=== PATIENT | male | born 1950 | race Caucasian/White ===

== ENCOUNTER → 2017-11-16 10:52 | Outpatient (CLI) | payer MEDICARE, OTHER, SELFPAY ==
[2017-11-16 10:55] LABS: Adenovirus F 40/41, stool Not Detected (NotDetected); Astrovirus Not Detected (NotDetected); Clostridium Difficile A/B, PCR Not Detected (NotDetected); Cryptosporidium Not Detected (NotDetected); Cyclospora Cayetanesis Not Detected (NotDetected); Entamoeba histolytica Not Detected (NotDetected); Enteroaggregative E coli Not Detected (NotDetected); Enteropathogenic E coli Not Detected (NotDetected); Enterotoxigenic E coli Not Detected (NotDetected); Giardia lamblia Not Detected (NotDetected); Norovirus Not Detected (NotDetected); Plesimonas Shigalloides, PCR Not Detected (NotDetected); Rotavirus A Not Detected (NotDetected); Salmonella, PCR Not Detected (NotDetected); Sapovirus Not Detected (NotDetected); Shiga-like toxin E coli Not Detected (NotDetected); Shigella Enterovasive E coli Not Detected (NotDetected); Vibrio Cholerae Not Detected (NotDetected); Vibrio, PCR Not Detected (NotDetected); Yersinia Entercolitica, PCR Not Detected (NotDetected)
[2017-11-16 17:24] LABS: Campylobacter Detected (NotDetected)
== END ==
PROVIDERS: Visit Provider Nurse Practitioner
DX: A09 Infectious gastroenteritis and colitis, unspecified (principal)
CPT/HCPCS: 87507

== ENCOUNTER → 2018-08-05 09:15 | Outpatient (CLI) | payer MEDICARE, OTHER, SELFPAY ==
--- NOTE | 2018-08-05 09:17 | FL_ITS ---
FL barium enema w air contrast CLINICAL INDICATION: ITS.REASON: history of polyps / tortuous colon ORDERING PHYSICIAN: Moise Peck MD PATIENT AGE: 68 years Comparison: None Fluoroscopy time: 3.00 minutes FINDINGS: Payroll Examiner exam shows surgical clips in the right upper quadrant. There are degenerative changes in the lumbar spine. Scattered diverticula are present within the sigmoid colon and distal descending colon. No no annular constricting lesions. There is a persistent lobular filling defect in the mid aspect of the transverse colon at 13 mm possibly due to small polyp. Adherent feces is an additional consideration. No other significant anomalies are evident. IMPRESSION: 1. Possible small polyp in the mid aspect of the transverse colon at 13 mm. 2. No annular constricting lesions. 3. Diverticulosis
== END ==
PROVIDERS: PCP Family Medicine; Visit Provider Surgery
DX: D12.6 Benign neoplasm of colon, unspecified (principal); Q43.8 Other specified congenital malformations of intestine
CPT/HCPCS: 74280

== ENCOUNTER → 2018-10-13 12:47 | Outpatient (CLI) | payer MEDICARE, OTHER, SELFPAY ==
--- NOTE | 2018-10-13 12:51 | CT_ITS ---
CT lung screening EXAM: CT LUNG LOW DOSE WO CONTRAST HISTORY: 30+ pack year smoking history, asymptomatic for lung cancer ITS.REASON: H/O NICOTINE DEPENDENCE ORDERING PHYSICIAN: Nisreen Parra APRN PATIENT AGE: 68 years COMPARISON: None TECHNIQUE: The exam was performed on a GE Light Speed [address] scanner using 2.90 mGy CTDI. A low dose helical CT CHEST was performed on a multi-detector scanner. All CT scans at the facility use one or more dose reduction, viz: automated exposure control, ma/kV adjustment per patient size (including targeted exams where dose is matched to indication, i.e. head), or iterative reconstruction technique. The LDCT was performed in a facility that meets the criteria for the screening program. Data regarding this exam was submitted to ACR which is an approved registry. The order for this exam indicates that it came as a result of a lung cancer screening counseling shard decision-making visit that included all the elements required of such a visit including smoking cessation. The radiologist interpreting this exam meets the CMS criteria for the LDCT lung cancer screening program. The exam is reported using the Lung-RADS classification scale and reported to the ACR registry. NOTE: This study was performed for the specific purposes of lung cancer screening and is not an alternative to diagnostic chest CT. RADIATION DOSE: CTDI vol(CT dose Index-volume) = 2.90mG DLP (Dose Length Product) = 99.97 mGcm FINDINGS: There are few small axillary lymph nodes. There are multiple small mediastinal lymph nodes. There is somewhat saccular aneurysmal dilatation of the aortic arch with protrusion of the left lateral wall of the aorta laterally. The overall transverse dimension of the aorta at this area is 5 cm. There are coronary artery calcifications. Normal heart size. Centrilobular emphysema with changes of COPD and scattered areas of scarring. There is a 7 x 8 mm nodule within the anterior segment of the right upper lobe axial image #37. Although the nodule somewhat dense, definite calcification is not ascertained. An additional 8 x 6 mm noncalcified nodule is present in the right upper lobe medially axial image #29 IMPRESSION: 1. Lung RADS Category: 4A, mildly suspicious 2. 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 [address] without and with contrast 2. Appropriate consult for thoracic aortic aneurysm
== END ==
PROVIDERS: PCP Family Medicine; Visit Provider Nurse Practitioner Family
DX: Z12.2 Encounter for screening for malignant neoplasm of respiratory organs (principal); Z87.891 Personal history of nicotine dependence

== ENCOUNTER → 2018-12-27 15:57 | Outpatient (CLI) | payer MEDICARE, OTHER, SELFPAY ==
--- NOTE | 2018-12-27 16:03 | XR_ITS ---
PROCEDURE: XR CHEST 2V CLINICAL HISTORY: S/P TEVAR Follow-up aortic surgery COMPARISON: CXR CHEST(2 VIEWS-NOT PORTABLE) from 08/17/2012 Chest from 10/25/2018 FINDINGS: Normal heart size. Status post thoracic endovascular aortic repair with a large aortic stent present at the aortic arch and proximal descending thoracic aorta. COPD with chronic changes. Mild atelectatic changes present in the left lung base with minimal blunting of the left CP angle. No acute bony abnormalities. IMPRESSION: Status post TEVAR with mild left basilar atelectasis, COPD, and trace left effusion Dictated by: Larry Alvarado MD 12/27/2018 16:31 Electronically signed by Larry Alvarado MD in [place] 12/27/2018 16:31
== END ==
PROVIDERS: PCP Family Medicine; Visit Provider Thoracic Surgery (Cardiothoracic Vascular Surgery)
DX: Z95.828 Presence of other vascular implants and grafts (principal)
CPT/HCPCS: 71046

== ENCOUNTER → 2019-08-11 10:01 | Outpatient (CLI) | payer MEDICARE, OTHER, SELFPAY ==
[2019-08-11 10:53] LABS: Basophils # 0.1 K/mm3 (0-0.2); Basophils % 1.2 % (0.1-2.0); Eosinophils # 0.2 K/mm3 (0.0-0.4); Eosinophils % 1.7 % (0.1-12.0); Hematocrit 46.8 % (42.0-52.0); Hemoglobin 15.1 g/dL (14.1-18.0); Lymphocytes # 1.9 K/mm3 (0.7-4.5); Lymphocytes % 17.6 % (10-50); Mean Corpuscular HGB Conc 32.3 g/dL (31.8-35.4); Mean Corpuscular Hemoglobin 29.1 pg (27.0-31.2); Mean Corpuscular Volume 90.3 fl (80-94); Mean Platelet Volume 8.8 fl (7.4-10.4); Monocytes # 0.6 K/mm3 (0.1-1.0); Monocytes % 5.6 % (1.7-9.3); Neutrophils # 7.8 K/mm3 (1.8-7.8); Neutrophils % 73.8 % (37.0-80.0); Platelet Count 204 K/mm3 (142-424); Red Blood Count 5.19 M/mm3 (4.60-6.20); Red Cell Distribution Width 14.1 % (11.5-17.5); White Blood Count 10.5 K/mm3 (4.8-10.8)
[2019-08-11 11:15] LABS: Alanine Aminotransferase 29 U/L (12-78); Albumin Level 4.5 g/dl (3.5-5.0); Albumin/Globulin Ratio 1.6 (1.1-1.8); Alkaline Phosphatase 61 U/L (38-126); Anion Gap 14.2 mEq/L (5-15); Aspartate Amino Transferase 22 U/L (17-59); Bilirubin,Total 0.3 mg/dl (0.2-1.3); Blood Urea Nitrogen 30 mg/dl (9-20); Calcium 9.4 mg/dl (8.4-10.2); Carbon Dioxide 22 mmol/L (22.0-30.0); Chloride 104 mmol/L (98-107); Estimated Glomerular Filt Rate 55 ml/min (>60); GFR (African American) 66 ML/MIN (>60); Globulin 2.8 g/dL (1.3-3.2); Glucose 186 mg/dl (74-100); Potassium 4.2 mmoL/L (3.5-5.1); Sodium 136 mmol/L (136-145); Total Protein,Serum 7.3 g/dl (6.3-8.2)
[2019-08-11 11:38] LABS: Erythrocyte Sedimentation Rate 7 mm/hr (0-20)
[2019-08-15 20:34] LABS: QuantiFERON-TB Gold Plus Negative (Negative)
== END ==
PROVIDERS: PCP Family Medicine; Visit Provider Internal Medicine Rheumatology
DX: M05.9 Rheumatoid arthritis with rheumatoid factor, unspecified (principal); I10 Essential (primary) hypertension
CPT/HCPCS: 36415; 80053; 85025; 85651; 86480

== ENCOUNTER → 2019-08-31 09:11 | Outpatient (CLI) | payer MEDICARE, OTHER, SELFPAY ==
[2019-08-31 09:41] LABS: Blood Urea Nitrogen 32 mg/dl (9-20); Estimated Glomerular Filt Rate 50 ml/min (>60); GFR (African American) 61 ML/MIN (>60)
--- NOTE | 2019-08-31 10:02 | CT_ITS ---
PROCEDURE: CT CHEST WO/W CON CLINCAL INDICATION: THORACIC ANEURYSM,LUNG NODULE Follow-up aneurysm COMPARISON: CT ANGIO CHEST from 01/30/2019 CT ABDOMEN PELVIS WO/W CON from 08/31/2019 TECHNIQUE: IV Contrast: 75ml Optiray 350 Axial images obtained with sagittal and coronal reformats. All CT scans at the facility use one or more dose reduction, viz: automated exposure control, ma/kV adjustment per patient size (including targeted exams where dose is matched to indication, i.e. head), or iterative reconstruction technique. FINDINGS: Prior aneurysm repair with aortic stent graft present within the descending thoracic aorta beginning just distal to the origin of the left subclavian artery and extending to the mid aspect of the descending thoracic aorta. There is mild dilatation of the proximal aspect of the descending thoracic aorta at 4.7 cm similar to the previous exam. The internal diameter of the stent graft is 4 cm similar to the previous exam. The ascending aorta has an unremarkable appearance. Coronary artery calcifications are present. There are mildly prominent mediastinal lymph nodes noted similar to the previous exam mostly in the precarinal and pretracheal region and subcarinal area. Changes of COPD with centrilobular emphysema. Scattered small pneumatocele is a with some pleural thickening on the right. No acute bony findings. Mildly prominent axillary lymph nodes are once again noted and not significantly changed IMPRESSION: Overall stable CT appearance of the chest. No change in the prior aneurysm repair with mild dilatation of the proximal descending thoracic aorta Mild mediastinal and axillary adenopathy not significantly changed Dictated by: Larry Alvarado MD 09/01/2019 09:52 Electronically signed by Larry Alvarado MD in [place] 09/01/2019 09:52
--- NOTE | 2019-08-31 10:02 | CT_ITS ---
PROCEDURE: CT ABDOMEN PELVIS WO/W CON CLINICAL INDICATION: THORACIC ANEURYSM,LUNG NODULE Follow-up aneurysm COMPARISON: No exams were available for comparison TECHNIQUE: IV Contrast: 75ML OPTIRAY 350 Oral Contrast 20ml Gastroview Axial images obtained with sagittal and coronal reformats. All CT scans at the facility use one or more dose reduction, viz: automated exposure control, ma/kV adjustment per patient size (including targeted exams where dose is matched to indication, i.e. head), or iterative reconstruction technique. FINDINGS: There are extensive coronary artery calcifications. The liver, gallbladder, spleen, adrenal glands, pancreas, has an unremarkable appearance. There has been a prior right nephrectomy. There are nonobstructing calculi in the lower pole of the left kidney versus vascular calcifications measuring up to 4 mm. No ureteral calculi. No hydronephrosis. There is an exophytic hypodensity to the projecting off the lower pole of the left kidney posteriorly at 1.8 cm measuring 10 Hounsfield units and may be due to small cyst with other smaller cortical cysts noted. There has been prior aortoiliac stent placement. There is mild dilatation of the lower abdominal aorta at 3 cm. The aorta tapers to 2.6 cm at the bifurcation region. There is fusiform aneurysmal dilatation of the [place] right common iliac artery measuring up to 4.4 cm transverse. Bilateral common iliac artery stents are present with minimal dilatation of the distal aspect of the right common iliac artery stent at 2.2 cm. There are no previous exams available at this institution for comparison. There is no evidence of acute retroperitoneal hemorrhage. The superior mesenteric artery and celiac artery and renal arteries have an unremarkable appearance. The aortoiliac stent begins just below the level of the left renal artery and 1.2 cm below the level of the right renal artery. Prior appendectomy. There is colonic diverticulosis but no evidence of diverticulitis. No intestinal obstruction or free air. There are degenerative changes of the lumbar spine and hips and SI joints. There is some increased soft tissue density in the right iliac region which may be due to prior hernia repair IMPRESSION: 1. Prior aortoiliac stent placement for aortic and right common iliac artery aneurysm as described above. There is 3 cm dilatation of the [place] aorta. The [place] right common iliac artery measures 4.4 cm. No evidence of stent leak. 2. Prior right nephrectomy. 3. Exophytic hypodensity projects off the posterior aspect of the left kidney and may be due to renal cyst. Ultrasound may confirm 4. Colonic diverticulosis without diverticulitis Dictated by: Larry Alvarado MD 09/01/2019 10:01 Electronically signed by Larry Alvarado MD in [place] 09/01/2019 10:01
== END ==
PROVIDERS: PCP Family Medicine; Visit Provider Thoracic Surgery (Cardiothoracic Vascular Surgery)
DX: I71.2 Thoracic aortic aneurysm, without rupture (principal); I72.3 Aneurysm of iliac artery
CPT/HCPCS: 36415; 71270; 74178; 82565; 84520; Q9967

== ENCOUNTER → 2019-09-27 15:37 | Outpatient (CLI) | payer MEDICARE, OTHER, SELFPAY ==
--- NOTE | 2019-09-27 15:43 | CA_ITS ---
APPROVED REPORT Bilateral Lower Extremity Venous Study for DVT. Interior Design Project Manager: IVET Indications Lower Extremity Pain: Vein Imaging CFV (L): compressive, spontaneous, phasic, augmentation SFJ (L): compressive, spontaneous, phasic, augmentation FEM (L): compressive, spontaneous, phasic, augmentation POP (L): compressive, spontaneous, phasic, augmentation DFV (L): compressive, spontaneous, phasic, augmentation PTV (L): Compressible GSV (L): Compressible Peroneals (L):Compressible GAS (L): Compressible Findings No evidence of DVT or superficial thrombophlebitis in the veins scanned of the left lower extremity. Incidental finding of bakers cyst reported to Dr. Rodrigues Conclusion No evidence of DVT or superficial thrombophlebitis in the veins scanned of the left lower extremity. Electronically signed by : Fausto Joyner, 09/29/2019 09:19:16
== END ==
PROVIDERS: PCP Family Medicine; Visit Provider Family Medicine
DX: M79.605 Pain in left leg (principal)
CPT/HCPCS: 93971

== ENCOUNTER → 2020-01-03 11:50 | Outpatient (CLI) | payer MEDICARE, OTHER, SELFPAY ==
--- NOTE | 2020-01-03 11:55 | XR_ITS ---
PROCEDURE: XR CHEST 2V CLINICAL HISTORY: COPD Cough and shortness of air, smoker COMPARISON: CR Chest from 10/25/2018 CR XR CHEST 2V from 12/27/2018 CR XR CHEST 2V from 01/30/[address] CHEST WO/W CON from 08/31/2019 FINDINGS: Aortic graft is present along the aortic arch and proximal descending thoracic aorta. Atelectasis or infiltrate is present in the lingula with chronic atelectatic changes in the right upper lobe. No acute bony abnormalities. IMPRESSION: New atelectasis or infiltrate within the lingula with chronic changes in the right upper lobe. Dictated by: Larry Alvarado MD 01/03/2020 12:43 Larry Alvarado MD in [place] 01/03/2020 12:43
== END ==
PROVIDERS: PCP Family Medicine; Visit Provider Family Medicine
DX: M17.12 Unilateral primary osteoarthritis, left knee (principal); J44.9 Chronic obstructive pulmonary disease, unspecified
CPT/HCPCS: 71046

== ENCOUNTER 2020-07-26 15:55 | Emergency (ER) | payer MEDICARE, OTHER, SELFPAY ==
[2020-07-26 15:57] VITALS: BP 163/96; PULSE 76; RESP 18; TEMP 36.7; O2SAT 95; BMI 27.4
--- NOTE | 2020-07-26 16:29 | CA_ITS ---
APPROVED REPORT Bilateral Lower Extremity Venous Study for DVT. Crab Picker: KEITH Indications Left pain, swelling, r/o dvt, previous DVT on bloodthinners, 4 wk post op, acute injury with fall Vein Imaging CFV (L): compressive, spontaneous, phasic, augmentation FEM (L): compressive, spontaneous, phasic, augmentation POP (L): compressive, spontaneous, phasic, augmentation DFV (L): compressive, spontaneous, phasic, augmentation PTV (L): compressive, spontaneous, phasic, augmentation GSV (L): compressive, spontaneous, phasic, augmentation SSV (L): compressive, spontaneous, phasic, augmentation Peroneals (L):compressive, spontaneous, phasic, augmentation GAS (L): compressive, spontaneous, phasic, augmentation Findings No evidence of DVT or superficial thrombophlebitis in the veins scanned of the left lower extremity. Color flow duplex demonstrates no evidence of DVT of the following left lower extremity Veins:Common Femoral Vein, Femoral Vein, Popliteal Vein, Posterior Tibial Veins, Peroneal Veins, Deep Femoral Vein. Conclusion No evidence of DVT or superficial thrombophlebitis in the veins scanned of the left lower extremity. Color flow duplex demonstrates no evidence of DVT of the following left lower extremity Veins:Common Femoral Vein, Femoral Vein, Popliteal Vein, Posterior Tibial Veins, Peroneal Veins, Deep Femoral Vein. Electronically signed by : Larry Alvarado MD 07/27/2020 17:47:57
--- NOTE | 2020-07-26 16:29 | XR_ITS ---
PROCEDURE: XR TIBIA FIBULA LT 2V CLINICAL INDICATION: injury Pain COMPARISON: No exams were available for comparison FINDINGS: No fracture or dislocation. No lytic or blastic change. There is normal mineralization. Status post total knee replacement which is in good position. Other findings:None. IMPRESSION: No acute findings. Dictated by: Larry Alvarado MD 07/26/2020 17:07 Larry Alvarado MD in [place] 07/26/2020 17:07
[2020-07-26 16:30] VITALS: BP 154/86; PULSE 68; RESP 20; O2SAT 94
--- NOTE | 2020-07-26 16:31 | HMH.EDGENADL ---
ED Disposition Clinical Impression: Hematoma of left lower leg Disposition: Home, Self-Care Condition on Discharge: Good Additional Instructions: Continue elevation, ice, compression. Tylenol for pain. Return to the emergency department if worsening pain, swelling, or fever greater than 100 degrees. Follow-up with primary care doctor if not improved by next week. Referrals: Master Hanley MD [Primary Care Provider] - - Critical Care Critical Care Time: No Attestation: On 07/26/20, the high probability of a clinically significant, sudden or life threatening deterioration of the following system(s) required my full and direct attention, intervention and personal management. The time I documented below is in addition to time spent performing reported procedures but includes the following listed in this critical care notation. Medical Decision Making - Fco Inquiry Pt receiving controlled substance: No Vital Signs: 07/26/20 15:57 07/26/20 16:30 07/26/20 17:18 Temperature 98.1 F Temperature Source Oral Pulse Rate 68 69 Pulse Rate [Left Radial] 76 Respiratory Rate 18 20 Blood Pressure 154/86 H 137/74 Blood Pressure [Right Arm] 163/96 H Blood Pressure Mean 103 Blood Pressure Mean [Right Arm] 118 Blood Pressure Source [Right Arm] Automatic Cuff Blood Pressure Position [Right Arm] Sitting 02 Sat by Pulse Oximetry 95 94 L 95 Oxygen Delivery Method Room Air 07/26/20 17:30 Temperature Temperature Source Pulse Rate 65 Pulse Rate [Left Radial] Respiratory Rate Blood Pressure 144/73 H Blood Pressure [Right Arm] Blood Pressure Mean 94 Blood Pressure Mean [Right Arm] Blood Pressure Source [Right Arm] Blood Pressure Position [Right Arm] 02 Sat by Pulse Oximetry 96 Oxygen Delivery Method - Lab Data Lab Results 07/26/20 16:40: WBC 10.6, RBC 5.36, Hgb 14.9, Hct 45.3, MCV 84.6, MCH 27.7, MCHC 32.8, RDW 15.8, Plt Count 199, MPV 8.1, Neut % (Auto) 67.7, Lymph % (Auto) 25.2, [place] % (Auto) 4.1, Eos % (Auto) 2.2, Baso % (Auto) 0.8, Neut # (Auto) 7.2, Lymph # (Auto) 2.7, [place] # (Auto) 0.4, Eos # (Auto) 0.2, Baso # (Auto) 0.1 07/26/20 16:40: Sodium 140, Potassium 3.8, Chloride 107, Carbon Dioxide 23, Anion Gap 13.8, BUN 24 H, Creatinine 1.60 H, Estimated Creat Clear 58, Estimated GFR 43 L, Est GFR ( Amer) 52 L, Glucose 173 H, Calcium 9.2 Result diagrams: 07/26/20 16:40 07/26/20 16:40 - Radiology Data #1 Image(s): Tib/Fib Image Reviewed: Yes I reviewed the patient's radiology image, Yes I have reviewed radiologist's interpretation PROCEDURE: XR TIBIA FIBULA LT 2V CLINICAL INDICATION: injury Pain COMPARISON: No exams were available for comparison FINDINGS: No fracture or dislocation. No lytic or blastic change. There is normal mineralization. Status post total knee replacement which is in good position. Other findings:None. IMPRESSION: No acute findings. Dictated by: Larry Alvarado MD 07/26/2020 17:07 Larry Alvarado MD in [place] 07/26/2020 17:07 - US Data US Images: Lower Extremity Findings Narrative: As per [facility] procedure, doppler report received from geotechnicial properties technician: Negative for DVT. Prominent inguinal lymph nodes. Medical Decision Narrative: The patient is worried about infection. At this time I do not find any evidence to support infection. He does not have fever or elevated white blood cell count. There are no open wounds. I think the soft tissues are inflamed from hematoma formation. I do not feel antibiotics are indicated and he is comfortable with this. He will observe at home, elevate ice and apply compression and return if any fever develops. General Adult HPI - General Chief complaint: Extremity Injury, Lower Stated complaint: [id number] metal stake hit, left leg swollen Time Seen by Provider: 07/26/20 16:20 Mode of Arrival: Ambulatory Limitations: No Limitations Description of Symptoms (Recalled from ER Triage Doc.
[2020-07-26 16:52] LABS: Basophils # 0.1 K/mm3 (0-0.2); Basophils % 0.8 % (0.1-2.0); Eosinophils # 0.2 K/mm3 (0.0-0.4); Eosinophils % 2.2 % (0.1-12.0); Hematocrit 45.3 % (42.0-52.0); Hemoglobin 14.9 g/dL (14.1-18.0); Lymphocytes # 2.7 K/mm3 (0.7-4.5); Lymphocytes % 25.2 % (10-50); Mean Corpuscular HGB Conc 32.8 g/dL (31.8-35.4); Mean Corpuscular Hemoglobin 27.7 pg (27.0-31.2); Mean Corpuscular Volume 84.6 fl (80-94); Mean Platelet Volume 8.1 fl (7.4-10.4); Monocytes # 0.4 K/mm3 (0.1-1.0); Monocytes % 4.1 % (1.7-9.3); Neutrophils # 7.2 K/mm3 (1.8-7.8); Neutrophils % 67.7 % (37.0-80.0); Platelet Count 199 K/mm3 (142-424); Red Blood Count 5.36 M/mm3 (4.60-6.20); Red Cell Distribution Width 15.8 % (11.5-17.5); White Blood Count 10.6 K/mm3 (4.8-10.8)
--- NOTE | 2020-07-26 17:00 | PC.NURSE ---
pt had doppler done by vascular.
[2020-07-26 17:18] VITALS: BP 137/74; PULSE 69; O2SAT 95
[2020-07-26 17:30] VITALS: BP 144/73; PULSE 65; O2SAT 96
[2020-07-26 17:32] LABS: Chloride 107 mmol/L (98-107); Potassium 3.8 mmoL/L (3.5-5.1); Sodium 140 mmol/L (136-145)
[2020-07-26 17:35] LABS: Blood Urea Nitrogen 24 mg/dl (9-20); Creatinine Clearance Estimated 58 mL/min (50-200); Estimated Glomerular Filt Rate 43 ml/min (>60); GFR (African American) 52 ML/MIN (>60)
[2020-07-26 17:36] LABS: Anion Gap 13.8 mEq/L (5-15); Calcium 9.2 mg/dl (8.4-10.2); Carbon Dioxide 23 mmol/L (22.0-30.0); Glucose 173 mg/dl (74-100)
[2020-07-26 17:54] VITALS: BP 144/73; PULSE 65; RESP 20; TEMP 36.7; O2SAT 96
== END 2020-07-26 18:00 | disposition home or self-care (01) ==
PROVIDERS: Emergency Provider Emergency Medicine; PCP Family Medicine
DX: S80.12XA Contusion of left lower leg, initial encounter (principal); W22.8XXA Striking against or struck by other objects, initial encounter; Y92.018 Other place in single-family (private) house as the place of occurrence of the external cause; Z96.652 Presence of left artificial knee joint; E11.9 Type 2 diabetes mellitus without complications; I10 Essential (primary) hypertension; F17.210 Nicotine dependence, cigarettes, uncomplicated; Z88.2 Allergy status to sulfonamides; Z79.899 Other long term (current) drug therapy
CPT/HCPCS: 73590; 80048; 85025; 93971; 99282

== ENCOUNTER → 2020-12-06 14:18 | Outpatient (CLI) | payer MEDICARE, OTHER, SELFPAY ==
--- NOTE | 2020-12-06 14:21 | US_ITS ---
PROCEDURE: US KIDNEY CLINICAL INDICATION: ANALGESIC NEPHROPATHY,SINGLE KIDNEY COMPARISON: No exams were available for comparison FINDINGS: The right kidney is surgically absent the spleen is normal in size and shows homogeneous echogenicity. There are few scattered opacities throughout the spleen suggestive of partially calcified granulomata. The left kidney measures 13.7 x 5.6 x 6.1 cm. There is a good corticomedullary junction and renal thickness measures 1.3 cm. There is no hydronephrosis. There is a small exophytic cyst lower pole measuring 1.5 by 1.9 x 1.5 cm. There is normal vascularity. IMPRESSION: Small exophytic cyst lower pole otherwise unremarkable appearing left kidney Dictated by: Dr. Osmar Jay MD 12/07/2020 13:41 Dr. Osmar Jay MD in [place] 12/07/2020 13:41
== END ==
PROVIDERS: PCP Family Medicine; Visit Provider Internal Medicine Nephrology
DX: N14.0 Analgesic nephropathy (principal); Z90.5 Acquired absence of kidney
CPT/HCPCS: 76770

== ENCOUNTER → 2021-02-01 09:24 | Outpatient (CLI) | payer MEDICARE, OTHER, SELFPAY ==
[2021-02-01 09:29] LABS: Microscopic, Urine URINE MICROSCOPIC (MICROSCOPIC)
[2021-02-01 09:53] LABS: Basophils # 0.1 K/mm3 (0-0.2); Eosinophils # 0.5 K/mm3 (0.0-0.4); Eosinophils % 4.1 % (0.1-12.0); Hematocrit 46.2 % (42.0-52.0); Hemoglobin 15.3 g/dL (14.1-18.0); Lymphocytes # 4.8 K/mm3 (0.7-4.5); Lymphocytes % 39.8 % (10-50); Mean Corpuscular Hemoglobin 29.3 pg (27.0-31.2); Mean Corpuscular Volume 88.7 fl (80-94); Mean Platelet Volume 8.6 fl (7.4-10.4); Monocytes # 0.5 K/mm3 (0.1-1.0); Monocytes % 4.4 % (1.7-9.3); Neutrophils # 6.1 K/mm3 (1.8-7.8); Neutrophils % 50.6 % (37.0-80.0); Platelet Count 199 K/mm3 (142-424); Red Blood Count 5.21 M/mm3 (4.60-6.20); Red Cell Distribution Width 14.2 % (11.5-17.5); White Blood Count 12.1 K/mm3 (4.8-10.8)
[2021-02-01 10:23] LABS: Hemoglobin A1C 6.7 % (4.0-6.0)
[2021-02-01 11:10] LABS: Albumin Level 4.1 g/dl (3.5-5.0); Blood Urea Nitrogen 18 mg/dl (9-20); Calcium 9.2 mg/dl (8.4-10.2); Carbon Dioxide 23 mmol/L (22.0-30.0); Chloride 107 mmol/L (98-107); Estimated Glomerular Filt Rate 55 ml/min (>60); GFR (African American) 66 ML/MIN (>60); Glucose 133 mg/dl (74-100); Phosphorous 3.3 mg/dl (2.5-4.5); Sodium 140 mmol/L (136-145); Uric Acid 6.7 mg/dl (3.5-8.5)
[2021-02-01 11:19] LABS: Intact Parathyroid Hormone 60.8 pg/mL (7.5-53.5)
[2021-02-01 11:30] LABS: Anion Gap 14.2 mEq/L (5-15); Potassium 4.2 mmoL/L (3.5-5.1)
[2021-02-01 14:23] LABS: Appearance,Urine CLEAR (Clear); Bilirubin,Urine Negative (Negative); Blood, Urine Negative (Negative); Color,Urine DK YELLOW (Yellow); Glucose,Urine (UA) Negative (Negative); Ketones,Urine Negative (Negative); Leukocyte Esterase,Urine Negative (Negative); Nitrate,Urine Negative (Negative); Protein,Urine 3+ (Negative); Specific Gravity, Urine >= 1.030 (1.005-1.030); Urobilinogen,Urine 0.2 EU/dl (0.2)
== END ==
PROVIDERS: Visit Provider Internal Medicine Nephrology
DX: N18.30 Chronic kidney disease, stage 3 unspecified (principal); E11.9 Type 2 diabetes mellitus without complications
CPT/HCPCS: 36415; 80069; 81001; 83036; 83970; 84550; 85025

== ENCOUNTER → 2021-04-24 11:58 | Outpatient (CLI) | payer MEDICARE, OTHER, SELFPAY ==
--- NOTE | 2021-04-24 12:13 | US_ITS ---
FINAL REPORT CLINICAL HISTORY: MASS OF LT AXILLA-- palp area FINDINGS: Sonographic images of the left axilla were obtained. Multiple soft tissue masses are seen in the left axilla, largest measures 5.5 x 1.6 cm. Some of these likely represent enlarging lymph nodes all of them may represent enlarging lymph nodes. Appearance is most worrisome for neoplastic involvement. IMPRESSION: Soft tissue masses as above most worrisome for neoplastic involvement. Reviewed, Interpreted and Dictated by Eder Hopkins III, MD Transcribed by Kelly Anderson Authenticated by Eder Hopkins III, MD on 04/24/2021 01:47:17 PM [facility]
== END ==
PROVIDERS: PCP Internal Medicine Adolescent Medicine; Visit Provider Internal Medicine Adolescent Medicine
DX: R22.32 Localized swelling, mass and lump, left upper limb (principal)
CPT/HCPCS: 76882

== ENCOUNTER → 2021-05-01 10:08 | Outpatient (CLI) | payer MEDICARE, OTHER, SELFPAY ==
[2021-05-01 12:01] LABS: Blood Urea Nitrogen 25 mg/dl (9-20); Estimated Glomerular Filt Rate 50 ml/min (>60); GFR (African American) 61 ML/MIN (>60)
== END ==
PROVIDERS: PCP Internal Medicine Adolescent Medicine; Visit Provider Internal Medicine Adolescent Medicine
DX: Z01.812 Encounter for preprocedural laboratory examination (principal)
CPT/HCPCS: 36415; 82565; 84520

== ENCOUNTER → 2021-05-03 09:29 | Outpatient (CLI) | payer MEDICARE, OTHER, SELFPAY ==
--- NOTE | 2021-05-03 09:32 | CT_ITS ---
FINAL REPORT CLINICAL HISTORY: MASS OF LEFT AXILLA COMPARISON: August 31, 2019 FINDINGS: The lung bases are clear. There is scattered calcified granulomas in the liver and spleen. The spleen is mildly enlarged. The gallbladder is present. The adrenals are normal. The pancreas is unremarkable. The right kidney is surgically absent. The left kidney enhances appropriately. An abdominal aortic endo graft is present. There is some abnormal enhancement in the excluded aneurysm lumen and this enhancement is well seen on image 62 of series 9. This is concerning for an endoleak apparently arising from the OMLAN. This finding is similar to that seen previously. The abdominal aorta measures up to 3.2 cm in diameter. There has been an increase in upper abdominal adenopathy. Portal lymph node measures 2.4 cm, increased over 1.5 cm. A periaortic lymph node measures 1.8 cm, increased over 1.3 cm. Precontrast images demonstrate no nephrolithiasis. Again noted is a significant right common iliac artery aneurysm measuring 4.3 cm in diameter and is unchanged from previous. There are surgical clips in the right lower quadrant. The appendix is not seen. There is moderate sigmoid diverticulosis without diverticulitis. IMPRESSION: Mild splenomegaly. Abdominal aortic endo graft with endoleak from the [place], no change from previous. 4.3 cm right common iliac artery aneurysm, no change from previous. Increased nonspecific abdominal adenopathy. Please see report of chest CT. PET scan would be of value. Reviewed, Interpreted and Dictated by Marcin Aguirre MD Transcribed by Miguelina Lozoya Authenticated by Marcin Aguirre MD on 05/03/2021 02:18:[address] [facility]
--- NOTE | 2021-05-03 09:32 | CT_ITS ---
FINAL REPORT TECHNIQUE: Axial images through the chest were performed by computed tomography before and after the administration of IV contrast. This study was performed with techniques to keep radiation doses as low as reasonably achievable, (ALARA). Individualized dose reduction techniques using automated exposure control or adjustment of mA and/or kV according to the patient's size were employed. CLINICAL HISTORY: MASS OF LEFT AXILLA COMPARISON: August 31, 2019 and ultrasound dated April 24, 2021 FINDINGS: The mediastinal vasculature is adequately opacified. There is a thoracic aortic endo graft in the arch. There is moderate mediastinal adenopathy and bilateral hilar adenopathy. Hilar lymph nodes measure up to 3.0 x 1.7 cm, which is similar to previous. However, there is significant enlargement of bilateral axillary lymph nodes. Individual lymph nodes now measure up to 4.0 cm in greatest dimension. Adenopathy is seen bilaterally which is new since the previous exam. The heart size is normal. There is no pericardial or pleural effusion. Limited images of the upper abdomen are unremarkable. In the lung window images there is some mild dependent edema and atelectasis at the lung bases. There is a small nodule in the periphery of the right upper lobe measuring about 4 mm which is less evident than previous. This is seen on image 36 of series 8. IMPRESSION: Interval development of extensive bilateral axillary adenopathy. Findings are concerning for underlying neoplasia, lymphoma is a consideration. A PET-CT may be of value to better assess the full extent of disease. Reviewed, Interpreted and Dictated by Marcin Aguirre MD Transcribed by Miguelina Lozoya Authenticated by Marcin Aguirre MD on 05/03/2021 02:18:56 PM [facility]
== END ==
PROVIDERS: PCP Internal Medicine Adolescent Medicine; Visit Provider Internal Medicine Adolescent Medicine
DX: R22.32 Localized swelling, mass and lump, left upper limb (principal)
CPT/HCPCS: 71270; 74178; Q9967

== ENCOUNTER → 2021-06-18 14:12 | Outpatient (CLI) | payer MEDICARE, OTHER, SELFPAY | PROVIDERS: PCP Surgery; Visit Provider Surgery | DX: Z01.812 Encounter for preprocedural laboratory examination (principal); Z11.52 Encounter for screening for COVID-19 | CPT/HCPCS: C9803; U0003; U0005 ==

== ENCOUNTER → 2021-06-19 11:21 | Outpatient (CLI) | payer MEDICARE, OTHER, SELFPAY ==
[2021-06-19 12:49] LABS: Basophils # 0.2 K/mm3 (0-0.2); Basophils % 1.2 % (0.1-2.0); Chloride 109 mmol/L (98-107); Eosinophils # 0.9 K/mm3 (0.0-0.4); Eosinophils % 6.5 % (0.1-12.0); Hematocrit 49.3 % (42.0-52.0); Hemoglobin 15.9 g/dL (14.1-18.0); Lymphocytes # 7.4 K/mm3 (0.7-4.5); Mean Corpuscular HGB Conc 32.2 g/dL (31.8-35.4); Mean Corpuscular Hemoglobin 28.8 pg (27.0-31.2); Mean Corpuscular Volume 89.5 fl (80-94); Mean Platelet Volume 9.9 fl (7.4-10.4); Monocytes # 0.6 K/mm3 (0.1-1.0); Monocytes % 3.9 % (1.7-9.3); Neutrophils # 5.2 K/mm3 (1.8-7.8); Neutrophils % 36.4 % (37.0-80.0); Platelet Count 176 K/mm3 (142-424); Potassium 4.1 mmoL/L (3.5-5.1); Red Blood Count 5.51 M/mm3 (4.60-6.20); Red Cell Distribution Width 14.8 % (11.5-17.5); Sodium 141 mmol/L (136-145); White Blood Count 14.3 K/mm3 (4.8-10.8)
[2021-06-19 12:52] LABS: Anion Gap 12.1 mEq/L (5-15); Blood Urea Nitrogen 28 mg/dl (9-20); Calcium 8.2 mg/dl (8.4-10.2); Carbon Dioxide 24 mmol/L (22.0-30.0); Estimated Glomerular Filt Rate 40 ml/min (>60); GFR (African American) 48 ML/MIN (>60); Glucose 118 mg/dl (74-100)
[2021-06-19 12:55] LABS: MANUAL DIFFERENTIAL MANUAL DIFFERENTIAL (MANUAL DIFF)
[2021-06-19 15:00] LABS: Eosinophils % 5 % (0-3); Lymphocytes % 40 % (10-50); Monocytes % 2 % (2-9); Neutrophils % 53 % (42-76); Total Cells Counted 100
[2021-06-19 15:01] LABS: Platelet Estimate Normal
== END ==
PROVIDERS: Visit Provider Surgery
DX: C91.10 Chronic lymphocytic leukemia of B-cell type not having achieved remission (principal)
CPT/HCPCS: 36415; 80048; 85007; 85025

== ENCOUNTER 2021-06-20 08:21 | Day surgery (SDC) | payer MEDICARE, OTHER, SELFPAY ==
[2021-06-18 13:41] VITALS: BMI 28.8
[2021-06-20] VITALS (10 sets, daily range): BP systolic 149–167; BP diastolic 70–98; PULSE 61–67; RESP 14–18; TEMP 36.4–36.6; O2SAT 93–98
--- NOTE | 2021-06-20 08:45 | SUR.PREOP ---
Dr. Peck made aware of WBC 14.3, no new orders.
--- NOTE | 2021-06-20 08:53 | P.PN_ITS ---
[facility] Anesthesia Checklist - Patient Identification Patient Identification: Arm Band - Structural Data Admitted From: Home Planned Operative Procedure/s: Axillary node excision Consent for Planned Operative Procedure(s) Verified: Yes - NPO Status Verified Time NPO: 00:00 - Additional verifications Anesthesia Reactions: No Hx Blood Transfusions: No Blood Transfusion Reaction: No - Airway Assessment C-Spine Mobility Assessed: Yes TMJ Mobility Assessed: Yes Dentition: Poor Dentition - Neurological Assessment Level of Consciousness: Awake Hx Seizures: No Numbness or tingling in extremities: No - Anesthesia Plan Anesthesia Risk discussed: Yes Anesthesia Plan: Verified ASA Class: III Anesthesia Type: General [facility] History I have reviewed the patient's past medical history: Yes Medical History: Reports:: Aneurysm (Aortic/ R. Iliac), Cancer, Deep Vein Thrombosis, Diabetes Mellitus Type 2, Hypertension Denies:: Diabetes Mellitus Type 1, Internal Pacemaker, Lung Disease, Seizures *Have you ever received a pneumonia vaccine?: Yes *Have you received a flu vaccine this season?: No Other Medical History: Reports: Arthritis. Denies: Blood Transfusion Reaction Anesthesia experience/problems:: None Laterality Cases: Bilateral: Other Other Surgeries: Yes: Appendectomy, Colonoscopy, Hernia Repair, Sinus Surgery, Other. No: Pacemaker Amputation: No Fractures: No - *Social History Last grade of school completed: Advanced degree Smoking Status: Current some day smoker Tobacco Type: cigarettes # Packs/Day (cigarettes): 1 Alcohol Intake: current Alcohol Intake Frequency:: holidays/special occasions only Substance Use Type: denies use *Occupational Status:: employed Housing: house *Travel in the last 8 weeks: None Family Hx:: Heart Attack
--- NOTE | 2021-06-20 10:08 | HMH.OPNOTE ---
Date of procedure: 06/20/21 Pre-op Diagnosis:: Bilateral axillary adenopathy Post-op Diagnosis:: Same Procedure performed:: Excisional biopsy of left axillary lymph nodes Surgeon:: Moise Peck MD CUSTOMER [employer] CHAIN ANALYST:: Julián Duffy Anesthesia: LMA Estimated blood loss (mL): 25 Operative findings:: Complex and large matted lymph nodes within left axilla #10 flat Jay-Duvall drain placed secondary to extent of dissection Operative note:: After informed consent was obtained the patient was taken to the operating room and placed in the supine position. General anesthesia with laryngeal mask airway was achieved. His left axilla was prepped and draped in a sterile fashion. After infiltration local anesthetic an incision was made overlying the palpable abnormality. The deep subcutaneous tissue was dissected with electrocautery. Enlarged/matted lymphatic tissue was noted throughout the left axilla. A single lymphatic mass was carefully elevated and dissected free from surrounding tissue utilizing electrocautery. The mass was divided and placed in both RPMI solution and formalin. An additional enlarged lymph node was noted to be immediately adjacent. This was carefully elevated and dissected free. It was also placed in RPMI solution after excision. A combination of electrocautery and clips were utilized to achieve hemostasis. A #10 flat Jay-Duvall drain was placed along the wound base and exited through a separate stab incision. The drain was secured with interrupted nylon suture. Skin was then closed in an interrupted mattress fashion utilizing 4-0 nylon. Dressings were applied and the patient was transferred recovery in stable condition. Condition: stable Disposition: PACU Specimens:: Left axillary lymph node (partial specimen in RPMI solution and partial specimen in formalin) Additional left axillary tissue (RPMI solution) Complications:: No immediate
--- NOTE | 2021-06-20 10:17 | HMH.ANESI ---
[facility] Anesthesia Record Part I Intake, IV Amount: 800 Estimated blood loss (mL): 10 Urine output (mL): 0 Blood Pressure: 149/91 SaO2: 94 Pulse Rate: 63 Respiratory Rate: 16 Temperature: 97.8 F Patient is:: Drowsy, Stable Stable to PACU at:: 10:15
[2021-06-20 10:24] LABS: POC Glucose,Bedside 94 (70-110)
--- NOTE | 2021-06-20 10:51 | SUR.PHASEI ---
1044- detailed repot called to jaya tracey in post op at this time. 1046- pt left in stable condition with jaya tracey in post op.
--- NOTE | 2021-06-20 13:25 | P.PN_ITS ---
[facility] Anesthesia Record Part II Discharge Time: 10:45 Destination: Surgical Day Care (OP Surgery) PACU nurse assessment reviewed?: Yes Patient Condition:: Good Anesthesia Complications:: None Swallowing reflex intact?: Yes Cyanosis?: No Blood Pressure: 150/70 Pulse Rate: 64 Temperature: 97.5 F Mental Status: Alert & Oriented Pain level:: 0 Nausea and/or vomitting:: None Intake, IV Amount: 0
[2022-01-02 10:58] LABS: POC Glucose,Bedside 87 (70-110)
== END 2021-06-20 11:45 | disposition home or self-care (01) ==
LOC: OR 08:22
PROVIDERS: PCP Internal Medicine Adolescent Medicine; Visit Provider Surgery
DX: Z85.6 Personal history of leukemia (principal); R59.0 Localized enlarged lymph nodes; E11.9 Type 2 diabetes mellitus without complications; I10 Essential (primary) hypertension; Z86.718 Personal history of other venous thrombosis and embolism; Z90.49 Acquired absence of other specified parts of digestive tract; Z72.0 Tobacco use; Z82.3 Family history of stroke; Z88.1 Allergy status to other antibiotic agents; Z88.2 Allergy status to sulfonamides; Z79.899 Other long term (current) drug therapy; Z79.82 Long term (current) use of aspirin
CPT/HCPCS: 38500; 82962; 88305; 88342; 88360; 96374; J2405

== ENCOUNTER 2021-08-08 08:18 | Outpatient (CLI) | payer MEDICARE, OTHER, SELFPAY ==
[2021-08-08] VITALS (18 sets, daily range): BP systolic 139–175; BP diastolic 74–95; PULSE 58–79; RESP 18; O2SAT 96; BMI 29.5
[2021-08-08 08:45] LABS: Basophils # 0.5 K/mm3 (0-0.2); Basophils % 2.5 % (0.1-2.0); Eosinophils # 1.5 K/mm3 (0.0-0.4); Eosinophils % 7.6 % (0.1-12.0); Hematocrit 47.9 % (42.0-52.0); Hemoglobin 16.1 g/dL (14.1-18.0); Lymphocytes # 11.3 K/mm3 (0.7-4.5); Lymphocytes % 57.6 % (10-50); Mean Corpuscular HGB Conc 33.6 g/dL (31.8-35.4); Mean Corpuscular Hemoglobin 29.9 pg (27.0-31.2); Mean Corpuscular Volume 88.9 fl (80-94); Monocytes # 0.8 K/mm3 (0.1-1.0); Neutrophils # 5.6 K/mm3 (1.8-7.8); Neutrophils % 28.3 % (37.0-80.0); Platelet Count 180 K/mm3 (142-424); Red Blood Count 5.39 M/mm3 (4.60-6.20); Red Cell Distribution Width 14.9 % (11.5-17.5); White Blood Count 19.7 K/mm3 (4.8-10.8)
[2021-08-08 08:47] LABS: Chloride 108 mmol/L (98-107); Sodium 139 mmol/L (136-145)
[2021-08-08 08:48] LABS: Potassium 4.1 mmoL/L (3.5-5.1)
[2021-08-08 08:50] LABS: Alanine Aminotransferase 26 U/L (12-78); Albumin Level 4.1 g/dl (3.5-5.0); Albumin/Globulin Ratio 1.5 (1.1-1.8); Alkaline Phosphatase 80 U/L (38-126); Aspartate Amino Transferase 25 U/L (17-59); Bilirubin,Total 0.7 mg/dl (0.2-1.3); Blood Urea Nitrogen 38 mg/dl (9-20); Calcium 9.2 mg/dl (8.4-10.2); Carbon Dioxide 23 mmol/L (22.0-30.0); Creatinine Clearance Estimated 52 mL/min (50-200); Estimated Glomerular Filt Rate 35 ml/min (>60); GFR (African American) 43 ML/MIN (>60); Globulin 2.8 g/dL (1.3-3.2); Glucose 178 mg/dl (74-100); MANUAL DIFFERENTIAL MANUAL DIFFERENTIAL (MANUAL DIFF); Total Protein,Serum 6.9 g/dl (6.3-8.2)
[2021-08-08 08:53] LABS: Anion Gap 12.1 mEq/L (5-15)
[2021-08-08 09:04] LABS: Eosinophils % 3 % (0-3); Lymphocytes % 56 % (10-50); Monocytes % 5 % (2-9); Neutrophils % 36 % (42-76); Platelet Estimate Normal; RBC Morphology Normal; Total Cells Counted 100
[2021-08-31 17:21] LABS: Hep A Ab, IgM NEGATIVE; Hepatitis B Core Antibody IgM NEGATIVE; Hepatitis B Surface Antigen NEGATIVE; Hepatitis C Antibody <0.1
== END 2021-08-08 14:25 | disposition home or self-care (01) ==
LOC: INF 08:19
PROVIDERS: PCP Internal Medicine Adolescent Medicine; Visit Provider Internal Medicine Medical Oncology
DX: Z51.11 Encounter for antineoplastic chemotherapy (principal); C91.10 Chronic lymphocytic leukemia of B-cell type not having achieved remission; R10.10 Upper abdominal pain, unspecified
CPT/HCPCS: 80053; 80074; 85007; 85025; 96413; 96415; J9312

== ENCOUNTER 2021-08-15 11:44 | Outpatient (CLI) | payer MEDICARE, OTHER, SELFPAY ==
[2021-08-15 11:44] VITALS: BMI 29.7
--- NOTE | 2021-08-15 12:00 | PC.NURSE ---
1200-collected labs via peripheral stick; pt d/c home.
[2021-08-15 12:14] LABS: Basophils % 2.9 % (0.1-2.0); Eosinophils # 0.8 K/mm3 (0.0-0.4); Eosinophils % 2.3 % (0.1-12.0); Hematocrit 46.6 % (42.0-52.0); Hemoglobin 15.5 g/dL (14.1-18.0); Lymphocytes # 22.4 K/mm3 (0.7-4.5); Mean Corpuscular HGB Conc 33.4 g/dL (31.8-35.4); Mean Corpuscular Hemoglobin 29.2 pg (27.0-31.2); Mean Corpuscular Volume 87.5 fl (80-94); Mean Platelet Volume 10.1 fl (7.4-10.4); Monocytes # 1.3 K/mm3 (0.1-1.0); Monocytes % 3.9 % (1.7-9.3); Platelet Count 176 K/mm3 (142-424); Red Blood Count 5.32 M/mm3 (4.60-6.20); Red Cell Distribution Width 14.9 % (11.5-17.5); White Blood Count 34.5 K/mm3 (4.8-10.8)
[2021-08-15 12:19] LABS: Alanine Aminotransferase 23 U/L (12-78); Albumin Level 3.8 g/dl (3.5-5.0); Albumin/Globulin Ratio 1.5 (1.1-1.8); Alkaline Phosphatase 73 U/L (38-126); Anion Gap 11.6 mEq/L (5-15); Aspartate Amino Transferase 25 U/L (17-59); Bilirubin,Total 0.7 mg/dl (0.2-1.3); Blood Urea Nitrogen 29 mg/dl (9-20); Calcium 8.6 mg/dl (8.4-10.2); Carbon Dioxide 22 mmol/L (22.0-30.0); Chloride 107 mmol/L (98-107); Creatinine Clearance Estimated 55 mL/min (50-200); Estimated Glomerular Filt Rate 37 ml/min (>60); GFR (African American) 45 ML/MIN (>60); Globulin 2.6 g/dL (1.3-3.2); Glucose 170 mg/dl (74-100); Lactate Dehydrogenase 155 U/L (313-618); Potassium 3.6 mmoL/L (3.5-5.1); Sodium 137 mmol/L (136-145); Total Protein,Serum 6.4 g/dl (6.3-8.2)
[2021-08-15 12:21] LABS: MANUAL DIFFERENTIAL MANUAL DIFFERENTIAL (MANUAL DIFF)
[2021-08-15 12:44] LABS: Lymphocytes % 70 % (10-50); Monocytes % 3 % (2-9); Neutrophils % 27 % (42-76); Platelet Estimate Normal; RBC Morphology Normal; Total Cells Counted 100
== END 2021-08-15 12:01 | disposition home or self-care (01) ==
PROVIDERS: PCP Internal Medicine Adolescent Medicine; Visit Provider Internal Medicine Medical Oncology
DX: C91.10 Chronic lymphocytic leukemia of B-cell type not having achieved remission (principal)
CPT/HCPCS: 36415; 80053; 83615; 84550; 85007; 85025

== ENCOUNTER → 2021-08-22 08:23 | Outpatient (CLI) | payer MEDICARE, OTHER, SELFPAY ==
[2021-08-22 08:27] VITALS: BMI 29.5
--- NOTE | 2021-08-22 08:30 | PC.NURSE ---
venipuncture performed per yael childs rn to obtain blood for repeat labs as ordered per md. blood obtained and specimen sent to lab for analysis, site secured with 2x2 gauze and coban. pt ambulated down to md clinic to attend md appt.
[2021-08-22 08:46] LABS: Basophils # 0.6 K/mm3 (0-0.2); Basophils % 1.5 % (0.1-2.0); Chloride 106 mmol/L (98-107); Eosinophils # 0.9 K/mm3 (0.0-0.4); Eosinophils % 2.4 % (0.1-12.0); Hematocrit 42.8 % (42.0-52.0); Hemoglobin 14.5 g/dL (14.1-18.0); Lymphocytes # 30.6 K/mm3 (0.7-4.5); Lymphocytes % 77.2 % (10-50); Mean Corpuscular HGB Conc 33.9 g/dL (31.8-35.4); Mean Corpuscular Hemoglobin 29.6 pg (27.0-31.2); Mean Corpuscular Volume 87.2 fl (80-94); Mean Platelet Volume 9.7 fl (7.4-10.4); Monocytes # 1.2 K/mm3 (0.1-1.0); Neutrophils # 6.3 K/mm3 (1.8-7.8); Platelet Count 207 K/mm3 (142-424); Red Blood Count 4.91 M/mm3 (4.60-6.20); Red Cell Distribution Width 14.5 % (11.5-17.5); Sodium 137 mmol/L (136-145); White Blood Count 39.6 K/mm3 (4.8-10.8)
[2021-08-22 08:47] LABS: MANUAL DIFFERENTIAL MANUAL DIFFERENTIAL (MANUAL DIFF); Potassium 4.3 mmoL/L (3.5-5.1)
[2021-08-22 08:49] LABS: Alanine Aminotransferase 19 U/L (12-78); Albumin Level 3.7 g/dl (3.5-5.0); Albumin/Globulin Ratio 1.3 (1.1-1.8); Alkaline Phosphatase 75 U/L (38-126); Anion Gap 13.3 mEq/L (5-15); Aspartate Amino Transferase 19 U/L (17-59); Bilirubin,Total 0.5 mg/dl (0.2-1.3); Blood Urea Nitrogen 26 mg/dl (9-20); Carbon Dioxide 22 mmol/L (22.0-30.0); Creatinine Clearance Estimated 63 mL/min (50-200); Estimated Glomerular Filt Rate 43 ml/min (>60); GFR (African American) 52 ML/MIN (>60); Globulin 2.8 g/dL (1.3-3.2); Total Protein,Serum 6.5 g/dl (6.3-8.2)
[2021-08-22 08:50] LABS: Calcium 9.2 mg/dl (8.4-10.2); Glucose 165 mg/dl (74-100)
[2021-08-22 08:58] LABS: Eosinophils % 1 % (0-3); Lymphocytes % 79 % (10-50); Monocytes % 1 % (2-9); Neutrophils % 20 % (42-76); Total Cells Counted 200
[2021-08-22 08:59] LABS: Platelet Estimate Normal; RBC Morphology Normal
== END ==
PROVIDERS: PCP Internal Medicine Adolescent Medicine; Visit Provider Internal Medicine Medical Oncology
DX: C91.10 Chronic lymphocytic leukemia of B-cell type not having achieved remission (principal)
CPT/HCPCS: 80053; 85007; 85025

== ENCOUNTER 2021-09-05 08:02 | Outpatient (CLI) | payer MEDICARE, OTHER, SELFPAY ==
[2021-09-05] VITALS (8 sets, daily range): BP systolic 141–152; BP diastolic 71–87; PULSE 54–61; RESP 18; TEMP 36.6; O2SAT 97; BMI 28.5
[2021-09-05 08:30] LABS: Basophils % 1.8 % (0.1-2.0); Eosinophils # 0.8 K/mm3 (0.0-0.4); Eosinophils % 1.5 % (0.1-12.0); Hemoglobin 14.4 g/dL (14.1-18.0); Lymphocytes # 45.3 K/mm3 (0.7-4.5); Lymphocytes % 82.3 % (10-50); Mean Corpuscular HGB Conc 32.6 g/dL (31.8-35.4); Mean Corpuscular Hemoglobin 28.5 pg (27.0-31.2); Mean Corpuscular Volume 87.3 fl (80-94); Mean Platelet Volume 10.1 fl (7.4-10.4); Monocytes # 1.4 K/mm3 (0.1-1.0); Monocytes % 2.6 % (1.7-9.3); Neutrophils # 7.5 K/mm3 (1.8-7.8); Platelet Count 189 K/mm3 (142-424); Red Blood Count 5.04 M/mm3 (4.60-6.20); Red Cell Distribution Width 14.4 % (11.5-17.5)
--- NOTE | 2021-09-05 08:30 | PC.NURSE ---
0830-Angela Hill called and spoke to Andrés Duarte RN at 0830 to report wbc 55.Rn repeated and verified pt name, , and lab value. No new orders per standing order ok to continue with treatment.
[2021-09-05 08:31] LABS: Chloride 106 mmol/L (98-107); Neutrophils % 13.6 % (37.0-80.0); Potassium 3.8 mmoL/L (3.5-5.1); Sodium 138 mmol/L (136-145)
[2021-09-05 08:32] LABS: MANUAL DIFFERENTIAL MANUAL DIFFERENTIAL (MANUAL DIFF)
[2021-09-05 08:34] LABS: Alanine Aminotransferase 16 U/L (12-78); Albumin Level 3.9 g/dl (3.5-5.0); Albumin/Globulin Ratio 1.4 (1.1-1.8); Alkaline Phosphatase 74 U/L (38-126); Anion Gap 8.8 mEq/L (5-15); Aspartate Amino Transferase 17 U/L (17-59); Bilirubin,Total 0.7 mg/dl (0.2-1.3); Blood Urea Nitrogen 19 mg/dl (9-20); Carbon Dioxide 27 mmol/L (22.0-30.0); Creatinine Clearance Estimated 58 mL/min (50-200); Estimated Glomerular Filt Rate 40 ml/min (>60); GFR (African American) 48 ML/MIN (>60); Globulin 2.8 g/dL (1.3-3.2); Total Protein,Serum 6.7 g/dl (6.3-8.2)
[2021-09-05 08:35] LABS: Calcium 8.9 mg/dl (8.4-10.2); Glucose 190 mg/dl (74-100)
[2021-09-05 08:42] LABS: Eosinophils % 1 % (0-3); Lymphocytes % 88 % (10-50); Monocytes % 2 % (2-9); Neutrophils % 9 % (42-76); Total Cells Counted 100
[2021-09-05 08:43] LABS: Ovalocytes 1+; Platelet Estimate Normal; Poikilocytosis 1+
== END 2021-09-05 12:48 | disposition home or self-care (01) ==
LOC: INF 08:03
PROVIDERS: PCP Internal Medicine Adolescent Medicine; Visit Provider Internal Medicine Medical Oncology
DX: Z51.11 Encounter for antineoplastic chemotherapy (principal); C91.10 Chronic lymphocytic leukemia of B-cell type not having achieved remission; M06.9 Rheumatoid arthritis, unspecified
CPT/HCPCS: 80053; 85007; 85025; 96413; 96415; J9312

== ENCOUNTER 2021-09-12 08:10 | Outpatient (CLI) | payer MEDICARE, OTHER, SELFPAY ==
[2021-09-12 08:15] VITALS: BMI 28.5
--- NOTE | 2021-09-12 08:28 | PC.NURSE ---
0828-collected labs via venipuncture; pt to oncology appointment.
[2021-09-12 08:40] LABS: Basophils # 2.5 K/mm3 (0-0.2); Basophils % 3.7 % (0.1-2.0); Eosinophils # 0.7 K/mm3 (0.0-0.4); Eosinophils % 1.1 % (0.1-12.0); Hematocrit 43.6 % (42.0-52.0); Hemoglobin 14.2 g/dL (14.1-18.0); Lymphocytes # 55.5 K/mm3 (0.7-4.5); Lymphocytes % 82.5 % (10-50); Mean Corpuscular HGB Conc 32.7 g/dL (31.8-35.4); Mean Corpuscular Hemoglobin 28.1 pg (27.0-31.2); Mean Corpuscular Volume 85.9 fl (80-94); Mean Platelet Volume 9.8 fl (7.4-10.4); Monocytes # 1.6 K/mm3 (0.1-1.0); Monocytes % 2.4 % (1.7-9.3); Neutrophils # 9.4 K/mm3 (1.8-7.8); Platelet Count 214 K/mm3 (142-424); Red Blood Count 5.07 M/mm3 (4.60-6.20); Red Cell Distribution Width 14.4 % (11.5-17.5)
[2021-09-12 08:46] LABS: Chloride 105 mmol/L (98-107); Potassium 3.9 mmoL/L (3.5-5.1); Sodium 135 mmol/L (136-145)
[2021-09-12 08:49] LABS: Alanine Aminotransferase 15 U/L (12-78); Albumin Level 3.9 g/dl (3.5-5.0); Albumin/Globulin Ratio 1.3 (1.1-1.8); Alkaline Phosphatase 79 U/L (38-126); Aspartate Amino Transferase 22 U/L (17-59); Bilirubin,Total 0.8 mg/dl (0.2-1.3); Blood Urea Nitrogen 16 mg/dl (9-20); Creatinine Clearance Estimated 65 mL/min (50-200); Estimated Glomerular Filt Rate 46 ml/min (>60); GFR (African American) 56 ML/MIN (>60); Globulin 3.1 g/dL (1.3-3.2)
[2021-09-12 08:50] LABS: Calcium 9.1 mg/dl (8.4-10.2); Glucose 171 mg/dl (74-100)
[2021-09-12 08:54] LABS: White Blood Count 67.3 K/mm3 (4.8-10.8)
[2021-09-12 08:55] LABS: MANUAL DIFFERENTIAL MANUAL DIFFERENTIAL (MANUAL DIFF)
--- NOTE | 2021-09-12 08:55 | PC.NURSE ---
Chapis from lab called to report critical WBC of 67.3. Name, and result were verified. notified, no new orders at this time.
[2021-09-12 09:12] LABS: Lymphocytes % 75 % (10-50); Macrocytosis 1+; Monocytes % 2 % (2-9); Neutrophils % 14 % (42-76); Platelet Estimate Normal; Total Cells Counted 100
[2021-09-12 09:21] LABS: Microscopic, Urine URINE MICROSCOPIC (MICROSCOPIC)
[2021-09-12 09:33] LABS: Appearance,Urine CLEAR (Clear); Bilirubin,Urine Negative (Negative); Blood, Urine Negative (Negative); Color,Urine YELLOW (Yellow); Glucose,Urine (UA) Negative (Negative); Ketones,Urine Negative (Negative); Leukocyte Esterase,Urine Negative (Negative); Nitrate,Urine Negative (Negative); PH,Urine 6.5 (5.0-8.5); Protein,Urine 2+ (Negative); Specific Gravity, Urine <= 1.005 (1.005-1.030); Urobilinogen,Urine 0.2 EU/dl (0.2)
[2021-09-12 09:43] LABS: Anion Gap 11.9 mEq/L (5-15); Carbon Dioxide 22 mmol/L (22.0-30.0)
[2021-09-12 09:52] LABS: Squamous Epithelial Cell,Urine Occasional #/hpf (0-5)
== END 2021-09-12 08:30 | disposition home or self-care (01) ==
LOC: INF 08:11
PROVIDERS: Internal Medicine Nephrology; PCP Internal Medicine Adolescent Medicine; Visit Provider Internal Medicine Medical Oncology
DX: C91.10 Chronic lymphocytic leukemia of B-cell type not having achieved remission (principal)
CPT/HCPCS: 36415; 80053; 81001; 85007; 85025

== ENCOUNTER 2021-10-03 08:18 | Outpatient (CLI) | payer MEDICARE, OTHER, SELFPAY ==
[2021-10-03] VITALS (8 sets, daily range): BP systolic 136–165; BP diastolic 79–88; PULSE 81–88; RESP 18; TEMP 36.6; O2SAT 96–97; BMI 28.3
[2021-10-03 08:48] LABS: Basophils # 1.2 K/mm3 (0-0.2); Basophils % 1.7 % (0.1-2.0); Eosinophils # 0.8 K/mm3 (0.0-0.4); Hematocrit 45.8 % (42.0-52.0); Hemoglobin 15.2 g/dL (14.1-18.0); Lymphocytes # 62.9 K/mm3 (0.7-4.5); Lymphocytes % 86.3 % (10-50); Mean Corpuscular HGB Conc 33.1 g/dL (31.8-35.4); Mean Corpuscular Hemoglobin 27.7 pg (27.0-31.2); Mean Corpuscular Volume 83.6 fl (80-94); Mean Platelet Volume 9.9 fl (7.4-10.4); Monocytes # 2.3 K/mm3 (0.1-1.0); Monocytes % 3.2 % (1.7-9.3); Neutrophils # 6.9 K/mm3 (1.8-7.8); Platelet Count 193 K/mm3 (142-424); Red Blood Count 5.47 M/mm3 (4.60-6.20); Red Cell Distribution Width 14.2 % (11.5-17.5)
[2021-10-03 08:49] LABS: Chloride 103 mmol/L (98-107); Potassium 4.3 mmoL/L (3.5-5.1); Sodium 137 mmol/L (136-145)
[2021-10-03 08:51] LABS: Alanine Aminotransferase 20 U/L (12-78); Aspartate Amino Transferase 29 U/L (17-59); Blood Urea Nitrogen 23 mg/dl (9-20); Creatinine Clearance Estimated 54 mL/min (50-200); Estimated Glomerular Filt Rate 37 ml/min (>60); GFR (African American) 45 ML/MIN (>60)
[2021-10-03 08:52] LABS: Albumin Level 4.3 g/dl (3.5-5.0); Albumin/Globulin Ratio 1.4 (1.1-1.8); Alkaline Phosphatase 77 U/L (38-126); Anion Gap 12.3 mEq/L (5-15); Bilirubin,Total 0.8 mg/dl (0.2-1.3); Carbon Dioxide 26 mmol/L (22.0-30.0); Globulin 3.1 g/dL (1.3-3.2); Glucose 197 mg/dl (74-100); Total Protein,Serum 7.4 g/dl (6.3-8.2)
[2021-10-03 08:57] LABS: Neutrophils % 9.4 % (37.0-80.0); White Blood Count 72.9 K/mm3 (4.8-10.8)
[2021-10-03 08:58] LABS: MANUAL DIFFERENTIAL MANUAL DIFFERENTIAL (MANUAL DIFF)
--- NOTE | 2021-10-03 09:00 | PC.NURSE ---
Carolina from lab called a critical WBC result of 72.9. the lab value, and name were verified and repeated. aware, no new orders at this time.
--- NOTE | 2021-10-03 09:14 | PC.NURSE ---
Trinh Valencia called RN at 0856 to report wbc-72.9. RN repeated and verified pt name, , and lab value. Result called to Dr. Howell in specialty clinic, no new orders noted. pt ok to proceed with scheduled tx for rituxin.
[2021-10-03 09:20] LABS: Lymphocytes % 85 % (10-50); Neutrophils % 15 % (42-76); Total Cells Counted 100
[2021-10-03 09:23] LABS: Hypochromasia 1+; Tear Drop Cells 1+
[2021-10-03 09:24] LABS: Ovalocytes 2+; Platelet Estimate Normal
== END 2021-10-03 13:10 | disposition home or self-care (01) ==
LOC: INF 08:18
PROVIDERS: PCP Internal Medicine Adolescent Medicine; Visit Provider Internal Medicine Medical Oncology
DX: Z51.11 Encounter for antineoplastic chemotherapy (principal); C91.10 Chronic lymphocytic leukemia of B-cell type not having achieved remission
CPT/HCPCS: 80053; 85007; 85025; 96413; 96415; J9312

== ENCOUNTER → 2021-10-20 07:32 | Outpatient (CLI) | payer MEDICARE, OTHER, SELFPAY | PROVIDERS: PCP Internal Medicine Adolescent Medicine; Visit Provider Internal Medicine Adolescent Medicine | DX: J44.1 Chronic obstructive pulmonary disease with (acute) exacerbation (principal); B96.89 Other specified bacterial agents as the cause of diseases classified elsewhere; B96.4 Proteus (mirabilis) (morganii) as the cause of diseases classified elsewhere | CPT/HCPCS: 87070; 87077; 87186; 87205 ==

== ENCOUNTER 2021-10-28 11:32 | Emergency (ER) | payer MEDICARE, OTHER, SELFPAY ==
[2021-10-28] VITALS (9 sets, daily range): BP systolic 155–168; BP diastolic 73–93; PULSE 61–66; RESP 18–20; TEMP 36.9; O2SAT 93; BMI 28.0
--- NOTE | 2021-10-28 12:04 | XR_ITS ---
FINAL REPORT CLINICAL HISTORY: soa COMPARISON: January 03, 2020 FINDINGS: PA and lateral views of the chest were obtained. The heart size is normal. The aortic graft is seen within the arch. There is fullness of the right hilum which is more prominent. Right hilar lymphadenopathy cannot be excluded. There are new, right greater than left, lower lobe opacities concerning for pneumonia. There is no pleural effusion or pneumothorax. No acute osseous abnormality is identified. IMPRESSION: Bilateral lower lobe opacities concerning for pneumonia. Right hilar fullness. Right hilar lymphadenopathy not excluded. Reviewed, Interpreted and Dictated by Britt Dixon MD Transcribed by Delfino Orozco Authenticated and [facility]
--- NOTE | 2021-10-28 12:22 | PC.NURSE ---
notified RT of VBG order
[2021-10-28 12:27] LABS: Basophils # 0.1 K/mm3 (0-0.2); Basophils % 0.4 % (0.1-2.0); Eosinophils # 0.3 K/mm3 (0.0-0.4); Eosinophils % 0.9 % (0.1-12.0); Hematocrit 43.2 % (42.0-52.0); Hemoglobin 14.4 g/dL (14.1-18.0); Lymphocytes # 27.4 K/mm3 (0.7-4.5); Lymphocytes % 78.5 % (10-50); Mean Corpuscular HGB Conc 33.4 g/dL (31.8-35.4); Mean Corpuscular Hemoglobin 27.3 pg (27.0-31.2); Mean Corpuscular Volume 81.7 fl (80-94); Mean Platelet Volume 9.8 fl (7.4-10.4); Monocytes # 1.7 K/mm3 (0.1-1.0); Neutrophils # 5.3 K/mm3 (1.8-7.8); Neutrophils % 15.2 % (37.0-80.0); Platelet Count 154 K/mm3 (142-424); Red Blood Count 5.28 M/mm3 (4.60-6.20); Red Cell Distribution Width 14.7 % (11.5-17.5); White Blood Count 34.9 K/mm3 (4.8-10.8)
[2021-10-28 12:30] LABS: Chloride 107 mmol/L (98-107); Potassium 3.6 mmoL/L (3.5-5.1); Sodium 137 mmol/L (136-145)
[2021-10-28 12:32] LABS: Blood Urea Nitrogen 25 mg/dl (9-20); Creatinine Clearance Estimated 64 mL/min (50-200); Estimated Glomerular Filt Rate 46 ml/min (>60); GFR (African American) 56 ML/MIN (>60); MANUAL DIFFERENTIAL MANUAL DIFFERENTIAL (MANUAL DIFF)
[2021-10-28 12:33] LABS: Alanine Aminotransferase 19 U/L (12-78); Albumin Level 3.5 g/dl (3.5-5.0); Albumin/Globulin Ratio 1.2 (1.1-1.8); Alkaline Phosphatase 85 U/L (38-126); Anion Gap 9.6 mEq/L (5-15); Aspartate Amino Transferase 22 U/L (17-59); Bilirubin,Total 0.5 mg/dl (0.2-1.3); Calcium 8.5 mg/dl (8.4-10.2); Carbon Dioxide 24 mmol/L (22.0-30.0); Globulin 2.9 g/dL (1.3-3.2); Glucose 169 mg/dl (74-100); Magnesium 1.6 mg/dl (1.6-2.3); Total Protein,Serum 6.4 g/dl (6.3-8.2)
[2021-10-28 12:37] LABS: VBG Base Excess -2.4 mmol/L (-2.4-2.3); VBG HCO3 22.9 mmol/L (23-30); VBG Oxygen Saturation 85.1 % (50-70); VBG PCO2 40.6 mmol/L (35-51); VBG PH 7.37 mmol/L (7.31-7.41); VBG PO2 46.8 mmol/L (28-40); VBG Total CO2 24.1 mmol/L (23-27)
[2021-10-28 12:39] LABS: C-Reactive Protein 52.3 mg/L (0-4)
[2021-10-28 12:41] LABS: Eosinophils % 1 % (0-3); Lymphocytes % 88 % (10-50); Monocytes % 1 % (2-9); Neutrophils % 10 % (42-76); Total Cells Counted 100
[2021-10-28 12:44] LABS: Ovalocytes 1+; Platelet Estimate Normal; Tear Drop Cells 1+
--- NOTE | 2021-10-28 12:44 | PC.NURSE ---
pt in radiology
--- NOTE | 2021-10-28 12:51 | ECG_ITS ---
APPROVED REPORT Exam: Resting ECG HR:60 bpm ECG Measurements Heart Rate 60 AXES NV 161 P 28 QRSd 110 QRS 20 QT 413 T 29 QTc 413 Conclusion SINUS RHYTHM MINIMAL VOLTAGE CRITERIA FOR LVH, CONSIDER NORMAL VARIANT [MEETS CRITERIA IN ONE OF: R(aVL), S(V1), R(V5), R(V5/V6)+S(V1)] MODERATE ST DEPRESSION [0.05+ mV ST DEPRESSION] ABNORMAL ECG UNCONFIRMED REPORT Electronically signed by : Master Ocasio MD 10/29/2021 14:15:57
[2021-10-28 13:36] LABS: Influenza A, PCR Not Detected (NotDetected); Influenza B, PCR Not Detected (NotDetected)
--- NOTE | 2021-10-28 13:37 | PC.NURSE ---
rounded on pt at this time, pt sitting up in bed, at BS, states no needs at this. was asking about IVF for pt, stated to her I will asked ER
--- NOTE | 2021-10-28 13:38 | PC.NURSE ---
ER gave verbal order for IVF LR 1 L bolus
--- NOTE | 2021-10-28 13:43 | PC.NURSE ---
IVF bolus started at this time, pt has call light within reach, at BS. Will continue to monitor
--- NOTE | 2021-10-28 13:53 | HMH.EDGENADL ---
ED Disposition Clinical Impression: Pneumonia Qualifiers: Pneumonia type: due to unspecified organism Laterality: bilateral Lung location: unspecified part of lung Qualified Code(s): J18.9 - Pneumonia, unspecified organism Disposition: Home, Self-Care Condition on Discharge: Good Instructions: Pneumonia-Adult Prescriptions: Azithromycin [Azithromycin 500mg Tab] 500 mg PO DAILY #5 tab Transmission Status: Received by [facility] #[id number] Cefdinir [Omnicef 300mg Capsule] 300 mg PO BID 7 Days #14 cap Transmission Status: Received by [facility] #[id number] Referrals: Master Ocasio MD [Primary Care Provider] - - Critical Care Critical Care Time: No Attestation: On 10/28/21, the high probability of a clinically significant, sudden or life threatening deterioration of the following system(s) required my full and direct attention, intervention and personal management. The time I documented below is in addition to time spent performing reported procedures but includes the following listed in this critical care notation. Medical Decision Making - Fco Inquiry Pt receiving controlled substance: No Vital Signs: 10/28/21 11:33 10/28/21 13:01 10/28/21 13:30 Temperature 98.4 F Temperature Source Oral Pulse Rate 65 Pulse Rate [Right Radial] 61 Respiratory Rate 20 18 Blood Pressure 164/83 H 163/80 H Blood Pressure [Right Arm] 157/93 H Blood Pressure Mean 94 107 Blood Pressure Mean [Right Arm] 114 Blood Pressure Source [Right Arm] Automatic Cuff Blood Pressure Position [Right Arm] Sitting 02 Sat by Pulse Oximetry 93 L 93 L Oxygen Delivery Method Room Air Room Air 10/28/21 14:00 10/28/21 14:30 10/28/21 15:00 Temperature Temperature Source Pulse Rate 64 65 66 Pulse Rate [Right Radial] Respiratory Rate Blood Pressure 168/85 H 168/92 H 159/90 H Blood Pressure [Right Arm] Blood Pressure Mean 112 Blood Pressure Mean [Right Arm] Blood Pressure Source [Right Arm] Blood Pressure Position [Right Arm] 02 Sat by Pulse Oximetry 93 L 93 L 93 L Oxygen Delivery Method 10/28/21 15:30 10/28/21 16:00 10/28/21 16:27 Temperature 98.4 F Temperature Source Pulse Rate 61 61 61 Pulse Rate [Right Radial] Respiratory Rate 18 Blood Pressure 155/73 H 157/76 H 157/76 H Blood Pressure [Right Arm] Blood Pressure Mean Blood Pressure Mean [Right Arm] Blood Pressure Source [Right Arm] Blood Pressure Position [Right Arm] 02 Sat by Pulse Oximetry 93 L 93 L Oxygen Delivery Method Room Air - Lab Data Lab Results 10/28/21 12:04: VBG pH 7.37, VBG pCO2 40.6, VBG pO2 46.8 H, VBG HCO3 22.9 L, VBG Total CO2 24.1, VBG O2 Saturation 85.1 H, VBG Base Excess -2.4 10/28/21 12:05: WBC 34.9 H*, RBC 5.28, Hgb 14.4, Hct 43.2, MCV 81.7, MCH 27.3, MCHC 33.4, RDW 14.7, Plt Count 154, MPV 9.8, Neut % (Auto) 15.2 L, Lymph % (Auto) 78.5 H, [place] % (Auto) 5.0, Eos % (Auto) 0.9, Baso % (Auto) 0.4, Neut # (Auto) 5.3, Lymph # (Auto) 27.4 H, [place] # (Auto) 1.7 H, Eos # (Auto) 0.3, Baso # (Auto) 0.1, Total Counted 100, Neutrophils % (Manual) 10 L, Lymphocytes % (Manual) 88 H, Monocytes % (Manual) 1 L, Eosinophils % (Manual) 1, Platelet Estimate Normal, Tear Drop Cells 1+, Ovalocytes 1+ 10/28/21 12:05: Sodium 137, Potassium 3.6, Chloride 107, Carbon Dioxide 24, Anion Gap 9.6, BUN 25 H, Creatinine 1.50 H, Estimated Creat Clear 64, Estimated GFR 46 L, Est GFR ( Amer) 56 L, Glucose 169 H, Calcium 8.5, Magnesium 1.6, Total Bilirubin 0.5, AST 22, ALT 19, Alkaline Phosphatase 85, C-Reactive Protein 52.3 H, Total Protein 6.4, Albumin 3.5, Globulin 2.9, Albumin/Globulin Ratio 1.2 10/28/21 12:05: SARS-CoV-2 (PCR) Detected A, Influenza A Untype (PCR) Not detected, Influenza Type B (PCR) Not detected Result diagrams: 10/28/21 12:05 10/28/21 12:05 Orders (Tests/Meds): ED MEDICATIONS Discontinued Medications Generic Name Dose Route Start Last Admin Trade Name Freq
[2021-10-28 14:14] LABS: Coronavirus 19, PCR Detected (NotDetected)
--- NOTE | 2021-10-28 14:48 | PC.NURSE ---
2307 MESSAGE LEFT WITH SANGITA AT DR. PACHECO'S OFFICE AT THIS TIME
--- NOTE | 2021-10-28 14:51 | PC.NURSE ---
CYNTHIA TROTTER SPEAKING WITH DR. PACHECO
--- NOTE | 2021-10-28 16:18 | PC.NURSE ---
rounded on patient, advised patient that the ER Doc was waiting on his antibiotics to finish. at this time there were no other needs.
== END 2021-10-28 16:29 | disposition home or self-care (01) ==
PROVIDERS: Emergency Provider Student in an Organized Health Care Education/Training Program; PCP Internal Medicine Adolescent Medicine
DX: J18.9 Pneumonia, unspecified organism; Z85.820 Personal history of malignant melanoma of skin; Z86.718 Personal history of other venous thrombosis and embolism; E11.9 Type 2 diabetes mellitus without complications; I10 Essential (primary) hypertension; Z79.4 Long term (current) use of insulin; M19.90 Unspecified osteoarthritis, unspecified site; F17.210 Nicotine dependence, cigarettes, uncomplicated
CPT/HCPCS: 71046; 80053; 82803; 83735; 85007; 85025; 86140; 93005; 94640; 96365; 96367; 96375; 99284; C9803; J0696; U0003; U0005

== ENCOUNTER 2021-11-01 11:38 | Observation (INO) | payer MEDICARE, OTHER, SELFPAY ==
[2021-11-01 11:56] VITALS: BMI 26.6
[2021-11-01 12:05] VITALS: BP 155/78; RESP 18; TEMP 37; O2SAT 93
--- NOTE | 2021-11-01 12:10 | XR_ITS ---
PROCEDURE INFORMATION: Exam: XR Chest Exam date and time: 11/01/2021 1:04 PM Age: 71 years old Clinical indication: Cough and fever; Patient HX: Cough, covid + TECHNIQUE: Imaging protocol: Radiologic exam of the chest. Views: 2 views. COMPARISON: CR XR CHEST 2V 10/28/2021 12:35 PM FINDINGS: Lungs: Hyperinflation of the lungs and flattening of the hemidiaphragms are compatible with COPD. There are streaky airspace opacities predominating within the right mid and left lower lung zones, likely scarring, stable. As compared to preceding examination, there is improved aeration of the left lower lobe. Pleural spaces: Unremarkable. No pleural effusion. No pneumothorax. Heart/Mediastinum: Unremarkable. No cardiomegaly. Vasculature: There is an aortic stent graft. Bones/joints: Unremarkable. IMPRESSION: Improved aeration of the left lower lobe.
--- NOTE | 2021-11-01 12:15 | CT_ITS ---
PROCEDURE INFORMATION: Exam: CT Head Without Contrast Exam date and time: 11/01/2021 12:56 PM Age: 71 years old Clinical indication: Injury or trauma; Concussion/head injury; Consciousness not specified; Patient HX: Fall at home hit top of head TECHNIQUE: Imaging protocol: Computed tomography of the head without contrast. Radiation optimization: All CT scans at this facility use at least one of these dose optimization techniques: automated exposure control; mA and/or kV adjustment per patient size (includes targeted exams where dose is matched to clinical indication); or iterative reconstruction. COMPARISON: No relevant prior studies available. FINDINGS: Brain: There is no acute intracranial hemorrhage or mass effect. Mild diffuse volume loss is within the range of normal for patient age. There are small vessel ischemic changes within the periventricular and subcortical white matter, but the normal ramirez/white matter delineation is maintained. Cerebral ventricles: No ventriculomegaly. Paranasal sinuses: There is fluid opacification of the frontal and sphenoid sinuses and ethmoid air cells. There are air-fluid levels within maxillary sinuses as well Mastoid air cells: Visualized mastoid air cells are well aerated. Bones/joints: Unremarkable. No acute fracture. Soft tissues: Unremarkable. IMPRESSION: 1. No acute hemorrhage or calvarial fracture. 2. Severe sinonasal mucosal disease.
[2021-11-01 12:40] LABS: Influenza A, PCR Not Detected (NotDetected); Influenza B, PCR Not Detected (NotDetected)
[2021-11-01 13:03] LABS: Alanine Aminotransferase 15 U/L (12-78); Albumin Level 3.2 g/dl (3.5-5.0); Albumin/Globulin Ratio 1.1 (1.1-1.8); Alkaline Phosphatase 96 U/L (38-126); Anion Gap 9.3 mEq/L (5-15); Aspartate Amino Transferase 17 U/L (17-59); Bilirubin,Total 0.5 mg/dl (0.2-1.3); Blood Urea Nitrogen 16 mg/dl (9-20); Calcium 8.4 mg/dl (8.4-10.2); Carbon Dioxide 22 mmol/L (22.0-30.0); Chloride 106 mmol/L (98-107); Creatinine Clearance Estimated 56 mL/min (50-200); Estimated Glomerular Filt Rate 43 ml/min (>60); GFR (African American) 52 ML/MIN (>60); Globulin 2.9 g/dL (1.3-3.2); Glucose 147 mg/dl (74-100); Lactic Acid 0.6 mmol/L (0.7-2.1); Magnesium 1.6 mg/dl (1.6-2.3); Potassium 3.3 mmoL/L (3.5-5.1); Sodium 134 mmol/L (136-145); Total Protein,Serum 6.1 g/dl (6.3-8.2)
[2021-11-01 13:04] LABS: Basophils # 0.1 K/mm3 (0-0.2); Basophils % 0.3 % (0.1-2.0); Eosinophils # 0.1 K/mm3 (0.0-0.4); Eosinophils % 0.2 % (0.1-12.0); Hematocrit 39.1 % (42.0-52.0); Hemoglobin 13.6 g/dL (14.1-18.0); Lymphocytes # 16.8 K/mm3 (0.7-4.5); Lymphocytes % 73.4 % (10-50); Mean Corpuscular HGB Conc 34.7 g/dL (31.8-35.4); Mean Corpuscular Hemoglobin 27.5 pg (27.0-31.2); Mean Corpuscular Volume 79.1 fl (80-94); Mean Platelet Volume 8.9 fl (7.4-10.4); Monocytes # 1.2 K/mm3 (0.1-1.0); Monocytes % 5.1 % (1.7-9.3); Neutrophils # 4.8 K/mm3 (1.8-7.8); Neutrophils % 20.9 % (37.0-80.0); Platelet Count 149 K/mm3 (142-424); Red Blood Count 4.94 M/mm3 (4.60-6.20); Red Cell Distribution Width 14.6 % (11.5-17.5); White Blood Count 22.9 K/mm3 (4.8-10.8)
[2021-11-01 13:08] LABS: MANUAL DIFFERENTIAL MANUAL DIFFERENTIAL (MANUAL DIFF)
[2021-11-01 13:30] LABS: Coronavirus 19, PCR Detected (NotDetected)
--- NOTE | 2021-11-01 13:31 | HMH.PTEV ---
Physical Therapy Evaluation Rehab PT IP Evaluation Start: 11/01/21 12:15 Freq: ONCE Status: Active Protocol: Document 11/01/21 13:27 [facility] (Rec: 11/01/21 13:31 PHORZORAIDA [id number]) Subjective/History History History 71 yowm adm to [facility] with general weakness, prior COVID+ , COPD, and leukemia. He reports he feels fine now, but he did fall at home after losing his balance on his steps into his kitchen (3) prior to adm. He reports normally he is independent with all mobility without AD, lives with spouse, 1 step to enter the home. Subjective Subjective Currently he reports no c/o. Rehab PT IP Eval Objective Appearance Patient Behavior Appropriate Patient Orientation Person,Place,Time Difficulty following instructions none Speech Pattern Clear Ambulation Patient Able to Ambulate Yes Ambulation Observation IP General Gait Pattern Observation No Deviations/Normal Ambulation Distance (feet) 50 Ambulation Assistive Device None Ambulation Ability Independent Balance Ability to Arise Able, uses arms to help Sitting Balance Steady, safe Standing Balance Steady, wide stance Dynamic Sitting Balance Ability Good Dynamic Standing Balance Ability Good Transfers Bed Transfer Ability Independent Chair Transfer Ability Independent Sit to Stand Bed Transfer Ability Independent Sit to Stand Chair Transfer Ability Independent ROM All Extremities PT ROM Status WFL MMT All Extremities PT MMT WFL Rehab PT IP prob,goals,plan Problems Date of Evaluation: 11/01/21 Discharge Plan PT Discharge Plan Pt appears to be at baseline for all mobility at this time and is appropriate to return home once medically stable. G -code Required No Eval Complexity Eval Charge Codes 43729 - Moderate Complexity PHYSICIAN CERTIFICATION: I certify the specified therapy services for Eder Castillo are required, authorized, and reviewed every 30 days.
[2021-11-01 13:40] LABS: Anisocytosis 1+; Eosinophils % 2 % (0-3); Lymphocytes % 83 % (10-50); Monocytes % 1 % (2-9); Neutrophils % 14 % (42-76); Ovalocytes 1+; Platelet Estimate Slight Decrease; Total Cells Counted 100
[2021-11-01 13:41] LABS: Burr Cells 1+; Hypochromasia 1+
--- NOTE | 2021-11-01 13:49 | HMH.OTEV ---
OT Inpatient Evaluation Rehab OT IP Evaluation Start: 11/01/21 12:15 Freq: ONCE Status: Complete Protocol: Document 11/01/21 13:40 [facility] (Rec: 11/01/21 13:49 [facility] [id number]) Rehab OT IP Assessment Subjective History Pt oriented x 3 on arrival. Pt agreeable to engage in therapy session. Pt admitted to [facility] on 11/01/21 due to COVID +, weakness, prior COPD, and CLL. Pt explains he fell this morning in his home because he lost his balance while going up steps (3 stairs) into the kitchen. Normally when patient is not ill, he lives at home with his . 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 Subjective Pt resting in bed on arrival. Pt completed bed mobility and went from supine to sitting at eob with sba. Pt engaged in lower body dressing by donning matrix inspector socks with sba. Pt demonstrated good dynamic sitting balance. Pt stood from eob with sba. Pt engaged in funtional transfer to bathroom with sba. Pt sat down and stood from toilet with sba. Pt returned to sitting at eob with sba. Pt completed bed mobility with sba to go from sitting to supine. Objective Patient Orientation Person,Place,Birthday Upper Extremity Gross ROM WNL Bed Mobility bed mobility-scooting,bed mobility - supine/sit,bed mobility - rolling Assist Level Supervision/Stand by Transfer Training Sit/Stand Transfer Assist Level Supervision/Stand by Chair Transfer Ability Supervision/Stand by Chair Transfer Technique Sit to/from Ambulatory Chair Transfer Assistive Devices None Lower Body Dressing Ability Standby Assistance Overall Commode/Toilet Transfer Ability Standby Assistance Commode/Toilet Transfer Technique Sit to/from Ambulatory Rehab OT IP prob,goals,plan Problems Date of
--- NOTE | 2021-11-01 13:56 | ECG_ITS ---
APPROVED REPORT Exam: Resting ECG HR:70 bpm ECG Measurements Heart Rate 70 AXES TX 162 P 21 QRSd 109 QRS 6 QT 378 T 38 QTc 399 Conclusion SINUS RHYTHM MODERATE VOLTAGE CRITERIA FOR LVH, CONSIDER NORMAL VARIANT [MEETS CRITERIA IN ONE OF: R(aVL), S(V1), R(V5), R(V5/V6)+S(V1)] NONSPECIFIC T-WAVE ABNORMALITY BORDERLINE ECG UNCONFIRMED REPORT Electronically signed by : Master Ocasio MD 11/03/2021 08:05:54
--- NOTE | 2021-11-01 14:45 | HMH.HP ---
*Admission Date: 11/01/21 *Chief complaint: Cough/congestion/fall at home *History of present illness: 71-year-old white male with underlying CLL who has been under treatment for the past couple of years and is now following with [facility] oncology. He has had fairly stable disease and has been very functional up until the past couple of weeks when he had a respiratory illness that was initially treated by me as a COPD exacerbation but 3 to 4 days later had a positive COVID test. He was treated with molnupiravir and initially felt better but became very fatigued and dyspneic 3 to 4 days later. Visited the emergency department where he was diagnosed with post viral pneumonia, treated with ceftriaxone and IV fluids, discharged with cefdinir and azithromycin and is felt fairly good until yesterday when he began to have worsening shortness of air with dyspnea with any type of exertions. Room air O2 saturations at home were 93%. He is also become very weak and has been unable to keep fluids down. He came to the office today and was dyspneic, wheezing, rhonchorous and also had fallen at home striking his head and opening a small laceration on the anterior scalp. He had no loss of consciousness. Given his worsening fatigue symptoms, fall and need for further observation I admitted him for fluids, respiratory treatment and pulmonary toilet as well as PT evaluation for his fall and a CT scan of his head. [facility] History I have reviewed the patient's past medical history: Yes Medical History: Reports:: Aneurysm, Arrhythmia, Cancer (CLL,), Deep Vein Thrombosis, Diabetes Mellitus Type 2, Hyperlipidemia, Hypertension, MRSA Denies:: Diabetes Mellitus Type 1, Internal Pacemaker, Lung Disease, Seizures *Have you ever received a pneumonia vaccine?: Yes *Have you received a flu vaccine this season?: Yes Other Medical History: Reports: Arthritis, Chemotherapy. Denies: Blood Transfusion Reaction Laterality Cases: Bilateral: Other Other Surgeries: Yes: Appendectomy, Colonoscopy, Hernia Repair, Sinus Surgery, Skin Cancer Excision, Other. No: Pacemaker Amputation: No Fractures: No - *Social History Last grade of school completed: Some college Smoking Status: Current every day smoker Tobacco Type: cigarettes # Packs/Day (cigarettes): 1 Alcohol Intake: never Alcohol Intake Frequency:: holidays/special occasions only Substance Use Type: denies use *Occupational Status:: employed Housing: house Household Members: spouse *Travel in the last 8 weeks: None Family Hx:: Cancer, Hypertension Review of Systems - Review of Systems Review of systems:: pertinent systems reviewed and negative unless documented below Meds Home Medications Medication Instructions Recorded Confirmed Type tamsulosin 0.4 mg capsule 0.8 mg PO DAILY 05/12/18 11/01/21 History Aspirin [Aspirin 81mg chewable 81 mg PO DAILY 06/09/18 11/01/21 History tab] Albuterol Sulfate [Ventolin HFA 1 puff IH Q4HP PRN 10/25/18 11/01/21 History Inhaler] Hydralazine HCl 50 mg PO TID 10/25/18 11/01/21 History nebivolol 20 mg tablet 40 mg PO DAILY tab 06/06/21 11/01/21 History sitagliptin 50 mg tablet 50 mg PO DAILY 06/06/21 11/01/21 History Insulin NPH Hum/Reg Insulin Hm 25 unit SQ BID 06/18/21 11/01/21 History [Humulin 70/30 Kwikpen] amlodipine 10 mg tablet 10 mg PO DAILY tab 08/16/21 11/01/21 History fluticasone propionate 50 1 spray NS DAILY 08/16/21 11/01/21 History mcg/actuation nasal spray,suspension ibrutinib 420 mg tablet 420 mg PO DAILY tab 09/12/21 11/01/21 History Umeclidinium [place]gett [Incruse 1 puff IH DAILY 11/01/21 11/01/21 History Ellipta] Allergies Allergy/AdvReac Type Severity Reaction Status Date / Time moxifloxacin [From Avelox] Allergy Intermediate I-RASH Verified 10/03/21 08:52 sulfamethoxazole Allergy Unknown UNKNOWN Verified 10/03/21 08:52 [From Bactrim] trimethoprim [From Bactrim] Allergy Unknown Verified 10/03/21 08:52
[2021-11-01 16:00] VITALS: BP 174/94; PULSE 70; RESP 18; TEMP 37; O2SAT 95
--- NOTE | 2021-11-01 16:20 | PC.WOUNDNOTE ---
2 SMALL LACERATIONS NOTED TO THE HEAD
--- NOTE | 2021-11-01 17:26 | PC.NURSE ---
PT IS RESTING IN BED WITH FAMILY AT BEDSIDE. ALERT AND ORIENTED X4. PT WAS ABLE TO TOLERATE AMBULATING WITH OT/PT THIS SHIFT. PT HAS BEEN AMBULATING TO THE BATHROOM. PT HAS 2 LACERATIONS NOTED TO HEAD. IV ACCESS NOTED TO THE RFA. LUNG SOUNDS DIMINISHED WITH CRACKLES (BILATERAL BASES). ABDOMEN SOFT/NON TENDER WITH ACTIVE BOWEL SOUNDS. NO SWELLING NOTED TO BLE. SCATTERED BRUISING NOTED TO BUE/BLE. HOME MEDICATION WRITTEN AND FAXED TO PHARMACY. WILL CONTINUE TO MONITOR.
[2021-11-01 19:00] VITALS: PULSE 69; PULSE 76
[2021-11-01 20:00] VITALS: BP 200/105; PULSE 79; RESP 18; TEMP 37.2; O2SAT 93
[2021-11-01 23:34] VITALS: PULSE 66; PULSE 68
[2021-11-01 23:47] VITALS: BP 158/72; PULSE 70; RESP 18; TEMP 37.4; O2SAT 92
[2021-11-02 04:00] VITALS: BP 145/105; PULSE 72; RESP 18; TEMP 37.3; O2SAT 95
--- NOTE | 2021-11-02 04:19 | PC.NURSE ---
Addendum entered by Jenniffer Malin, RNA 11/02/21 05:27: BP 188/105, paged stone unloader milady, new orders received to administer norvasc 10mg early Original Note: Pt is alert and oriented x4, pt has ambulated to the restroom with x1 assistance, tolerated good. Pt has been sleeping throughout the shift. Lung sounds bilateral crackles throughout. O2 sat >90% on room air. Pt BP elevated at the beginning of shift, notified stone unloader MD, received orders, carried out, BP decreased. Pt has had no complaints this shift.
[2021-11-02 06:45] VITALS: PULSE 72; PULSE 76; O2SAT 91
[2021-11-02 07:41] VITALS: BP 172/77; PULSE 80; RESP 16; TEMP 36.9; O2SAT 94
[2021-11-02 08:00] VITALS: O2SAT 92
[2021-11-02 09:02] LABS: Basophils # 0.1 K/mm3 (0-0.2); Basophils % 0.5 % (0.1-2.0); Eosinophils # 0.1 K/mm3 (0.0-0.4); Eosinophils % 0.4 % (0.1-12.0); Hemoglobin 12.5 g/dL (14.1-18.0); Lymphocytes # 14.5 K/mm3 (0.7-4.5); Lymphocytes % 73.5 % (10-50); Mean Corpuscular HGB Conc 33.7 g/dL (31.8-35.4); Mean Corpuscular Hemoglobin 26.9 pg (27.0-31.2); Mean Corpuscular Volume 79.6 fl (80-94); Mean Platelet Volume 9.5 fl (7.4-10.4); Monocytes # 1.1 K/mm3 (0.1-1.0); Monocytes % 5.3 % (1.7-9.3); Neutrophils % 20.3 % (37.0-80.0); Platelet Count 145 K/mm3 (142-424); Red Blood Count 4.65 M/mm3 (4.60-6.20); Red Cell Distribution Width 14.7 % (11.5-17.5); White Blood Count 19.8 K/mm3 (4.8-10.8)
[2021-11-02 09:05] LABS: MANUAL DIFFERENTIAL MANUAL DIFFERENTIAL (MANUAL DIFF)
[2021-11-02 09:22] VITALS: BMI 27.4
[2021-11-02 09:58] LABS: Alanine Aminotransferase 14 U/L (12-78); Albumin Level 2.7 g/dl (3.5-5.0); Albumin/Globulin Ratio 1.1 (1.1-1.8); Alkaline Phosphatase 77 U/L (38-126); Anion Gap 9.7 mEq/L (5-15); Aspartate Amino Transferase 21 U/L (17-59); Bilirubin,Total 0.2 mg/dl (0.2-1.3); Blood Urea Nitrogen 15 mg/dl (9-20); Calcium 7.8 mg/dl (8.4-10.2); Carbon Dioxide 20 mmol/L (22.0-30.0); Chloride 108 mmol/L (98-107); Creatinine Clearance Estimated 71 mL/min (50-200); Estimated Glomerular Filt Rate 55 ml/min (>60); GFR (African American) 66 ML/MIN (>60); Globulin 2.4 g/dL (1.3-3.2); Glucose 134 mg/dl (74-100); Potassium 3.7 mmoL/L (3.5-5.1); Sodium 134 mmol/L (136-145); Total Protein,Serum 5.1 g/dl (6.3-8.2)
[2021-11-02 10:03] LABS: Lymphocytes % 76 % (10-50); Monocytes % 2 % (2-9); Neutrophils % 21 % (42-76); Total Cells Counted 100
[2021-11-02 10:04] LABS: Microcytosis 1+; Platelet Estimate Slight Decrease
[2021-11-02 10:05] LABS: Hypochromasia 1+
--- NOTE | 2021-11-02 11:27 | P.CONPHA_ITS ---
[facility] Pharmacy VTE Monitoring - Patient Demographics Admission date: 11/02/21 Report Date: 11/02/21 Time: 11:27 Allergies/Adverse Reactions: Patient Allergies moxifloxacin [From Avelox] Allergy (Intermediate, Verified 10/03/21 08:52) I-RASH sulfamethoxazole [From Bactrim] Allergy (Unknown, Verified 10/03/21 08:52) UNKNOWN trimethoprim [From Bactrim] Allergy (Unknown, Verified 10/03/21 08:52) Height: 1.85 m Weight: 94.376 kg Patient Problems: Current Active Problems Acute exacerbation of chronic obstructive airways disease (Acute) COPD (chronic obstructive pulmonary disease) (Acute) Shortness of breath (Acute) Pneumonia (Acute) Fall at home (Acute) - VTE Risk Labs: VTE Related Lab Results Hgb 12.5 g/dL (14.1-18.0) L 11/02/21 06:39 Hct 37.0 % (42.0-52.0) L 11/02/21 06:39 Plt Count 145 K/mm3 (142-424) 11/02/21 06:39 BUN 15 mg/dl (9-20) 11/02/21 06:39 Creatinine 1.30 mg/dl (0.66-1.25) H 11/02/21 06:39 Estimated Creat Clear 71 mL/min (50-200) 11/02/21 06:39 VTE Score: 2 - Prophylaxis Types of VTE Prophylaxis: TEDS Knee High Location of Applied Device: Bilateral Lower Extremeties (ALISIA HOSE ORDERED)
[2021-11-02 12:00] VITALS: BP 142/68; PULSE 87; RESP 17; TEMP 36.4; O2SAT 92
[2021-11-02 12:46] VITALS: PULSE 78; PULSE 81; O2SAT 91
--- NOTE | 2021-11-02 13:45 | HMH.DCSUM ---
General - General Admission date:: 11/01/21 Discharge date: 11/02/21 HPI HPI: 71-year-old white male with underlying CLL who has been under treatment for the past couple of years and is now following with [facility] oncology. He has had fairly stable disease and has been very functional up until the past couple of weeks when he had a respiratory illness that was initially treated by me as a COPD exacerbation but 3 to 4 days later had a positive COVID test. He was treated with molnupiravir and initially felt better but became very fatigued and dyspneic 3 to 4 days later. Visited the emergency department where he was diagnosed with post viral pneumonia, treated with ceftriaxone and IV fluids, discharged with cefdinir and azithromycin and is felt fairly good until yesterday when he began to have worsening shortness of air with dyspnea with any type of exertions. Room air O2 saturations at home were 93%. He is also become very weak and has been unable to keep fluids down. He came to the office today and was dyspneic, wheezing, rhonchorous and also had fallen at home striking his head and opening a small laceration on the anterior scalp. He had no loss of consciousness. Given his worsening fatigue symptoms, fall and need for further observation I admitted him for fluids, respiratory treatment and pulmonary toilet as well as PT evaluation for his fall and a CT scan of his head. Hospital Course Hospital Course: 71-year-old male with multiple comorbidities admitted for complications of COVID pneumonia including weakness, dehydration, and fatigue. During hospitalization, has developed some anxiety. Feels better after IV fluids. Continues to have stable oxygen saturation with no oxygen requirement. Remains afebrile. Baseline cough. Minimally productive. No side effects from antibiotics. Problems addressed as follows Covid pneumonia COPD exacerbation Sinusitis - Admitted for initiation of nebulizer treatments. Started on levaquin. Will complete empiric course. transitioned to Oral for DC home. - no O2 requirement during admission, the weight in the coming days to week -Close follow-up in the outpatient setting to monitor improvement and response to antibiotics Fall with head laceration - CT scan of head showed no intracranial pathology. Did show significant sinusitis as above. Being treated with Levaquin. Weakness Anxiety about health -Secondary to illness and dehydration. Improved with fluid resuscitation. Encourage ambulation at home as tolerated. We will look to set up with home health as he would benefit from PT -Initiate on low-dose Xanax to help with acute anxiety attacks. Has tried SSRIs in the past with mixed benefit. We will discuss further at outpatient visit as he may benefit from daily antidepressant/antipsychotic. Continue to encourage p.o. intake, meal replacements, protein shakes. Patient medically stable for discharge home. Close follow-up this week. Objective Vital signs: Temp Pulse Resp BP Pulse Ox 97.5 F L 81 17 142/68 H 91 L 11/02/21 12:00 11/02/21 12:46 11/02/21 12:00 11/02/21 12:00 11/02/21 12:46 Narrative: - Constitutional chronically ill appearing, disheveled, NAD on RA - *Routine HEENT Exam Head: Present: laceration (On the anterior scalp, well apposition with Band-Aid and not bleeding) Eye: Present: EOMI, PERRL ENT: Present: mucous membranes dry - *Routine Neck Exam Present: supple. Absent: lymphadenopathy - *Routine Respiratory Exam Present: rales, rhonchi, wheezes - *Routine Cardiovascular Exam Present: RRR - *Routine Abdominal Exam Present: soft, normoactive bowel sounds. Absent: tenderness - *Routine Extremities Exam Absent: cyanosis, clubbing, edema - *Routine Skin Exam Present: petechiae, scars, ecchymosis. Absent: rash - *Routine Neurological Exam Present: alert, oriented X3 Results Labs on day of discharge: Labs fr
[2021-11-02 20:30] LABS: POC Glucose,Bedside 137 (70-110)
--- NOTE | 2021-11-04 13:26 | CARE MANAGER ---
Contacted patient's related to hospital discharge. She states patient fell again, but is ok. He has walked twice today, but is still feeling poorly. He is drinking, but has decreased appetite. Denies other questions or concerns. SHEY Moyer
== END 2021-11-02 14:40 | disposition home or self-care (01) ==
PROVIDERS: Internal Medicine Adolescent Medicine; Admitting Provider Internal Medicine Adolescent Medicine; PCP Internal Medicine Adolescent Medicine; Visit Provider Internal Medicine Adolescent Medicine
DX: E86.0 Dehydration (principal); C91.10 Chronic lymphocytic leukemia of B-cell type not having achieved remission; U09.9 Post COVID-19 condition, unspecified; E11.9 Type 2 diabetes mellitus without complications; Z79.4 Long term (current) use of insulin; F17.210 Nicotine dependence, cigarettes, uncomplicated; J44.1 Chronic obstructive pulmonary disease with (acute) exacerbation; J18.9 Pneumonia, unspecified organism; Z79.899 Other long term (current) drug therapy; R29.6 Repeated falls; E78.5 Hyperlipidemia, unspecified
CPT/HCPCS: G0378; G0379; 36415; 70450; 71046; 80053; 82962; 83605; 83735; 85007; 85025; 93005; 94640; 97162; 97166; C9803; J1956; U0003; U0005

== ENCOUNTER 2021-11-25 07:59 | Outpatient (CLI) | payer MEDICARE, OTHER, SELFPAY ==
[2021-11-25] VITALS (11 sets, daily range): BP systolic 149–163; BP diastolic 81–92; PULSE 61–68; RESP 18; TEMP 36.7; O2SAT 97–98; BMI 26.9
[2021-11-25 08:37] LABS: Alanine Aminotransferase 17 U/L (12-78); Albumin Level 3.5 g/dl (3.5-5.0); Albumin/Globulin Ratio 1.3 (1.1-1.8); Alkaline Phosphatase 93 U/L (38-126); Anion Gap 9.4 mEq/L (5-15); Aspartate Amino Transferase 22 U/L (17-59); Bilirubin,Total 0.3 mg/dl (0.2-1.3); Blood Urea Nitrogen 16 mg/dl (9-20); Calcium 8.6 mg/dl (8.4-10.2); Carbon Dioxide 27 mmol/L (22.0-30.0); Chloride 103 mmol/L (98-107); Creatinine Clearance Estimated 66 mL/min (50-200); Estimated Glomerular Filt Rate 50 ml/min (>60); GFR (African American) 61 ML/MIN (>60); Globulin 2.7 g/dL (1.3-3.2); Glucose 222 mg/dl (74-100); Potassium 3.4 mmoL/L (3.5-5.1); Sodium 136 mmol/L (136-145); Total Protein,Serum 6.2 g/dl (6.3-8.2)
[2021-11-25 08:38] LABS: Basophils # 0.2 K/mm3 (0-0.2); Basophils % 2.1 % (0.1-2.0); Eosinophils # 0.3 K/mm3 (0.0-0.4); Eosinophils % 3.3 % (0.1-12.0); Hematocrit 42.9 % (42.0-52.0); Hemoglobin 13.2 g/dL (14.1-18.0); Lymphocytes # 1.5 K/mm3 (0.7-4.5); Lymphocytes % 16.2 % (10-50); Mean Corpuscular HGB Conc 30.8 g/dL (31.8-35.4); Mean Corpuscular Hemoglobin 26.7 pg (27.0-31.2); Mean Corpuscular Volume 86.7 fl (80-94); Mean Platelet Volume 10.2 fl (7.4-10.4); Monocytes # 1.1 K/mm3 (0.1-1.0); Monocytes % 11.9 % (1.7-9.3); Neutrophils # 6.2 K/mm3 (1.8-7.8); Neutrophils % 68.5 % (37.0-80.0); Platelet Count 216 K/mm3 (142-424); Red Blood Count 4.95 M/mm3 (4.60-6.20); Red Cell Distribution Width 17.1 % (11.5-17.5)
== END 2021-11-25 12:50 | disposition home or self-care (01) ==
LOC: INF 07:59
PROVIDERS: PCP Internal Medicine Adolescent Medicine; Visit Provider Internal Medicine Medical Oncology
DX: C91.10 Chronic lymphocytic leukemia of B-cell type not having achieved remission; M06.80 Other specified rheumatoid arthritis, unspecified site
CPT/HCPCS: 80053; 85025; 96413; 96415; J9312

== ENCOUNTER 2021-12-26 07:58 | Outpatient (CLI) | payer MEDICARE, OTHER, SELFPAY ==
[2021-12-26] VITALS (12 sets, daily range): BP systolic 147–164; BP diastolic 74–88; PULSE 60–66; RESP 18–19; TEMP 36.3–36.4; O2SAT 97–99; BMI 26.2
[2021-12-26 08:30] LABS: Basophils # 0.3 K/mm3 (0-0.2); Basophils % 1.3 % (0.1-2.0); Eosinophils # 0.8 K/mm3 (0.0-0.4); Eosinophils % 4.1 % (0.1-12.0); Hematocrit 44.9 % (42.0-52.0); Hemoglobin 13.9 g/dL (14.1-18.0); Lymphocytes # 4.6 K/mm3 (0.7-4.5); Lymphocytes % 23.9 % (10-50); Mean Corpuscular HGB Conc 31.1 g/dL (31.8-35.4); Mean Corpuscular Hemoglobin 27.3 pg (27.0-31.2); Mean Corpuscular Volume 87.7 fl (80-94); Mean Platelet Volume 10.5 fl (7.4-10.4); Monocytes # 1.6 K/mm3 (0.1-1.0); Monocytes % 8.3 % (1.7-9.3); Neutrophils % 62.4 % (37.0-80.0); Platelet Count 158 K/mm3 (142-424); Red Blood Count 5.11 M/mm3 (4.60-6.20); Red Cell Distribution Width 17.9 % (11.5-17.5); White Blood Count 19.3 K/mm3 (4.8-10.8)
[2021-12-26 08:36] LABS: Alanine Aminotransferase 18 U/L (12-78); Albumin Level 3.7 g/dl (3.5-5.0); Albumin/Globulin Ratio 1.3 (1.1-1.8); Alkaline Phosphatase 79 U/L (38-126); Anion Gap 17.1 mEq/L (5-15); Aspartate Amino Transferase 22 U/L (17-59); Bilirubin,Total 0.6 mg/dl (0.2-1.3); Blood Urea Nitrogen 24 mg/dl (9-20); Calcium 8.5 mg/dl (8.4-10.2); Carbon Dioxide 22 mmol/L (22.0-30.0); Chloride 103 mmol/L (98-107); Creatinine Clearance Estimated 60 mL/min (50-200); Estimated Glomerular Filt Rate 46 ml/min (>60); GFR (African American) 56 ML/MIN (>60); Globulin 2.8 g/dL (1.3-3.2); Glucose 146 mg/dl (74-100); Potassium 4.1 mmoL/L (3.5-5.1); Sodium 138 mmol/L (136-145); Total Protein,Serum 6.5 g/dl (6.3-8.2)
[2021-12-26 08:42] LABS: MANUAL DIFFERENTIAL MANUAL DIFFERENTIAL (MANUAL DIFF)
--- NOTE | 2021-12-26 09:40 | PC.NURSE ---
0819- IV started. CBC, CMP drawn and pt to oncology appt.
[2021-12-26 10:11] LABS: Lymphocytes % 20 % (10-50); Monocytes % 9 % (2-9); Neutrophils % 40 % (42-76); Total Cells Counted 100
[2021-12-26 10:12] LABS: Platelet Estimate Normal
[2021-12-26 10:13] LABS: RBC Morphology Normal
== END 2021-12-26 13:30 | disposition home or self-care (01) ==
LOC: INF 07:59
PROVIDERS: PCP Internal Medicine Adolescent Medicine; Visit Provider Internal Medicine Medical Oncology
DX: C91.10 Chronic lymphocytic leukemia of B-cell type not having achieved remission; Z51.12 Encounter for antineoplastic immunotherapy; M06.80 Other specified rheumatoid arthritis, unspecified site
CPT/HCPCS: 80053; 85007; 85025; 96413; 96415; J9312

== ENCOUNTER → 2022-01-20 10:42 | Outpatient (CLI) | payer MEDICARE, OTHER, SELFPAY ==
--- NOTE | 2022-01-20 10:46 | CT_ITS ---
FINAL REPORT TECHNIQUE: Axial imaging of the chest was obtained without contrast. Reformatted images were also obtained and reviewed.This study was performed with techniques to keep radiation doses as low as reasonably achievable, (ALARA). Individualized dose reduction technique using automated exposure control or adjustment of mA and/or kV according to the patient's size were employed. CLINICAL HISTORY: Chronic lymphocytic leukemia, yearly followup COMPARISON: 05/03/2021 FINDINGS: Again seen is a thoracic aortic stent. There has been marked improvement in bilateral axillary and mediastinal adenopathy. Small lymph nodes persist. There is mild bibasilar atelectasis. A small left pleural effusion is seen. There is no pericardial effusion. New, alveolar opacities are present in the left upper lobe consistent with pneumonia. IMPRESSION: Marked improvement of bilateral axillary and mediastinal adenopathy. New alveolar opacities in the left upper lobe consistent with pneumonia. Reviewed, Interpreted and Dictated by Eder Hopkins III, MD Transcribed by Mandy Barreto Authenticated and . [facility]
--- NOTE | 2022-01-20 10:47 | CT_ITS ---
FINAL REPORT TECHNIQUE: Axial images through the abdomen and pelvis were performed without contrast.This study was performed with techniques to keep radiation doses as low as reasonably achievable, (ALARA). Individualized dose reduction techniques using automated exposure control or adjustment of mA and/or kV according to the patient's size were employed. CLINICAL HISTORY: Chronic lymphocytic leukemia COMPARISON: 05/03/2021 FINDINGS: ABDOMEN: The heart size is normal. Limited images of the liver are unremarkable. There has been interval improvement in splenomegaly. No adrenal mass is identified. Patient is status post right nephrectomy. There is no hydronephrosis. Several left renal masses are again seen which are likely cysts. There is a less than 3 mm, nonobstructing left renal stone. There is an aortic stent graft in place. There has been interval improvement in portacaval adenopathy. PELVIS: There is descending and sigmoid diverticulosis. 41 mm right common iliac artery aneurysm is stable. There has been significantly improvement in bilateral external iliac and inguinal adenopathy . There are several persistent enlarged inguinal lymph nodes measuring up to 24 mm, previously measured 29 mm. The urinary bladder is unremarkable. IMPRESSION: Interval improvement in portacaval, external iliac and inguinal adenopathy. Stable right common iliac artery aneurysm. Improving splenomegaly. Reviewed, Interpreted and Dictated by Eder Hopkins III, MD Transcribed by Mandy Barreto Authenticated and [facility]
== END ==
PROVIDERS: PCP Internal Medicine Adolescent Medicine; Visit Provider Internal Medicine Medical Oncology
DX: C91.10 Chronic lymphocytic leukemia of B-cell type not having achieved remission (principal)
CPT/HCPCS: 71250; 74176

== ENCOUNTER 2022-01-23 08:01 | Outpatient (CLI) | payer MEDICARE, OTHER, SELFPAY ==
[2022-01-23] VITALS (7 sets, daily range): BP systolic 151–162; BP diastolic 74–92; PULSE 57–65; RESP 18; TEMP 36.6; O2SAT 95; BMI 26.6
[2022-01-23 08:29] LABS: Basophils # 0.2 K/mm3 (0-0.2); Basophils % 0.8 % (0.1-2.0); Eosinophils # 0.5 K/mm3 (0.0-0.4); Eosinophils % 2.5 % (0.1-12.0); Hematocrit 41.7 % (42.0-52.0); Hemoglobin 13.2 g/dL (14.1-18.0); Lymphocytes % 41.4 % (10-50); Mean Corpuscular HGB Conc 31.6 g/dL (31.8-35.4); Mean Corpuscular Hemoglobin 27.2 pg (27.0-31.2); Mean Platelet Volume 10.8 fl (7.4-10.4); Monocytes % 5.1 % (1.7-9.3); Neutrophils # 9.7 K/mm3 (1.8-7.8); Neutrophils % 50.2 % (37.0-80.0); Platelet Count 213 K/mm3 (142-424); Red Blood Count 4.85 M/mm3 (4.60-6.20); Red Cell Distribution Width 16.2 % (11.5-17.5); White Blood Count 19.4 K/mm3 (4.8-10.8)
[2022-01-23 08:38] LABS: Chloride 104 mmol/L (98-107); Potassium 4.3 mmoL/L (3.5-5.1); Sodium 140 mmol/L (136-145)
[2022-01-23 08:41] LABS: Alanine Aminotransferase 19 U/L (12-78); Albumin Level 3.8 g/dl (3.5-5.0); Albumin/Globulin Ratio 1.2 (1.1-1.8); Alkaline Phosphatase 93 U/L (38-126); Anion Gap 16.3 mEq/L (5-15); Aspartate Amino Transferase 33 U/L (17-59); Bilirubin,Total 0.7 mg/dl (0.2-1.3); Blood Urea Nitrogen 19 mg/dl (9-20); Calcium 8.3 mg/dl (8.4-10.2); Carbon Dioxide 24 mmol/L (22.0-30.0); Creatinine Clearance Estimated 64 mL/min (50-200); Estimated Glomerular Filt Rate 50 ml/min (>60); GFR (African American) 60 ML/MIN (>60); Globulin 3.2 g/dL (1.3-3.2); Glucose 157 mg/dl (74-100)
[2022-01-23 08:55] LABS: MANUAL DIFFERENTIAL MANUAL DIFFERENTIAL (MANUAL DIFF)
[2022-01-23 09:21] LABS: Eosinophils % 4 % (0-3); Hypochromasia 1+; Lymphocytes % 35 % (10-50); Monocytes % 5 % (2-9); Neutrophils % 52 % (42-76); Total Cells Counted 100
[2022-01-23 09:23] LABS: Platelet Estimate Normal
== END 2022-01-23 13:20 | disposition home or self-care (01) ==
LOC: INF 08:02
PROVIDERS: PCP Internal Medicine Adolescent Medicine; Visit Provider Internal Medicine Medical Oncology
DX: Z51.12 Encounter for antineoplastic immunotherapy (principal); C91.10 Chronic lymphocytic leukemia of B-cell type not having achieved remission; M06.80 Other specified rheumatoid arthritis, unspecified site
CPT/HCPCS: 80053; 85007; 85025; 96413; 96415; J9312

== ENCOUNTER 2022-02-20 07:58 | Outpatient (CLI) | payer MEDICARE, OTHER, SELFPAY ==
[2022-02-20] VITALS (8 sets, daily range): BP systolic 127–150; BP diastolic 61–78; PULSE 55–66; RESP 18; O2SAT 97; BMI 27.2
[2022-02-20 08:38] LABS: Basophils # 0.1 K/mm3 (0-0.2); Basophils % 1.1 % (0.1-2.0); Eosinophils # 0.1 K/mm3 (0.0-0.4); Eosinophils % 1.5 % (0.1-12.0); Hematocrit 38.3 % (42.0-52.0); Hemoglobin 12.3 g/dL (14.1-18.0); Lymphocytes # 1.2 K/mm3 (0.7-4.5); Lymphocytes % 14.4 % (10-50); Mean Corpuscular HGB Conc 32.2 g/dL (31.8-35.4); Mean Corpuscular Hemoglobin 26.6 pg (27.0-31.2); Mean Corpuscular Volume 82.6 fl (80-94); Mean Platelet Volume 10.4 fl (7.4-10.4); Monocytes # 0.7 K/mm3 (0.1-1.0); Monocytes % 8.6 % (1.7-9.3); Neutrophils # 6.4 K/mm3 (1.8-7.8); Neutrophils % 74.5 % (37.0-80.0); Platelet Count 220 K/mm3 (142-424); Red Blood Count 4.64 M/mm3 (4.60-6.20); Red Cell Distribution Width 17.2 % (11.5-17.5); White Blood Count 8.6 K/mm3 (4.8-10.8)
[2022-02-20 08:46] LABS: Alanine Aminotransferase 20 U/L (12-78); Albumin Level 3.6 g/dl (3.5-5.0); Albumin/Globulin Ratio 1.2 (1.1-1.8); Alkaline Phosphatase 97 U/L (38-126); Anion Gap 15.9 mEq/L (5-15); Aspartate Amino Transferase 17 U/L (17-59); Bilirubin,Total 0.4 mg/dl (0.2-1.3); Blood Urea Nitrogen 24 mg/dl (9-20); Calcium 9.1 mg/dl (8.4-10.2); Carbon Dioxide 28 mmol/L (22.0-30.0); Chloride 99 mmol/L (98-107); Creatinine Clearance Estimated 51 mL/min (50-200); Estimated Glomerular Filt Rate 35 ml/min (>60); GFR (African American) 42 ML/MIN (>60); Globulin 3.1 g/dL (1.3-3.2); Glucose 181 mg/dl (74-100); Potassium 3.9 mmoL/L (3.5-5.1); Sodium 139 mmol/L (136-145); Total Protein,Serum 6.7 g/dl (6.3-8.2)
--- NOTE | 2022-02-20 09:13 | PC.NURSE ---
0913-notified md with pt's creatinine 1.9;ok to proceed with treatment
== END 2022-02-20 13:05 | disposition home or self-care (01) ==
PROVIDERS: PCP Internal Medicine Adolescent Medicine; Visit Provider Internal Medicine Medical Oncology
DX: Z51.12 Encounter for antineoplastic immunotherapy (principal); C91.10 Chronic lymphocytic leukemia of B-cell type not having achieved remission; M06.80 Other specified rheumatoid arthritis, unspecified site
CPT/HCPCS: 80053; 85025; 96413; 96415; J9312

== ENCOUNTER 2022-03-07 13:39 | Inpatient (IN) | payer MEDICARE, OTHER, SELFPAY ==
[2022-03-07] VITALS (14 sets, daily range): BP systolic 149–189; BP diastolic 74–106; PULSE 61–73; RESP 16–21; TEMP 36.7–37.3; O2SAT 92–98; BMI 26.6; BMI 26.0
--- NOTE | 2022-03-07 13:49 | ECG_ITS ---
APPROVED REPORT Exam: Resting ECG HR:70 bpm ECG Measurements Heart Rate 70 AXES GA 172 P 20 QRSd 104 QRS 33 QT 378 T 35 QTc 399 Conclusion SINUS RHYTHM NORMAL ECG UNCONFIRMED REPORT Electronically signed by : Master Ocasio MD 03/08/2022 12:12:48
--- NOTE | 2022-03-07 14:05 | XR_ITS ---
FINAL REPORT CLINICAL HISTORY: Pt has been going through chemo therapy for lymphoma x wks, declined state since. Weakness, fatigue. COMPARISON: 10/12/2021 FINDINGS: TWO-VIEW CHEST The heart size is normal. The mediastinum is normal. There is dense airspace opacity in the right base which is increased since prior, probably due to acute pneumonia. There is associated atelectasis. An aortic endograft is seen in the aortic arch. There is no pneumothorax. IMPRESSION: Airspace infiltrate at the right base, probably due to acute pneumonia. Reviewed, Interpreted and Dictated by Marcin Aguirre MD Transcribed by Kelly Anderson Authenticated and [facility]
--- NOTE | 2022-03-07 14:07 | PC.NURSE ---
fsbs on arrival is 232
--- NOTE | 2022-03-07 14:14 | PC.NURSE ---
pt to rad
[2022-03-07 14:19] LABS: Coronavirus 19, PCR Not Detected (NotDetected); Influenza A, PCR Not Detected (NotDetected); Influenza B, PCR Not Detected (NotDetected)
[2022-03-07 14:26] LABS: Basophils # 0.1 K/mm3 (0-0.2); Basophils % 1.2 % (0.1-2.0); Eosinophils # 0.2 K/mm3 (0.0-0.4); Eosinophils % 1.6 % (0.1-12.0); Hematocrit 35.8 % (42.0-52.0); Hemoglobin 11.2 g/dL (14.1-18.0); Lymphocytes # 0.9 K/mm3 (0.7-4.5); Lymphocytes % 8.8 % (10-50); Mean Corpuscular HGB Conc 31.2 g/dL (31.8-35.4); Mean Corpuscular Hemoglobin 24.8 pg (27.0-31.2); Mean Corpuscular Volume 79.3 fl (80-94); Monocytes # 0.8 K/mm3 (0.1-1.0); Monocytes % 7.5 % (1.7-9.3); Neutrophils # 8.2 K/mm3 (1.8-7.8); Neutrophils % 80.9 % (37.0-80.0); Platelet Count 277 K/mm3 (142-424); Red Blood Count 4.52 M/mm3 (4.60-6.20); Red Cell Distribution Width 16.5 % (11.5-17.5); White Blood Count 10.2 K/mm3 (4.8-10.8)
[2022-03-07 14:34] LABS: Chloride 101 mmol/L (98-107); Potassium 3.7 mmoL/L (3.5-5.1); Sodium 133 mmol/L (136-145)
[2022-03-07 14:37] LABS: Alanine Aminotransferase 17 U/L (12-78); Albumin Level 3.2 g/dl (3.5-5.0); Albumin/Globulin Ratio 1.1 (1.1-1.8); Alkaline Phosphatase 78 U/L (38-126); Anion Gap 11.7 mEq/L (5-15); Aspartate Amino Transferase 17 U/L (17-59); Bilirubin,Total 0.3 mg/dl (0.2-1.3); Blood Urea Nitrogen 28 mg/dl (9-20); Carbon Dioxide 24 mmol/L (22.0-30.0); Creatinine Clearance Estimated 43 mL/min (50-200); Estimated Glomerular Filt Rate 31 ml/min (>60); GFR (African American) 38 ML/MIN (>60); Globulin 2.8 g/dL (1.3-3.2)
[2022-03-07 14:38] LABS: Calcium 8.5 mg/dl (8.4-10.2); Glucose 218 mg/dl (74-100)
--- NOTE | 2022-03-07 15:35 | CT_ITS ---
FINAL REPORT TECHNIQUE: Axial CT images were performed through the head. Coronal reformatted images were submitted. This study was performed with techniques to keep radiation doses as low as reasonably achievable (ALARA). Individualized dose reduction techniques using automated exposure control or adjustment of mA and/or kV according to the patient's size were employed. CLINICAL HISTORY: gait difficulty, rapid declining state. Pt on chemo for wks. COMPARISON: October 2021 FINDINGS: There is moderate atrophy with proportionate ventriculomegaly. There is abnormal decreased attenuation in the deep white matter particularly in the posterior parietal lobes. There is no evidence of hemorrhage. There is no mass or edema identified. There is no abnormal extra-axial fluid seen. There is extensive mucoperiosteal thickening in the maxillary sinuses, left greater than right, and throughout the ethmoid air cells. There appears to have been October 2021 resection of the medial merlos of the maxillary sinuses. IMPRESSION: No acute intracranial process. Extensive changes of chronic bilateral sinusitis. Reviewed, Interpreted and Dictated by Marcin Aguirre MD Transcribed by Delfino Orozco Authenticated and . [facility]
--- NOTE | 2022-03-07 15:47 | HMH.EDGENADL ---
Discharge Plan Disposition Patient Disposition: Admitted as Observation Condition: Fair Clinical Impressions Clinical Impression: Pneumonia Discharge ED Provider: Cipriano Hernandez General Adult HPI General Chief complaint: Weakness Stated complaint: stumbling , no appetite chemo pil side affects po Time Seen by Provider: 03/07/22 15:24 Mode of Arrival: Ambulatory Source of Information: Patient Limitations: No Limitations Description of Symptoms (Recalled from ER Triage Doc. by RN): pt to ed c/o weakness, decrease in appetite, and weight loss. pt states he just isnt feeling well. pt denies pain anywhere. History of Present Illness HPI narrative: History obtained primarily from patient's . She states that he was brought in today because of weakness and gait instability. Was not able to walk while at work today. Patient's son called his and told her that he was not well and needed to be brought to the hospital. Patient is denying any complaints in any pain. He told the nursing staff he was not feeling well. His reports that he has prior history of CLL for years. He has been on intravenous chemotherapy. She says when he got vaccinated and boosted everything began to decline. She says that he developed a lymphoma. He has been started on oral chemotherapy since then and his intravenous chemotherapy frequency has been increased. Despite that he has continued to decline. Over the past month and a half he has had difficulty walking. He is losing a lot of weight. He is not eating well. states that she called the ibrutinib pharmacist who advised her that he should not be having a decline in his condition from that oral chemotherapy agent and that they were concerned that he might of had a stroke and to call 911 to have him brought to the emergency department. He sees Dr. Damico for a hematology/oncology. His primary care provider is Dr. Ocasio, he saw him about 2 weeks ago for upper respiratory. states he also has COPD. He has diabetes. He has renal insufficiency. She states he only has 1 kidney. Related Data Home Medications Medication Instructions Recorded Confirmed tamsulosin 0.4 mg capsule 0.8 mg PO DAILY prostate 05/12/18 01/23/22 aspirin 81 mg chewable tablet 81 mg PO DAILY blood clot 06/09/18 01/23/22 albuterol sulfate 90 mcg/actuation 1 puff inhalation Q4HP PRN copd 10/25/18 01/23/22 aerosol inhaler hydralazine 50 mg tablet 50 mg PO TID High blood pressure 10/25/18 01/23/22 nebivolol 20 mg tablet 40 mg PO DAILY High blood pressure 06/06/21 01/23/22 sitagliptin phosphate 50 mg tablet 50 mg PO DAILY Diabetes 06/06/21 01/23/22 (Januvia) insulin NPH-regular 70-30 U-100 25 unit SQ BID Diabetes 06/18/21 01/23/22 insulin 100 unit/mL subcutaneous pen amlodipine 10 mg tablet 10 mg PO DAILY blood pressure 08/16/21 01/23/22 fluticasone propionate 50 1 spray intranasal DAILY allergies 08/16/21 01/23/22 mcg/actuation nasal spray,suspension ibrutinib 420 mg tablet (Imbruvica) 420 mg PO DAILY cancer 09/12/21 01/23/22 umeclidinium 62.5 mcg/actuation 1 puff inhalation DAILY COPD 11/01/21 01/23/22 blister powder for inhalation levofloxacin 750 mg tablet 750 mg PO DAILY Infection 11/25/21 01/23/22 Previous Rx's Medication Instructions Recorded alprazolam 0.5 mg tablet 0.5 mg PO BIDP PRN Anxiety 5 days 11/02/21 #10 tabs Allergies Allergy/AdvReac Type Severity Reaction Status Date / Time moxifloxacin [From Avelox] Allergy Intermediate I-RASH Verified 01/23/22 08:27 sulfamethoxazole Allergy Unknown UNKNOWN Verified 01/23/22 08:27 [From Bactrim] trimethoprim [From Bactrim] Allergy Unknown Verified 01/23/22 08:27 [facility] Disclaimer: The information contained in this section may have been updated after the patient was seen, as this information can be updated by other users. Medical History Aneurysm Cancer Deep vei
--- NOTE | 2022-03-07 15:55 | PC.NURSE ---
RT at the bedside for ABG
[2022-03-07 16:07] LABS: ABG Base Excess -0.4 mmol/L (-2.4-2.3); ABG HCO3 23.6 mmhg (22.0-26.0); ABG Oxygen Saturation 94 % (90-100); ABG PCO2 35.1 mmhg (35.0-45.0); ABG PH 7.45 mmol/L (7.35-7.45); ABG PO2 64.9 mmhg (80-100); ABG TCO2 24.7 mmhg (23-27)
[2022-03-07 16:09] LABS: Allen's Test Acceptable; Oxygen RA %
[2022-03-07 16:10] LABS: Source Right Radial
[2022-03-07 16:33] LABS: Ammonia 13 umol/L (9-30)
[2022-03-07 16:34] LABS: Lactic Acid 0.7 mmol/L (0.7-2.1)
--- NOTE | 2022-03-07 16:44 | PC.NURSE ---
paged dr traore
--- NOTE | 2022-03-07 16:46 | PC.NURSE ---
speaking with Dr. Ocasio
--- NOTE | 2022-03-07 16:50 | PC.NURSE ---
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
--- NOTE | 2022-03-07 18:36 | PC.NURSE ---
Confirmed patient home meds with . advised that pt is suppose to take insulin as directed on med rec but she is unsure of the last time he actually took his insulin. All other meds are current and he takes those regularly
--- NOTE | 2022-03-07 19:02 | PC.NURSE ---
report called to SHEY Nation
--- NOTE | 2022-03-07 19:46 | EXP.HP ---
History of Present Illness *Admission Date: 03/07/22 *Reason for visit:: Weakness, fatigue and cough *History of present illness: 72-year-old white male with history of CLL with ongoing treatment, also has COPD, diabetes and single functioning kidney, who I saw about 3 weeks ago in my office and diagnosed with acute bronchopneumonia and placed him on doxycycline. Also change his inhaler to Trelegy and this seemed to make a big difference in his breathing for a while. 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 ER work-up revealed slight acute kidney injury based on changes from his baseline, unchanged CT of head, normal CBC compared to baseline but significant right lower lobe pneumonia with large infiltrate. Given his weakness, nonambulatory status and immunosuppressed status as well as failure of outpatient therapy from his previous antibiotics he was admitted to hospital for further evaluation, diagnostic testing and IV antibiotics. [facility] Disclaimer: The information contained in this section may have been updated after the patient was seen, as this information can be updated by other users. Medical History Aneurysm Cancer Deep vein thrombosis (DVT) History of hypertension Hyperlipidemia Family History Other Cancer Hypertension Social History Smoking Status: Current every day smoker tobacco type: cigarettes packs per day: 1 alcohol intake: current substance use type: denies use current occupational status: employed Travel in the last 8 weeks: Inside the [place] household members: spouse housing: house caffeine: Yes Review of Systems Review of Systems Review of systems:: pertinent systems reviewed and negative unless documented below Review of systems (narrative): Patient complains of cough, ongoing/chronic nasal congestion and global weakness. He states he feels a little bit better than he did when he arrived at the ER. Constitutional Constitutional: Denies headache(s) and Reports weakness ENT Ears, Nose, Mouth, and Throat: Reports disequilibrium and Denies headache(s) *Musculoskeletal Musculoskeletal: Reports abnormal gait and Denies numbness *Neurologic Neurologic: Reports abnormal gait, Reports disequilibrium, Denies headache(s), Denies numbness and Reports weakness Meds Home Medications and Allergies Home Medications Medication Instructions Recorded Confirmed Type tamsulosin 0.4 mg capsule 0.8 mg PO DAILY prostate 05/12/18 03/07/22 History aspirin 81 mg chewable tablet 81 mg PO DAILY blood clot 06/09/18 03/07/22 History albuterol sulfate 90 mcg/actuation 1 puff inhalation Q4HP PRN copd 10/25/18 03/07/22 History aerosol inhaler hydralazine 50 mg tablet 50 mg PO TID High blood pressure 10/25/18 03/07/22 History nebivolol 20 mg tablet 40 mg PO DAILY High blood pressure 06/06/21 03/07/22 History sitagliptin phosphate 50 mg tablet 50 mg PO DAILY Diabetes 06/06/21 03/07/22 History (Amandaia) insulin NPH-regular 70-30 U-100 25 unit SQ BID Diabetes 06/18/21 03/07/22 History insulin 100 unit/mL subcutaneous pen amlodipine 10 mg tablet 10 mg PO DAILY blood pressure 08/16/21 03/07/22 History fluticasone propionate 50 1 spray intranasal DAILY allergies 08/16/21 03/07/22 History mcg/actuation nasal spray,suspension ibrutinib 420 mg tablet (Imbruvica) 420 mg PO DAILY cancer 09/12/21 03/07/22 History umeclidinium 62.5 mcg/actuation 1 puff inhalation DAILY COPD 11/01/21 03/07/22 History blister powder for inhalation New Prescriptions to Start Prescriptions: Allergies Allergy/AdvReac Type Severity Reaction Status Date / Time moxiwyo
[2022-03-07 20:49] LABS: POC Glucose,Bedside 152 (70-110)
[2022-03-08 04:00] VITALS: BP 139/79; PULSE 63; RESP 18; TEMP 36.6; O2SAT 95
[2022-03-08 08:00] VITALS: BP 153/75; PULSE 60; RESP 20; TEMP 36.9; O2SAT 94
[2022-03-08 08:13] LABS: POC Glucose,Bedside 136 (70-110)
[2022-03-08 08:40] LABS: Basophils # 0.1 K/mm3 (0-0.2); Basophils % 1.2 % (0.1-2.0); Eosinophils # 0.2 K/mm3 (0.0-0.4); Eosinophils % 2.5 % (0.1-12.0); Hematocrit 34.7 % (42.0-52.0); Lymphocytes % 13.2 % (10-50); Mean Corpuscular HGB Conc 31.8 g/dL (31.8-35.4); Mean Corpuscular Hemoglobin 24.9 pg (27.0-31.2); Mean Corpuscular Volume 78.3 fl (80-94); Mean Platelet Volume 9.9 fl (7.4-10.4); Monocytes # 0.7 K/mm3 (0.1-1.0); Monocytes % 9.2 % (1.7-9.3); Neutrophils # 5.7 K/mm3 (1.8-7.8); Neutrophils % 73.9 % (37.0-80.0); Platelet Count 262 K/mm3 (142-424); Red Blood Count 4.44 M/mm3 (4.60-6.20); Red Cell Distribution Width 16.4 % (11.5-17.5); White Blood Count 7.7 K/mm3 (4.8-10.8)
[2022-03-08 08:48] LABS: Chloride 105 mmol/L (98-107); Sodium 135 mmol/L (136-145)
[2022-03-08 08:51] LABS: Blood Urea Nitrogen 23 mg/dl (9-20); Calcium 8.3 mg/dl (8.4-10.2); Carbon Dioxide 24 mmol/L (22.0-30.0); Creatinine Clearance Estimated 46 mL/min (50-200); Estimated Glomerular Filt Rate 35 ml/min (>60); GFR (African American) 42 ML/MIN (>60); Glucose 147 mg/dl (74-100)
--- NOTE | 2022-03-08 09:05 | EXP.ACUTE.PN ---
Subjective *Date: 03/08/22 *Time: 09:05 Interval history: Patient had a good night sleep and feels much better this morning. Has eaten breakfast and feels like he could eat some more breakfast. Notes that is not been able to cough up any sputum. His is very happy with his improved mental status and strength. Medical Exam Vital signs and Labs for Last 24 Hours: Vital Signs Temp Pulse Pulse Resp BP BP Pulse Ox 03/08/22 04:00 97.9 F 63 18 139/79 95 03/07/22 23:37 99.2 F 70 21 183/82 H 92 L 03/07/22 20:00 98.1 F 70 16 165/82 H 93 L 03/07/22 19:09 99.2 F 73 20 187/98 H 95 03/07/22 19:07 98.3 F 62 20 151/78 H 03/07/22 18:30 65 18 158/81 H 92 L 03/07/22 18:00 67 162/91 H 94 L 03/07/22 17:30 65 162/92 H 94 L 03/07/22 17:00 62 162/80 H 94 L 03/07/22 16:30 62 167/89 H 95 03/07/22 16:01 66 20 189/106 H 95 03/07/22 15:30 63 20 155/75 H 95 03/07/22 15:00 61 20 149/74 H 95 03/07/22 14:30 66 152/80 H 94 L 03/07/22 14:00 68 20 173/83 H 95 03/07/22 14:00 98.0 F 70 20 175/92 H 96 Intake and Output 03/07/22 03/08/22 03/08/22 19:59 03:59 11:59 Other: Weight 203 lb 1 oz Patient Weight 03/08/22 11:59 Weight 203 lb 1 oz Laboratory Results - last 24 hr 03/07/22 13:58: WBC 10.2, RBC 4.52 L, Hgb 11.2 L, Hct 35.8 L, MCV 79.3 L, MCH 24.8 L, MCHC 31.2 L, RDW 16.5, Plt Count 277, MPV 10.0, Neut % (Auto) 80.9 H, Lymph % (Auto) 8.8 L, [place] % (Auto) 7.5, Eos % (Auto) 1.6, Baso % (Auto) 1.2, Neut # (Auto) 8.2 H, Lymph # (Auto) 0.9, [place] # (Auto) 0.8, Eos # (Auto) 0.2, Baso # (Auto) 0.1 03/07/22 13:58: Sodium 133 L, Potassium 3.7, Chloride 101, Carbon Dioxide 24, Anion Gap 11.7, BUN 28 H, Creatinine 2.10 H, Estimated Creat Clear 43, Estimated GFR 31 L, Est GFR ( Amer) 38 L, Glucose 218 H, Calcium 8.5, Total Bilirubin 0.3, AST 17, ALT 17, Alkaline Phosphatase 78, Total Protein 6.0 L, Albumin 3.2 L, Globulin 2.8, Albumin/Globulin Ratio 1.1 03/07/22 13:58: SARS-CoV-2 (PCR) Not detected, Influenza A Untype (PCR) Not detected, Influenza Type B (PCR) Not detected 03/07/22 16:00: Ammonia 13 03/07/22 16:00: Lactate 0.7 03/07/22 16:05: Specimen Source Right radial, O2 % Ra, ABG pH 7.45, ABG pCO2 35.1, ABG pO2 64.9 L, ABG HCO3 23.6, ABG Total CO2 24.7, ABG O2 Saturation 94, ABG Base Excess -0.4, Larry Test Acceptable 03/07/22 20:31: POC Glucose 152 H 03/08/22 06:15: POC Glucose 136 H 03/08/22 07:36: WBC 7.7, RBC 4.44 L, Hgb 11.0 L, Hct 34.7 L, MCV 78.3 L, MCH 24.9 L, MCHC 31.8, RDW 16.4, Plt Count 262, MPV 9.9, Neut % (Auto) 73.9, Lymph % (Auto) 13.2, [place] % (Auto) 9.2, Eos % (Auto) 2.5, Baso % (Auto) 1.2, Neut # (Auto) 5.7, Lymph # (Auto) 1.0, [place] # (Auto) 0.7, Eos # (Auto) 0.2, Baso # (Auto) 0.1 03/08/22 07:36: Sodium 135 L, Potassium 4.0, Chloride 105, Carbon Dioxide 24, Anion Gap 10.0, BUN 23 H, Creatinine 1.90 H, Estimated Creat Clear 46, Estimated GFR 35 L, Est GFR ( Amer) 42 L, Glucose 147 H D, Calcium 8.3 L I & O for Labs for Last 24 Hours: Intake & Output 03/05/22 03/06/22 03/07/22 03/08/22 11:59 11:59 11:59 11:59 Weight 203 lb 1 oz Comment:: Alert, talkative, appears much better in regards to hydration status and communication status. Lungs have rhonchi but better air movement. Heart rate regular. Abdomen soft, no edema noted. No change in baseline neuro exam. Assessment and Plan *Assessment and plan (1) Pneumonia: Status: Acute Category: Medical Code(s): J18.9 - Pneumonia, unspecified organism (2) CLL (chronic lymphocytic leukemia): Status: Acute Category: Medical Code(s): C91.10 - Chronic lymphocytic leukemia of B-cell type not having achieved remission (3) Sinusitis: Status: Acute Qualifiers: Chronicity: acute Recurrence: non-recurrent Sinusitis location: unspecified location Qualified Code(s): J01.90 - Acute sinusitis,
[2022-03-08 09:23] VITALS: PULSE 77; RESP 20
--- NOTE | 2022-03-08 09:28 | DIET.NUTRFU ---
RD consulted for diet instruction, he is currently ordered diabetic diet and chart reports insulin usage at home. Lives with . Will include diabetic handouts with discharge paperwork. Will monitor po intake and BS during stay. No recent A1c on file to determine if DM is controlled at home.
[2022-03-08 12:00] VITALS: BP 159/78; PULSE 66; RESP 20; TEMP 36.8; O2SAT 94
[2022-03-08 13:09] LABS: POC Glucose,Bedside 180 (70-110)
--- NOTE | 2022-03-08 14:47 | HMH.PHAINT1 ---
Pharmacy Intervention Comments: MEDICATION RECONCILIATION COMPLETED ON PATIENT USDING EXTERNAL FILL HISTORY FROM PHARMACY AND DISCHARGE SUMMARY FROM PREVIOUS ADMISSION. -MUKUND VALENTED
[2022-03-08 16:00] VITALS: BP 139/74; PULSE 60; RESP 22; TEMP 36.9; O2SAT 92
[2022-03-08 17:26] LABS: POC Glucose,Bedside 103 (70-110)
--- NOTE | 2022-03-08 17:47 | HMH.PTEV ---
Physical Therapy Evaluation Rehab PT IP Evaluation Start: 03/07/22 19:43 Freq: ONCE Status: Active Protocol: Document 03/08/22 17:44 KECIA (Rec: 03/08/22 17:47 PHOVIRY [id number]) Subjective/History History History 72 yowm adm to [facility] with PNA, has hx of CLL, COPD, and only one kidney. He reports he lives with family 3 steps to enter the home and he is generally independent with all mobility. Subjective Subjective No c/o this pm. Rehab PT IP Eval Objective Appearance Patient Behavior Appropriate Patient Orientation Person,Place,Time Difficulty following instructions none Speech Pattern Clear Ambulation Patient Able to Ambulate Yes Ambulation Observation IP General Gait Pattern Observation No Deviations/Normal Ambulation Distance (feet) 100 Ambulation Assistive Device None Ambulation Ability Supervision/Stand by Balance Ability to Arise Able, uses arms to help Sitting Balance Steady, safe Standing Balance Narrow stance w/o support Dynamic Sitting Balance Ability Normal Dynamic Standing Balance Ability Good Transfers Bed Transfer Ability Independent Chair Transfer Ability Supervision/Stand by Sit to Stand Bed Transfer Ability Supervision/Stand by Sit to Stand Chair Transfer Ability Supervision/Stand by ROM All Extremities PT ROM Status WFL MMT All Extremities PT MMT WFL Rehab PT IP prob,goals,plan Problems Date of Evaluation: 03/08/22 Discharge Plan PT Discharge Plan Pt presents at baseline for all mobility at this time, no current inpatient therapy needs. G -code Required No Eval Complexity Eval Charge Codes 94454 - Moderate Complexity PHYSICIAN CERTIFICATION: I certify the specified therapy services for Eder Castillo are required, authorized, and reviewed every 30 days.
[2022-03-08 20:00] VITALS: BP 155/81; PULSE 66; RESP 18; TEMP 36.7; O2SAT 93
[2022-03-08 22:34] LABS: POC Glucose,Bedside 187 (70-110)
[2022-03-09] VITALS (8 sets, daily range): BP systolic 136–164; BP diastolic 72–80; PULSE 56–65; RESP 16–20; TEMP 36.6–37; O2SAT 91–94; BMI 25.9
--- NOTE | 2022-03-09 00:35 | PC.NURSE ---
Addendum entered by Yoanna Younger RN 03/09/22 00:45: Report given to SHEY Sandhu at this time Original Note: Pt has done fine this shift. Pt given IV zofran to help w/ mild nausea before pt attempted to eat chicken noodle soup. Satisfactory results noted. Pt has requested PRN ativan to help with anxiousness and difficulty sleeping this shift. Pt currently resting w/ eyes closed at this time. No other acute changes or complaints.
--- NOTE | 2022-03-09 04:02 | PC.NURSE ---
No acute changes. Pt has slept at intervals this shift. Requested ativan x2. Pt is continent and uses urinal. Educated on VTE SCDS. Pt declined to use them. Has been bradycardic at times this shift. Other VSS. Call light within reach.
[2022-03-09 06:15] LABS: POC Glucose,Bedside 133 (70-110)
--- NOTE | 2022-03-09 08:55 | EXP.ACUTE.PN ---
Subjective *Date: 03/09/22 *Time: 08:55 Interval history: Overall patient feels better this morning. Wishes to go home but still continues to be a bit weak and has a lot of coughing. Was able to produce a sputum culture yesterday. Tolerated Celexa well yesterday and did have a dose of Ativan last night because of jitters and this helped him sleep well. Medical Exam Vital signs and Labs for Last 24 Hours: Vital Signs Temp Pulse Pulse Resp BP Pulse Ox 03/09/22 08:03 97.9 F 65 20 160/80 H 92 L 03/09/22 04:00 98.6 F 61 18 138/77 93 L 03/09/22 00:00 98.4 F 58 L 18 136/74 94 L 03/08/22 20:00 93 L 03/08/22 20:00 98.1 F 66 18 155/81 H 93 L 03/08/22 16:00 98.5 F 60 22 139/74 92 L 03/08/22 12:00 98.3 F 66 20 159/78 H 94 L 03/08/22 09:23 77 20 Intake and Output 03/08/22 03/09/22 03/09/22 19:59 03:59 11:59 Intake Total 600 / 960 360 / 960 Output Total 0 / 1200 800 / 1200 400 / 1200 Balance 600 / -240 -800 / -240 -40 / -240 Intake: Intake, Oral Amount 600 / 960 360 / 960 Output: Output, Urine Amount 0 / 1200 800 / 1200 400 / 1200 Other: Number of Unmeasured Voids 1 0 1 Weight 202 lb 3 oz Patient Weight 03/09/22 11:59 Weight 202 lb 3 oz Laboratory Results - last 24 hr 03/08/22 07:36: Sodium 135 L, Potassium 4.0, Chloride 105, Carbon Dioxide 24, Anion Gap 10.0, BUN 23 H, Creatinine 1.90 H, Estimated Creat Clear 46, Estimated GFR 35 L, Est GFR ( Amer) 42 L, Glucose 147 H D, Calcium 8.3 L 03/08/22 12:09: POC Glucose 180 H 03/08/22 17:19: POC Glucose 103 03/08/22 22:00: POC Glucose 187 H 03/09/22 05:32: POC Glucose 133 H I & O for Labs for Last 24 Hours: Intake & Output 03/06/22 03/07/22 03/08/22 03/09/22 11:59 11:59 11:59 11:59 Intake Total 240 / 240 960 / 960 Output Total 200 / 200 1200 / 1200 Balance 40 / 40 -240 / -240 Weight 203 lb 1 oz 202 lb 3 oz Microbiology Reports for the Last 24 Hours: Microbiology 03/07/22 09:00 Sputum - Expectorated Sputum Gram Stain - Final 03/07/22 09:00 Sputum - Expectorated Sputum Sputum Culture - Preliminary Comment:: Alert and pleasant. Better hydrated. Lungs have rhonchi but better air movement. Heart rate regular. No edema noted. Abdomen soft and nontender. Assessment and Plan *Assessment and plan (1) Pneumonia: Status: Acute Category: Medical Code(s): J18.9 - Pneumonia, unspecified organism (2) CLL (chronic lymphocytic leukemia): Status: Acute Category: Medical Code(s): C91.10 - Chronic lymphocytic leukemia of B-cell type not having achieved remission (3) Sinusitis: Status: Acute Qualifiers: Chronicity: acute Recurrence: non-recurrent Sinusitis location: unspecified location Qualified Code(s): J01.90 - Acute sinusitis, unspecified Category: Medical Code(s): J32.9 - Chronic sinusitis, unspecified (4) Acute exacerbation of chronic obstructive airways disease: Status: Acute Category: Medical Code(s): J44.1 - Chronic obstructive pulmonary disease with (acute) exacerbation (5) Chronic kidney disease, stage 3b: Status: Acute Category: Medical Code(s): N18.32 - Chronic kidney disease, stage 3b (6) Diabetes mellitus: Status: Acute Qualifiers: Diabetes mellitus complication status: with other specified complication Diabetes mellitus snf insulin use: with snf use Diabetes mellitus type: type 2 Qualified Code(s): E11.69 - Type 2 diabetes mellitus with other specified complication; Z79.4 - terminal gauger (current) use of insulin Category: Medical Code(s): E11.9 - Type 2 diabetes mellitus without complications (7) Fall at home: Status: Acute Category: Medical Code(s): W19.XXXA - Unspecified fall, initial encounter; Y92.009 - Unspecified place in unspecified non-institutional (private) residence as
[2022-03-09 09:19] LABS: Basophils # 0.1 K/mm3 (0-0.2); Basophils % 0.7 % (0.1-2.0); Eosinophils # 0.2 K/mm3 (0.0-0.4); Eosinophils % 1.6 % (0.1-12.0); Hematocrit 33.7 % (42.0-52.0); Hemoglobin 10.7 g/dL (14.1-18.0); Lymphocytes # 5.5 K/mm3 (0.7-4.5); Lymphocytes % 43.8 % (10-50); Mean Corpuscular HGB Conc 31.9 g/dL (31.8-35.4); Mean Corpuscular Volume 78.3 fl (80-94); Mean Platelet Volume 9.9 fl (7.4-10.4); Monocytes # 0.6 K/mm3 (0.1-1.0); Monocytes % 4.4 % (1.7-9.3); Neutrophils # 6.2 K/mm3 (1.8-7.8); Neutrophils % 49.5 % (37.0-80.0); Platelet Count 260 K/mm3 (142-424); Red Cell Distribution Width 16.3 % (11.5-17.5); White Blood Count 12.5 K/mm3 (4.8-10.8)
[2022-03-09 09:22] LABS: Chloride 107 mmol/L (98-107); Potassium 3.9 mmoL/L (3.5-5.1); Sodium 130 mmol/L (136-145)
[2022-03-09 09:25] LABS: Anion Gap 5.9 mEq/L (5-15); Blood Urea Nitrogen 20 mg/dl (9-20); Calcium 8.1 mg/dl (8.4-10.2); Carbon Dioxide 21 mmol/L (22.0-30.0); Creatinine Clearance Estimated 49 mL/min (50-200); Estimated Glomerular Filt Rate 37 ml/min (>60); GFR (African American) 45 ML/MIN (>60); Glucose 205 mg/dl (74-100)
[2022-03-09 11:40] LABS: POC Glucose,Bedside 194 (70-110)
[2022-03-09 17:48] LABS: POC Glucose,Bedside 206 (70-110)
--- NOTE | 2022-03-09 18:12 | PC.NURSE ---
pt is aox4, did ambulate in hallway this shift. ativan admin once this shift for anxiety. shower this shift.
[2022-03-09 22:22] LABS: POC Glucose,Bedside 105 (70-110)
[2022-03-10] VITALS: BP 153/78; PULSE 65; RESP 18; TEMP 36.7; O2SAT 93
[2022-03-10 04:00] VITALS: BP 163/83; PULSE 65; RESP 18; TEMP 36.9; O2SAT 93
[2022-03-10 04:58] VITALS: BMI 25.9
[2022-03-10 06:44] LABS: Basophils # 0.1 K/mm3 (0-0.2); Eosinophils # 0.2 K/mm3 (0.0-0.4); Eosinophils % 1.8 % (0.1-12.0); Hematocrit 33.3 % (42.0-52.0); Hemoglobin 10.7 g/dL (14.1-18.0); Lymphocytes # 0.6 K/mm3 (0.7-4.5); Lymphocytes % 7.7 % (10-50); Mean Corpuscular HGB Conc 32.3 g/dL (31.8-35.4); Mean Corpuscular Hemoglobin 25.4 pg (27.0-31.2); Mean Corpuscular Volume 78.7 fl (80-94); Mean Platelet Volume 9.8 fl (7.4-10.4); Monocytes # 0.6 K/mm3 (0.1-1.0); Monocytes % 7.3 % (1.7-9.3); Neutrophils # 6.6 K/mm3 (1.8-7.8); Neutrophils % 82.1 % (37.0-80.0); Platelet Count 233 K/mm3 (142-424); Red Blood Count 4.24 M/mm3 (4.60-6.20); Red Cell Distribution Width 16.5 % (11.5-17.5); White Blood Count 8.1 K/mm3 (4.8-10.8)
[2022-03-10 06:49] LABS: Chloride 107 mmol/L (98-107); Potassium 3.6 mmoL/L (3.5-5.1); Sodium 131 mmol/L (136-145)
[2022-03-10 06:52] LABS: Blood Urea Nitrogen 18 mg/dl (9-20); Creatinine Clearance Estimated 52 mL/min (50-200); Estimated Glomerular Filt Rate 40 ml/min (>60); GFR (African American) 48 ML/MIN (>60)
[2022-03-10 06:53] LABS: Anion Gap 7.6 mEq/L (5-15); Calcium 8.1 mg/dl (8.4-10.2); Carbon Dioxide 20 mmol/L (22.0-30.0); Glucose 175 mg/dl (74-100)
--- NOTE | 2022-03-10 07:11 | PC.NURSE ---
pt has rested well this shift. A&OX4. ambulates in room independently. c/o nausea this morning, medicate prn per mar. no other complaints. call zaman in reach.
[2022-03-10 07:38] LABS: POC Glucose,Bedside 146 (70-110)
[2022-03-10 08:00] VITALS: BP 142/76; PULSE 62; RESP 20; TEMP 36.3; O2SAT 91
--- NOTE | 2022-03-10 08:38 | EXP.DC.SUM ---
General Admission date:: 03/07/22 Discharge date: 03/10/22 HPI HPI HPI: 72-year-old white male with history of CLL with ongoing treatment, also has COPD, diabetes and single functioning kidney, who I saw about 3 weeks ago in my office and diagnosed with acute bronchopneumonia and placed him on doxycycline. Also change his inhaler to Trelegy and this seemed to make a big difference in his breathing for a while. 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 ER work-up revealed slight acute kidney injury based on changes from his baseline, unchanged CT of head, normal CBC compared to baseline but significant right lower lobe pneumonia with large infiltrate. Given his weakness, nonambulatory status and immunosuppressed status as well as failure of outpatient therapy from his previous antibiotics he was admitted to hospital for further evaluation, diagnostic testing and IV antibiotics. Hospital Course Hospital Course Hospital Course: Patient was admitted, placed on cefepime and azithromycin for broad-spectrum antibiotic coverage given his failure of outpatient therapy and a Pseudomonas risk. Sputum culture was obtained but is not available the time of discharge. Patient did well over the next 24 hours and was able to be continued on his current medications. PT evaluated him because of his weakness but with his improvement in his physical therapy needs were felt to be minimal. Acute kidney injury superimposed on his stage IIIb kidney disease improved and his creatinine went back to its baseline. He was given Celexa and a lot of Ativan for chronic anxiety issues related to his health care. He did well with this. This morning he was doing well. Be discharged home. I had a long discussion with he and his about follow-up. We will change his Lantus dose to a slightly lower dose of 12 units daily and they will monitor glucose levels at home and follow a diabetic diet. I do think he would benefit from getting an outpatient PT appointment for gait/core strengthening. We will discharge him on cefdinir for antibiotics. I will follow him up in the office. Exam Data for Last 24 hours Vital signs and Labs for Last 24 Hours: Temp Pulse Resp BP Pulse Ox 98.5 F 65 18 163/83 H 93 L 03/10/22 04:00 03/10/22 04:00 03/10/22 04:00 03/10/22 04:00 03/10/22 04:00 Laboratory Results - last 24 hr 03/09/22 08:22: WBC 12.5 H D, RBC 4.30 L, Hgb 10.7 L, Hct 33.7 L, MCV 78.3 L, MCH 25.0 L, MCHC 31.9, RDW 16.3, Plt Count 260, MPV 9.9, Neut % (Auto) 49.5, Lymph % (Auto) 43.8, [place] % (Auto) 4.4, Eos % (Auto) 1.6, Baso % (Auto) 0.7, Neut # (Auto) 6.2, Lymph # (Auto) 5.5 H, [place] # (Auto) 0.6, Eos # (Auto) 0.2, Baso # (Auto) 0.1 03/09/22 08:22: Sodium 130 L, Potassium 3.9, Chloride 107, Carbon Dioxide 21 L, Anion Gap 5.9, BUN 20, Creatinine 1.80 H, Estimated Creat Clear 49, Estimated GFR 37 L, Est GFR ( Amer) 45 L, Glucose 205 H, Calcium 8.1 L 03/09/22 11:30: POC Glucose 194 H 03/09/22 17:37: POC Glucose 206 H 03/09/22 20:59: POC Glucose 105 03/10/22 05:27: POC Glucose 146 H 03/10/22 06:21: WBC 8.1 D, RBC 4.24 L, Hgb 10.7 L, Hct 33.3 L, MCV 78.7 L, MCH 25.4 L, MCHC 32.3, RDW 16.5, Plt Count 233, MPV 9.8, Neut % (Auto) 82.1 H, Lymph % (Auto) 7.7 L, [place] % (Auto) 7.3, Eos % (Auto) 1.8, Baso % (Auto) 1.0, Neut # (Auto) 6.6, Lymph # (Auto) 0.6 L, [place] # (Auto) 0.6, Eos # (Auto) 0.2, Baso # (Auto) 0.1 03/10/22 06:21: Sodium 131 L, Potassium 3.6, Chloride 107, Carbon Dioxide 20 L, Anion Gap 7.6, BUN 18, Creatinine 1.70 H, Estimated Creat Clear 52, Estimated GFR 40 L, Est GFR ( Amer) 48 L, Glucose 175 H, Calcium 8.1 L I & O for Last 24 hours: Intake & Output 03/07/22 03/08/22 03/09/22 03/10/22 11:59 11:59 11:59 11:59 Intake Total 240 / 240 960 / 960 5105 / 5101 Output
--- NOTE | 2022-03-10 10:09 | HMH.OTEV ---
OT Inpatient Evaluation Rehab OT IP Evaluation Start: 03/07/22 19:43 Freq: ONCE Status: Complete Protocol: Document 03/10/22 10:06 [facility] (Rec: 03/10/22 10:09 [facility] [id number]) Rehab OT IP Assessment Subjective History Pt oriented x 4 on arrival. Pt agreeable to engage in therapy evaluation. Pt was admitted via ED on 03/07/22 due to Weakness, fatigue and cough. Prior to being in the hospital, pt lived at home with his . Pt was independent with all ADLs and IADLs. 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 Pt did not use any type of AE during ambulation. Pt has a past medical history of: Aneurysm Cancer Deep vein thrombosis (DVT) History of hypertension Hyperlipidemia CLL Subjective I am supposed to go home today. Objective Patient Orientation Person,Place,Birthday,Month Upper Extremity Gross ROM WFL Bed Mobility bed mobility-scooting,bed mobility - supine/sit,bed mobility - rolling Assist Level Independent Transfer Training Sit/Stand Transfer Assist Level Supervision/Stand by Chair Transfer Ability Supervision/Stand by Chair Transfer Technique Sit to/from Ambulatory Chair Transfer Assistive Devices None Lower Body Dressing Ability Standby Assistance Performing Toilet Hygiene Ability Standby Assistance Overall Commode/Toilet Transfer Ability Standby Assistance Commode/Toilet Transfer Technique Sit to/from Ambulatory Rehab OT IP prob,goals,plan Problems Date of Evaluation: 03/10/22 Rehab Potential Rehab Potential Innapropriate for Skilled Therapy Discharge Plan OT Discharge Plan At this time, pt appears to be at his baseline with ADL independence and functional transfers. Pt can return home with his once medially stable per physician. Eval Complexity Eval Charge Codes 43174 - Low Complexity G Codes G -code Required
--- NOTE | 2022-03-10 10:30 | HMH.PHAINT1 ---
Pharmacy Intervention Comments: DISCHARGE MEDICATION COUNSELING PROVIDED, DISCUSSED CHANGE ON THE LANTUS FROM 25 UNITS AT BEDTIME TO 12 UNITS, ADDITION OF CEFDINIR FOR SHORT-COURSE (ANTIBIOTIC, MAY CAUSE UPSET STOMACH, N/V/D, TAKE WITH FOOD, FOR 7 DAYS), LORAZEPAM (FOR ANXIETY, THREE TIMES DAILY NEEDED, IF NOT ANXIOUS DONT TAKE, MAY CAUSE SEDATION, DECREASED RESPIRATION, DIZZINESS, DON'T DRIVE UNTIL YOU KNOW HOW THIS AFFECTS YOU, MAY WANT TO START AT NIGHT), AND CITALOPRAM (FOR MOOD, TAKE DAILY, NAUSEA POSSIBLE). PATIENT VERBALIZED NO QUESTIONS AT THIS TIME.
--- NOTE | 2022-03-10 10:32 | DIET.NUTRFU ---
Patient plans to discharge today, is unable to come in for diet instruction. Reviewed handouts with patient and provided contact information. Also available for outpatient consult if needed. explained over speaker phone today that she had him on a strict diabetic diet previous but then he got ill and was on steroid tx and BS become unstable. Dr Ocasio's plan is to decrease lanus to 12 units at night, BS log and A1c post discharge. No longer on steroid tx. He also started on celexa for depression, was complaining of poor appetite. Consumed 75% breakfast today and 50% dinner last night. Seems to be improving.
--- NOTE | 2022-03-11 13:31 | CARE MANAGER ---
Spoke with Elsi, patient's spouse to discuss post discharge status. Patient has picked up new medications prescribed at discharge. She is aware of scheduled appts. Patient is nauseated today, and Elsi is thinking about calling Dr. Ocasio's office to request Zofran.
== END 2022-03-10 11:15 | disposition home or self-care (01) | DRG 178 ==
LOC: ER 13:52 → 2ND 17:51
PROVIDERS: Admitting Provider Internal Medicine Adolescent Medicine; Emergency Provider Emergency Medicine; PCP Internal Medicine Adolescent Medicine; Visit Provider Internal Medicine Adolescent Medicine
DX: J15.6 Pneumonia due to other Gram-negative bacteria (principal); C91.10 Chronic lymphocytic leukemia of B-cell type not having achieved remission; J44.1 Chronic obstructive pulmonary disease with (acute) exacerbation; N17.9 Acute kidney failure, unspecified; J44.0 Chronic obstructive pulmonary disease with (acute) lower respiratory infection; F32.A Depression, unspecified; E11.9 Type 2 diabetes mellitus without complications; Z79.4 Long term (current) use of insulin; F17.210 Nicotine dependence, cigarettes, uncomplicated; Z86.718 Personal history of other venous thrombosis and embolism; J01.90 Acute sinusitis, unspecified; E11.22 Type 2 diabetes mellitus with diabetic chronic kidney disease; N18.32 Chronic kidney disease, stage 3b; W19.XXXA Unspecified fall, initial encounter; F41.9 Anxiety disorder, unspecified
CPT/HCPCS: 36415; 70450; 71046; 80048; 80053; 82140; 82803; 82962; 83605; 85025; 87040; 87070; 87077; 87186; 87205; 93005; 94640; 97162; 97165; 99285; C9803; J0456; J0696; J2405; U0003; U0005

== ENCOUNTER → 2022-03-19 10:43 | Outpatient (CLI) | payer MEDICARE, OTHER, SELFPAY ==
[2022-03-19 11:31] LABS: Basophils # 0.2 K/mm3 (0-0.2); Basophils % 1.3 % (0.1-2.0); Eosinophils # 0.2 K/mm3 (0.0-0.4); Eosinophils % 1.3 % (0.1-12.0); Lymphocytes # 7.5 K/mm3 (0.7-4.5); Lymphocytes % 54.8 % (10-50); Mean Corpuscular HGB Conc 31.5 g/dL (31.8-35.4); Mean Corpuscular Hemoglobin 24.4 pg (27.0-31.2); Mean Corpuscular Volume 77.4 fl (80-94); Mean Platelet Volume 9.8 fl (7.4-10.4); Monocytes # 0.6 K/mm3 (0.1-1.0); Monocytes % 4.4 % (1.7-9.3); Neutrophils # 5.2 K/mm3 (1.8-7.8); Neutrophils % 38.1 % (37.0-80.0); Platelet Count 345 K/mm3 (142-424); Red Blood Count 4.91 M/mm3 (4.60-6.20); Red Cell Distribution Width 16.7 % (11.5-17.5); White Blood Count 13.7 K/mm3 (4.8-10.8)
[2022-03-19 11:42] LABS: MANUAL DIFFERENTIAL MANUAL DIFFERENTIAL (MANUAL DIFF)
[2022-03-19 11:49] LABS: Alanine Aminotransferase 19 U/L (12-78); Albumin Level 3.3 g/dl (3.5-5.0); Albumin/Globulin Ratio 1.2 (1.1-1.8); Alkaline Phosphatase 106 U/L (38-126); Anion Gap 12.7 mEq/L (5-15); Aspartate Amino Transferase 18 U/L (17-59); Bilirubin,Total 0.2 mg/dl (0.2-1.3); Blood Urea Nitrogen 28 mg/dl (9-20); Calcium 9.1 mg/dl (8.4-10.2); Carbon Dioxide 27 mmol/L (22.0-30.0); Chloride 102 mmol/L (98-107); Estimated Glomerular Filt Rate 35 ml/min (>60); GFR (African American) 42 ML/MIN (>60); Globulin 2.7 g/dL (1.3-3.2); Glucose 118 mg/dl (74-100); Potassium 4.7 mmoL/L (3.5-5.1); Sodium 137 mmol/L (136-145)
[2022-03-19 11:57] LABS: Hemoglobin A1C 7.7 % (4.0-6.0)
[2022-03-19 13:01] LABS: Hypochromasia 2+; Lymphocytes % 57 % (10-50); Microcytosis 1+; Monocytes % 5 % (2-9); Neutrophils % 37 % (42-76); Platelet Estimate Normal; Total Cells Counted 100
== END ==
PROVIDERS: PCP Internal Medicine Adolescent Medicine; Visit Provider Internal Medicine Adolescent Medicine
DX: E11.9 Type 2 diabetes mellitus without complications (principal); Z79.4 Long term (current) use of insulin
CPT/HCPCS: 36415; 80053; 83036; 85007; 85025

== ENCOUNTER 2022-03-20 08:16 | Outpatient (CLI) | payer MEDICARE, OTHER, SELFPAY ==
[2022-03-20 08:18] VITALS: BMI 26.9
[2022-03-20 08:35] LABS: Basophils # 0.1 K/mm3 (0-0.2); Basophils % 1.6 % (0.1-2.0); Eosinophils # 0.3 K/mm3 (0.0-0.4); Eosinophils % 3.7 % (0.1-12.0); Hematocrit 37.1 % (42.0-52.0); Hemoglobin 11.6 g/dL (14.1-18.0); Lymphocytes # 1.5 K/mm3 (0.7-4.5); Lymphocytes % 17.4 % (10-50); Mean Corpuscular HGB Conc 31.2 g/dL (31.8-35.4); Mean Corpuscular Hemoglobin 23.9 pg (27.0-31.2); Mean Corpuscular Volume 76.7 fl (80-94); Mean Platelet Volume 9.5 fl (7.4-10.4); Monocytes # 0.7 K/mm3 (0.1-1.0); Monocytes % 8.1 % (1.7-9.3); Neutrophils # 5.9 K/mm3 (1.8-7.8); Neutrophils % 69.2 % (37.0-80.0); Platelet Count 364 K/mm3 (142-424); Red Blood Count 4.84 M/mm3 (4.60-6.20); Red Cell Distribution Width 16.8 % (11.5-17.5); White Blood Count 8.5 K/mm3 (4.8-10.8)
[2022-03-20 08:36] LABS: Chloride 103 mmol/L (98-107); Sodium 138 mmol/L (136-145)
[2022-03-20 08:37] LABS: Potassium 4.3 mmoL/L (3.5-5.1)
[2022-03-20 08:39] LABS: Alanine Aminotransferase 19 U/L (12-78); Alkaline Phosphatase 94 U/L (38-126); Aspartate Amino Transferase 18 U/L (17-59); Bilirubin,Total 0.3 mg/dl (0.2-1.3); Blood Urea Nitrogen 24 mg/dl (9-20); Creatinine Clearance Estimated 48 mL/min (50-200); Estimated Glomerular Filt Rate 35 ml/min (>60); GFR (African American) 42 ML/MIN (>60)
[2022-03-20 08:40] LABS: Albumin Level 3.3 g/dl (3.5-5.0); Albumin/Globulin Ratio 1.1 (1.1-1.8); Anion Gap 13.3 mEq/L (5-15); Carbon Dioxide 26 mmol/L (22.0-30.0); Globulin 2.9 g/dL (1.3-3.2); Glucose 111 mg/dl (74-100); Total Protein,Serum 6.2 g/dl (6.3-8.2)
== END 2022-03-20 09:30 | disposition home or self-care (01) ==
PROVIDERS: PCP Internal Medicine Adolescent Medicine; Visit Provider Internal Medicine Medical Oncology
DX: C91.10 Chronic lymphocytic leukemia of B-cell type not having achieved remission (principal)
CPT/HCPCS: 36415; 80053; 85025

== ENCOUNTER 2022-04-10 08:00 | Outpatient (RCR) | payer MEDICARE, OTHER, SELFPAY ==
--- NOTE | 2022-03-12 13:37 | HMH.PTOPEV ---
PT Outpatient Evaluation Rehab PT Outpatient Evaluation Start: 03/12/22 13:14 Freq: Status: Active Protocol: Document 03/12/22 13:14 [facility] (Rec: 03/12/22 13:37 [facility] [id number]) E-signed By Levi Florez, PT Outpatient Therapy Subjective History Subjective History Patient is a 72 year old male presenting to outpatient PT with reports of generalized BLE/BUE weakness. Patient reports that he started a new chemo medication approximately 5 months ago and symptoms have progressively gotten worse over the past week. Patient was diagnosed with a form of Lymphoma approx 3 years ago. Most recently he was admitted to [facility] for the similar symptoms. Comorbidities include hx of OA , HTN, diabetes, melanoma, COVID, appendectomy, multiple anyeurysms, nephrectomy and L TKA. Chief Complaint Weakness Symptoms Relieved By Rest/Positioning Symptoms Aggravated By Standing,Physical Activity, Walking Prior Functional Limitations None Current Functional Limitations Housework,Standing,Walking Shoulder/Elbow Eval Shoulder Objective Measurements Shoulder ROM Bilateral full ROM shoulder exam standard bilateral Shoulder MMT Shoulder Abduction Strength Grade 4- Good- Shoulder Extension Strength Grade 4- Good- Shoulder Flexion Strength Grade 4- Good- Shoulder External Rotation Strength 4- Good- Grade Shoulder Internal Rotation Strength 4- Good- Grade Elbow Objective Measurements Hip/Knee Eval Gait Observation General Gait Pattern Observation Wide Based Gait MMT bilateral Hip Flexion Strength Grade 4- Good- Hip Abduction Strength Grade 4- Good- Hip Adduction Strength Grade 4 Good Hip Extension Strength Grade 3+ Fair+ Hip External Rotation Strength Grade 3+ Fair+ Hip Internal Rotation Strength Grade 3+ Fair+ Knee Extension Strength Grade 3+ Fair+ Knee Flexion Strength Grade 4- Good- ROM Hip ROM Reason Not Measured Within Functional Limits Knee ROM Reason Not Measured Within Functional Limits Special Tests Hip Michael Test Positive Left,Positive Right Hip Piriformis Test Positive Left,Positive Right Outpatient Therapy Assessment Impairments Problems/Impairmments Palpation Tenderness,Impai
== END 2022-04-10 08:05 | disposition home or self-care (01) ==
LOC: PT 08:00
PROVIDERS: PCP Internal Medicine Adolescent Medicine; Visit Provider Internal Medicine Adolescent Medicine
DX: R26.89 Other abnormalities of gait and mobility (principal); R53.1 Weakness
CPT/HCPCS: 97110; 97112; 97140; 97163

== ENCOUNTER 2022-05-01 07:58 | Outpatient (CLI) | payer MEDICARE, OTHER, SELFPAY ==
[2022-05-01] VITALS (12 sets, daily range): BP systolic 141–176; BP diastolic 82–91; PULSE 61–72; RESP 18; TEMP 36.1; O2SAT 95–98; BMI 25.2
[2022-05-01 08:28] LABS: Basophils # 0.1 K/mm3 (0-0.2); Basophils % 1.1 % (0.1-2.0); Eosinophils # 0.2 K/mm3 (0.0-0.4); Eosinophils % 1.6 % (0.1-12.0); Hematocrit 37.9 % (42.0-52.0); Hemoglobin 11.8 g/dL (14.1-18.0); Lymphocytes # 4.4 K/mm3 (0.7-4.5); Lymphocytes % 32.9 % (10-50); Mean Corpuscular HGB Conc 31.2 g/dL (31.8-35.4); Mean Corpuscular Hemoglobin 23.8 pg (27.0-31.2); Mean Corpuscular Volume 76.3 fl (80-94); Mean Platelet Volume 9.2 fl (7.4-10.4); Monocytes # 0.8 K/mm3 (0.1-1.0); Monocytes % 5.8 % (1.7-9.3); Neutrophils # 7.8 K/mm3 (1.8-7.8); Neutrophils % 58.7 % (37.0-80.0); Platelet Count 326 K/mm3 (142-424); Red Blood Count 4.96 M/mm3 (4.60-6.20); Red Cell Distribution Width 19.7 % (11.5-17.5); White Blood Count 13.3 K/mm3 (4.8-10.8)
[2022-05-01 08:38] LABS: Chloride 107 mmol/L (98-107); Potassium 4.3 mmoL/L (3.5-5.1); Sodium 140 mmol/L (136-145)
[2022-05-01 08:41] LABS: Alanine Aminotransferase 14 U/L (12-78); Albumin Level 3.6 g/dl (3.5-5.0); Albumin/Globulin Ratio 1.1 (1.1-1.8); Alkaline Phosphatase 74 U/L (38-126); Anion Gap 11.3 mEq/L (5-15); Aspartate Amino Transferase 15 U/L (17-59); Bilirubin,Total 0.5 mg/dl (0.2-1.3); Blood Urea Nitrogen 24 mg/dl (9-20); Calcium 8.7 mg/dl (8.4-10.2); Carbon Dioxide 26 mmol/L (22.0-30.0); Creatinine Clearance Estimated 50 mL/min (50-200); Estimated Glomerular Filt Rate 40 ml/min (>60); GFR (African American) 48 ML/MIN (>60); Globulin 3.2 g/dL (1.3-3.2); Glucose 164 mg/dl (74-100); Total Protein,Serum 6.8 g/dl (6.3-8.2)
== END 2022-05-01 13:20 | disposition home or self-care (01) ==
LOC: INF 07:59
PROVIDERS: PCP Internal Medicine Adolescent Medicine; Visit Provider Internal Medicine Medical Oncology
DX: Z51.11 Encounter for antineoplastic chemotherapy (principal); C91.10 Chronic lymphocytic leukemia of B-cell type not having achieved remission
CPT/HCPCS: 80053; 85025; 96413; 96415; J9312

== ENCOUNTER → 2022-05-06 14:15 | Outpatient (CLI) | payer MEDICARE, OTHER, SELFPAY ==
--- NOTE | 2022-05-06 14:31 | XR_ITS ---
FINAL REPORT CLINICAL HISTORY: RECENT FALL FINDINGS: LUMBAR SPINE 5 views of the lumbar spine were obtained. There is no evidence of fracture or dislocation. There is mild rightward curvature. The vertebral alignment is normal. There are moderate to severe degenerative changes with multilevel osteophytes. An aortic stent graft is present. IMPRESSION: Moderate to severe degenerative changes without acute bony abnormality. Reviewed, Interpreted and Dictated by Eder Hopkins III, MD Transcribed by Miguelina Lozoya Authenticated and [facility]
--- NOTE | 2022-05-06 14:31 | XR_ITS ---
FINAL REPORT CLINICAL HISTORY: RECENT FALL FINDINGS: RIGHT FEMUR 2 views were obtained. There is no acute fracture or dislocation. There are mild degenerative changes of the hip and knee. There are vascular calcifications. IMPRESSION: No without acute bony abnormality. Reviewed, Interpreted and Dictated by Eder Hopkins III, MD Transcribed by Miguelina Lozoya Authenticated and [facility]
--- NOTE | 2022-05-06 14:31 | XR_ITS ---
FINAL REPORT CLINICAL HISTORY: RECENT FALL FINDINGS: RIGHT HIP Two views of the right hip including an AP pelvis demonstrate no acute fracture or dislocation. There are mild degenerative changes of both hips. The visualized bony structures are well aligned. No soft tissue abnormality is seen. IMPRESSION: No acute bony abnormality. Reviewed, Interpreted and Dictated by Eder Hopkins III, MD Transcribed by Miguelina Lozoya Authenticated and [facility]
--- NOTE | 2022-05-06 14:31 | XR_ITS ---
FINAL REPORT CLINICAL HISTORY: COPD COMPARISON: 03/07/2022 FINDINGS: Two views of the chest were obtained. The heart size and pulmonary vascularity are within normal limits. An aortic stent graft is present. The mediastinum is normal. The lungs are hyperinflated consistent with COPD. There has been significant improvement right lung opacities consistent with improving pneumonia. There is persistent right perihilar opacity which may represent residual pneumonia or scarring. There is no pneumothorax. The bony thorax is intact. IMPRESSION: Significant improvement right lung opacities consistent with improving pneumonia with persistent right perihilar opacities. Reviewed, Interpreted and Dictated by Eder Hopkins III, MD Transcribed by Miguelina Lozoya Authenticated and [facility]
[2022-05-06 15:18] LABS: Basophils # 0.1 K/mm3 (0-0.2); Basophils % 0.6 % (0.1-2.0); Eosinophils # 0.1 K/mm3 (0.0-0.4); Hematocrit 37.9 % (42.0-52.0); Hemoglobin 11.9 g/dL (14.1-18.0); Lymphocytes # 3.6 K/mm3 (0.7-4.5); Lymphocytes % 27.9 % (10-50); Mean Corpuscular HGB Conc 31.5 g/dL (31.8-35.4); Mean Corpuscular Hemoglobin 24.1 pg (27.0-31.2); Mean Corpuscular Volume 76.6 fl (80-94); Monocytes # 0.8 K/mm3 (0.1-1.0); Monocytes % 6.1 % (1.7-9.3); Neutrophils # 8.2 K/mm3 (1.8-7.8); Neutrophils % 64.3 % (37.0-80.0); Platelet Count 283 K/mm3 (142-424); Red Blood Count 4.94 M/mm3 (4.60-6.20); Red Cell Distribution Width 19.4 % (11.5-17.5); White Blood Count 12.8 K/mm3 (4.8-10.8)
[2022-05-06 16:13] LABS: Hemoglobin A1C 6.6 % (4.0-6.0)
[2022-05-06 16:20] LABS: Alanine Aminotransferase 15 U/L (12-78); Albumin Level 3.3 g/dl (3.5-5.0); Albumin/Globulin Ratio 1.2 (1.1-1.8); Alkaline Phosphatase 75 U/L (38-126); Anion Gap 9.1 mEq/L (5-15); Aspartate Amino Transferase 16 U/L (17-59); Bilirubin,Total 0.4 mg/dl (0.2-1.3); Blood Urea Nitrogen 23 mg/dl (9-20); Calcium 8.3 mg/dl (8.4-10.2); Carbon Dioxide 26 mmol/L (22.0-30.0); Chloride 105 mmol/L (98-107); Estimated Glomerular Filt Rate 37 ml/min (>60); GFR (African American) 45 ML/MIN (>60); Globulin 2.7 g/dL (1.3-3.2); Glucose 240 mg/dl (74-100); Potassium 4.1 mmoL/L (3.5-5.1); Sodium 136 mmol/L (136-145)
== END ==
PROVIDERS: PCP Internal Medicine Adolescent Medicine; Visit Provider Internal Medicine Adolescent Medicine
DX: M54.50 Low back pain, unspecified (principal); M25.551 Pain in right hip; M05.79 Rheumatoid arthritis with rheumatoid factor of multiple sites without organ or systems involvement; J44.9 Chronic obstructive pulmonary disease, unspecified; E11.9 Type 2 diabetes mellitus without complications; Z79.4 Long term (current) use of insulin; Z91.81 History of falling
CPT/HCPCS: 36415; 71046; 72110; 73502; 73552; 80053; 83036; 83735; 85025

== ENCOUNTER → 2022-05-19 13:12 | Outpatient (CLI) | payer MEDICARE, OTHER, SELFPAY ==
[2022-05-19 14:08] LABS: Basophils # 0.1 K/mm3 (0-0.2); Basophils % 0.5 % (0.1-2.0); Eosinophils % 0.3 % (0.1-12.0); Hematocrit 35.6 % (42.0-52.0); Hemoglobin 11.3 g/dL (14.1-18.0); Lymphocytes # 4.5 K/mm3 (0.7-4.5); Lymphocytes % 27.6 % (10-50); Mean Corpuscular HGB Conc 31.7 g/dL (31.8-35.4); Mean Corpuscular Hemoglobin 23.7 pg (27.0-31.2); Mean Corpuscular Volume 74.5 fl (80-94); Mean Platelet Volume 8.9 fl (7.4-10.4); Monocytes # 0.5 K/mm3 (0.1-1.0); Monocytes % 3.1 % (1.7-9.3); Neutrophils # 11.2 K/mm3 (1.8-7.8); Neutrophils % 68.6 % (37.0-80.0); Platelet Count 385 K/mm3 (142-424); Red Blood Count 4.77 M/mm3 (4.60-6.20); Red Cell Distribution Width 19.5 % (11.5-17.5); White Blood Count 16.4 K/mm3 (4.8-10.8)
[2022-05-19 14:13] LABS: MANUAL DIFFERENTIAL MANUAL DIFFERENTIAL (MANUAL DIFF)
[2022-05-19 14:30] LABS: Alanine Aminotransferase 14 U/L (12-78); Albumin Level 3.3 g/dl (3.5-5.0); Albumin/Globulin Ratio 1.2 (1.1-1.8); Alkaline Phosphatase 74 U/L (38-126); Anion Gap 11.8 mEq/L (5-15); Aspartate Amino Transferase 14 U/L (17-59); Bilirubin,Total 0.4 mg/dl (0.2-1.3); Blood Urea Nitrogen 31 mg/dl (9-20); Calcium 8.6 mg/dl (8.4-10.2); Carbon Dioxide 22 mmol/L (22.0-30.0); Chloride 105 mmol/L (98-107); Estimated Glomerular Filt Rate 37 ml/min (>60); GFR (African American) 45 ML/MIN (>60); Globulin 2.7 g/dL (1.3-3.2); Glucose 129 mg/dl (74-100); Potassium 4.8 mmoL/L (3.5-5.1); Sodium 134 mmol/L (136-145)
[2022-05-19 14:44] LABS: 25-OH Vitamin D, Total 34.4 ng/mL (30-100)
[2022-05-19 14:58] LABS: Thyroid Stimulating Hormone 2.22 uIU/mL (0.465-4.68)
[2022-05-19 15:17] LABS: Vitamin B12 793 pg/mL (239-931)
[2022-05-19 17:06] LABS: Lymphocytes % 33 % (10-50); Monocytes % 3 % (2-9); Neutrophils % 63 % (42-76); Total Cells Counted 100
[2022-05-19 17:07] LABS: Acanthocytes 1+; Hypochromasia 1+; Microcytosis 1+; Platelet Estimate Normal
[2022-05-22 00:08] LABS: Zinc 59 ug/dL (44-115)
== END ==
PROVIDERS: PCP Internal Medicine Adolescent Medicine; Visit Provider Internal Medicine Adolescent Medicine
DX: G60.9 Hereditary and idiopathic neuropathy, unspecified (principal); R63.4 Abnormal weight loss; Z68.25 Body mass index [BMI] 25.0-25.9, adult; C91.10 Chronic lymphocytic leukemia of B-cell type not having achieved remission
CPT/HCPCS: 36415; 80053; 82306; 82607; 84443; 84630; 85007; 85025

== ENCOUNTER 2022-06-27 07:49 | Outpatient (CLI) | payer MEDICARE, OTHER, SELFPAY ==
[2022-06-27 08:10] VITALS: BMI 25.2
[2022-06-27 08:30] LABS: Basophils # 0.1 K/mm3 (0-0.2); Basophils % 0.8 % (0.1-2.0); Eosinophils # 0.1 K/mm3 (0.0-0.4); Hemoglobin 12.6 g/dL (14.1-18.0); Lymphocytes # 0.7 K/mm3 (0.7-4.5); Lymphocytes % 7.6 % (10-50); Mean Corpuscular HGB Conc 31.5 g/dL (31.8-35.4); Mean Corpuscular Hemoglobin 24.4 pg (27.0-31.2); Mean Corpuscular Volume 77.5 fl (80-94); Mean Platelet Volume 9.6 fl (7.4-10.4); Monocytes # 0.7 K/mm3 (0.1-1.0); Monocytes % 6.6 % (1.7-9.3); Neutrophils # 8.2 K/mm3 (1.8-7.8); Neutrophils % 83.9 % (37.0-80.0); Platelet Count 241 K/mm3 (142-424); Red Blood Count 5.16 M/mm3 (4.60-6.20); White Blood Count 9.8 K/mm3 (4.8-10.8)
[2022-06-27 08:36] LABS: Alanine Aminotransferase 17 U/L (12-78); Albumin Level 3.5 g/dl (3.5-5.0); Albumin/Globulin Ratio 1.3 (1.1-1.8); Alkaline Phosphatase 61 U/L (38-126); Aspartate Amino Transferase 24 U/L (17-59); Bilirubin,Total 0.4 mg/dl (0.2-1.3); Blood Urea Nitrogen 38 mg/dl (9-20); Calcium 8.6 mg/dl (8.4-10.2); Carbon Dioxide 24 mmol/L (22.0-30.0); Chloride 105 mmol/L (98-107); Creatinine Clearance Estimated 54 mL/min (50-200); Estimated Glomerular Filt Rate 43 ml/min (>60); GFR (African American) 52 ML/MIN (>60); Globulin 2.8 g/dL (1.3-3.2); Glucose 128 mg/dl (74-100); Sodium 135 mmol/L (136-145); Total Protein,Serum 6.3 g/dl (6.3-8.2)
[2022-06-27 10:25] VITALS: BP 141/78; PULSE 62; RESP 19; TEMP 36.9; O2SAT 95
[2022-06-27 10:55] VITALS: BP 157/83; PULSE 60; RESP 18
[2022-06-27 11:25] VITALS: BP 164/83; PULSE 57; RESP 18
[2022-06-27 11:55] VITALS: BP 162/93; PULSE 58; RESP 18
[2022-06-27 12:55] VITALS: BP 167/88; PULSE 60; RESP 18
[2022-06-27 13:35] VITALS: BP 183/95; PULSE 62; RESP 18; O2SAT 96
== END 2022-06-27 13:35 | disposition home or self-care (01) ==
LOC: INF 07:50
PROVIDERS: PCP Internal Medicine Adolescent Medicine; Visit Provider Internal Medicine Medical Oncology
DX: C91.10 Chronic lymphocytic leukemia of B-cell type not having achieved remission (principal)
CPT/HCPCS: 80053; 85025; 96413; 96415; J9312

== ENCOUNTER → 2022-07-04 11:23 | Outpatient (CLI) | payer MEDICARE, OTHER, SELFPAY ==
--- NOTE | 2022-07-04 11:28 | XR_ITS ---
FINAL REPORT CLINICAL HISTORY: FEVER COMPARISON: 05/06/2022 FINDINGS: PA and lateral views of the chest were obtained. The cardiac and mediastinal silhouettes are within normal limits. There is an endoluminal graft in the thoracic aorta. There is slight improvement in the right perihilar opacity with residual atelectasis/scar. There is a lingular opacity which has increased slightly, likely atelectasis. No new infiltrate is identified. There is no pleural effusion or pneumothorax. No acute osseous abnormality is identified. IMPRESSION: Slight improvement in the right perihilar opacity with slight increased opacity in the lingula. Reviewed, Interpreted and Dictated by Britt Dixon MD Transcribed by Kelly Anderson Authenticated and [facility]
== END ==
PROVIDERS: PCP Internal Medicine Adolescent Medicine; Visit Provider Nurse Practitioner Family
DX: R50.9 Fever, unspecified (principal); D84.821 Immunodeficiency due to drugs
CPT/HCPCS: 71046

== ENCOUNTER 2022-07-25 11:18 | Observation (INO) | payer MEDICARE, OTHER, SELFPAY ==
[2022-07-25] VITALS (15 sets, daily range): BP systolic 130–177; BP diastolic 60–82; PULSE 60–91; RESP 16–20; TEMP 36.7–38.7; O2SAT 93–96; BMI 25.2; BMI 24.0
[2022-07-25 11:31] LABS: POC Glucose,Bedside 305 (70-110)
--- NOTE | 2022-07-25 11:39 | HMH.EDGENADL ---
Discharge Plan Disposition Patient Disposition: Admitted as Observation Prescriptions Prescriptions: New azithromycin [Zithromax] 250 mg tablet 250 mg PO DAILY 4 Days Qty: 4 0RF Rx Instructions: start on day 2 of therapy amoxicillin-pot clavulanate 875-125 mg tablet 1 tab PO BID Qty: 14 0RF No Action Imbruvica 420 mg tablet 420 mg PO DAILY trazodone 150 mg tablet 150 mg PO HS tamsulosin 0.4 mg capsule 0.8 mg PO DAILY nebivolol 20 mg tablet 20 mg PO BID Januvia 50 mg tablet 50 mg PO DAILY amlodipine 10 mg tablet 10 mg PO DAILY fluticasone propionate 50 mcg/actuation spray,suspension 1 spray NS DAILY Label Comments: SHAKE LIQUID AND USE 1 SPRAY IN EACH NOSTRIL EVERY DAY Incruse Ellipta 62.5 mcg/actuation blister with device 1 inh inhalation DAILY Label Comments: INHALE ONE PUFF BY MOUTH AND INTO THE LUNGS ONCE DAILY aspirin 81 MG tablet,chewable 81 mg PO DAILY Trelegy Ellipta 100-62.5-25 mcg Blister With Device 1 inh INHALATION DAILY lorazepam 0.5 mg tablet 0.5 mg PO TID PRN (Reason: anxiety) Qty: 30 0RF insulin glargine 100 unit/mL (3 mL) Insulin Pen 12 unit SQ HS Qty: 15 0RF Rx Instructions: Decrease dose to 12 units at bedtime hydralazine 50 MG tablet 50 mg PO TID albuterol sulfate 108 HFA aerosol inhaler 1 puff IH Q4HP PRN (Reason: Shortness Of Breath) citalopram [Celexa] 20 mg tablet 20 mg PO DAILY Referrals Follow up/Referrals: Master Ocasio MD [Primary Care Provider] - See instructions Clinical Impressions Clinical Impression: Pneumonia Discharge ED Provider: Callie Ling Adult HPI General Chief complaint: Weakness Stated complaint: Fever, high BP, trouble walking, confusion Time Seen by Provider: 07/25/22 11:39 Mode of Arrival: Wheelchair Source of Information: Patient and Spouse Limitations: No Limitations Description of Symptoms (Recalled from ER Triage Doc. by RN): Presents via POV d/t multiple complaints. Per , pt has had intermittent general malaise, weakness x 1 yr. Pt worked yesterday, and awoke with weakness, chills, fever (M.temp 100.4) this morning. Tylenol 500mg given at 08:45. Denies difficulty breathing or urinary sx. FS 301, baseline 180's. Currently on oral chemotherapy. History of Present Illness HPI narrative: The patient presents to the emergency department accompanied by his complaining of productive cough and fever since yesterday. He has had similar symptoms in the past few months several times. He is on chemotherapy for lymphoma and CLL. He is a smoker with COPD. Related Data Home Medications Medication Instructions Recorded Confirmed tamsulosin 0.4 mg capsule 0.8 mg PO DAILY prostate 05/12/18 06/27/22 aspirin 81 mg chewable tablet 81 mg PO DAILY HEART HEALTH 06/09/18 06/27/22 albuterol sulfate 90 mcg/actuation 1 puff inhalation Q4HP PRN 10/25/18 06/27/22 aerosol inhaler Shortness Of Breath hydralazine 50 mg tablet 50 mg PO TID High blood pressure 10/25/18 06/27/22 nebivolol 20 mg tablet 20 mg PO BID Hypertension 06/06/21 06/27/22 sitagliptin phosphate 50 mg tablet 50 mg PO DAILY Diabetes 06/06/21 06/27/22 (Januvia) amlodipine 10 mg tablet 10 mg PO DAILY Hypertension 08/16/21 06/27/22 fluticasone propionate 50 1 spray intranasal DAILY allergies 08/16/21 06/27/22 mcg/actuation nasal spray,suspension ibrutinib 420 mg tablet (Imbruvica) 420 mg PO DAILY cancer 09/12/21 06/27/22 fluticasone fur. 100 mcg-umeclid 1 inh inhalation DAILY COPD 03/08/22 06/27/22 62.5 mcg-vilant 25 mcg inhalat.powder (Trelegy Ellipta) umeclidinium 62.5 mcg/actuation 1 inh inhalation DAILY Asthma 03/20/22 06/27/22 blister powder for inhalation (Incruse Ellipta) citalopram 20 mg tablet (Celexa) 20 mg PO DAILY Anxiety 05/01/22 06/27/22 trazodone 150 mg tablet 150 mg PO HS 06/27/22 06/27/22 Previous Rx's Medication Instruc
--- NOTE | 2022-07-25 11:42 | XR_ITS ---
FINAL REPORT CLINICAL HISTORY: Cough and fever. COMPARISON: 07/04/2022 FINDINGS: Two views of the chest were obtained. The heart size and pulmonary vascularity are within normal limits. Aortic stent graft is present The mediastinum is normal. There are worsening bibasilar pulmonary opacities consistent with pneumonia. There is no pneumothorax. The bony thorax is intact. IMPRESSION: Worsening pneumonia. Reviewed, Interpreted and Dictated by Eder Hopkins III, MD Transcribed by Princess [place] Authenticated and [facility]
--- NOTE | 2022-07-25 11:49 | PC.NURSE ---
Oral fluids provided; dharmesh tovar MD.
[2022-07-25 11:54] LABS: Coronavirus 19, PCR Not Detected (NotDetected); Influenza A, PCR Not Detected (NotDetected); Influenza B, PCR Not Detected (NotDetected)
--- NOTE | 2022-07-25 11:57 | PC.NURSE ---
pt to radiology
[2022-07-25 11:59] LABS: Basophils % 0.6 % (0.1-2.0); Eosinophils % 0.3 % (0.1-12.0); Hematocrit 39.1 % (42.0-52.0); Hemoglobin 12.4 g/dL (14.1-18.0); Lymphocytes # 0.4 K/mm3 (0.7-4.5); Lymphocytes % 12.2 % (10-50); Mean Corpuscular HGB Conc 31.6 g/dL (31.8-35.4); Mean Corpuscular Hemoglobin 24.1 pg (27.0-31.2); Mean Corpuscular Volume 76.4 fl (80-94); Mean Platelet Volume 9.6 fl (7.4-10.4); Monocytes # 0.3 K/mm3 (0.1-1.0); Monocytes % 11.2 % (1.7-9.3); Neutrophils # 2.3 K/mm3 (1.8-7.8); Neutrophils % 75.7 % (37.0-80.0); Platelet Count 192 K/mm3 (142-424); Red Blood Count 5.12 M/mm3 (4.60-6.20)
[2022-07-25 12:04] LABS: Chloride 101 mmol/L (98-107); Potassium 3.9 mmoL/L (3.5-5.1); Sodium 130 mmol/L (136-145)
[2022-07-25 12:07] LABS: Anion Gap 10.9 mEq/L (5-15); Blood Urea Nitrogen 35 mg/dl (9-20); Carbon Dioxide 22 mmol/L (22.0-30.0); Creatinine Clearance Estimated 57 mL/min (50-200); Estimated Glomerular Filt Rate 46 ml/min (>60); GFR (African American) 56 ML/MIN (>60); Lactic Acid 1.9 mmol/L (0.7-2.1)
[2022-07-25 12:08] LABS: Calcium 8.3 mg/dl (8.4-10.2); Glucose 299 mg/dl (74-100)
--- NOTE | 2022-07-25 13:08 | PC.NURSE ---
rounded on pt he was resting in bed , and call light @ bs
--- NOTE | 2022-07-25 13:14 | PC.NURSE ---
101.6 T. notified. VO Tylenol 1gm oral.
--- NOTE | 2022-07-25 13:27 | PC.NURSE ---
er speaking with dr lee for admission possible on pt
--- NOTE | 2022-07-25 13:30 | PC.NURSE ---
Pt updated on plan of care.
--- NOTE | 2022-07-25 13:35 | PC.NURSE ---
Dr. Ling speaking with Dr. Ocasio for admission
--- NOTE | 2022-07-25 13:51 | PC.NURSE ---
rounded on pt he is sleeping in bed, and call light @ bs
--- NOTE | 2022-07-25 13:53 | PC.NURSE ---
pt is sleeping in bed, call light @ bs
--- NOTE | 2022-07-25 14:10 | PC.NURSE ---
report called to [facility]
--- NOTE | 2022-07-25 15:10 | PC.NURSE ---
PATIENT ARRIVED TO FLOOR BY STRETCHER AT 1506.
--- NOTE | 2022-07-25 15:18 | HMH.PHAINT1 ---
Pharmacy Intervention Comments: Reconciled patient's home medications using pharmacy fill history and medication list from primary care provider.
[2022-07-25 16:39] LABS: POC Glucose,Bedside 267 (70-110)
[2022-07-25 19:01] LABS: Microscopic, Urine URINE MICROSCOPIC (MICROSCOPIC)
[2022-07-25 19:07] LABS: Appearance,Urine CLEAR (Clear); Bilirubin,Urine Negative (Negative); Blood, Urine Negative (Negative); Color,Urine YELLOW (Yellow); Glucose,Urine (UA) TRACE (Negative); Ketones,Urine Negative (Negative); Leukocyte Esterase,Urine Negative (Negative); Nitrate,Urine Negative (Negative); Protein,Urine 2+ (Negative); Urobilinogen,Urine 0.2 EU/dl (0.2)
[2022-07-25 19:53] LABS: POC Glucose,Bedside 157 (70-110)
[2022-07-26] VITALS (7 sets, daily range): BP systolic 130–176; BP diastolic 63–102; PULSE 57–68; RESP 17–20; TEMP 36.3–37.1; O2SAT 93–96; BMI 25.0
[2022-07-26 06:45] LABS: POC Glucose,Bedside 97 (70-110)
[2022-07-26 07:25] LABS: Eosinophils # 0.1 K/mm3 (0.0-0.4); Lymphocytes # 1.5 K/mm3 (0.7-4.5); Monocytes # 0.6 K/mm3 (0.1-1.0)
[2022-07-26 07:26] LABS: Chloride 107 mmol/L (98-107)
[2022-07-26 07:27] LABS: Potassium 3.9 mmoL/L (3.5-5.1); Sodium 135 mmol/L (136-145)
[2022-07-26 07:30] LABS: Anion Gap 8.9 mEq/L (5-15); Basophils % 0.8 % (0.1-2.0); Blood Urea Nitrogen 32 mg/dl (9-20); Calcium 7.7 mg/dl (8.4-10.2); Carbon Dioxide 23 mmol/L (22.0-30.0); Creatinine Clearance Estimated 55 mL/min (50-200); Eosinophils % 1.4 % (0.1-12.0); Estimated Glomerular Filt Rate 46 ml/min (>60); GFR (African American) 56 ML/MIN (>60); Glucose 99 mg/dl (74-100); Hematocrit 34.9 % (42.0-52.0); Mean Corpuscular HGB Conc 32.1 g/dL (31.8-35.4); Mean Corpuscular Hemoglobin 24.2 pg (27.0-31.2); Mean Corpuscular Volume 75.3 fl (80-94); Mean Platelet Volume 9.7 fl (7.4-10.4); Monocytes % 10.9 % (1.7-9.3); Neutrophils # 3.5 K/mm3 (1.8-7.8); Platelet Count 169 K/mm3 (142-424); Red Blood Count 4.64 M/mm3 (4.60-6.20); Red Cell Distribution Width 18.9 % (11.5-17.5); White Blood Count 5.7 K/mm3 (4.8-10.8)
[2022-07-26 07:31] LABS: Hemoglobin 11.2 g/dL (14.1-18.0)
[2022-07-26 08:58] LABS: POC Glucose,Bedside 136 (70-110)
--- NOTE | 2022-07-26 09:47 | PC.NURSE ---
pt walked to and from bathroom. pt had no c/o sob.
[2022-07-26 11:23] LABS: POC Glucose,Bedside 182 (70-110)
--- NOTE | 2022-07-26 12:21 | EXP.HP ---
History of Present Illness *Admission Date: 07/25/22 *Reason for visit:: Cough/congestion/fever *History of present illness: 72-year-old white male with history of chronic kidney disease, CLL, COPD and diabetes who had had a fairly good for 5 months after aggressively pursuing physical therapy and had been doing a little better but 2 weeks ago had a COPD exacerbation which was treated in the office with doxycycline and steroids. He got a little bit better but over the past week is try to be able bit more active and been outside in the heat and became worse with some coughing, congestion and became very weak and came to the emergency department on the day of admission. He was found of worsening pneumonia on chest x-ray, given failed outpatient therapy of COPD exacerbation was admitted to hospital for IV antibiotics and further diagnostic testing. [facility] Disclaimer: The information contained in this section may have been updated after the patient was seen, as this information can be updated by other users. Medical History Aneurysm Cancer Chronic sinusitis Deep vein thrombosis (DVT) History of hypertension Hyperlipidemia Surgical History Status post functional endoscopic sinus surgery Family History Other Cancer Hypertension Social History Smoking Status: Former smoker alcohol intake: current substance use type: denies use current occupational status: employed Travel in the last 8 weeks: Inside the [place] household members: spouse housing: house caffeine: Yes Review of Systems Review of Systems Review of systems:: pertinent systems reviewed and negative unless documented below Meds Home Medications and Allergies Home Medications Medication Instructions Recorded Confirmed Type tamsulosin 0.4 mg capsule 0.8 mg PO DAILY prostate 05/12/18 07/25/22 History hydralazine 50 mg tablet 50 mg PO TID High blood pressure 10/25/18 07/25/22 History nebivolol 20 mg tablet 10 mg PO DAILY High blood pressure 06/06/21 07/25/22 History amlodipine 10 mg tablet 10 mg PO DAILY High blood pressure 08/16/21 07/25/22 History ibrutinib 420 mg tablet (Imbruvica) 420 mg PO DAILY cancer 09/12/21 07/25/22 History fluticasone fur. 100 mcg-umeclid 1 inh inhalation DAILY COPD 03/08/22 07/25/22 History 62.5 mcg-vilant 25 mcg inhalat.powder (Trelegy Ellipta) insulin glargine 100 unit/mL (3 12 unit (0.12 mL) SQ HS Diabetes 03/10/22 07/25/22 Rx mL) subcutaneous pen #15 mL citalopram 20 mg tablet (Celexa) 20 mg PO DAILY Anxiety 05/01/22 07/25/22 History trazodone 150 mg tablet 150 mg PO HS Sleep 06/27/22 07/25/22 History albuterol sulfate 90 mcg/actuation 2 puff inhalation Q6HP PRN 07/25/22 07/25/22 History aerosol inhaler Shortness of air lorazepam 0.5 mg tablet 0.5 mg PO QIDP PRN Anxiety 07/25/22 07/25/22 History prednisone 5 mg tablet 5 mg PO BID . 07/25/22 07/25/22 History New Prescriptions to Start Prescriptions: Allergies Allergy/AdvReac Type Severity Reaction Status Date / Time moxifloxacin [From Avelox] Allergy Intermediate I-RASH Verified 07/25/22 16:07 sulfamethoxazole Allergy Unknown UNKNOWN Verified 07/25/22 16:07 [From Bactrim] trimethoprim [From Bactrim] Allergy Unknown Verified 07/25/22 16:07 Exam Data for Last 24 hours Vital signs and Labs for Last 24 Hours: Temp Pulse Resp BP Pulse Ox 98.2 F 57 L 18 152/85 H 94 L 07/26/22 11:39 07/26/22 11:39 07/26/22 11:39 07/26/22 11:39 07/26/22 11:39 Laboratory Results - last 24 hr 07/25/22 11:26: SARS-CoV-2 (PCR) Not detected, Influenza A Untype (PCR) Not detected, Influenza Type B (PCR) Not detected 07/25/22 15:46: POC Glucose 267 H 07/25/22 18:59: Urine Color Yellow, Urine Appearance Clear, Urine pH 6.0, Ur Specific
--- NOTE | 2022-07-26 13:04 | HMH.PTEV ---
Physical Therapy Evaluation Rehab PT IP Evaluation Start: 07/26/22 12:00 Freq: ONCE Status: Active Protocol: Document 07/26/22 12:51 HWMATTHEW (Rec: 07/26/22 13:04 HWADE [id number]) Subjective/History History History Pt is a 72 year old male that presented to [facility] ED on 2022 with reports of fever, cough and increasing weakness. While in the ED, pt was found to have worsening pneumonia on chest x-ray, given failed outpatient therapy of COPD exacerbation was admitted to hospital for IV antibiotics and further diagnostic testing . PMH: chronic kidney disease, CLL, COPD Subjective Subjective Pt presents seated upright in bed, eating lunch with at bedside. Pt pleasant and agreeable to PT initial evaluation. Pt denies reports of pain at rest. At baseline, pt reports that he lives at home with his . 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 Pt reports he does not use an assistive device for ambulation at baseline. Pt performed supine to sit on EOB with supervision assistance. Pt performed sit to stand transfer from surface of bed with WEB CONTENT MANAGER. Pt performed ambulation x100' with WEB CONTENT MANAGER, pt experienced 2 minor LOB when turning during gait but was able to self correct without PT assistance. Following PT evaluation, pt left seated in bedside chair with call light and all needs within reach. Rehab PT IP Eval Objective Appearance Patient Behavior Appropriate Patient Orientation Person,Place,Birthday,Day of Week Difficulty following instructions none Speech Pattern Clear Ambulation Patient Able to Ambulate Yes Ambulation Observation IP General Ga
[2022-07-26 16:27] LABS: POC Glucose,Bedside 105 (70-110)
--- NOTE | 2022-07-26 17:40 | PC.NURSE ---
Patient remained on room air, incentive spirometer given and patient demonstrated proper use of instrument. Lung sounds diminished on auscultation. Patient able to sit up in chair for most of shift. VS stable.
[2022-07-26 21:19] LABS: POC Glucose,Bedside 151 (70-110)
--- NOTE | 2022-07-26 21:29 | PC.NURSE ---
patients bp at 1999 wqs 172/102. rechecked after patient back in bed and rested at 2100 and bp was 178/104. dr lee notified. no new orders at this time. patient medicated with coreg 12.5 mg as scheduled. will cont to monitor.
[2022-07-27] VITALS (9 sets, daily range): BP systolic 120–177; BP diastolic 74–95; PULSE 55–70; RESP 16–18; TEMP 36.8–36.9; O2SAT 92–95; BMI 24.5
--- NOTE | 2022-07-27 04:30 | PC.NURSE ---
HAS RESTED WELL. NO C/O PAIN. HAS EXPIRATORY WHEEZES BILAT LUNG SUTTON WITH FINE CRACKLES AT BILAT BASES. PRODUCTIVE COUGH, SMALL AMTS THICK YELLOW. HR REGULAR BUT BRADYCARDIC. HAS INCENTIVE SPIROMETER AT BED SIDE AND USES INDEPENDENTLY. (PATIENT SAYS HE HAS ONLY ONE KIDNEY THE RIGHT ONE WAS REMOVED). BPs HAVE BEEN ELEVATED. LAST ONE AT 0400 WAS 162/74.
[2022-07-27 05:54] LABS: POC Glucose,Bedside 81 (70-110)
--- NOTE | 2022-07-27 09:17 | EXP.ACUTE.PN ---
Subjective *Date: 07/27/22 *Time: 09:17 Interval history: Patient had a smooth the night. He did accidentally pull his IV out, this has been reinserted. He has been up walking around the beach, continues to get short of air, had a lot of sputum production. His continues to be very negative about his overall situation. She wonders about her ability to care for him at home even though he is doing all of his own self-care activities here at the hospital. He does request a nicotine patch. Medical Exam Vital signs and Labs for Last 24 Hours: Vital Signs Temp Pulse Resp BP Pulse Ox 07/27/22 08:29 92 L 07/27/22 07:25 98.3 F 62 16 171/89 H 95 07/27/22 02:05 98.5 F 07/27/22 03:59 98.3 F 58 L 16 162/74 H 95 07/27/22 00:00 98.4 F 59 L 18 177/89 H 94 L 07/26/22 22:55 98.4 F 07/26/22 20:00 94 L 07/26/22 19:41 98.8 F 68 18 176/102 H 94 L 07/26/22 15:47 98.0 F 61 20 144/83 H 95 07/26/22 11:39 98.2 F 57 L 18 152/85 H 94 L Intake and Output 07/26/22 07/27/22 07/27/22 19:59 03:59 11:59 Intake Total 1524 / 3265 665 / 3265 1076 / 3265 Output Total 400 / 2750 1550 / 2750 800 / 2750 Balance 1124 / 515 -885 / 515 276 / 515 Intake: Intake, Oral Amount 480 / 900 420 / 900 Intake, Total IV Amount 1044 / 2365 665 / 2365 656 / 2365 0.9 % Sodium Chloride 1000ML 1, 644 / 1965 665 / 1965 656 / 1965 000 ml @ 125 mls/hr IV .Q8H [facility] Rx#:[id number] Azithromycin 500 mg In 0.9 % 250 / 250 Sodium Chloride 250 ml @ 250 mls/hr IV Q24H [facility] Rx#:[id number] Calcium Gluconate 2,000 mg In 0 100 / 100 .9 % Sodium Chloride 100 ml @ 60 mls/hr IV ONCE ONE Rx#: [id number] Ceftriaxone Sodium 1 gm In 0.9 50 / 50 % Sodium Chloride 50 ml @ 100 mls/hr IV Q24H [facility] Rx#:[id number] Output: Output, Urine Amount 400 / 2750 1550 / 2750 800 / 2750 Other: Number of Unmeasured Voids 0 0 1 Weight 185 lb 5 oz Patient Weight 07/27/22 11:59 Weight 185 lb 5 oz Laboratory Results - last 24 hr 07/26/22 11:10: POC Glucose 182 H 07/26/22 16:14: POC Glucose 105 07/26/22 21:11: POC Glucose 151 H 07/27/22 05:47: POC Glucose 81 I & O for Labs for Last 24 Hours: Intake & Output 07/24/22 07/25/22 07/26/22 07/27/22 11:59 11:59 11:59 11:59 Intake Total 3012 / 3012 3265 / 3265 Output Total 600 / 600 2750 / 2750 Balance 2412 / 2412 515 / 515 Weight 197 lb 188 lb 11.2 oz 185 lb 5 oz Microbiology Reports for the Last 24 Hours: Microbiology 07/26/22 17:41 Sputum - Expectorated Sputum Gram Stain - Final Comment:: Alert and pleasant. Better hydrated. Lungs have rhonchi but better air movement. Heart rate regular. No edema noted. Abdomen soft and nontender. Assessment and Plan *Assessment and plan (1) Pneumonia: Status: Acute Qualifiers: Laterality: bilateral Pneumonia type: due to unspecified organism Category: Medical Code(s): J18.9 - Pneumonia, unspecified organism (2) CLL (chronic lymphocytic leukemia): Status: Acute Category: Medical Code(s): C91.10 - Chronic lymphocytic leukemia of B-cell type not having achieved remission (3) Sinusitis: Status: Acute Qualifiers: Chronicity: acute Recurrence: non-recurrent Sinusitis location: unspecified location Qualified Code(s): J01.90 - Acute sinusitis, unspecified Category: Medical Code(s): J32.9 - Chronic sinusitis, unspecified (4) Acute exacerbation of chronic obstructive airways disease: Status: Acute Category: Medical Code(s): J44.1 - Chronic obstructive pulmonary disease with (acute) exacerbation (5) Chronic kidney disease, stage 3b: Status: Acute Category: Medical Code(s): N18.32 - Chronic kidney disease, stage 3b (6) Diabetes mellitus: Status: Acute Qualifiers: Diabetes mellitus complicat
[2022-07-27 11:34] LABS: POC Glucose,Bedside 122 (70-110)
[2022-07-27 16:47] LABS: POC Glucose,Bedside 230 (70-110)
[2022-07-27 20:38] LABS: POC Glucose,Bedside 148 (70-110)
[2022-07-28] VITALS: BP 160/82; PULSE 60; RESP 17; TEMP 36.7; O2SAT 95
[2022-07-28 04:00] VITALS: BP 172/93; PULSE 58; RESP 18; TEMP 36.8; O2SAT 97; BMI 25.0
[2022-07-28 06:12] LABS: POC Glucose,Bedside 104 (70-110)
[2022-07-28 06:35] LABS: Basophils % 0.7 % (0.1-2.0); Eosinophils # 0.1 K/mm3 (0.0-0.4); Eosinophils % 1.7 % (0.1-12.0); Hematocrit 37.7 % (42.0-52.0); Hemoglobin 12.1 g/dL (14.1-18.0); Lymphocytes # 1.7 K/mm3 (0.7-4.5); Lymphocytes % 39.7 % (10-50); Mean Corpuscular HGB Conc 32.1 g/dL (31.8-35.4); Mean Corpuscular Hemoglobin 24.4 pg (27.0-31.2); Mean Corpuscular Volume 75.8 fl (80-94); Mean Platelet Volume 9.9 fl (7.4-10.4); Monocytes # 0.5 K/mm3 (0.1-1.0); Monocytes % 12.3 % (1.7-9.3); Neutrophils % 45.6 % (37.0-80.0); Platelet Count 176 K/mm3 (142-424); Red Blood Count 4.97 M/mm3 (4.60-6.20); Red Cell Distribution Width 18.9 % (11.5-17.5); White Blood Count 4.4 K/mm3 (4.8-10.8)
[2022-07-28 06:37] LABS: Chloride 107 mmol/L (98-107); Sodium 135 mmol/L (136-145)
[2022-07-28 06:38] LABS: Potassium 3.7 mmoL/L (3.5-5.1)
[2022-07-28 06:40] LABS: Anion Gap 7.7 mEq/L (5-15); Blood Urea Nitrogen 23 mg/dl (9-20); Carbon Dioxide 24 mmol/L (22.0-30.0); Creatinine Clearance Estimated 59 mL/min (50-200); Estimated Glomerular Filt Rate 50 ml/min (>60); GFR (African American) 60 ML/MIN (>60)
[2022-07-28 06:41] LABS: Calcium 8.1 mg/dl (8.4-10.2); Glucose 102 mg/dl (74-100)
[2022-07-28 07:53] VITALS: BP 167/86; PULSE 58; RESP 18; TEMP 36.3; O2SAT 96
--- NOTE | 2022-07-28 08:08 | SW/DCPLANNER ---
Addendum entered by Yeni Miller 07/28/22 13:11: Carolina craig/ [facility] stated that services will begin tomorrow. Original Note: Patient information/order will be faxed to [facility] per patient/family request. The plan for this patient is to discharge home later today pending no setbacks.
--- NOTE | 2022-07-28 09:30 | EXP.PULM.CON ---
History of Present Illness History of present illness: Mr. Sanchez is a 72-year-old male history of diabetes, CKD, CLL recent COPD exacerbation status post doxycycline and steroids as an outpatient basis presented to hospital worsening respiratory distress, increasing ox requirements and pulmonary was consulted for further evaluation. [facility] Disclaimer: The information contained in this section may have been updated after the patient was seen, as this information can be updated by other users. Medical History (Updated 07/28/22 @ 10:36 by Svitlana Garnica MD) Aneurysm Cancer Chronic sinusitis COPD mixed type Deep vein thrombosis (DVT) History of hypertension Hyperlipidemia Pneumonia Unresolved pneumonia Surgical History Status post functional endoscopic sinus surgery Family History Other Cancer Hypertension Social History Smoking Status: Former smoker alcohol intake: current substance use type: denies use current occupational status: employed Travel in the last 8 weeks: [place] the [place] household members: spouse housing: house caffeine: Yes Review of Systems Constitutional Constitutional: Reports anorexia, Reports body ache(s) and Reports fatigue Eyes Eyes: Denies eye discharge, Denies dry eyes, Denies irritation and Denies itchy eyes ENT Ears, Nose, Mouth, and Throat: Denies epistaxis, Denies facial pain, Denies lip swelling and Denies throat swelling *Cardiovascular Cardiovascular: Reports dyspnea and Reports dyspnea on exertion *Respiratory Respiratory: Reports chest congestion, Reports cough, Reports dyspnea, Reports dyspnea on exertion, Reports excessive phlegm production and Reports wheezing *Gastrointestinal Gastrointestinal: Denies abdominal pain, Denies belching and Denies cramping *Musculoskeletal Musculoskeletal: Reports back pain, Reports myalgias and Reports other (No small joint swelling or Pain) Psychiatric Psychiatric: Denies homicidal ideation and Denies suicidal ideation Endocrine Endocrine: Reports fatigue and Denies heat intolerance Hematologic/Lymphatic Hematologic/Lymphatic: Denies easy bleeding and Denies lymphadenopathy Allergic/Immunologic Allergic/Immunologic: Denies itchy eyes, Denies lip swelling, Denies throat swelling and Reports wheezing Pulmonology Exam Inpatient Vital signs and Labs for Last 24 Hours: Temp Pulse Resp BP Pulse Ox 97.4 F L 58 L 18 167/86 H 96 07/28/22 07:53 04/24/23 07:53 07/28/22 07:53 07/28/22 07:53 07/28/22 07:53 Laboratory Results - last 24 hr 07/27/22 11:27: POC Glucose 122 H 07/27/22 16:35: POC Glucose 230 H 07/27/22 20:27: POC Glucose 148 H 07/28/22 06:05: POC Glucose 104 07/28/22 06:25: WBC 4.4 L, RBC 4.97, Hgb 12.1 L, Hct 37.7 L, MCV 75.8 L, MCH 24.4 L, MCHC 32.1, RDW 18.9 H, Plt Count 176, MPV 9.9, Neut % (Auto) 45.6, Lymph % (Auto) 39.7, [place] % (Auto) 12.3 H, Eos % (Auto) 1.7, Baso % (Auto) 0.7, Neut # (Auto) 2.0, Lymph # (Auto) 1.7, [place] # (Auto) 0.5, Eos # (Auto) 0.1, Baso # (Auto) 0.0 07/28/22 06:25: Sodium 135 L, Potassium 3.7, Chloride 107, Carbon Dioxide 24, Anion Gap 7.7, BUN 23 H D, Creatinine 1.40 H, Estimated Creat Clear 59, Estimated GFR 50 L, Est GFR ( Amer) 60, Glucose 102 H, Calcium 8.1 L I & O for Labs for Last 24 Hours: Intake & Output 07/25/22 07/26/22 07/27/22 07/28/22 23:59 23:59 23:59 23:59 Intake Total 360 / 360 4176 / 4841 2281 / 2521 480 / 480 Output Total 400 / 400 1450 / 1750 3800 / 4150 600 / 600 Balance -40 / -40 2726 / 3091 -1519 / -1629 -120 / -120 Weight 182 lb 8 oz 188 lb 7.924 oz 185 lb 5 oz 188 lb 9.758 oz Microbiology Reports for the Last 24 Hours: Microbiology 07/26/22 17:41 Sputum - Expectorated Sputum Gram Stain - Final 07/26/22 17:41 Sputum - Expectorated Sputum Sputum Culture - Preliminary 0
--- NOTE | 2022-07-28 10:28 | CT_ITS ---
FINAL REPORT TECHNIQUE: Axial imaging of the chest was obtained without contrast. Reformatted images were also obtained and reviewed.This study was performed with techniques to keep radiation doses as low as reasonably achievable, (ALARA). Individualized dose reduction technique using automated exposure control or adjustment of mA and/or kV according to the patient's size were employed. CLINICAL HISTORY: PNM COMPARISON: 07/25/2022 FINDINGS: An aortic stent graft is in place. There is no axillary adenopathy. There are multiple, mildly enlarged mediastinal lymph nodes. Postoperative changes are noted to the left axilla. Heart size is normal. There is no pericardial effusion. Limited images of the upper abdomen are unremarkable. Small bilateral pleural effusions are seen. There are mild emphysematous changes. Bilateral pulmonary opacities are seen consistent with bilateral pneumonia. IMPRESSION: Bilateral pulmonary opacities consistent with bilateral pneumonia. Reviewed, Interpreted and Dictated by Eder Hopkins III, MD Transcribed by Mandy Barreto Authenticated and [facility]
[2022-07-28 11:47] VITALS: BP 169/92; PULSE 53; RESP 16; TEMP 36.7; O2SAT 97
[2022-07-28 11:49] LABS: POC Glucose,Bedside 145 (70-110)
[2022-07-28 12:09] LABS: Lactate Dehydrogenase 163 U/L (313-618)
[2022-07-28 12:37] VITALS: PULSE 77; RESP 18
--- NOTE | 2022-07-28 13:51 | EXP.DC.SUM ---
General Admission date:: 07/25/22 Discharge date: 07/28/22 HPI HPI HPI: 72-year-old white male with history of chronic kidney disease, CLL, COPD and diabetes who had had a fairly good for 5 months after aggressively pursuing physical therapy and had been doing a little better but 2 weeks ago had a COPD exacerbation which was treated in the office with doxycycline and steroids. He got a little bit better but over the past week is try to be able bit more active and been outside in the heat and became worse with some coughing, congestion and became very weak and came to the emergency department on the day of admission. He was found of worsening pneumonia on chest x-ray, given failed outpatient therapy of COPD exacerbation was admitted to hospital for IV antibiotics and further diagnostic testing. Hospital Course Hospital Course Hospital Course: Patient was admitted. Placed on ceftriaxone and azithromycin for community-acquired pneumonia with failed outpatient therapy. Did very nicely. PT and OT evaluated him. [place] that he would benefit from home health services which he has had before. His blood pressure was slightly elevated over his home baseline but no medications were changed given his in-hospital status. Glucose levels were elevated consistent with his diagnosis of diabetes but were treated with sliding scale insulin. Of note his A1c most recently at home has been in the 7% range. Pulmonary was consulted because of his COPD and recurrent pneumonia, recommended CT scan of chest which did not show any suspicious lesions and they recommended switching therapy to levofloxacin and were okay with discharge today with outpatient follow-up. This will be done. I will see him on Thursday morning in my office for follow-up and he will see pulmonary next week. Exam Data for Last 24 hours Vital signs and Labs for Last 24 Hours: Temp Pulse Resp BP Pulse Ox 98.1 F 77 18 169/92 H 97 07/28/22 11:47 07/28/22 12:37 07/28/22 12:37 07/28/22 11:47 07/28/22 11:47 Laboratory Results - last 24 hr 07/27/22 16:35: POC Glucose 230 H 07/27/22 20:27: POC Glucose 148 H 07/28/22 06:05: POC Glucose 104 07/28/22 06:25: WBC 4.4 L, RBC 4.97, Hgb 12.1 L, Hct 37.7 L, MCV 75.8 L, MCH 24.4 L, MCHC 32.1, RDW 18.9 H, Plt Count 176, MPV 9.9, Neut % (Auto) 45.6, Lymph % (Auto) 39.7, Park % (Auto) 12.3 H, Eos % (Auto) 1.7, Baso % (Auto) 0.7, Neut # (Auto) 2.0, Lymph # (Auto) 1.7, Park # (Auto) 0.5, Eos # (Auto) 0.1, Baso # (Auto) 0.0 07/28/22 06:25: Sodium 135 L, Potassium 3.7, Chloride 107, Carbon Dioxide 24, Anion Gap 7.7, BUN 23 H D, Creatinine 1.40 H, Estimated Creat Clear 59, Estimated GFR 50 L, Est GFR ( Amer) 60, Glucose 102 H, Calcium 8.1 L 07/28/22 10:49: Lactate Dehydrogenase 163 L 07/28/22 11:32: POC Glucose 145 H I & O for Last 24 hours: Intake & Output 07/26/22 07/27/22 07/28/22 07/29/22 11:59 11:59 11:59 11:59 Intake Total 3012 / 3012 3265 / 3265 1020 / 1020 Output Total 600 / 600 3600 / 3600 2049 / 2049 Balance 2412 / 2412 -335 / -335 -1030 / -1030 Weight 188 lb 11.2 oz 185 lb 5 oz 188 lb 9.758 oz Microbiology Reports for the Last 24 Hours: Microbiology 07/28/22 12:30 Sputum - Expectorated Sputum SHAILESH Preparation - Final 07/26/22 17:41 Sputum - Expectorated Sputum Gram Stain - Final 07/26/22 17:41 Sputum - Expectorated Sputum Sputum Culture - Preliminary 07/25/22 11:55 Blood Blood Culture - Preliminary NO GROWTH AFTER 48 HOURS 07/25/22 11:39 Blood Blood Culture - Preliminary NO GROWTH AFTER 48 HOURS Constitutional Constitutional: no acute distress *Routine HEENT Exam Head: Present normocephalic Eye: Present EOMI and PERRL ENT: Present mucous membranes moist *Routine Neck Exam Neck: Present supple; Absent lymphadenopathy *Routine Respiratory Exam Respiratory: Present rhonchi and able to speak in complete sentences Comments: Much less rho
--- NOTE | 2022-07-28 14:06 | HMH.PHAINT1 ---
Pharmacy Intervention Comments: Counseled patient and family on new medication to START at discharge (levofloxacin). Patient and family expressed understanding of medication indication, dose, route, frequency, and potential side effects.
--- NOTE | 2022-07-29 13:24 | CARE MANAGER ---
Contacted patient's . She states patient is doing fine. They picked up medication and are aware of follow up appointments. Denies any questions or concerns. SHEY Moyer
[2022-07-30 15:10] LABS: Fungitell(Beta D-Glucan) Serum <31 pg/mL (<80)
== END 2022-07-28 15:55 | disposition home health service (06) ==
LOC: ER 13:37 → 2ND 13:52
PROVIDERS: Internal Medicine Pulmonary Disease; Admitting Provider Internal Medicine Adolescent Medicine; Emergency Provider Emergency Medicine; PCP Internal Medicine Adolescent Medicine; Visit Provider Internal Medicine Adolescent Medicine
DX: J18.9 Pneumonia, unspecified organism (principal); C91.10 Chronic lymphocytic leukemia of B-cell type not having achieved remission; N18.32 Chronic kidney disease, stage 3b; J44.1 Chronic obstructive pulmonary disease with (acute) exacerbation; Z79.4 Long term (current) use of insulin; Z79.622 Long term (current) use of Janus kinase inhibitor; E11.22 Type 2 diabetes mellitus with diabetic chronic kidney disease; Z87.891 Personal history of nicotine dependence; I12.9 Hypertensive chronic kidney disease with stage 1 through stage 4 chronic kidney disease, or unspecified chronic kidney disease; R29.6 Repeated falls; Z79.899 Other long term (current) drug therapy; Z20.822 Contact with and (suspected) exposure to COVID-19
CPT/HCPCS: G0378; 36415; 71046; 71250; 80048; 81001; 82962; 83605; 83615; 85025; 87040; 87070; 87081; 87116; 87186; 87205; 87206; 87220; 87449; 94640; 97116; 97162; 97530; 99285; C9803; J0456; J0696; J1956; U0003; U0005

== ENCOUNTER → 2022-08-04 11:19 | Outpatient (CLI) | payer MEDICARE, OTHER, SELFPAY | PROVIDERS: PCP Internal Medicine Adolescent Medicine; Visit Provider Specialist | DX: J44.9 Chronic obstructive pulmonary disease, unspecified (principal); C91.10 Chronic lymphocytic leukemia of B-cell type not having achieved remission; E11.69 Type 2 diabetes mellitus with other specified complication; Z79.4 Long term (current) use of insulin | CPT/HCPCS: 94762 ==

== ENCOUNTER → 2022-08-06 12:04 | Outpatient (CLI) | payer MEDICARE, OTHER, SELFPAY ==
--- NOTE | 2022-08-06 12:08 | XR_ITS ---
FINAL REPORT TECHNIQUE: Chest PA & Lateral CLINICAL HISTORY: Pneumonia COMPARISON: 07/25/2022 FINDINGS: 2 views of the chest were performed. Thoracic endo graft is present, unchanged in position. The heart size is normal. The mediastinum is within normal limits. Previously noted dense bibasilar airspace infiltrates have significantly improved consistent with resolving pneumonia. There may be some mild residual opacity at the right base. There are no pleural effusions. There is no pneumothorax. The bony thorax appears intact. IMPRESSION: Findings consistent with resolving pneumonia. Reviewed, Interpreted and Dictated by Marcin Aguirre MD Transcribed by Princess [place] Authenticated and . [facility]
== END ==
PROVIDERS: PCP Internal Medicine Adolescent Medicine; Visit Provider Internal Medicine Adolescent Medicine
DX: J18.9 Pneumonia, unspecified organism (principal)
CPT/HCPCS: 71046

== ENCOUNTER → 2022-08-12 10:12 | Outpatient (CLI) | payer MEDICARE, OTHER, SELFPAY ==
--- NOTE | 2022-08-12 10:12 | MR_ITS ---
FINAL REPORT TECHNIQUE: Multiplanar MR without contrast CLINICAL HISTORY: Encephalopathy follow- up short term memory loss trouble with words FINDINGS: Diffusion sequences show no signal abnormality to indicate acute infarct. Scattered periventricular white matter signal changes are seen compatible with moderate chronic ischemic gliotic disease. Moderate generalized atrophy is present. There is a cystic mass in the retro cerebellar region measuring 44 mm compatible with an arachnoid cyst. No hemorrhage or edema is seen. Ventricles are normal. Major vascular flow voids are intact. IMPRESSION: 1. No mass, acute infarct or hydrocephalus 2. Atrophy and chronic ischemic white matter changes Reviewed, Interpreted and Dictated by Cehng Ramos MD Transcribed by Anali Davis Authenticated and [facility]
== END ==
PROVIDERS: PCP Internal Medicine Adolescent Medicine; Visit Provider Specialist
DX: G93.49 Other encephalopathy (principal)
CPT/HCPCS: 70551

== ENCOUNTER 2022-08-14 09:00 | Outpatient (RCR) | payer MEDICARE, OTHER, SELFPAY ==
--- NOTE | 2022-07-09 14:57 | HMH.PTOPEV ---
PT Outpatient Evaluation Rehab PT Outpatient Evaluation Start: 07/09/22 09:08 Freq: Status: Active Protocol: Document 07/09/22 09:08 [facility] (Rec: 07/09/22 14:56 [facility] [id number]) E-signed By Julia Corado, PT Outpatient Therapy Subjective History Subjective History Pt is a 38 y/o male who reports generalized weakness, decreased endurance and difficulties with gait/balance since being diagnosed with Covid-19 in November of 2021. Pt reports he was hospitalized for 2-3 days requiring supplemental oxygen. Pt reports he was sick and sedentary for about 5 weeks. Pt reports since he feels like he is in a bubble or a fog . Pt reports this fog feeling is intermittent. Pt reports he feels that when he walks he leans forward and shuffles his feet some causing him to stumble at times. Pt reports he fell for the first time yesterday due to tripping over major, pt denies injuries from the fall. Pt reports he has 1 step to get inside his home and 3 steps into the living room area with handrails that he is navigating well now but when he was sick he did fall backwards on the stairs and hit his head. Pt denies serious injuries from this fall as well. Pt reports he does not use an AD for gait but does have a cane and a walker. Pt reports for exercise he walks 700 [address] on his gravel driveway 7 times without sitting and resting without issues. Pt denies pain /paresthesia or history of stroke. Medical History: hx of covid- 19, hx kidney cancer, high blood pressure, diabetes, COPD Vitals: sp02 96% at
--- NOTE | 2022-08-12 09:49 | HMH.RHREAS ---
Rehab Reassessment Rehab OP Re-assessment Start: 08/12/22 09:01 Freq: Status: Active Protocol: Document 08/12/22 09:01 JULIETHChristel (Rec: 08/12/22 09:49 ANNALISE [id number]) E-signed By Julia Corado PT Rehab Re-assessment Subjective Subjective Pt reports he felt that his strength and balance were improving with PT/OT treatment until he was hospitalized with pneumonia at the end of July which set him back. Pt reports he still feels uncoordinated and shaky on his feet at times, denies recent falls. Objective Objective Notes LE MMT: 4/5 grossly Balance: EO on foam 30 without LOB Endurance: 10' on Nustep with RPE 0/10 Pt requires rest breaks throughout treatment session with oxygen dropping to 90% at time although improves quickly to baseline at 94-96% with PLB Assessment Progress Assessment Progressing as Expected Assessment Notes Pt has attended 7 PT sessions consisting of aerobic exercise , LE strengthening, and balance/proprioception training. Pt was hospitalized with pneumonia in July posing as a barrier to progress. Despite set back, pt demonstrated improved balance and endurance compared to initial evaluation. Overall pt would continue to benefit from skilled PT to further improve functional strength/ endurance and balance/ proprioception to decrease fall risk and improve overall QOL. Patient goals met ST/5 Goals Not Met strength, LTG Revised Goals n/a Plan Plan Continue initial POC Frequency of Therapy 2x/week Duration of therapy 4 more weeks Time and Billing Re-Eval Time 9 Re-Eval Billing Units 1
== END 2022-08-14 09:05 | disposition home or self-care (01) ==
LOC: PT 09:00
PROVIDERS: Visit Provider Internal Medicine Adolescent Medicine
DX: R27.0 Ataxia, unspecified (principal); Z91.81 History of falling; J44.9 Chronic obstructive pulmonary disease, unspecified
CPT/HCPCS: 97110; 97112; 97163; 97164; 97530; 97535

== ENCOUNTER 2022-08-14 10:00 | Outpatient (RCR) | payer MEDICARE, OTHER, SELFPAY ==
--- NOTE | 2022-07-09 09:46 | HMH.OTOPEV ---
OT Inpatient Evaluation Rehab OT Outpatient Eval Start: 07/09/22 08:25 Freq: Status: Active Protocol: Document 07/09/22 08:49 [facility] (Rec: 07/09/22 09:19 [facility] [id number]) E-signed By Yoanna Cota, OT Outpatient Therapy Subjective History Subjective History 72 year old male referred to skilled OP OT services for ataxia and hx of falling. present during OT evaluation and stated that patient had a recent fall and does shuffle his feet. 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 Patient B UE AROM is WFL. PMH: Aneurysm Cancer Chronic sinusitis Deep vein thrombosis (DVT) History of hypertension Hyperlipidemia Chief Complaint Weakness Symptoms Relieved By Nothing Symptoms Aggravated By Physical Activity Prior Functional Limitations None Current Functional Limitations Recreation Activity Level of pain today (0-10) 0 Pain scale - at its best (0-10) 0 Pain scale - at its worst (0-10) 0 Shoulder/Elbow Eval Shoulder Objective Measurements Shoulder MMT Bilateral Shoulder Abduction Strength Grade 3+ Fair+ Shoulder Extension Strength Grade 3+ Fair+ Shoulder Flexion Strength Grade 3+ Fair+ Shoulder Horizontal Abduction Strength 3+ Fair+ Grade Shoulder Horizontal Adduction Strength 3+ Fair+ Grade Infraspinatus/Teres Minor Strength Grade 3+ Fair+ Shoulder External Rotation Strength 3+ Fair+ Grade Elbow Objective Measurements Wrist/Hand Eval Police Judge/Pinch Strength Right Police Judge Strength Measurement (lbs) 75 Left Police Judge Strength Measurement (lbs) 75 OT Outpatient Assessment Impairments Problems/Impairments Impaired Strength,Impaired Endurance,Impaired Work Activities Prognosis Rehab Potential Good Clinical Impression Consistent with Diagnosis Yes Short Term Goals Number of Weeks 2 Increase Strength Yes: B UE strength to 4- to 4/ 5 throughout. B color maker formulator: 80# Increase Endurance Yes: Participate in task up to 10 mins without RB Patient to be Ind w/ Advanced HEP Yes: Strengthening Branding Specialist Goals N
== END 2022-08-14 10:05 | disposition home or self-care (01) ==
LOC: OT 10:00
PROVIDERS: PCP Internal Medicine Adolescent Medicine; Visit Provider Internal Medicine Adolescent Medicine
DX: R27.0 Ataxia, unspecified (principal); Z91.81 History of falling
CPT/HCPCS: 97010; 97014; 97110; 97164; 97165; G0283

== ENCOUNTER 2022-08-21 10:51 | Outpatient (CLI) | payer MEDICARE, OTHER, SELFPAY ==
[2022-08-21 10:55] VITALS: BMI 26.0
[2022-08-21 11:11] LABS: Basophils # 0.1 K/mm3 (0-0.2); Basophils % 1.2 % (0.1-2.0); Eosinophils % 0.6 % (0.1-12.0); Hematocrit 38.2 % (42.0-52.0); Hemoglobin 12.4 g/dL (14.1-18.0); Lymphocytes # 1.4 K/mm3 (0.7-4.5); Lymphocytes % 35.3 % (10-50); Mean Corpuscular HGB Conc 32.4 g/dL (31.8-35.4); Mean Corpuscular Volume 77.2 fl (80-94); Mean Platelet Volume 9.7 fl (7.4-10.4); Monocytes # 0.5 K/mm3 (0.1-1.0); Monocytes % 12.9 % (1.7-9.3); Neutrophils # 1.9 K/mm3 (1.8-7.8); Platelet Count 177 K/mm3 (142-424); Red Blood Count 4.94 M/mm3 (4.60-6.20); Red Cell Distribution Width 19.5 % (11.5-17.5); White Blood Count 3.9 K/mm3 (4.8-10.8)
[2022-08-21 11:20] LABS: Alanine Aminotransferase 22 U/L (12-78); Albumin Level 3.1 g/dl (3.5-5.0); Albumin/Globulin Ratio 1.1 (1.1-1.8); Alkaline Phosphatase 71 U/L (38-126); Anion Gap 15.4 mEq/L (5-15); Aspartate Amino Transferase 20 U/L (17-59); Bilirubin,Total 0.3 mg/dl (0.2-1.3); Blood Urea Nitrogen 31 mg/dl (9-20); Calcium 8.4 mg/dl (8.4-10.2); Carbon Dioxide 25 mmol/L (22.0-30.0); Chloride 99 mmol/L (98-107); Creatinine Clearance Estimated 56 mL/min (50-200); Estimated Glomerular Filt Rate 46 ml/min (>60); GFR (African American) 56 ML/MIN (>60); Globulin 2.7 g/dL (1.3-3.2); Glucose 255 mg/dl (74-100); Potassium 4.4 mmoL/L (3.5-5.1); Sodium 135 mmol/L (136-145); Total Protein,Serum 5.8 g/dl (6.3-8.2)
--- NOTE | 2022-08-21 12:05 | PC.NURSE ---
1205-pt d/c home; pt completed rituxin infusion per md;will return in 2 months for lab work.
== END 2022-08-21 12:05 | disposition home or self-care (01) ==
LOC: INF 10:51
PROVIDERS: PCP Internal Medicine Adolescent Medicine; Visit Provider Internal Medicine Medical Oncology
DX: C91.10 Chronic lymphocytic leukemia of B-cell type not having achieved remission (principal)
CPT/HCPCS: 36415; 80053; 85025

== ENCOUNTER 2022-08-22 10:20 | Outpatient (CLI) | payer MEDICARE, OTHER, SELFPAY ==
[2022-08-22 10:40] VITALS: BP 148/74; PULSE 58; RESP 16; O2SAT 95
[2022-08-22 11:40] VITALS: BP 137/73; PULSE 55; RESP 16
== END 2022-08-22 11:50 | disposition home or self-care (01) ==
LOC: INF 10:21
PROVIDERS: PCP Internal Medicine Adolescent Medicine; Visit Provider Internal Medicine Medical Oncology
DX: C91.10 Chronic lymphocytic leukemia of B-cell type not having achieved remission (principal); E86.0 Dehydration
CPT/HCPCS: 96360

== ENCOUNTER 2022-09-02 18:37 | Observation (INO) | payer MEDICARE, OTHER, SELFPAY ==
[2022-09-02 18:39] VITALS: BP 168/93; PULSE 69; RESP 18; TEMP 37.4; O2SAT 96; BMI 23.1
--- NOTE | 2022-09-02 18:51 | XR_ITS ---
PROCEDURE INFORMATION: Exam: XR Chest Exam date and time: 09/02/2022 6:56 PM Age: 72 years old Clinical indication: Cough; Additional info: Cough weakness TECHNIQUE: Imaging protocol: Radiologic exam of the chest. Views: 1 view. COMPARISON: CR XR CHEST 2V 08/06/2022 12:10 PM FINDINGS: Tubes, catheters and devices: Stable thoracic endograft. Lungs: Worsening patchy airspace opacity in the right lower lobe. Pleural spaces: Unremarkable. No pleural effusion. No pneumothorax. Heart/Mediastinum: Unremarkable. No cardiomegaly. Bones/joints: Unremarkable. IMPRESSION: Worsening patchy airspace opacity in the right lower lobe.
--- NOTE | 2022-09-02 18:58 | ECG_ITS ---
APPROVED REPORT Exam: Resting ECG HR:64 bpm ECG Measurements Heart Rate 64 AXES IN 155 P 43 QRSd 109 QRS 51 QT 389 T 23 QTc 399 Conclusion SINUS RHYTHM NORMAL ECG UNCONFIRMED REPORT Electronically signed by : Master Ocasio MD 09/03/2022 17:34:35
[2022-09-02 19:00] VITALS: BP 154/94; PULSE 62; O2SAT 94
[2022-09-02 19:06] LABS: POC Glucose,Bedside 245 (70-110)
[2022-09-02 19:12] LABS: Hematocrit 36.8 % (42.0-52.0); Hemoglobin 11.8 g/dL (14.1-18.0); Lymphocytes # 1.2 K/mm3 (0.7-4.5); Lymphocytes % 33.2 % (10-50); Mean Corpuscular Hemoglobin 24.3 pg (27.0-31.2); Mean Corpuscular Volume 75.8 fl (80-94); Mean Platelet Volume 9.3 fl (7.4-10.4); Monocytes # 0.5 K/mm3 (0.1-1.0); Monocytes % 12.2 % (1.7-9.3); Neutrophils # 1.9 K/mm3 (1.8-7.8); Neutrophils % 52.6 % (37.0-80.0); Platelet Count 145 K/mm3 (142-424); Red Blood Count 4.86 M/mm3 (4.60-6.20); Red Cell Distribution Width 18.8 % (11.5-17.5); White Blood Count 3.7 K/mm3 (4.8-10.8)
[2022-09-02 19:17] LABS: Alanine Aminotransferase 20 U/L (12-78); Albumin Level 2.9 g/dl (3.5-5.0); Alkaline Phosphatase 56 U/L (38-126); Anion Gap 12.2 mEq/L (5-15); Aspartate Amino Transferase 21 U/L (17-59); Bilirubin,Total 0.4 mg/dl (0.2-1.3); Blood Urea Nitrogen 36 mg/dl (9-20); Calcium 7.9 mg/dl (8.4-10.2); Carbon Dioxide 22 mmol/L (22.0-30.0); Chloride 103 mmol/L (98-107); Creatinine Clearance Estimated 52 mL/min (50-200); Estimated Glomerular Filt Rate 46 ml/min (>60); GFR (African American) 56 ML/MIN (>60); Globulin 2.9 g/dL (1.3-3.2); Glucose 226 mg/dl (74-100); Potassium 4.2 mmoL/L (3.5-5.1); Sodium 133 mmol/L (136-145); Total Protein,Serum 5.8 g/dl (6.3-8.2)
[2022-09-02 19:22] LABS: C-Reactive Protein 42.8 mg/L (0-4)
[2022-09-02 19:29] LABS: Troponin I 0.02 ng/ml (0.00-0.034)
[2022-09-02 19:30] VITALS: BP 163/88; PULSE 62; O2SAT 92
[2022-09-02 19:33] LABS: Procalcitonin 0.062 ng/mL (0.0-2.0)
[2022-09-02 19:37] LABS: Erythrocyte Sedimentation Rate 50 mm/hr (0-20)
[2022-09-02 19:44] LABS: Coronavirus 19, PCR Not Detected (NotDetected); Influenza A, PCR Not Detected (NotDetected); Influenza B, PCR Not Detected (NotDetected)
[2022-09-02 20:00] VITALS: BP 161/94; PULSE 62; O2SAT 93
[2022-09-02 20:09] LABS: Lactic Acid 0.7 mmol/L (0.7-2.1)
[2022-09-02 20:30] VITALS: BP 163/93; PULSE 61; O2SAT 93
--- NOTE | 2022-09-02 22:10 | HMH.EDWEAK ---
Discharge Plan Disposition Patient Disposition: Admitted Chief Complaint: Weakness Clinical Impressions Clinical Impression: Acute exacerbation of chronic obstructive airways disease, CLL (chronic lymphocytic leukemia), Immunosuppressed status, Chronic renal insufficiency, Diabetes mellitus, CAP (community acquired pneumonia) Discharge ED Provider: January (ED),Dayne Luong HPI General Chief complaint: Weakness Stated complaint: AO 09/02 Fell Weakness Time Seen by Provider: 09/02/22 22:10 Mode of Arrival: Wheelchair Source of Information: Patient, Spouse and Medical Record Limitations: No Limitations Description of Symptoms (Recalled from ER Triage Doc. by RN): pt c/o increasing weakness, several falls, cough, fever since thursday History of Present Illness HPI Narrative: pt with weakness and fever with cough over the last few days - worse today -pt with hx of cll and autoimmune dis - does smoke MD Complaint: generalized weakness Onset (ago): day(s) Duration: constant Location: generalized Migration: none Severity: moderate Associated symptoms: denies other symptoms Related Data Home Medications Medication Instructions Recorded Confirmed tamsulosin 0.4 mg capsule 0.8 mg PO DAILY prostate 05/12/18 09/02/22 hydralazine 50 mg tablet 50 mg PO BID High blood pressure 10/25/18 09/02/22 nebivolol 20 mg tablet 10 mg PO DAILY High blood pressure 06/06/21 09/02/22 amlodipine 10 mg tablet 10 mg PO DAILY High blood pressure 08/16/21 09/02/22 ibrutinib 420 mg tablet (Imbruvica) 420 mg PO DAILY cancer 09/12/21 09/02/22 citalopram 20 mg tablet (Celexa) 20 mg PO DAILY Anxiety 05/01/22 09/02/22 trazodone 150 mg tablet 150 mg PO HS Sleep 06/27/22 09/02/22 albuterol sulfate 90 mcg/actuation 2 puff inhalation Q6HP PRN 07/25/22 09/02/22 aerosol inhaler Shortness of air lorazepam 0.5 mg tablet 0.5 mg PO QIDP PRN Anxiety 07/25/22 09/02/22 prednisone 5 mg tablet 5 mg PO BID Inflammation 07/25/22 09/02/22 fluticasone fur. 100 mcg-umeclid 1 inh inhalation DAILY Breathing 08/04/22 09/02/22 62.5 mcg-vilant 25 mcg problems inhalat.powder (Trelegy Ellipta) rituximab 10 mg/mL 200 mg IV .COMPLEX cancer 08/04/22 09/02/22 concentrate,intravenous (Rituxan) Previous Rx's Medication Instructions Recorded insulin glargine 100 unit/mL (3 12 unit (0.12 mL) SQ HS Diabetes 03/10/22 mL) subcutaneous pen #15 mL Allergies Allergy/AdvReac Type Severity Reaction Status Date / Time moxifloxacin [From Avelox] Allergy Intermediate I-RASH Verified 08/21/22 11:21 sulfamethoxazole Allergy Unknown UNKNOWN Verified 08/21/22 11:21 [From Bactrim] trimethoprim [From Bactrim] Allergy Unknown Verified 08/21/22 11:21 PFS PFS Disclaimer: The information contained in this section may have been updated after the patient was seen, as this information can be updated by other users. Medical History Aneurysm Cancer Chronic sinusitis COPD mixed type COPD mixed type Deep vein thrombosis (DVT) History of hypertension Hyperlipidemia Immunosuppressed status Pneumonia Unresolved pneumonia Surgical History Status post functional endoscopic sinus surgery Family History Other Cancer Hypertension Social History Smoking Status: Current every day smoker tobacco type: cigarettes packs per day: 1 alcohol intake: former substance use type: denies use current occupational status: employed Travel in the last 8 weeks: None household members: spouse housing: house marital status: education level: high school caffeine: Yes special pilo needs: No do you feel safe at home: Yes victim of physical abuse: No victim of emotional abuse: No victim of sexual abuse: No would you like helpful sources: No
[2022-09-02 22:33] LABS: Microscopic, Urine URINE MICROSCOPIC (MICROSCOPIC)
[2022-09-02 22:34] LABS: Appearance,Urine CLEAR (Clear); Bilirubin,Urine Negative (Negative); Blood, Urine Negative (Negative); Color,Urine YELLOW (Yellow); Glucose,Urine (UA) Negative (Negative); Ketones,Urine Negative (Negative); Leukocyte Esterase,Urine Negative (Negative); Nitrate,Urine Negative (Negative); Protein,Urine 3+ (Negative); Urobilinogen,Urine 0.2 EU/dl (0.2)
[2022-09-02 22:40] LABS: Troponin I 0.03 ng/ml (0.00-0.034)
[2022-09-02 23:16] LABS: Squamous Epithelial Cell,Urine Occasional #/hpf (0-5)
[2022-09-02 23:58] VITALS: BP 159/86; PULSE 65; RESP 19; TEMP 36.8; O2SAT 96
[2022-09-03] VITALS (8 sets, daily range): BP systolic 133–169; BP diastolic 61–95; PULSE 59–72; RESP 18–20; TEMP 36.4–36.8; O2SAT 94–97; BMI 24.6
[2022-09-03 01:20] LABS: POC Glucose,Bedside 267 (70-110)
--- NOTE | 2022-09-03 01:24 | PC.NURSE ---
PT. to the floor and bed alarm on.
[2022-09-03 01:25] LABS: Troponin I 0.03 ng/ml (0.00-0.034)
--- NOTE | 2022-09-03 03:28 | PC.NURSE ---
Pt. is aox 4, 97 % ON RA, LS exp wheezing, up with assist times one, 18g L fa with NS @ 75, VSS.
[2022-09-03 06:23] LABS: POC Glucose,Bedside 275 (70-110)
[2022-09-03 06:47] LABS: Basophils % 0.6 % (0.1-2.0); Eosinophils % 0.2 % (0.1-12.0); Hemoglobin 12.3 g/dL (14.1-18.0); Lymphocytes # 0.2 K/mm3 (0.7-4.5); Lymphocytes % 10.2 % (10-50); Mean Corpuscular HGB Conc 31.4 g/dL (31.8-35.4); Mean Corpuscular Hemoglobin 24.3 pg (27.0-31.2); Mean Corpuscular Volume 77.3 fl (80-94); Mean Platelet Volume 9.6 fl (7.4-10.4); Monocytes # 0.1 K/mm3 (0.1-1.0); Monocytes % 5.6 % (1.7-9.3); Neutrophils # 1.5 K/mm3 (1.8-7.8); Neutrophils % 83.4 % (37.0-80.0); Platelet Count 143 K/mm3 (142-424); Red Blood Count 5.04 M/mm3 (4.60-6.20); Red Cell Distribution Width 18.9 % (11.5-17.5); White Blood Count 1.8 K/mm3 (4.8-10.8)
[2022-09-03 06:56] LABS: Anion Gap 13.2 mEq/L (5-15); Blood Urea Nitrogen 35 mg/dl (9-20); Calcium 7.7 mg/dl (8.4-10.2); Carbon Dioxide 22 mmol/L (22.0-30.0); Chloride 104 mmol/L (98-107); Creatinine Clearance Estimated 60 mL/min (50-200); Estimated Glomerular Filt Rate 50 ml/min (>60); GFR (African American) 60 ML/MIN (>60); Glucose 273 mg/dl (74-100); Potassium 4.2 mmoL/L (3.5-5.1); Sodium 135 mmol/L (136-145)
--- NOTE | 2022-09-03 07:31 | HMH.PHAINT1 ---
Pharmacy Intervention Comments: Home medication list verified by list from outside pharmacy.
--- NOTE | 2022-09-03 08:25 | EXP.HP ---
History of Present Illness *Admission Date: 09/03/22 *Reason for visit:: Weakness, frequent falls *History of present illness: 72-year-old with multiple medical problems including CLL, chronic weakness, COPD, chronic falls and ataxia, who had been doing fairly well at home with home health which is now resolved, and ongoing pulmonary therapy. Over the past couple of days had increasing problems with falling both during the day and when he gets up at night. Had a fall last night was brought to the emergency department. Found to have a worsening infiltrate on chest x-ray and was admitted to hospital for community-acquired pneumonia in the context of COPD. [facility] Disclaimer: The information contained in this section may have been updated after the patient was seen, as this information can be updated by other users. Medical History Aneurysm Cancer Chronic sinusitis COPD mixed type COPD mixed type Deep vein thrombosis (DVT) History of hypertension Hyperlipidemia Immunosuppressed status Pneumonia Unresolved pneumonia Surgical History Status post functional endoscopic sinus surgery Family History Other Cancer Hypertension Social History (Updated 09/03/22 @ 00:34 by Trinh Bustillos RN) Smoking Status: Current every day smoker tobacco type: cigarettes packs per day: 1 alcohol intake: former substance use type: denies use current occupational status: employed Travel in the last 8 weeks: None household members: spouse housing: house marital status: education level: high school caffeine: Yes special pilo needs: No do you feel safe at home: Yes victim of physical abuse: No victim of emotional abuse: No victim of sexual abuse: No would you like helpful sources: No Review of Systems Review of Systems Review of systems:: pertinent systems reviewed and negative unless documented below Meds Home Medications and Allergies Home Medications Medication Instructions Recorded Confirmed Type tamsulosin 0.4 mg capsule 0.8 mg PO DAILY Prostate 05/12/18 09/02/22 History hydralazine 50 mg tablet 50 mg PO TID High blood pressure 10/25/18 09/03/22 History nebivolol 20 mg tablet 10 mg PO BID High blood pressure 06/06/21 09/03/22 History amlodipine 10 mg tablet 10 mg PO DAILY High blood pressure 08/16/21 09/02/22 History ibrutinib 420 mg tablet (Imbruvica) 420 mg PO DAILY Cancer 09/12/21 09/02/22 History insulin glargine 100 unit/mL (3 12 unit (0.12 mL) SQ HS Diabetes 03/10/22 09/02/22 Rx mL) subcutaneous pen #15 mL citalopram 20 mg tablet (Celexa) 20 mg PO DAILY Mood 05/01/22 09/02/22 History trazodone 150 mg tablet 150 mg PO HS Sleep 06/27/22 09/02/22 History albuterol sulfate 90 mcg/actuation 2 puff inhalation Q6HP PRN 07/25/22 09/02/22 History aerosol inhaler Shortness of air lorazepam 0.5 mg tablet 0.5 mg PO QIDP PRN Anxiety 07/25/22 09/02/22 History prednisone 5 mg tablet 5 mg PO BID Inflammation 07/25/22 09/02/22 History fluticasone fur. 100 mcg-umeclid 1 inh inhalation DAILY Breathing 08/04/22 09/02/22 History 62.5 mcg-vilant 25 mcg problems inhalat.powder (Trelegy Ellipta) New Prescriptions to Start Prescriptions: Allergies Allergy/AdvReac Type Severity Reaction Status Date / Time moxifloxacin [From Avelox] Allergy Intermediate I-RASH Verified 08/21/22 11:21 sulfamethoxazole Allergy Unknown UNKNOWN Verified 08/21/22 11:21 [From Bactrim] trimethoprim [From Bactrim] Allergy Unknown Verified 08/21/22 11:21 Exam Data for Last 24 hours Vital signs and Labs for Last 24 Hours: Temp Pulse Resp BP Pulse Ox 97.5 F L 59 L 18 137/61 94 L 09/03/22 07:19 09/03/22 07:19 09/03/22 07:19 09/03/22 07:19 09/03/22 07:19 Laboratory Results - last 24 hr 09/02/22 18:55: WBC 3.7 L, RBC 4.86, Hg
--- NOTE | 2022-09-03 09:56 | HMH.OTEV ---
OT Inpatient Evaluation Rehab OT IP Evaluation Start: 09/03/22 08:24 Freq: ONCE Status: Active Protocol: Document 09/03/22 09:49 [facility] (Rec: 09/03/22 09:56 [facility] [id number]) Rehab OT IP Assessment Subjective History Pt oriented x 4 and agreeable to therapy evaluation. present and supportive. Pt admitted on 09/03/22 due to Weakness and frequent falls. Prior to being in the hosptial pt lived at home with his . Both report he has his good and bad days with functional transfers and ADL independence. Normally, he is able to complete all ADLs independently and has even been working. He does have a cane and a walker at home, but normally does not use them. reports she has observed him shuffling his feet at times and he recently had an MRI of the brain. They have a follow up with Neurology on September 08 for results from study. Pt has a past medical history of: Aneurysm Cancer Chronic sinusitis COPD mixed type COPD mixed type Deep vein thrombosis (DVT) History of hypertension Hyperlipidemia Immunosuppressed status Pneumonia Unresolved pneumonia Subjective Well lets do this. Pt completed bed mobility and went from supine to sitting at eob independently. Pt was independent with donning gown and shoes. Pt stood from eob with sba. Pt engaged in functional mobility task of 200 feet with sba. Pt returned to eob and completed bed mobility to lay supine independently. Pt left with
--- NOTE | 2022-09-03 10:27 | EXP.PULM.CON ---
History of Present Illness History of present illness: Mr. Castillo is a 72-year-old male history of diabetes, CKD, CLL recent COPD exacerbation status post doxycycline and steroids as an outpatient basis presented to hospital worsening health still complaining of generalized fatigue and weakness. Patient denies any worsening respiratory distress. Chest x-ray on admission showed worsening right lower lobe pulmonary infiltrates and pulmonary was called for further evaluation [facility] Disclaimer: The information contained in this section may have been updated after the patient was seen, as this information can be updated by other users. Medical History (Updated 09/03/22 @ 11:01 by Svitlana Garnica MD) Aneurysm Cancer Chronic sinusitis COPD mixed type COPD mixed type COPD mixed type Deep vein thrombosis (DVT) History of hypertension Hyperlipidemia Immunocompromised state Immunosuppressed status Pneumonia Recurrent pneumonia Unresolved pneumonia Surgical History Status post functional endoscopic sinus surgery Family History Other Cancer Hypertension Social History (Updated 09/03/22 @ 00:34 by Trinh Bustillos RN) Smoking Status: Current every day smoker tobacco type: cigarettes packs per day: 1 alcohol intake: former substance use type: denies use current occupational status: employed Travel in the last 8 weeks: None household members: spouse housing: house marital status: education level: high school caffeine: Yes special pilo needs: No do you feel safe at home: Yes victim of physical abuse: No victim of emotional abuse: No victim of sexual abuse: No would you like helpful sources: No Review of Systems Constitutional Constitutional: Reports anorexia, Reports body ache(s), Reports fatigue, Reports lethargy and Denies night sweats Eyes Eyes: Denies eye discharge, Denies dry eyes, Denies irritation and Denies itchy eyes ENT Ears, Nose, Mouth, and Throat: Denies epistaxis, Denies facial pain, Denies lip swelling and Denies throat swelling *Cardiovascular Cardiovascular: Reports dyspnea and Reports dyspnea on exertion *Respiratory Respiratory: Reports chest congestion, Reports cough, Reports dyspnea, Reports dyspnea on exertion, Denies excessive phlegm production and Denies wheezing *Gastrointestinal Gastrointestinal: Denies abdominal pain, Denies belching and Denies cramping *Musculoskeletal Musculoskeletal: Reports back pain, Reports myalgias and Reports other (No small joint swelling or Pain) Psychiatric Psychiatric: Denies homicidal ideation and Denies suicidal ideation Endocrine Endocrine: Reports fatigue and Denies heat intolerance Hematologic/Lymphatic Hematologic/Lymphatic: Denies easy bleeding and Denies lymphadenopathy Allergic/Immunologic Allergic/Immunologic: Denies itchy eyes, Denies lip swelling, Denies throat swelling and Denies wheezing Pulmonology Exam Inpatient Vital signs and Labs for Last 24 Hours: Temp Pulse Resp BP Pulse Ox 97.5 F L 59 L 18 137/61 94 L 09/03/22 07:19 09/03/22 07:19 09/03/22 07:19 09/03/22 07:19 09/03/22 07:19 Laboratory Results - last 24 hr 09/02/22 18:55: WBC 3.7 L, RBC 4.86, Hgb 11.8 L, Hct 36.8 L, MCV 75.8 L, MCH 24.3 L, MCHC 32.0, RDW 18.8 H, Plt Count 145, MPV 9.3, Neut % (Auto) 52.6, Lymph % (Auto) 33.2, [place] % (Auto) 12.2 H, Eos % (Auto) 1.0, Baso % (Auto) 1.0, Neut # (Auto) 1.9, Lymph # (Auto) 1.2, [place] # (Auto) 0.5, Eos # (Auto) 0.0, Baso # (Auto) 0.0, ESR 50 H 09/02/22 18:55: Sodium 133 L, Potassium 4.2, Chloride 103, Carbon Dioxide 22, Anion Gap 12.2, BUN 36 H, Creatinine 1.50 H, Estimated Creat Clear 52, Estimated GFR 46 L, Est GFR ( Amer) 56 L, Glucose 226 H, Calcium 7.9 L, Total Bilirubin 0.4, AST 21, ALT 20, Alkaline Phosphatase 56, Troponin I 0.02, C-Reactive Protein 42.8 H, Total Protein
--- NOTE | 2022-09-03 10:35 | HMH.PTEV ---
Physical Therapy Evaluation Rehab PT IP Evaluation Start: 09/03/22 08:24 Freq: ONCE Status: Active Protocol: Document 09/03/22 09:00 KECIA (Rec: 09/03/22 10:35 PHOVIRY [id number]) Subjective/History History History 72 yowm adm to [facility] with PNA, hx of CLL, COPD. He reports he lives with SO, 1 step to enter the home, and he is generally independent with all mobility without AD. He reports, I feel really weak some days and I fall down, but most of the time I'm fine. Subjective Subjective Pt with no c/o this am, agrees to mobility assessment. Rehab PT IP Eval Objective Appearance Patient Behavior Appropriate Patient Orientation Person,Place,Time Difficulty following instructions none Speech Pattern Clear Ambulation Patient Able to Ambulate Yes Ambulation Observation IP General Gait Pattern Observation Shuffling Step Ambulation Distance (feet) 250 Ambulation Assistive Device None Ambulation Ability Supervision/Stand by Balance Ability to Arise Able, uses arms to help Sitting Balance Steady, safe Standing Balance Steady, wide stance Dynamic Sitting Balance Ability Good Dynamic Standing Balance Ability Fair Transfers Bed Transfer Ability Supervision/Stand by Chair Transfer Ability Supervision/Stand by Sit to Stand Bed Transfer Ability Supervision/Stand by Sit to Stand Chair Transfer Ability Supervision/Stand by ROM All Extremities PT ROM Status WFL MMT All Extremities PT MMT WFL Rehab PT IP prob,goals,plan Problems Date of Evaluation: 09/03/22 Discharge Plan PT Discharge Plan Pt is currently independent with all transfers and ambulation and appropriate to return home once medically stable for d/c. Recommend Outpatient therapy services as appropriate. G -code Required No Eval Complexity Eval Charge Codes 63358 - High Complexity PHYSICIAN CERTIFICATION: I certify the specified therapy services for Eder Castillo are required, authorized, and reviewed every 30 days.
--- NOTE | 2022-09-03 11:42 | EXP.CARD.CON ---
History of Present Illness History of Present Illness Consult date: 09/03/22 Requesting physician: Svitlana Garnica Chief complaint: pre-op clearance History of present illness: 72 year old white male with past medical hx of CLL, chronic weakness, COPD, chronic falls and ataxia, surgically absent right kidney, presented to ER on 09/02 with complaints of worsening weakness and falls. Patient recently was treated for COPD exacrbation outpatient with doxy and steroids but has continued to feel bad prompting him to come to ER. Chest xray on admission showed worsening right lower lobe pulmonary infiltrates. Patient was admitted for pulmonary consultation. Cardiology was asked to consult for clearance for bronchoscopy-transbronchial biopsy. Patient denies any hx of chest pain or syncope. Reports baseline soa with exertion which he states is his copd. EKG shows NSR rate of 64 with no ischemic changes noted. Serial troponins this admission are negative. Echo pending. [facility] Disclaimer: The information contained in this section may have been updated after the patient was seen, as this information can be updated by other users. 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 Deep vein thrombosis (DVT) History of hypertension Hyperlipidemia Immunocompromised state Immunosuppressed status Pneumonia Recurrent pneumonia Unresolved pneumonia Surgical History Status post functional endoscopic sinus surgery Family History Other Cancer Hypertension Social History (Updated 09/03/22 @ 00:34 by Trinh Bustillos RN) Smoking Status: Current every day smoker tobacco type: cigarettes packs per day: 1 alcohol intake: former substance use type: denies use current occupational status: employed Travel in the last 8 weeks: None household members: spouse housing: house marital status: education level: high school caffeine: Yes special pilo needs: No do you feel safe at home: Yes victim of physical abuse: No victim of emotional abuse: No victim of sexual abuse: No would you like helpful sources: No Review of Systems Review of Systems Review of systems:: pertinent systems reviewed and negative unless documented below Constitutional Constitutional: Reports weakness Comments: falls *Cardiovascular Cardiovascular: Denies chest pain and Reports dyspnea *Respiratory Respiratory: Reports dyspnea *Neurologic Neurologic: Reports weakness Exam Data for Last 24 hours Vital signs and Labs for Last 24 Hours: Temp Pulse Resp BP Pulse Ox 97.6 F 66 18 169/95 H 96 09/03/22 11:08 09/03/22 11:27 09/03/22 11:08 09/03/22 11:08 09/03/22 11:08 Laboratory Results - last 24 hr 09/02/22 18:55: WBC 3.7 L, RBC 4.86, Hgb 11.8 L, Hct 36.8 L, MCV 75.8 L, MCH 24.3 L, MCHC 32.0, RDW 18.8 H, Plt Count 145, MPV 9.3, Neut % (Auto) 52.6, Lymph % (Auto) 33.2, [place] % (Auto) 12.2 H, Eos % (Auto) 1.0, Baso % (Auto) 1.0, Neut # (Auto) 1.9, Lymph # (Auto) 1.2, [place] # (Auto) 0.5, Eos # (Auto) 0.0, Baso # (Auto) 0.0, ESR 50 H 09/02/22 18:55: Sodium 133 L, Potassium 4.2, Chloride 103, Carbon Dioxide 22, Anion Gap 12.2, BUN 36 H, Creatinine 1.50 H, Estimated Creat Clear 52, Estimated GFR 46 L, Est GFR ( Amer) 56 L, Glucose 226 H, Calcium 7.9 L, Total Bilirubin 0.4, AST 21, ALT 20, Alkaline Phosphatase 56, Troponin I 0.02, C-Reactive Protein 42.8 H, Total Protein 5.8 L, Albumin 2.9 L, Globulin 2.9, Albumin/Globulin Ratio 1.0 L, Procalcitonin 0.062 09/02/22 18:55: POC Glucose 245 H 09/02/22 19:35: SARS-CoV-2 (PCR) Not detected, Influenza A Untype (PCR) Not detected, Influenza Type B (PCR) Not detected 09/02/22 19:53: Lactate 0.7 09/02/22 22:05: Troponin I 0.03 09/02/22 22:27: Urine Color Yellow, Uri
[2022-09-03 11:52] LABS: POC Glucose,Bedside 300 (70-110)
--- NOTE | 2022-09-03 15:44 | EXP.DC.SUM ---
General Admission date:: 09/03/22 Discharge date: 09/03/22 HPI HPI HPI: 72-year-old with multiple medical problems including CLL, chronic weakness, COPD, chronic falls and ataxia, who had been doing fairly well at home with home health which is now resolved, and ongoing pulmonary therapy. Over the past couple of days had increasing problems with falling both during the day and when he gets up at night. Had a fall last night was brought to the emergency department. Found to have a worsening infiltrate on chest x-ray and was admitted to hospital for community-acquired pneumonia in the context of COPD. Hospital Course Hospital Course Hospital Course: Patient was admitted. Given antibiotics by the ER. Fluids were given, patient felt much better. X-ray showed slightly worsening infiltrate. I had Dr. Vernon in pulmonary clinic see patient as he follows him, and he has plans to do bronchoscopy but would like to do this as an outpatient. He recommended that patient could be discharged home with Augmentin. Patient is agreeable. Feels much better after IV fluids and has no concerns. We will discharge him with Augmentin therapy, continued medicines at home, follow-up as outpatient with pulmonary. Exam Data for Last 24 hours Vital signs and Labs for Last 24 Hours: Temp Pulse Resp BP Pulse Ox 98.0 F 66 18 156/82 H 95 09/03/22 15:13 09/03/22 15:13 09/03/22 15:13 09/03/22 15:13 09/03/22 15:13 Laboratory Results - last 24 hr 09/02/22 18:55: WBC 3.7 L, RBC 4.86, Hgb 11.8 L, Hct 36.8 L, MCV 75.8 L, MCH 24.3 L, MCHC 32.0, RDW 18.8 H, Plt Count 145, MPV 9.3, Neut % (Auto) 52.6, Lymph % (Auto) 33.2, [place] % (Auto) 12.2 H, Eos % (Auto) 1.0, Baso % (Auto) 1.0, Neut # (Auto) 1.9, Lymph # (Auto) 1.2, [place] # (Auto) 0.5, Eos # (Auto) 0.0, Baso # (Auto) 0.0, ESR 50 H 09/02/22 18:55: Sodium 133 L, Potassium 4.2, Chloride 103, Carbon Dioxide 22, Anion Gap 12.2, BUN 36 H, Creatinine 1.50 H, Estimated Creat Clear 52, Estimated GFR 46 L, Est GFR ( Amer) 56 L, Glucose 226 H, Calcium 7.9 L, Total Bilirubin 0.4, AST 21, ALT 20, Alkaline Phosphatase 56, Troponin I 0.02, C-Reactive Protein 42.8 H, Total Protein 5.8 L, Albumin 2.9 L, Globulin 2.9, Albumin/Globulin Ratio 1.0 L, Procalcitonin 0.062 09/02/22 18:55: POC Glucose 245 H 09/02/22 19:35: SARS-CoV-2 (PCR) Not detected, Influenza A Untype (PCR) Not detected, Influenza Type B (PCR) Not detected 09/02/22 19:53: Lactate 0.7 09/02/22 22:05: Troponin I 0.03 09/02/22 22:27: Urine Color Yellow, Urine Appearance Clear, Urine pH 6.0, Ur Specific [place] 1.020, Urine Protein 3+, Urine Glucose (UA) Negative, Urine Ketones Negative, Urine Blood Negative, Urine Nitrate Negative, Urine Bilirubin Negative, Urine Urobilinogen 0.2, Ur Leukocyte Esterase Negative, Urine RBC None, Urine WBC None, Ur Squamous Epith Cells Occasional, Urine Bacteria None 09/03/22 00:55: Troponin I 0.03 09/03/22 01:05: POC Glucose 267 H 09/03/22 06:05: POC Glucose 275 H 09/03/22 06:28: WBC 1.8 L* D, RBC 5.04, Hgb 12.3 L, Hct 39.0 L, MCV 77.3 L, MCH 24.3 L, MCHC 31.4 L, RDW 18.9 H, Plt Count 143, MPV 9.6, Neut % (Auto) 83.4 H, Lymph % (Auto) 10.2, [place] % (Auto) 5.6, Eos % (Auto) 0.2, Baso % (Auto) 0.6, Neut # (Auto) 1.5 L, Lymph # (Auto) 0.2 L, [place] # (Auto) 0.1, Eos # (Auto) 0.0, Baso # (Auto) 0.0 09/03/22 06:28: Sodium 135 L, Potassium 4.2, Chloride 104, Carbon Dioxide 22, Anion Gap 13.2, BUN 35 H, Creatinine 1.40 H, Estimated Creat Clear 60, Estimated GFR 50 L, Est GFR ( Amer) 60, Glucose 273 H D, Calcium 7.7 L 09/03/22 11:15: POC Glucose 300 H I & O for Last 24 hours: Intake & Output 09/01/22 09/02/22 09/03/22 09/04/22 11:59 11:59 11:59 11:59 Intake Total 1810 / 1810 240 / 240 Output Total 0 / 0 Balance 1810 / 1810 240 / 240 Weight 192 lb 3.2 oz Constitutional Constitutional: no acute distress *Routine Respiratory Exam Respiratory: Present CTA bilaterally and symmetric chest movement *Routine Cardiovascula
--- NOTE | 2022-09-03 16:04 | HMH.PHAINT1 ---
Pharmacy Intervention Comments: Discharge medication counseling completed. Patient was starting Augmentin twice daily. Told him possible side effects could include stomach upset and/or diarrhea and to take it with food to prevent this. Patient asked where to get the medicine and I said they were getting [facility] read [facility]. Patient verbalized understanding and had no further questions.
--- NOTE | 2022-09-04 14:10 | CARE MANAGER ---
Spoke with for post-discharge phone interview, she states that is doing well with no issues..
== END 2022-09-03 17:10 | disposition home or self-care (01) ==
LOC: ER 20:25 → 2ND 23:44
PROVIDERS: Emergency Medicine; Admitting Provider Family Medicine; Emergency Provider Emergency Medicine; PCP Internal Medicine Adolescent Medicine; Visit Provider Internal Medicine Adolescent Medicine
DX: J18.9 Pneumonia, unspecified organism (principal); R29.6 Repeated falls; D84.9 Immunodeficiency, unspecified; J44.9 Chronic obstructive pulmonary disease, unspecified; C91.10 Chronic lymphocytic leukemia of B-cell type not having achieved remission; F17.210 Nicotine dependence, cigarettes, uncomplicated; D50.9 Iron deficiency anemia, unspecified; G93.49 Other encephalopathy; Z79.818 Long term (current) use of other agents affecting estrogen receptors and estrogen levels; Z79.899 Other long term (current) drug therapy
CPT/HCPCS: G0378; G0379; 36415; 71045; 80048; 80053; 81001; 82962; 83605; 84145; 84484; 85025; 85651; 86140; 87040; 87070; 87077; 87186; 87205; 87635; 87636; 93005; 93306; 94640; 97163; 97165; C9803; J0456; J0696; U0003; U0005

== ENCOUNTER 2022-09-08 09:23 | Day surgery (SDC) | payer MEDICARE, OTHER, SELFPAY ==
[2022-09-05 14:36] VITALS: BMI 22.4
[2022-09-08] VITALS (11 sets, daily range): BP systolic 104–140; BP diastolic 62–79; PULSE 57–68; RESP 14–20; TEMP 36.6–43; O2SAT 9–95
[2022-09-08 10:04] LABS: POC Glucose,Bedside 220 (70-110)
--- NOTE | 2022-09-08 11:26 | EXP.ANES.CKL ---
[facility] Disclaimer: The information contained in this section may have been updated after the patient was seen, as this information can be updated by other users. 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 type Deep vein thrombosis (DVT) Diabetes mellitus, type 2 History of hypertension Hyperlipidemia Immunocompromised state Immunosuppressed status Pneumonia Recurrent pneumonia Unresolved pneumonia Surgical History History of appendectomy History of hernia repair History of knee replacement History of nephrectomy Status post functional endoscopic sinus surgery Family History Other Cancer Hypertension Social History Smoking Status: Current every day smoker tobacco type: cigarettes packs per day: 1 alcohol intake: never substance use type: denies use current occupational status: employed Travel in the last 8 weeks: None household members: spouse housing: house marital status: education level: high school caffeine: Yes special pilo needs: No do you feel safe at home: Yes victim of physical abuse: No victim of emotional abuse: No victim of sexual abuse: No would you like helpful sources: No [facility] Anesthesia Checklist Patient Identification Patient Identification: Arm Band and Verbal (Name & ) Structural Data Admitted From: Home Planned Operative Procedure/s: bronchoscopy Consent for Planned Operative Procedure(s) Verified: Yes Verified Documents: Surgical Consent and History and Physical NPO Status Verified Time NPO: 00:00 Additional verifications Anesthesia Reactions: No Hx Blood Transfusions: No Blood Transfusion Reaction: No Airway Assessment C-Spine Mobility Assessed: Yes TMJ Mobility Assessed: Yes Dentition: Poor Dentition Neurological Assessment Level of Consciousness: Awake and Alert Anesthesia Plan Anesthesia Risk discussed: Yes Anesthesia Plan: Verified ASA Class: III Anesthesia Type: General
--- NOTE | 2022-09-08 12:11 | XR_ITS ---
FINAL REPORT CLINICAL HISTORY: OR CASE [id number]:[id number] FINDINGS: FLUORO TIME PROCEDURE: Fluoroscopy in the operating room. FINDINGS: Fluoroscopy time was provided by the radiology department for the clinical service. One film was obtained. Fluoroscopy exposure time: 1 minute 37 seconds IMPRESSION: See above Reviewed, Interpreted and Dictated by Britt Dixon MD Transcribed by Antoinette Graham Authenticated and [facility]
--- NOTE | 2022-09-08 12:21 | EXP.ANES.I ---
[facility] Anesthesia Record Part I Anesthesia Record I Intake, IV Amount: 600 Estimated blood loss (mL): 0 Urine output (mL): 0 Blood Products used (#): none Blood Pressure: 140/79 SaO2: 9 Pulse Rate: 68 Respiratory Rate: 16 Temperature: 98.2 F Patient is:: Awake and Stable Stable to PACU at:: 12:18 Comments:: glucose 204 in pacu
[2022-09-08 12:29] LABS: POC Glucose,Bedside 204 (70-110)
--- NOTE | 2022-09-08 12:52 | XR_ITS ---
FINAL REPORT TECHNIQUE: Single view chest CLINICAL HISTORY: postop COMPARISON: 09/02/2022 FINDINGS: A single view of the chest was obtained. The heart and mediastinum are within normal limits. There is an aortic stent graft in place. There are worsening, right greater than left bilateral opacities, favor pneumonia or less likely, edema. There is no pleural effusion. There is no pneumothorax. Osseous structures are unremarkable. IMPRESSION: Worsening bilateral opacities favor pneumonia or less likely, edema. Reviewed, Interpreted and Dictated by Britt Dixon MD Transcribed by Mandy Barreto Authenticated and . [facility]
--- NOTE | 2022-09-09 09:35 | EXP.BRONCH.N ---
Procedure: Date: 09/08/22 Patient Date of :: 1950 Procedure Performed:: Bronchoscopy, airway examination, bronchoalveolar lavage and transbronchial lung biopsy Indications:: Record pneumonia Performing Provider:: Svitlana Garnica MD Referring Provider:: Dr. Ocasio Sedation:: General anesthesia Procedure:: Bronchoscopy airway examination, bronchoalveolar lavage and transbronchial lung biopsy: A clean DIAGNOSTIC bronchoscopy was advanced through the ET tube and airways were examined up to subsegmental bronchi. Airways appeared grossly normal, no evidence mucous plugging active bleeding/old blood clots noted. Minimal amount of thn mucoid secretions were noted in bilateral airways suctioned. Bronchoalveolar lavage was performed in the RIGHT LOWER LOBE with instillation of 60 cc normal saline with return of 15 cc back. BAL fluid was sent for bacterial and AFB stain and cultures. Transbronchial biopsy was performed in the RIGHT LOWER LOBE with a total of 7 biopsies performed, 5 biopsy specimens were sent in formalin for cytopathologic examination. The other 2 biopsy samples, were sent one each in two separate normal saline specimen cups for bacterial fungal and AFB stain cultures. Special request was also made for the pathologist to evaluate for AFB and fungal organisms on the cytopathologic examination. Patient tolerated the procedure with no immediate acute complications. We will follow the patient in pulmonary clinic in 7 to 10 days. Findings:: Please see the procedure note Recommendations:: Postoperative bronchoscopy instructions. Patient upon discharge also prescribed Cefdinir 300mg twice daily for complete total of 7-day course. Augmentin was discontinued Complications:: No acute immediate complication Estimated blood obtained (mL): 5
--- NOTE | 2022-09-09 10:04 | EXP.ANES.II ---
[facility] Anesthesia Record Part II Anesthesia Record Part II Discharge Time: 12:48 Destination: Surgical Day Care (OP Surgery) PACU nurse assessment reviewed?: Yes Patient Condition:: Good Anesthesia Complications:: None Swallowing reflex intact?: Yes Cyanosis?: No Blood Pressure: 132/69 Pulse Rate: 59 Temperature: 97.8 F Mental Status: Alert & Oriented Pain level:: 0 Nausea and/or vomitting:: None Intake, IV Amount: 0
[2022-09-09 10:05] VITALS: BP 132/69; PULSE 59; TEMP 36.6
== END 2022-09-08 13:40 | disposition home or self-care (01) ==
PROVIDERS: PCP Internal Medicine Adolescent Medicine; Visit Provider Internal Medicine Pulmonary Disease
DX: J18.9 Pneumonia, unspecified organism (principal); J44.9 Chronic obstructive pulmonary disease, unspecified; F17.210 Nicotine dependence, cigarettes, uncomplicated; E11.9 Type 2 diabetes mellitus without complications; Z79.4 Long term (current) use of insulin; Z79.899 Other long term (current) drug therapy; Z79.818 Long term (current) use of other agents affecting estrogen receptors and estrogen levels; N18.9 Chronic kidney disease, unspecified; C91.10 Chronic lymphocytic leukemia of B-cell type not having achieved remission; D84.9 Immunodeficiency, unspecified
CPT/HCPCS: 31624; 31628; 71045; 76000; 82962; 87070; 87077; 87102; 87116; 87186; 87205; 87206; 88305; 88312

== ENCOUNTER → 2022-09-16 09:42 | Outpatient (CLI) | payer MEDICARE, OTHER, SELFPAY | PROVIDERS: PCP Internal Medicine Adolescent Medicine; Visit Provider Internal Medicine Pulmonary Disease | DX: R06.02 Shortness of breath (principal) | CPT/HCPCS: 94060; 94618 ==

== ENCOUNTER 2022-09-17 20:32 | Observation (INO) | payer MEDICARE, OTHER, SELFPAY ==
[2022-09-17 20:33] VITALS: BP 155/79; PULSE 75; RESP 18; TEMP 37.3; O2SAT 95; BMI 24.0
[2022-09-17 20:55] VITALS: BMI 24.0
--- NOTE | 2022-09-17 20:56 | XR_ITS ---
PROCEDURE INFORMATION: Exam: XR Chest Exam date and time: 09/17/2022 9:27 PM Age: 72 years old Clinical indication: Other: AMS TECHNIQUE: Imaging protocol: Radiologic exam of the chest. Views: 1 view. COMPARISON: CR XR CHEST PORTABLE 09/08/2022 1:09 PM FINDINGS: Lungs: Pleuroparenchymal scarring of the lung bases with subsegmental atelectasis is present without large consolidations or pleural effusions. Pleural spaces: See Lungs finding. Heart/Mediastinum: Cardiomegaly unchanged from prior exam. Vasculature: Endovascular stenting of the aortic arch unchanged from prior exam. Bones/joints: Unremarkable. IMPRESSION: Pleuroparenchymal scarring of the lung bases with subsegmental atelectasis is present without large consolidations or pleural effusions.
[2022-09-17 20:57] LABS: POC Glucose,Bedside 257 (70-110)
--- NOTE | 2022-09-17 21:02 | ECG_ITS ---
APPROVED REPORT Exam: Resting ECG HR:77 bpm ECG Measurements Heart Rate 77 AXES MO 155 P 33 QRSd 116 QRS 39 QT 354 T 25 QTc 386 Conclusion SINUS RHYTHM MODERATE INTRAVENTRICULAR CONDUCTION DELAY [110+ ms QRS DURATION] BORDERLINE ECG UNCONFIRMED REPORT Electronically signed by : Master Ocasio MD 09/19/2022 16:22:00
[2022-09-17 21:06] LABS: Basophils % 1.4 % (0.1-2.0); Eosinophils % 0.5 % (0.1-12.0); Hematocrit 38.4 % (42.0-52.0); Lymphocytes # 1.9 K/mm3 (0.7-4.5); Lymphocytes % 66.7 % (10-50); Mean Corpuscular HGB Conc 31.2 g/dL (31.8-35.4); Mean Corpuscular Hemoglobin 23.4 pg (27.0-31.2); Mean Corpuscular Volume 75.1 fl (80-94); Monocytes # 0.8 K/mm3 (0.1-1.0); Monocytes % 28.2 % (1.7-9.3); Neutrophils # 0.1 K/mm3 (1.8-7.8); Platelet Count 323 K/mm3 (142-424); Red Blood Count 5.11 M/mm3 (4.60-6.20); Red Cell Distribution Width 17.6 % (11.5-17.5); White Blood Count 2.9 K/mm3 (4.8-10.8)
[2022-09-17 21:09] LABS: Alanine Aminotransferase 20 U/L (12-78); Albumin Level 3.3 g/dl (3.5-5.0); Albumin/Globulin Ratio 1.1 (1.1-1.8); Alkaline Phosphatase 74 U/L (38-126); Anion Gap 15.3 mEq/L (5-15); Aspartate Amino Transferase 18 U/L (17-59); Bilirubin,Total 0.5 mg/dl (0.2-1.3); Blood Urea Nitrogen 36 mg/dl (9-20); Calcium 9.4 mg/dl (8.4-10.2); Carbon Dioxide 24 mmol/L (22.0-30.0); Chloride 98 mmol/L (98-107); Creatinine Clearance Estimated 48 mL/min (50-200); Estimated Glomerular Filt Rate 40 ml/min (>60); GFR (African American) 48 ML/MIN (>60); Glucose 255 mg/dl (74-100); Potassium 4.3 mmoL/L (3.5-5.1); Sodium 133 mmol/L (136-145); Total Protein,Serum 6.3 g/dl (6.3-8.2)
[2022-09-17 21:10] LABS: Lactic Acid 1.1 mmol/L (0.7-2.1)
[2022-09-17 21:15] LABS: C-Reactive Protein 60.6 mg/L (0-4)
--- NOTE | 2022-09-17 21:16 | HMH.EDAMS ---
Discharge Plan Disposition Patient Disposition: Admitted Chief Complaint: Altered Mental Status Clinical Impressions Clinical Impression: BRE (acute kidney injury), CLL (chronic lymphocytic leukemia), Diabetes mellitus, COPD (chronic obstructive pulmonary disease) Discharge ED Provider: January (ED)Dayne Altered Mental Status HPI General Chief Complaint: Altered Mental Status Stated Complaint: AMS,falling, high sugar Time Seen by Provider: 09/17/22 21:00 Mode of Arrival: Ambulatory Source of Information: Patient, Spouse and Medical Record Limitations: No Limitations Description of Symptoms (Recalled from ER Triage Doc. by RN): PT reports that the pt started getting confused last night about 630 and that his sugarhas been out of control. pt is alert to self and place History of Present Illness HPI narrative: pt with nausea and dec po intake with family reporting confusion , fever and elevated glu with possible dysphagia -pt has had recent bronchoscopy MD complaint: altered mental status Onset (ago): day(s) Timing confirmed by: spouse Severity: moderate Consistency of symptoms: waxing and waning Context: recent fever and diabetes Associated symptoms: fever and nausea/vomiting Related Data Home Medications Medication Instructions Recorded Confirmed tamsulosin 0.4 mg capsule 0.8 mg PO DAILY Prostate 05/12/18 09/17/22 hydralazine 50 mg tablet 50 mg PO BID High blood pressure 10/25/18 09/17/22 nebivolol 20 mg tablet 10 mg PO BID High blood pressure 06/06/21 09/17/22 amlodipine 10 mg tablet 10 mg PO DAILY High blood pressure 08/16/21 09/17/22 ibrutinib 420 mg tablet (Imbruvica) 420 mg PO DAILY Cancer 09/12/21 09/17/22 citalopram 20 mg tablet (Celexa) 20 mg PO DAILY Mood 05/01/22 09/17/22 trazodone 150 mg tablet 150 mg PO HS Sleep 06/27/22 09/17/22 albuterol sulfate 90 mcg/actuation 2 puff inhalation Q6HP PRN 07/25/22 09/17/22 aerosol inhaler Shortness of air lorazepam 0.5 mg tablet 0.5 mg PO QIDP PRN Anxiety 07/25/22 09/17/22 prednisone 5 mg tablet 5 mg PO BID Inflammation 07/25/22 09/17/22 fluticasone fur. 100 mcg-umeclid 1 inh inhalation DAILY Breathing 08/04/22 09/17/22 62.5 mcg-vilant 25 mcg problems inhalat.powder (Trelegy Ellipta) rituximab 10 mg/mL 800 mg IV MONTHLY PRN RA and ca 09/08/22 09/17/22 concentrate,intravenous (Rituxan) Previous Rx's Medication Instructions Recorded insulin glargine 100 unit/mL (3 12 unit (0.12 mL) SQ HS Diabetes 03/10/22 mL) subcutaneous pen #15 mL Allergies Allergy/AdvReac Type Severity Reaction Status Date / Time moxifloxacin [From Avelox] Allergy Intermediate I-RASH Verified 09/16/22 11:22 sulfamethoxazole Allergy Unknown UNKNOWN Verified 09/16/22 11:22 [From Bactrim] trimethoprim [From Bactrim] Allergy Unknown Verified 09/16/22 11:22 [facility] Disclaimer: The information contained in this section may have been updated after the patient was seen, as this information can be updated by other users. 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 Deep vein thrombosis (DVT) Diabetes mellitus, type 2 History of hypertension Hyperlipidemia Immunocompromised state Immunosuppressed status Pneumonia Pneumonia Recurrent pneumonia Unresolved pneumonia Surgical History History of appendectomy History of hernia repair History of knee replacement History of nephrectomy Status post functional endoscopic sinus surgery Family History Other Cancer Hypertension Social History Smoking Status: Current every day smoker tobacco type: cigarettes packs per day: 1 alcohol intake: never substance use type: denies use current occupational status: employed Travel in
[2022-09-17 21:19] LABS: Neutrophils % 3.2 % (37.0-80.0)
[2022-09-17 21:21] LABS: MANUAL DIFFERENTIAL MANUAL DIFFERENTIAL (MANUAL DIFF)
[2022-09-17 21:24] LABS: Troponin I 0.02 ng/ml (0.00-0.034)
[2022-09-17 21:28] LABS: Procalcitonin 0.088 ng/mL (0.0-2.0)
--- NOTE | 2022-09-17 21:29 | CT_ITS ---
PROCEDURE INFORMATION: Exam: CT Abdomen And Pelvis With Contrast Exam date and time: 09/17/2022 9:58 PM Age: 72 years old Clinical indication: Abdominal pain; Additional info: Abd pain TECHNIQUE: Imaging protocol: Computed tomography of the abdomen and pelvis with contrast. Radiation optimization: All CT scans at this facility use at least one of these dose optimization techniques: automated exposure control; mA and/or kV adjustment per patient size (includes targeted exams where dose is matched to clinical indication); or iterative reconstruction. Contrast material: ISOVUE; Contrast volume: 75 ml; Contrast route: IV; REPORTING DATA: Count of CT and Cardiac NM exams in prior 12 months: This patient has received 5 known CTs and 0 known cardiac nuclear medicine studies in the 12 months prior to the current study. COMPARISON: CT ABDOMEN PELVIS WO CON 01/20/2022 10:49 AM FINDINGS: Lungs: Dependent bilateral lung base opacities favor atelectasis. Heart: Cardiomegaly unchanged. Liver: Normal. No mass. Gallbladder and bile ducts: Normal. No calcified stones. No ductal dilation. Pancreas: Normal. No ductal dilation. Spleen: Multiple benign-appearing calcific densities of the spleen. Adrenal glands: Normal. No mass. Kidneys and ureters: Right kidney is surgically absent. Left subcentimeter renal cysts too small to characterize, likely benign. No follow-up recommended. Nonobstructive left sided kidney stone measures 2 mm. Stomach and bowel: Unremarkable. No obstruction. No mucosal thickening. Appendix: The appendix is not definitely identified, but there are no primary or secondary CT findings to suggest a diagnosis of acute appendicitis. Intraperitoneal space: Unremarkable. No free air. No significant fluid collection. Vasculature: Postsurgical changes compatible with endovascular infrarenal abdominal aneurysmal /right iliac artery repair unchanged from prior exam. Lymph nodes: Unremarkable. No enlarged lymph nodes. Urinary bladder: Unremarkable as visualized. Reproductive: Unremarkable as visualized. Bones/joints: Unremarkable. No acute fracture. Soft tissues: Normal. IMPRESSION: No acute findings. COMMENTS: Consistent with the [employer]'s Incidental Findings Committee white paper (J Am Osvaldo Radiol 2018): Any incidental renal lesion less than 1 cm or classified as too small to characterize, or any incidental cystic renal lesion characterized as simple-appearing, is likely benign. No follow-up imaging is recommended for these lesions per consensus recommendations based on imaging criteria.
[2022-09-17 21:30] VITALS: BP 150/74; PULSE 72; RESP 20; O2SAT 94
[2022-09-17 21:43] LABS: Erythrocyte Sedimentation Rate 50 mm/hr (0-20)
[2022-09-17 21:44] LABS: Acetone, Serum (Rapid) None Detected (None Detect)
[2022-09-17 21:47] LABS: Coronavirus 19, PCR Not Detected (NotDetected); Influenza A, PCR Not Detected (NotDetected); Influenza B, PCR Not Detected (NotDetected)
[2022-09-17 21:49] LABS: Eosinophils % 1 % (0-3); Hypochromasia 2+; Lymphocytes % 74 % (10-50); Microcytosis 1+; Monocytes % 16 % (2-9); Neutrophils % 8 % (42-76); Platelet Estimate Normal; Promyelocytes % 1 %; Total Cells Counted 100
--- NOTE | 2022-09-17 22:43 | PC.NURSE ---
paged dr traore @ this time
--- NOTE | 2022-09-17 22:47 | PC.NURSE ---
micah on phone with dr traore
--- NOTE | 2022-09-17 22:51 | PC.NURSE ---
Registration notified of admission. Pt assigned to room 214 for BRE. Ninfa Ocasio
[2022-09-17 23:15] VITALS: BP 134/64; PULSE 66; RESP 17; TEMP 36.7; O2SAT 93
[2022-09-17 23:15] LABS: Microscopic, Urine URINE MICROSCOPIC (MICROSCOPIC)
[2022-09-17 23:20] VITALS: BP 140/79; PULSE 63; RESP 18; TEMP 36.9; O2SAT 95; BMI 23.2
--- NOTE | 2022-09-17 23:28 | PC.NURSE ---
Pt arrived to floor via stretcher @ 0502
[2022-09-17 23:32] LABS: Appearance,Urine CLEAR (Clear); Bilirubin,Urine Negative (Negative); Blood, Urine Negative (Negative); Color,Urine YELLOW (Yellow); Glucose,Urine (UA) Negative (Negative); Ketones,Urine Negative (Negative); Leukocyte Esterase,Urine Negative (Negative); Nitrate,Urine Negative (Negative); Protein,Urine 3+ (Negative); Urobilinogen,Urine 0.2 EU/dl (0.2)
[2022-09-17 23:42] LABS: Squamous Epithelial Cell,Urine Occasional #/hpf (0-5); WBC,Urine Occasional #/hpf (0-3)
[2022-09-18] VITALS: BP 133/75; PULSE 69; PULSE 70; RESP 18; TEMP 36.9; O2SAT 94
[2022-09-18 00:26] LABS: Troponin I 0.02 ng/ml (0.00-0.034)
[2022-09-18 03:12] LABS: Troponin I 0.02 ng/ml (0.00-0.034)
[2022-09-18 04:00] VITALS: BP 146/60; PULSE 60; PULSE 64; RESP 18; TEMP 36.9; O2SAT 94; BMI 23.2
[2022-09-18 05:27] LABS: POC Glucose,Bedside 251 (70-110)
[2022-09-18 06:14] LABS: Chloride 103 mmol/L (98-107)
[2022-09-18 06:15] LABS: Potassium 4.1 mmoL/L (3.5-5.1); Sodium 133 mmol/L (136-145)
[2022-09-18 06:17] LABS: Blood Urea Nitrogen 31 mg/dl (9-20); Creatinine Clearance Estimated 49 mL/min (50-200); Estimated Glomerular Filt Rate 43 ml/min (>60); GFR (African American) 52 ML/MIN (>60)
[2022-09-18 06:18] LABS: Anion Gap 12.1 mEq/L (5-15); Calcium 8.5 mg/dl (8.4-10.2); Carbon Dioxide 22 mmol/L (22.0-30.0); Glucose 225 mg/dl (74-100); Magnesium 1.8 mg/dl (1.6-2.3)
[2022-09-18 06:41] LABS: Basophils % 1.1 % (0.1-2.0); Eosinophils % 0.7 % (0.1-12.0); Hematocrit 37.4 % (42.0-52.0); Hemoglobin 11.3 g/dL (14.1-18.0); Lymphocytes # 1.8 K/mm3 (0.7-4.5); Lymphocytes % 68.2 % (10-50); Mean Corpuscular HGB Conc 30.1 g/dL (31.8-35.4); Mean Corpuscular Hemoglobin 22.8 pg (27.0-31.2); Mean Corpuscular Volume 75.6 fl (80-94); Mean Platelet Volume 8.9 fl (7.4-10.4); Monocytes # 0.7 K/mm3 (0.1-1.0); Monocytes % 26.9 % (1.7-9.3); Neutrophils # 0.1 K/mm3 (1.8-7.8); Platelet Count 269 K/mm3 (142-424); Red Blood Count 4.95 M/mm3 (4.60-6.20); Red Cell Distribution Width 17.6 % (11.5-17.5); White Blood Count 2.7 K/mm3 (4.8-10.8)
[2022-09-18 06:53] LABS: Neutrophils % 3.2 % (37.0-80.0)
[2022-09-18 06:54] LABS: MANUAL DIFFERENTIAL MANUAL DIFFERENTIAL (MANUAL DIFF)
[2022-09-18 07:48] VITALS: BP 129/78; PULSE 60; RESP 18; TEMP 36.9; O2SAT 96
--- NOTE | 2022-09-18 07:57 | SW/DCPLANNER ---
Addendum entered by Yeni Miller 09/18/22 09:39: Carolina craig/ [facility] stated that services will start tomorrow for this patient. Original Note: The plan for this patient is to return home today. MD has suggested that patient discharge home with home health services. Patient/ are agreeable to home health and prefer to use [facility]. Patient information/order will be faxed to [facility] today. I will also contact Julissa Pierce regarding [facility] at home per family request.
[2022-09-18 08:00] VITALS: PULSE 60
--- NOTE | 2022-09-18 08:05 | HMH.PHAINT1 ---
Pharmacy Intervention Comments: MEDICATION RECONCILIATION COMPLETED USING EXTERNAL FILL HISTORY FROM OUTSIDE PHARMACY.
[2022-09-18 08:11] LABS: Eosinophils % 1 % (0-3); Lymphocytes % 68 % (10-50); Microcytosis 1+; Monocytes % 21 % (2-9); Neutrophils % 10 % (42-76); Platelet Estimate Normal; Total Cells Counted 100
--- NOTE | 2022-09-18 08:23 | EXP.HPDC ---
General Admission date:: 09/17/22 Discharge date: 09/18/22 *Admission Date: 09/17/22 *Chief complaint: Weakness, confusion *History of present illness: 72-year-old male with multiple medical problems including bronchiectasis, late stage COPD, diabetes, type II, neuropathy, CLL and multiple falls. His brought him to the hospital because has been very confused over the past couple of days, this will happen frequently on discussion, but he will have aberrant behaviors such as turn a light a cigarette does not actually in his hands, etc. In the ER extensive work-up revealed improving chest x-ray, essentially normal labs for him, but global weakness. He was admitted for hydration and further testing/assessment. [facility] Disclaimer: The information contained in this section may have been updated after the patient was seen, as this information can be updated by other users. Medical History Aneurysm Bronchiectasis Cancer Chronic kidney disease Chronic sinusitis COPD mixed type COPD mixed type COPD mixed type Deep vein thrombosis (DVT) Diabetes mellitus, type 2 History of hypertension Hyperlipidemia Immunocompromised state Immunosuppressed status Pneumonia Pneumonia Recurrent pneumonia Unresolved pneumonia Surgical History History of appendectomy History of hernia repair History of knee replacement History of nephrectomy Status post functional endoscopic sinus surgery Family History Other Cancer Hypertension Social History (Updated 09/17/22 @ 23:57 by Janay Redmond, RN) Smoking Status: Current every day smoker tobacco type: cigarettes packs per day: 1 alcohol intake: never substance use type: denies use current occupational status: employed Travel in the last 8 weeks: None household members: spouse housing: house marital status: education level: high school caffeine: Yes special pilo needs: No do you feel safe at home: Yes victim of physical abuse: No victim of emotional abuse: No victim of sexual abuse: No would you like helpful sources: No Exam Data for Last 24 hours Vital signs and Labs for Last 24 Hours: Temp Pulse Resp BP Pulse Ox 98.4 F 60 18 129/78 96 09/18/22 07:48 09/18/22 07:48 09/18/22 07:48 09/18/22 07:48 09/18/22 07:48 Laboratory Results - last 24 hr 09/17/22 20:45: POC Glucose 257 H 09/17/22 20:47: WBC 2.9 L, RBC 5.11, Hgb 12.0 L, Hct 38.4 L, MCV 75.1 L, MCH 23.4 L, MCHC 31.2 L, RDW 17.6 H, Plt Count 323, MPV 9.0, Neut % (Auto) 3.2 L, Lymph % (Auto) 66.7 H, Ste[place] % (Auto) 28.2 H, Eos % (Auto) 0.5, Baso % (Auto) 1.4, Neut # (Auto) 0.1 L*, Lymph # (Auto) 1.9, Stearns # (Auto) 0.8, Eos # (Auto) 0.0, Baso # (Auto) 0.0, Total Counted 100, Neutrophils % (Manual) 8 L, Lymphocytes % (Manual) 74 H, Monocytes % (Manual) 16 H, Eosinophils % (Manual) 1, Promyelocytes % 1, Platelet Estimate Normal, RBC Morphology Not Reportable, Hypochromasia 2+, Microcytosis 1+, ESR 50 H 09/17/22 20:47: Sodium 133 L, Potassium 4.3, Chloride 98, Carbon Dioxide 24, Anion Gap 15.3 H, BUN 36 H, Creatinine 1.70 H, Estimated Creat Clear 48, Estimated GFR 40 L, Est GFR ( Amer) 48 L, Glucose 255 H, Calcium 9.4, Total Bilirubin 0.5, AST 18, ALT 20, Alkaline Phosphatase 74, Troponin I 0.02, C-Reactive Protein 60.6 H, Total Protein 6.3, Albumin 3.3 L, Globulin 3.0, Albumin/Globulin Ratio 1.1, Procalcitonin 0.088 09/17/22 20:47: Lactate 1.1 09/17/22 20:47: Acetone Level None detected 09/17/22 21:38: SARS-CoV-2 (PCR) Not detected, Influenza A Untype (PCR) Not detected, Influenza Type B (PCR) Not detected 09/17/22 23:12: Urine Color Yellow, Urine Appearance Clear, Urine pH 6.0, Ur Specific [place] 1.020, Urine Protein 3+, Urine Glucose (UA) Negative, Urine Ketones Negative, Urine Blood Negative, Urine Nitrate Negative, Urine Bili
--- NOTE | 2022-09-18 08:45 | HMH.PHAINT1 ---
Pharmacy Intervention Comments: Discharge medication counseling completed. No changes were being made to the patients home med list and he had no questions about his current medications.
--- NOTE | 2022-09-19 13:34 | CARE MANAGER ---
Spoke with patient for post-discharge phone interview, no issues noted.
== END 2022-09-18 09:36 | disposition home health service (06) ==
LOC: ER 20:41 → 2ND 23:12
PROVIDERS: Admitting Provider Internal Medicine Adolescent Medicine; Emergency Provider Emergency Medicine; PCP Internal Medicine Adolescent Medicine; Visit Provider Internal Medicine Adolescent Medicine
DX: N17.9 Acute kidney failure, unspecified (principal); E11.9 Type 2 diabetes mellitus without complications; Z79.4 Long term (current) use of insulin; Z79.899 Other long term (current) drug therapy; J44.9 Chronic obstructive pulmonary disease, unspecified; C91.10 Chronic lymphocytic leukemia of B-cell type not having achieved remission; Z79.818 Long term (current) use of other agents affecting estrogen receptors and estrogen levels; R29.6 Repeated falls; D84.89 Other immunodeficiencies; F17.210 Nicotine dependence, cigarettes, uncomplicated; F03.90 Unspecified dementia, unspecified severity, without behavioral disturbance, psychotic disturbance, mood disturbance, and anxiety
CPT/HCPCS: G0378; 36415; 71045; 74177; 80048; 80053; 81001; 82009; 82962; 83605; 83735; 84145; 84484; 85007; 85025; 85651; 86140; 87040; 87081; 87635; 87636; 93005; 99285; C9803; J0131; Q9967; U0003; U0005

== ENCOUNTER → 2022-09-24 10:40 | Outpatient (CLI) | payer MEDICARE, OTHER, SELFPAY ==
--- NOTE | 2022-09-24 10:40 | FL_ITS ---
FINAL REPORT CLINICAL HISTORY: .1:50 fluoro time FINDINGS: MODIFIED BARIUM SWALLOW History: Dysphagia FINDINGS: Fluoroscopy was provided for the speech pathologist to evaluate the swallowing mechanism. The patient was given several different consistencies of barium while the swallow was visualized fluoroscopically. The report of the speech pathologist should be consulted prior to making dietary decisions. FLUOROSCOPY TIME: 1.5 minutes IMPRESSION: Modified barium swallow under fluoroscopic guidance. Please see the report of the speech pathologist for Dietary recommendations. Films reviewed , interpreted and dictated by Dr. Hopkins Transcribed by Forrest Davila PA-C. Reviewed, Interpreted and Dictated by Eder Hopkins III, MD Transcribed by ROZ Peters Authenticated and . [facility]
--- NOTE | 2022-09-24 15:17 | HMH.SLMBS2 ---
Speech & Language Evaluation Speech/Language Mod Barium Swallow Start: 09/24/22 14:44 Freq: once Status: Complete Protocol: Document 09/24/22 14:44 HORACIOSONIDODEVONTELINDA (Rec: 09/24/22 15:17 [id number]) General Information General Current Food Consistency Regular,Thin Liquids Dentition Poor Dentition Oxygen Status Room Air Facial Symmetry Symmetrical Patient Orientation Person,Place Ability to Follow Directions Good Communication Ability No Impairment MBS Recommendations Diet Dietary Recommendations Regular,Thin Liquids Treatment/Strategies Strategy/Precaution Recommend Sitting Upright (90 deg),Small Bites and Sips,Alternate Liquids/Solids Mod Barium Swallow Impressions Summary and Impressions Oral Phase Impression Minimal Impairment Oral Phase Summary Minimal oral dysfunction. Pt demonstrated adequate mastication with mechanical soft and regular solids. Pt was able to adequately form bolus. AP transit was observed to be adequate. Pt displayed mild oral residue, which spills to the base of tongue. Pt displayed prespillage to the pyriform sinuses with thins and to the valleculae with solid consistencies 2' decreased back of tongue control. Pharyngeal Phase Impression No Impairment (WFL) Pharyngeal Phase Summary Minimal pharyngeal dysfunction . No aspiration/penetration is noted on the study, even when pushed with large consecutive drinks. Mildly decreased hyolaryngeal excursion resulting in vallecular residue, which the pt was able to clear with subsequent swallows. Hyolarngeal elevation, base of tongue retraction, epiglottic inversion, pharyngeal squeeze, and UES opening were all observed to be adequate during with all trials. Pt was able to clear barium tablet. Speech/Language MBS Assessment/Goals/Plan Assessment Date of Evaluation: 09/24/22 Evaluation Type
== END ==
PROVIDERS: PCP Internal Medicine Adolescent Medicine; Visit Provider Internal Medicine Pulmonary Disease
DX: J47.9 Bronchiectasis, uncomplicated (principal)
CPT/HCPCS: 70371; 92611

== ENCOUNTER 2022-10-01 02:02 | Inpatient (IN) | payer MEDICARE, OTHER, SELFPAY ==
[2022-10-01] VITALS (27 sets, daily range): BP systolic 101–139; BP diastolic 42–96; PULSE 76–148; RESP 18–27; TEMP 36.4–37.2; O2SAT 91–97; BMI 22.4; BMI 24.3
--- NOTE | 2022-10-01 02:12 | ECG_ITS ---
APPROVED REPORT Exam: Resting ECG HR:146 bpm ECG Measurements Heart Rate 146 AXES QRSd 105 QRS 55 QT 326 T 27 QTc 410 Conclusion ATRIAL FLUTTER/TACHYCARDIA WITH RAPID VENTRICULAR RESPONSE LEFT VENTRICULAR HYPERTROPHY AND ST-T CHANGE [VOLTAGE CRITERIA PLUS ST/T ABNORMALITY] ABNORMAL ECG UNCONFIRMED REPORT Electronically signed by : Master Ocasio MD 10/01/2022 08:34:03
--- NOTE | 2022-10-01 02:15 | XR_ITS ---
PROCEDURE INFORMATION: Exam: XR Chest Exam date and time: 10/01/2022 2:25 AM Age: 72 years old Clinical indication: Dyspnea and shortness of breath; Additional info: SOA, dyspnea TECHNIQUE: Imaging protocol: Radiologic exam of the chest. Views: 1 view. COMPARISON: CR XR CHEST PORTABLE 09/17/2022 9:27 PM FINDINGS: Lungs: Some patchy airspace disease is present bilaterally most prominently in the right lower lobe. Pleural spaces: Unremarkable. No pleural effusion. No pneumothorax. Heart/Mediastinum: Unremarkable. No cardiomegaly. Vasculature: Stent is again present in the thoracic aorta. Bones/joints: Unremarkable. IMPRESSION: New patchy right greater than left airspace disease worrisome for early infiltrate or edema.
--- NOTE | 2022-10-01 02:20 | PC.NURSE ---
at bedside s/w pt & his
--- NOTE | 2022-10-01 02:29 | PC.NURSE ---
MD states to give Cardizem 10mg bolus for loading dose and begin Cardizem gtt per protocol @ 10ml
[2022-10-01 02:38] LABS: Basophils # 0.1 K/mm3 (0-0.2); Basophils % 1.3 % (0.1-2.0); Eosinophils # 0.1 K/mm3 (0.0-0.4); Eosinophils % 0.8 % (0.1-12.0); Hematocrit 38.3 % (42.0-52.0); Hemoglobin 11.7 g/dL (14.1-18.0); Lymphocytes # 1.7 K/mm3 (0.7-4.5); Lymphocytes % 25.4 % (10-50); Mean Corpuscular HGB Conc 30.6 g/dL (31.8-35.4); Mean Corpuscular Hemoglobin 23.7 pg (27.0-31.2); Mean Corpuscular Volume 77.3 fl (80-94); Mean Platelet Volume 9.5 fl (7.4-10.4); Monocytes # 0.8 K/mm3 (0.1-1.0); Neutrophils % 60.5 % (37.0-80.0); Platelet Count 238 K/mm3 (142-424); Red Blood Count 4.95 M/mm3 (4.60-6.20); Red Cell Distribution Width 19.1 % (11.5-17.5); White Blood Count 6.7 K/mm3 (4.8-10.8)
[2022-10-01 02:40] LABS: Lactic Acid 1.7 mmol/L (0.7-2.1)
[2022-10-01 02:41] LABS: Alanine Aminotransferase 23 U/L (12-78); Alkaline Phosphatase 79 U/L (38-126); Anion Gap 12.9 mEq/L (5-15); Aspartate Amino Transferase 21 U/L (17-59); Bilirubin,Indirect 0.4 mg/dL (0.0-0.9); Bilirubin,Total 0.4 mg/dl (0.2-1.3); Bilirubin,Unconjugated 0.4 mg/dL (0.0-1.1); Blood Urea Nitrogen 31 mg/dl (9-20); Calcium 8.4 mg/dl (8.4-10.2); Carbon Dioxide 24 mmol/L (22.0-30.0); Chloride 100 mmol/L (98-107); Creatinine Clearance Estimated 43 mL/min (50-200); Estimated Glomerular Filt Rate 40 ml/min (>60); GFR (African American) 48 ML/MIN (>60); Glucose 274 mg/dl (74-100); Magnesium 1.7 mg/dl (1.6-2.3); Potassium 3.9 mmoL/L (3.5-5.1); Sodium 133 mmol/L (136-145); Total Protein,Serum 5.9 g/dl (6.3-8.2)
[2022-10-01 02:53] LABS: NT Pro Brain Natriuretic Pep. 5240 pg/mL (0-125); Troponin I 0.03 ng/ml (0.00-0.034)
--- NOTE | 2022-10-01 03:02 | PC.NURSE ---
pt cardizem increased to 10ml/hr
--- NOTE | 2022-10-01 03:31 | HMH.EDSOB ---
Discharge Plan Disposition Patient Disposition: Admitted Chief Complaint: Shortness of Breath/Dyspnea Prescriptions Prescriptions: No Action trazodone 150 mg tablet 150 mg PO HS Trelegy Ellipta 100-62.5-25 mcg blister with device 1 inh inhalation DAILY tamsulosin 0.4 mg capsule 0.8 mg PO DAILY nebivolol 20 mg tablet 10 mg PO BID amlodipine 10 mg tablet 10 mg PO DAILY albuterol sulfate 90 mcg/actuation HFA aerosol inhaler 2 puff INHALATION Q6H PRN (Reason: Shortness of air) Label Comments: INHALE 2 PUFFS BY MOUTH EVERY 6 HOURS lorazepam 0.5 mg tablet 0.5 mg PO QID PRN (Reason: Anxiety) prednisone 5 mg tablet 5 mg PO BID Humulin 70/30 U-100 KwikPen 100 unit/mL (70-30) insulin pen 15 unit SQ AM Label Comments: INJECT 15 UNITS SUBCUTANEOUSLY EVERY DAY IN THE MORNING (DISCARD EACH PEN 10 DAYS AFTER FIRST USE) insulin glargine 100 unit/mL (3 mL) insulin pen 20 unit SQ HS Rx Instructions: Decrease dose to 12 units at bedtime citalopram [Celexa] 20 mg tablet 20 mg PO DAILY Referrals Follow up/Referrals: Master Ocasio MD [Primary Care Provider] - See instructions Clinical Impressions Clinical Impression: Cardiac arrhythmia, COPD (chronic obstructive pulmonary disease), Congestive heart failure Discharge ED Provider: January (ED)Dayne Resp/SOB HPI General Chief Complaint: Shortness of Breath/Dyspnea Stated Complaint: Difficulty breathing Time Seen by Provider: 10/01/22 02:10 Mode of Arrival: Family Vehicle Source of Information: Patient, Spouse and Medical Record Limitations: Physical Limitations Description of Symptoms (Recalled from ER Triage Doc. by RN): Pt c/o SOA and dsypnea that worsened. Pt reports his breathing hasn't been right for 2 months . He has a hx of CLL and end stage COPD. states pt's HR at home was, In the 50s . He was recently admitted here for BRE, 09/17-09/[address] Ocasio. Denies any chest pain. Denies any fever or chills. Pt has a chronic cough, non-productive. History of Present Illness pt with sob this am with hx of copd - no syncope reported - reports inc sob this am - pt is diabetic - MD Complaint: shortness of breath Onset (ago): hour(s) Severity: moderate Known history of: COPD, congestive heart failure and diabetes Associated symptoms: denies other symptoms Related Data Home oxygen amount: none Home Medications Medication Instructions Recorded Confirmed tamsulosin 0.4 mg capsule 0.8 mg PO DAILY Prostate 05/12/18 10/01/22 nebivolol 20 mg tablet 10 mg PO BID High blood pressure 06/06/21 10/01/22 amlodipine 10 mg tablet 10 mg PO DAILY High blood pressure 08/16/21 10/01/22 citalopram 20 mg tablet (Celexa) 20 mg PO DAILY Mood 05/01/22 10/01/22 trazodone 150 mg tablet 150 mg PO HS Sleep 06/27/22 10/01/22 albuterol sulfate 90 mcg/actuation 2 puff inhalation Q6H PRN 07/25/22 10/01/22 aerosol inhaler Shortness of air lorazepam 0.5 mg tablet 0.5 mg PO QID PRN Anxiety 07/25/22 10/01/22 prednisone 5 mg tablet 5 mg PO BID Inflammation 07/25/22 10/01/22 fluticasone fur. 100 mcg-umeclid 1 inh inhalation DAILY Breathing 08/04/22 10/01/22 62.5 mcg-vilant 25 mcg problems inhalat.powder (Trelegy Ellipta) insulin NPH-regular 70-30 U-100 15 unit SQ AM Diabetes 10/01/22 10/01/22 insulin 100 unit/mL subcutaneous pen (Humulin 70/30 U-100 KwikPen) insulin glargine 100 unit/mL (3 20 unit SQ HS Diabetes 10/01/22 10/01/22 mL) subcutaneous pen Allergies Allergy/AdvReac Type Severity Reaction Status Date / Time moxifloxacin [From Avelox] Allergy Intermediate I-RASH Verified 09/16/22 11:22 sulfamethoxazole Allergy Unknown UNKNOWN Verified 09/16/22 11:22 [From Bactrim] trimethoprim [From Bactrim] Allergy Unknown Verified 09/16/22 11:22 [facility] Disclaimer: The information contained in this section may have been updated after the patient was seen, as this information can be updated by
[2022-10-01 03:40] LABS: Magnesium 1.8 mg/dl (1.6-2.3)
--- NOTE | 2022-10-01 03:55 | ECG_ITS ---
APPROVED REPORT Exam: Resting ECG HR:143 bpm ECG Measurements Heart Rate 143 AXES QRSd 107 QRS 55 QT 165 T 120 QTc 248 Conclusion ATRIAL FLUTTER/TACHYCARDIA WITH RAPID VENTRICULAR RESPONSE NONSPECIFIC ST & T-WAVE ABNORMALITY ABNORMAL ECG UNCONFIRMED REPORT Electronically signed by : Master Ocasio MD 10/01/2022 08:33:31
--- NOTE | 2022-10-01 04:15 | PC.NURSE ---
Dr. Sin s/w Dr Dominguez for consult, EKGs shared to Dr. Dominguez for review.
--- NOTE | 2022-10-01 04:24 | PC.NURSE ---
Registration notified of admission. Pt assigned to room 218 to the Hospitalist. Stepdown/acute for Afib w/ RVR.
--- NOTE | 2022-10-01 04:31 | PC.NURSE ---
increased cardizem to 15mg/hr per hospitalist Leo
[2022-10-01 04:36] LABS: Influenza A, PCR Not Detected (NotDetected); Influenza B, PCR Not Detected (NotDetected)
--- NOTE | 2022-10-01 04:36 | EXP.HP ---
History of Present Illness *Admission Date: 10/01/22 *Reason for visit:: atrial flutter w/ rapid ventricular response *History of present illness: 72 year old male presented to ED w/ for c/o soa and rapid heart beat. PMHX of CLL, COPD, DM, HTN, and CKD. The patient was recently admitted to the hospital on 09/17 for weakness, confusion, and soa. Early this morning brought pt to ED for c/o SOA. is at bedside and is main historian. The patient received a dx of dementia on Thursday per . states SOA has been present for 2 months. Denies cardiac history or recent infectious illness. states for the past week the pt's heart rate has been abnormal. ranging from low to high. Initial ekg in the ED showed atrial flutter w/ rapid ventricular response. The patient was started on Cardizem. The ED physician spoke with the hospitalist team for admission. Dr. Sin spoke with Dr. Dominguez who confirmed the EKG and instructed to continue the Cardizem. The patient's first troponin was negative. BNP of 5240 and elevated creatinine. The patient will be admitted to the medical floor for further medical management and for cardiology consult. [facility] Disclaimer: The information contained in this section may have been updated after the patient was seen, as this information can be updated by other users. 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 Deep vein thrombosis (DVT) Diabetes mellitus, type 2 History of hypertension Hyperlipidemia Immunocompromised state Immunosuppressed status Pneumonia Pneumonia Pneumonia Pneumonia due to COVID-19 virus Recurrent pneumonia Unresolved pneumonia Surgical History History of appendectomy History of hernia repair History of knee replacement History of nephrectomy Status post functional endoscopic sinus surgery Family History Other Cancer Hypertension Social History (Updated 10/01/22 @ 05:50 by Trinh Bustillos RN) Smoking Status: Current every day smoker tobacco type: cigarettes packs per day: 1 alcohol intake: never substance use type: denies use current occupational status: unemployed Travel in the last 8 weeks: None household members: spouse housing: house marital status: education level: high school caffeine: Yes special pilo needs: No do you feel safe at home: Yes victim of physical abuse: No victim of emotional abuse: No victim of sexual abuse: No would you like helpful sources: No Review of Systems Review of Systems Review of systems:: pertinent systems reviewed and negative unless documented below Constitutional Constitutional: Reports frequent falls, Reports lethargy, Reports malaise and Reports weakness Eyes Eyes: Reports system reviewed and no additional complaints, except as documented ENT Ears, Nose, Mouth, and Throat: Reports system reviewed and no additional complaints, except as documented *Cardiovascular Cardiovascular: Denies chest pain, Reports dyspnea and Reports irregular heart rhythm *Respiratory Respiratory: Reports dyspnea *Gastrointestinal Gastrointestinal: Reports system reviewed and no additional complaints, except as documented *Genitourinary Genitourinary: Reports system reviewed and no additional complaints, except as documented *Musculoskeletal Musculoskeletal: Reports system reviewed and no additional complaints, except as documented Integumentary/Breasts Skin/Breast: Reports system reviewed and no additional complaints, except as documented *Neurologic Neurologic: Reports frequent falls and Reports weakness Meds Home Medications and Allergies Home Medications Medication Instructions Recorded Confirmed
--- NOTE | 2022-10-01 04:49 | PC.NURSE ---
gave report to Trinh Acevedo RN on med-surg
[2022-10-01 04:56] LABS: Coronavirus 19, PCR Detected (NotDetected)
--- NOTE | 2022-10-01 05:19 | PC.NURSE ---
pt arrived to the floor via stretcher at this time
[2022-10-01 05:20] LABS: Basophils # 0.1 K/mm3 (0-0.2); Basophils % 1.2 % (0.1-2.0); Eosinophils # 0.1 K/mm3 (0.0-0.4); Eosinophils % 0.9 % (0.1-12.0); Hematocrit 36.6 % (42.0-52.0); Hemoglobin 11.4 g/dL (14.1-18.0); Lymphocytes # 1.8 K/mm3 (0.7-4.5); Lymphocytes % 28.5 % (10-50); Mean Corpuscular HGB Conc 31.1 g/dL (31.8-35.4); Mean Corpuscular Hemoglobin 23.9 pg (27.0-31.2); Mean Corpuscular Volume 76.8 fl (80-94); Mean Platelet Volume 9.8 fl (7.4-10.4); Monocytes # 0.6 K/mm3 (0.1-1.0); Monocytes % 8.8 % (1.7-9.3); Neutrophils # 3.9 K/mm3 (1.8-7.8); Neutrophils % 60.8 % (37.0-80.0); Platelet Count 241 K/mm3 (142-424); Red Blood Count 4.77 M/mm3 (4.60-6.20); Red Cell Distribution Width 19.1 % (11.5-17.5); White Blood Count 6.3 K/mm3 (4.8-10.8)
[2022-10-01 05:30] LABS: Chloride 103 mmol/L (98-107)
[2022-10-01 05:31] LABS: Potassium 4.1 mmoL/L (3.5-5.1); Sodium 134 mmol/L (136-145)
[2022-10-01 05:33] LABS: Alanine Aminotransferase 20 U/L (12-78); Alkaline Phosphatase 72 U/L (38-126); Anion Gap 11.1 mEq/L (5-15); Aspartate Amino Transferase 16 U/L (17-59); Bilirubin,Total 0.2 mg/dl (0.2-1.3); Blood Urea Nitrogen 31 mg/dl (9-20); Carbon Dioxide 24 mmol/L (22.0-30.0); Creatinine Clearance Estimated 49 mL/min (50-200); Estimated Glomerular Filt Rate 46 ml/min (>60); GFR (African American) 56 ML/MIN (>60)
[2022-10-01 05:34] LABS: Albumin Level 2.8 g/dl (3.5-5.0); Calcium 8.1 mg/dl (8.4-10.2); Globulin 2.7 g/dL (1.3-3.2); Glucose 266 mg/dl (74-100); Magnesium 1.7 mg/dl (1.6-2.3); Total Protein,Serum 5.5 g/dl (6.3-8.2)
[2022-10-01 05:49] LABS: Troponin I 0.03 ng/ml (0.00-0.034)
[2022-10-01 06:20] LABS: POC Glucose,Bedside 301 (70-110)
--- NOTE | 2022-10-01 06:57 | PC.NURSE ---
Dilt gtt titrated down to 10mg/hr at this time.
--- NOTE | 2022-10-01 08:14 | PC.NURSE ---
Addendum entered by Cristal Laureano RN 10/01/22 12:34: 1228 pt up to bedside using urinal, heart rate increased to 120-130's. diltiazem drip increased to 10ml/hr Addendum entered by Cristal Laureano RN 10/01/22 11:22: 1121 drip decreased to 5ml/hr r/t hr noted to be 70's Addendum entered by Cristal Laureano RN 10/01/22 10:32: 1025 drip decreased to 10ml/hr. hr noted to be in the 70-80 range Original Note: 0710 Diltiazem drip infusing at 10ml/hr at start of shift. 0754 pt heart rate noted to have increased to the 140's. diltiazem drip increased to 15ml/hr at this time.
[2022-10-01 09:19] LABS: Troponin I 0.03 ng/ml (0.00-0.034)
--- NOTE | 2022-10-01 09:19 | HMH.PHAINT1 ---
Pharmacy Intervention Comments: Patient's home medications reviewed with patient's and external pharmacy. -Boom Buitrago, Pharm Student
--- NOTE | 2022-10-01 11:26 | EXP.CARD.CON ---
History of Present Illness History of Present Illness Consult date: 10/01/22 Requesting physician: Leonides James Consult reason: shortness of breath Chief complaint: Shortness of breath and a flutter History of present illness: is historian: 72-year-old white male with past medical history of diabetes mellitus, COPD, current tobacco use, rheumatoid arthritis, chronic lymphocytic leukemia, chronic kidney disease and a new diagnosis of dementia presented to emergency department last night with complaints of worsening shortness of air since last night. reports patient has had increased shortness of air for the past 2 months but it became significantly worse last night. also endorses that patient's heart rate has been fluctuating from low to high per home health nurse. Upon presentation to emergency department patient was noted to be in atrial flutter with a rapid ventricular response at a rate of 143. denies hx of afib/flutter. Labs as follow: WBC 6.7, hemoglobin 11.7, hematocrit 38.3, platelet count 238, sodium 133, potassium 3.9, anion gap 12.9, creatinine 1.7 on admission trending down to 1.5 (close to patient's baseline), glucose 266, hemoglobin A1c 9.0. Serial troponins are negative. Patient did test positive for COVID. Chest x-ray showed new patchy right greater than left airspace disease worrisome for early infiltrate or edema. Patient was started on Cardizem drip and currently remains a flutter with a rate in the 70s. Of note patient has had multiple recent hospital admissions for generalized weakness and falls. Patient also had ongoing right lower lobe pneumonia during July and August 2022. Patient was evaluated by pulmonology and underwent broncoscopy with cultures growing citrobacter and strep pneumonia. Patient completed 7 days of cefdinir twice daily. reports patient has continued to decline requiring home health. reports patient recently stopped hydralazine and treatment for CLL. [facility] Disclaimer: The information contained in this section may have been updated after the patient was seen, as this information can be updated by other users. Medical History Aneurysm Bronchiectasis Cancer Chronic kidney disease Chronic sinusitis COPD mixed type COPD mixed type COPD mixed type Deep vein thrombosis (DVT) Diabetes mellitus, type 2 History of hypertension Hyperlipidemia Immunocompromised state Immunosuppressed status Pneumonia Pneumonia Recurrent pneumonia Unresolved pneumonia Surgical History History of appendectomy History of hernia repair History of knee replacement History of nephrectomy Status post functional endoscopic sinus surgery Family History Other Cancer Hypertension Social History (Updated 10/01/22 @ 05:50 by Trinh Bustillos RN) Smoking Status: Current every day smoker tobacco type: cigarettes packs per day: 1 alcohol intake: never substance use type: denies use current occupational status: unemployed Travel in the last 8 weeks: None household members: spouse housing: house marital status: education level: high school caffeine: Yes special pilo needs: No do you feel safe at home: Yes victim of physical abuse: No victim of emotional abuse: No victim of sexual abuse: No would you like helpful sources: No Review of Systems Constitutional Constitutional: Reports frequent falls and Reports weakness *Cardiovascular Cardiovascular: Reports palpitations *Neurologic Neurologic: Reports frequent falls and Reports weakness Endocrine Endocrine: Reports palpitations Exam Data for Last 24 hours Vital signs and Labs for Last 24 Hours: Temp Pulse Resp BP Pulse Ox 98.4 F 100 H 20 113/87 93 L 10/01/22 07:49 10/01/22 08:00 10/01/22 08:00 10/01/22 08:00 10/01/22 08:00
[2022-10-01 12:20] LABS: POC Glucose,Bedside 185 (70-110)
--- NOTE | 2022-10-01 12:28 | SW/DCPLANNER ---
Addendum entered by Yeni Miller 10/02/22 13:43: Patient/family are wanting to return home w/ home health services from [facility]. Addendum entered by Yeni Miller 10/01/22 15:21: Per Stella w/ Hospice patient's stated that at this time she prefer patient to return home w/ home health services. I will follow up with patient/family and MD in the AM. Discharge date is unknown at this time. Original Note: Per family request patient information has been faxed to [facility]. I have followed up w/ Stella and a Hospice nurse will be to speak with this afternoon in room.
--- NOTE | 2022-10-01 12:35 | PC.NURSE ---
1145 pt o2 weaned to 1 lpm r/t sats 97% on 2 lpm
--- NOTE | 2022-10-01 13:52 | HMH.PTEV ---
Physical Therapy Evaluation Rehab PT IP Evaluation Start: 10/01/22 12:47 Freq: ONCE Status: Active Protocol: Document 10/01/22 13:49 PHORNE (Rec: 10/01/22 13:52 PHORNE [id number]) Subjective/History History History 72 yowm adm to [facility] with icreased SOA, a-fib, RVR. Hx of CLL, COPD, DM, HTN, CKD. He reports eh lives with his spouse, 2-3 steps to enter the home, and he is generally independent with all mobility without AD. He does reports having a cane and a walker at home if needed. Subjective Subjective He reports feling tired and cold this pm, c/o pain in his throat with swallowing. Rehab PT IP Eval Objective Appearance Patient Behavior Appropriate Patient Orientation Person,Place,Time Difficulty following instructions none Speech Pattern Clear Ambulation Patient Able to Ambulate Yes Ambulation Observation IP General Gait Pattern Observation Wide Based Gait Ambulation Distance (feet) 8 Ambulation Assistive Device None Ambulation Ability Contact Guard/Hand Hold Balance Ability to Arise Able, uses arms to help Sitting Balance Steady, safe Standing Balance Steady, wide stance Dynamic Sitting Balance Ability Good Dynamic Standing Balance Ability Fair Transfers Bed Transfer Ability Contact Guard/Hand Hold Chair Transfer Ability Contact Guard/Hand Hold Sit to Stand Bed Transfer Ability Contact Guard/Hand Hold Sit to Stand Chair Transfer Ability Contact Guard/Hand Hold ROM All Extremities PT ROM Status WFL MMT All Extremities PT MMT WFL Rehab PT IP prob,goals,plan Problems Date of Evaluation: 10/01/22 PT IP Problems Bed Mobility,Transfers,Gait Rehab Potential Rehab Potential Good Plan PT Intervention Plan Bed Mobility,Transfers,Gait, Therapeutic Exercise PT Plan Frequency Daily Duration LOS Discharge Goals Bed Transfer Ability Supervision/Stand by Sit to Stand Chair Transfer Ability Supervision/Stand by Ambulation Assistive Device None Ambulation Distance (feet) 30 Discharge Plan PT Discharge Plan Pt is currently appropriate to return home once medically stable for d/c, as long as his can provided th
--- NOTE | 2022-10-01 14:00 | HMH.OTEV ---
OT Inpatient Evaluation Rehab OT IP Evaluation Start: 10/01/22 12:47 Freq: ONCE Status: Active Protocol: Document 10/01/22 13:47 [facility] (Rec: 10/01/22 13:59 [facility] [id number]) Rehab OT IP Assessment Subjective History Pt oriented x 4 on arrival. Pt agreeable to engage in therapy evaluation. Pt's present during evaluation. Pt admitted on 10/01/22 due to atrial flutter w/ rapid ventricular response and was found to be COVID positive. Prior to being in the hosptal pt lived at home with his . Pt claims usually he is independent with ADLs such as dressing, bathing and feeding. However reports the past couple days she has had to assist with bathing and dressing. He is dependent upon for completion of IADLs. Pt does not use a walker or cane during functional transfers, but does keep them at home in case he needs in them. Pt has a past medical history of: CLL, COPD, DM, HTN, and CKD Subjective I am just cold. Objective Patient Orientation Person,Place,Birthday,Month Upper Extremity Gross ROM WFL Bed Mobility bed mobility-scooting,bed mobility - supine/sit,bed mobility - rolling Assist Level Supervision/Stand by Transfer Training Sit/Stand Transfer Assist Level Contact Guard/Hand Hold Lower Body Dressing Ability Assistance X1 Rehab OT IP prob,goals,plan Problems Date of Evaluation: 10/01/22 OT IP Problems Bed Mobility,Transfers,Balance ,Self care,Safety Rehab Potential Rehab Potential Good Equipment Needs Assistive Devices Rolling / Wheeled Walker Plan OT intervention Plan Bed Mobility,Transfers,Balance ,Self care,Safety,Therapeutic Exercise OT Plan Frequency BID Duration LOS Discharge Goals Bed Mobility Ability Standby Assistance Sit to Stand Chair Tr
--- NOTE | 2022-10-01 15:11 | EXP.EVENT.NO ---
Advance care planning note: Active diagnosis: CLL, heart failure, COPD, dementia, recurrent pneumonia, COVID The patient's active diagnoses are of sufficient risk that focused discussion on advanced care planning is indicated in order to allow the patient to thoughtfully consider personal goals of care; and, if situations arise that prevent the ability to personally give input, to ensure appropriate representation of their personal desires through documentation or informed surrogate decision makers. Discussion: Persons present and participating in discussion: Patient's spouse and Patient Discussion: Extensive discussion about patient's current condition, worsening chronic conditions, progressive decline, and recurrent admissions. Discussed goals of care and explored patient and 's goals for treatment moving forward. was concerned about patient's continued decline and prognosis including timeline of anticipated continued decline. Explained that this is very difficult to estimate. Have strong concern given his numerous comorbidities and worsening heart failure however. appeared emotionally fatigued during discussion today. Discussed options of home health, rehab placement, and hospice. She would like to explore all options but is leaning toward home health at this time. Would like to treat his pneumonia at this time but would like to hold on significant interventions for heart failure. Time spent: Total time spent [id number] in education and discussion directly related to advance care planninmin Leonides James 10/01/22 12:30-13:10
--- NOTE | 2022-10-01 16:45 | EXP.PULM.CON ---
History of Present Illness History of present illness: Mr. Castillo is a 72-year-old male with significant comorbidities including diabetes, CKD, CLL, severe COPD recent multiple hospitalization for pneumonia presented to the ER from and presented to the hospital for multiple complaints including worsening shortness of breath, altered mentation and irregular heart rate. Patient was also found to be positive for COVID-19 pneumonia along with chest x-ray showing worsening right lower lobe pulmonary infiltrate and was called for further evaluation. [facility] Disclaimer: The information contained in this section may have been updated after the patient was seen, as this information can be updated by other users. 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 Deep vein thrombosis (DVT) Diabetes mellitus, type 2 History of hypertension Hyperlipidemia Immunocompromised state Immunosuppressed status Pneumonia Pneumonia Pneumonia Pneumonia due to COVID-19 virus Recurrent pneumonia Unresolved pneumonia Surgical History History of appendectomy History of hernia repair History of knee replacement History of nephrectomy Status post functional endoscopic sinus surgery Family History Other Cancer Hypertension Social History (Updated 10/01/22 @ 05:50 by Trinh Bustillos RN) Smoking Status: Current every day smoker tobacco type: cigarettes packs per day: 1 alcohol intake: never substance use type: denies use current occupational status: unemployed Travel in the last 8 weeks: None household members: spouse housing: house marital status: education level: high school caffeine: Yes special pilo needs: No do you feel safe at home: Yes victim of physical abuse: No victim of emotional abuse: No victim of sexual abuse: No would you like helpful sources: No Review of Systems Constitutional Constitutional: Reports fatigue, Reports frequent falls and Reports weakness Eyes Eyes: Denies eye discharge, Denies dry eyes, Denies irritation and Denies itchy eyes ENT Ears, Nose, Mouth, and Throat: Denies epistaxis, Denies facial pain, Denies lip swelling and Denies throat swelling *Cardiovascular Cardiovascular: Reports dyspnea and Reports dyspnea on exertion *Respiratory Respiratory: Reports chest congestion, Reports cough, Reports dyspnea, Reports dyspnea on exertion, Denies excessive phlegm production, Denies hemoptysis, Denies pain on inspiration, Denies pain with cough and Denies wheezing *Gastrointestinal Gastrointestinal: Denies abdominal pain, Denies belching and Denies cramping *Musculoskeletal Musculoskeletal: Reports back pain, Reports myalgias and Reports other (No small joint swelling or Pain) *Neurologic Neurologic: Reports frequent falls and Reports weakness Psychiatric Psychiatric: Denies homicidal ideation and Denies suicidal ideation Endocrine Endocrine: Reports fatigue and Denies heat intolerance Hematologic/Lymphatic Hematologic/Lymphatic: Denies easy bleeding and Denies lymphadenopathy Allergic/Immunologic Allergic/Immunologic: Denies itchy eyes, Denies lip swelling, Denies throat swelling and Denies wheezing Pulmonology Exam Inpatient Vital signs and Labs for Last 24 Hours: Temp Pulse Resp BP Pulse Ox 99.0 F 97 H 18 123/88 97 10/01/22 16:00 10/01/22 16:00 10/01/22 16:00 10/01/22 16:00 10/01/22 16:00 Laboratory Results - last 24 hr 10/01/22 02:10: WBC 6.7, RBC 4.95, Hgb 11.7 L, Hct 38.3 L, MCV 77.3 L, MCH 23.7 L, MCHC 30.6 L, RDW 19.1 H, Plt Count 238, MPV 9.5, Neut % (Auto) 60.5, Lymph % (Auto) 25.4, [place] % (Auto) 12.0 H, Eos % (Auto) 0.8, Baso % (Auto) 1.3, Neut # (Auto) 4.0, L
[2022-10-01 17:34] LABS: POC Glucose,Bedside 129 (70-110)
[2022-10-01 20:20] LABS: POC Glucose,Bedside 193 (70-110)
[2022-10-02] VITALS (22 sets, daily range): BP systolic 105–135; BP diastolic 57–98; PULSE 71–146; RESP 16–20; TEMP 36.6–37.1; O2SAT 60–95; BMI 24.6
[2022-10-02 06:51] LABS: POC Glucose,Bedside 87 (70-110)
[2022-10-02 07:04] LABS: Basophils # 0.1 K/mm3 (0-0.2); Basophils % 0.9 % (0.1-2.0); Eosinophils # 0.1 K/mm3 (0.0-0.4); Eosinophils % 1.1 % (0.1-12.0); Hematocrit 39.5 % (42.0-52.0); Hemoglobin 12.1 g/dL (14.1-18.0); Lymphocytes # 1.7 K/mm3 (0.7-4.5); Lymphocytes % 23.4 % (10-50); Mean Corpuscular HGB Conc 30.7 g/dL (31.8-35.4); Mean Corpuscular Hemoglobin 23.6 pg (27.0-31.2); Mean Corpuscular Volume 76.9 fl (80-94); Monocytes # 0.9 K/mm3 (0.1-1.0); Monocytes % 12.5 % (1.7-9.3); Neutrophils # 4.5 K/mm3 (1.8-7.8); Neutrophils % 62.1 % (37.0-80.0); Platelet Count 236 K/mm3 (142-424); Red Blood Count 5.13 M/mm3 (4.60-6.20); Red Cell Distribution Width 19.1 % (11.5-17.5); White Blood Count 7.2 K/mm3 (4.8-10.8)
[2022-10-02 07:17] LABS: Chloride 104 mmol/L (98-107); Potassium 3.3 mmoL/L (3.5-5.1); Sodium 136 mmol/L (136-145)
[2022-10-02 07:19] LABS: Alanine Aminotransferase 15 U/L (12-78); Alkaline Phosphatase 69 U/L (38-126); Anion Gap 11.3 mEq/L (5-15); Aspartate Amino Transferase 19 U/L (17-59); Bilirubin,Total 0.3 mg/dl (0.2-1.3); Blood Urea Nitrogen 25 mg/dl (9-20); Carbon Dioxide 24 mmol/L (22.0-30.0); Creatinine Clearance Estimated 54 mL/min (50-200); Estimated Glomerular Filt Rate 46 ml/min (>60); GFR (African American) 56 ML/MIN (>60)
[2022-10-02 07:20] LABS: Albumin Level 2.9 g/dl (3.5-5.0); Calcium 8.2 mg/dl (8.4-10.2); Globulin 2.9 g/dL (1.3-3.2); Glucose 70 mg/dl (74-100); Magnesium 1.6 mg/dl (1.6-2.3); Total Protein,Serum 5.8 g/dl (6.3-8.2)
--- NOTE | 2022-10-02 09:54 | EXP.PULM.PN ---
Subjective *Date: 10/02/22 *Time: 13:05 Interval history: No acute respiratory events overnight. Stable oxygen requirements. Pulmonology Exam Inpatient Vital signs and Labs for Last 24 Hours: Temp Pulse Resp BP Pulse Ox 98.7 F 145 H 16 132/92 H 91 L 10/02/22 08:00 10/02/22 06:00 10/02/22 06:00 10/02/22 06:00 10/02/22 06:00 Laboratory Results - last 24 hr 10/01/22 12:11: POC Glucose 185 H 10/01/22 17:20: POC Glucose 129 H 10/01/22 20:11: POC Glucose 193 H 10/02/22 06:24: WBC 7.2, RBC 5.13, Hgb 12.1 L, Hct 39.5 L, MCV 76.9 L, MCH 23.6 L, MCHC 30.7 L, RDW 19.1 H, Plt Count 236, MPV 10.0, Neut % (Auto) 62.1, Lymph % (Auto) 23.4, [place] % (Auto) 12.5 H, Eos % (Auto) 1.1, Baso % (Auto) 0.9, Neut # (Auto) 4.5, Lymph # (Auto) 1.7, [place] # (Auto) 0.9, Eos # (Auto) 0.1, Baso # (Auto) 0.1, Sodium 136, Potassium 3.3 L, Chloride 104, Carbon Dioxide 24, Anion Gap 11.3, BUN 25 H, Creatinine 1.50 H, Estimated Creat Clear 54, Estimated GFR 46 L, Est GFR ( Amer) 56 L, Glucose 70 L, Calcium 8.2 L, Magnesium 1.6, Total Bilirubin 0.3, AST 19, ALT 15, Alkaline Phosphatase 69, Total Protein 5.8 L, Albumin 2.9 L, Globulin 2.9, Albumin/Globulin Ratio 1.0 L 10/02/22 06:43: POC Glucose 87 I & O for Labs for Last 24 Hours: Intake & Output 09/29/22 09/30/22 10/01/22 10/02/22 23:59 23:59 23:59 23:59 Intake Total 1960 / 2608 648 / 648 Output Total 2525 / 2525 1100 / 1100 Balance -565 / 83 -452 / -452 Weight 183 lb 8 oz 185 lb 11.2 oz Constitutional: Present moderate distress Head: Present normocephalic and atraumatic ENT: Present normal exam, normal oropharynx and mucous membranes moist Neck: Present normal inspection and full ROM Respiratory: Present respiratory distress and able to speak in complete sentences; Absent wheezes or crackles Cardiac: Present Irregularly Regular, S1/S2, Tachycardia and radial pulses present GI: Present soft and distention; Absent tenderness or guarding Skin: Present intact; Absent cyanosis or jaundice Neuro: Present alert, awake and oriented x 3 Extremities: Present normal inspection; Absent clubbing or cyanosis Psychiatric: Present normal affect and cooperative Assessment and Plan *Assessment and plan (1) Pneumonia: Status: Acute Qualifiers: Pneumonia type: due to COVID-19 virus Qualified Code(s): U07.1 - COVID-19; J12.82 - Pneumonia due to coronavirus disease 2019 Category: Medical Code(s): J18.9 - Pneumonia, unspecified organism (2) Pneumonia due to COVID-19 virus: Status: Acute Category: Medical Code(s): U07.1 - COVID-19; J12.82 - Pneumonia due to coronavirus disease 2019 (3) Acute respiratory failure with hypoxia: Status: Acute Category: Medical Code(s): J96.01 - Acute respiratory failure with hypoxia Plan #COVID-19 pneumonia: #Right lower lobe pulmonary infiltrate: #Acute hypoxic respiratory failure: Mr. Castillo is a 72-year-old male with significant comorbidities including diabetes, CKD, CLL, severe COPD recent multiple hospitalization for pneumonia presented to the ER from and presented to the hospital for multiple complaints including worsening shortness of breath, altered mentation and irregular heart rate. Patient was also found to be positive for COVID-19 pneumonia along with chest x-ray showing worsening right lower lobe pulmonary infiltrate and was called for further evaluation. Patient does not complain of any worsening respiratory distress. He denies any worsening cough or any productive phlegm. Afebrile. No evidence of leukocytosis upon admission. Chest x-ray admission worsening right lower lobe pulmonary. Along with increasing vascular congestion. BNP elevated on upon admission. Patient also having new oxygen requirements, needing 1 L nasal cannula to maintain O2 saturation of 90% above. Patient recently seen in pulmonary clinic on room air saturating 93% Given patient's worsening infiltrates on chest x-ray a
--- NOTE | 2022-10-02 10:54 | PC.NURSE ---
COURTESY TECH NOTE; ROUNDED ON PT 0855, PT DENIED NEED FOR DRINK, ASSISTED PRIMARY TECH WITH LINEN CHANGE, REPOSITIONING PT IN BED, AND ADJUSTING MALE P[place]. CALL LIGHT WITHIN REACH, NO FURTHER REQUESTS AT THIS TIME [place], SRNA
[2022-10-02 12:52] LABS: POC Glucose,Bedside 200 (70-110)
--- NOTE | 2022-10-02 13:50 | EXP.ACUTE.PN ---
Subjective *Date: 10/02/22 *Time: 13:50 Interval history: No acute events reported overnight. Patient states he did not sleep well however no concerns from nursing about insomnia or restlessness at night. Patient is afebrile. Able to wean to room air. Still having intermittent cough. No nausea or vomiting. Tolerating good p.o. intake. Seems frustrated with his increased urine output with diuresis. at bedside, updated of plan Medical Exam Vital signs and Labs for Last 24 Hours: Vital Signs Temp Pulse Pulse Resp BP Pulse Ox 10/02/22 11:49 98.4 F 10/02/22 08:00 114 H 10/02/22 11:00 96 H 18 113/57 L 92 L 10/02/22 10:00 105 H 18 120/86 92 L 10/02/22 09:00 99 H 18 111/66 92 L 10/02/22 08:00 104 H 18 105/76 L 92 L 10/02/22 08:00 98.7 F 10/02/22 06:00 145 H 16 132/92 H 91 L 10/02/22 04:00 98.8 F 127 H 16 107/66 L 92 L 10/02/22 03:47 111 H 10/02/22 02:00 146 H 18 115/78 92 L 10/02/22 02:00 92 L 10/02/22 00:00 140 H 10/02/22 00:00 98.2 F 146 H 18 111/78 60 L 10/01/22 20:00 111 H 93 L 10/01/22 20:00 98.8 F 107 H 18 115/81 96 10/01/22 22:00 112 H 18 112/60 92 L 10/01/22 23:00 95 10/01/22 20:00 120 H 10/01/22 18:00 116 H 20 139/91 H 92 L 10/01/22 17:33 112 H 18 123/77 92 L 10/01/22 18:00 98.4 F 10/01/22 16:00 100 H 10/01/22 16:00 99.0 F 10/01/22 15:00 87 20 126/91 H 91 L 10/01/22 16:00 97 H 18 123/88 97 10/01/22 15:57 95 H 97 10/01/22 14:00 99.0 F 10/01/22 14:00 85 18 127/87 93 L Intake and Output 10/01/22 10/02/22 10/02/22 23:59 07:59 15:59 Intake Total 240 / 2608 648 / 1128 480 / 1128 Output Total 1900 / 2525 1100 / 1100 Balance -1660 / 83 -45 28 Intake: Intake, Oral Amount 240 / 960 480 / 480 Intake, Total IV Amount 648 / 648 Levofloxacin/D5w 750 mg/150 ml 150 / 150 750 mg In 150 ml @ 100 mls/hr IV Q48H JOSE RAUL Rx#:[id number] Remdesivir 100 mg In 0.9 % 250 / 250 Sodium Chloride 100 ml @ 100 mls/hr IV Q24H JOSE RAUL Rx#:[id number] dilTIAZem HCL 100 mg In 0.9 % 248 / 248 Sodium Chloride 100 ml @ 5 mls/ hr IV .Q20H JOSE RAUL Rx#:[id number] Output: Output, Urine Amount 1900 / 2525 1100 / 1100 Other: Number of Unmeasured Voids 0 0 Weight 84.232 kg 84.23 kg Patient Weight 10/02/22 23:59 Weight 84.23 kg Laboratory Results - last 24 hr 10/01/22 17:20: POC Glucose 129 H 10/01/22 20:11: POC Glucose 193 H 10/02/22 06:24: WBC 7.2, RBC 5.13, Hgb 12.1 L, Hct 39.5 L, MCV 76.9 L, MCH 23.6 L, MCHC 30.7 L, RDW 19.1 H, Plt Count 236, MPV 10.0, Neut % (Auto) 62.1, Lymph % (Auto) 23.4, [place] % (Auto) 12.5 H, Eos % (Auto) 1.1, Baso % (Auto) 0.9, Neut # (Auto) 4.5, Lymph # (Auto) 1.7, [place] # (Auto) 0.9, Eos # (Auto) 0.1, Baso # (Auto) 0.1, Sodium 136, Potassium 3.3 L, Chloride 104, Carbon Dioxide 24, Anion Gap 11.3, BUN 25 H, Creatinine 1.50 H, Estimated Creat Clear 54, Estimated GFR 46 L, Est GFR ( Amer) 56 L, Glucose 70 L, Calcium 8.2 L, Magnesium 1.6, Total Bilirubin 0.3, AST 19, ALT 15, Alkaline Phosphatase 69, Total Protein 5.8 L, Albumin 2.9 L, Globulin 2.9, Albumin/Globulin Ratio 1.0 L 10/02/22 06:43: POC Glucose 87 10/02/22 12:02: POC Glucose 200 H I & O for Labs for Last 24 Hours: Intake & Output 09/29/22 09/30/22 10/01/22 10/02/22 23:59 23:59 23:59 23:59 Intake Total 1960 / 2608 1128 / 1128 Output Total 2525 / 2525 1100 / 1100 Balance -565 / 83 Weight 83.234 kg 84.23 kg Constitutional: Present no acute distress, average body habitus and chronically ill appearing Head: Present atraumatic and normocephalic ENT: Present normal exam Neck: Present normal inspection Respiratory: Present rhonchi, distant breath sounds, diminished air movement and normal respiratory effort; Absent wheezes or crackles Cardiac: Present Reg R
[2022-10-02 17:14] LABS: POC Glucose,Bedside 158 (70-110)
--- NOTE | 2022-10-02 17:16 | PC.NURSE ---
start of shift pt diltiazem infusing at 15ml/hr. pt hr remained in 100's until approx 1300 1344 diltiazem drip decreased to 10ml/hr hr 70's (controlled afib) 1530 diltiazem drip decreased to 5ml/hr hr 75 (afib) 1650 diltiazem drip stopped hr 70-80's (afib)
[2022-10-02 20:24] LABS: POC Glucose,Bedside 348 (70-110)
[2022-10-03] VITALS (14 sets, daily range): BP systolic 103–139; BP diastolic 50–88; PULSE 42–150; RESP 16–24; TEMP 36.8–37.4; O2SAT 92–95; BMI 24.5
[2022-10-03 05:31] LABS: POC Glucose,Bedside 101 (70-110)
[2022-10-03 06:18] LABS: Basophils % 0.4 % (0.1-2.0); Eosinophils # 0.1 K/mm3 (0.0-0.4); Eosinophils % 1.9 % (0.1-12.0); Hematocrit 37.1 % (42.0-52.0); Hemoglobin 11.6 g/dL (14.1-18.0); Lymphocytes # 1.7 K/mm3 (0.7-4.5); Lymphocytes % 23.5 % (10-50); Mean Corpuscular HGB Conc 31.3 g/dL (31.8-35.4); Mean Corpuscular Hemoglobin 23.5 pg (27.0-31.2); Mean Corpuscular Volume 75.2 fl (80-94); Mean Platelet Volume 9.7 fl (7.4-10.4); Monocytes # 0.7 K/mm3 (0.1-1.0); Monocytes % 9.7 % (1.7-9.3); Neutrophils # 4.7 K/mm3 (1.8-7.8); Neutrophils % 64.4 % (37.0-80.0); Platelet Count 234 K/mm3 (142-424); Red Blood Count 4.93 M/mm3 (4.60-6.20); Red Cell Distribution Width 19.1 % (11.5-17.5); White Blood Count 7.3 K/mm3 (4.8-10.8)
[2022-10-03 06:21] LABS: Chloride 106 mmol/L (98-107); Sodium 136 mmol/L (136-145)
[2022-10-03 06:24] LABS: Alanine Aminotransferase 15 U/L (12-78); Alkaline Phosphatase 65 U/L (38-126); Aspartate Amino Transferase 17 U/L (17-59); Bilirubin,Total 0.3 mg/dl (0.2-1.3); Blood Urea Nitrogen 29 mg/dl (9-20); Creatinine Clearance Estimated 54 mL/min (50-200); Estimated Glomerular Filt Rate 46 ml/min (>60); GFR (African American) 56 ML/MIN (>60)
[2022-10-03 06:25] LABS: Albumin Level 2.7 g/dl (3.5-5.0); Albumin/Globulin Ratio 0.9 (1.1-1.8); Calcium 7.8 mg/dl (8.4-10.2); Carbon Dioxide 24 mmol/L (22.0-30.0); Globulin 2.9 g/dL (1.3-3.2); Glucose 90 mg/dl (74-100); Total Protein,Serum 5.6 g/dl (6.3-8.2)
[2022-10-03 07:13] LABS: Magnesium 1.9 mg/dl (1.6-2.3)
--- NOTE | 2022-10-03 09:37 | PC.NURSE ---
COURTESY TECH NOTE; ROUNDED ON PT 0820, PT DENIED NEED FOR DRINK, ASSISTANCE WITH RESTROOM, AND NEED TO REPOSITION IN BED. CALL LIGHT WITHIN REACH, NO FURTHER REQUESTS AT THIS TIME ANNI VITAL
--- NOTE | 2022-10-03 11:05 | EXP.PULM.PN ---
Subjective *Date: 10/03/22 *Time: 11:05 Interval history: No acute respiratory vents overnight. Patient admits continued improvement in his respiratory symptoms. Pulmonology Exam Inpatient Vital signs and Labs for Last 24 Hours: Temp Pulse Resp BP Pulse Ox 98.6 F 148 H 18 103/77 L 95 10/03/22 08:00 10/03/22 08:00 10/03/22 08:00 10/03/22 08:00 10/03/22 08:00 Laboratory Results - last 24 hr 10/02/22 12:02: POC Glucose 200 H 10/02/22 16:51: POC Glucose 158 H 10/02/22 20:05: POC Glucose 348 H* 10/03/22 05:24: POC Glucose 101 10/03/22 05:50: WBC 7.3, RBC 4.93, Hgb 11.6 L, Hct 37.1 L, MCV 75.2 L, MCH 23.5 L, MCHC 31.3 L, RDW 19.1 H, Plt Count 234, MPV 9.7, Neut % (Auto) 64.4, Lymph % (Auto) 23.5, [place] % (Auto) 9.7 H, Eos % (Auto) 1.9, Baso % (Auto) 0.4, Neut # (Auto) 4.7, Lymph # (Auto) 1.7, [place] # (Auto) 0.7, Eos # (Auto) 0.1, Baso # (Auto) 0.0, Sodium 136, Potassium 4.0 D, Chloride 106, Carbon Dioxide 24, Anion Gap 10.0, BUN 29 H, Creatinine 1.50 H, Estimated Creat Clear 54, Estimated GFR 46 L, Est GFR ( Amer) 56 L, Glucose 90 D, Calcium 7.8 L, Magnesium 1.9 D, Total Bilirubin 0.3, AST 17, ALT 15, Alkaline Phosphatase 65, Total Protein 5.6 L, Albumin 2.7 L, Globulin 2.9, Albumin/Globulin Ratio 0.9 L I & O for Labs for Last 24 Hours: Intake & Output 09/30/22 10/01/22 10/02/22 10/03/22 23:59 23:59 23:59 23:59 Intake Total 1960 / 2608 1568 / 1568 1110 / 1110 Output Total 2525 / 2525 1900 / 1900 450 / 450 Balance -565 / 83 -332 / -332 660 / 660 Weight 183 lb 8 oz 185 lb 11.126 oz 185 lb 9 oz Microbiology Reports for the Last 24 Hours: Microbiology 10/01/22 15:54 Sputum - Expectorated Sputum Gram Stain - Final 10/01/22 15:54 Sputum - Expectorated Sputum Sputum Culture - Preliminary Gram Negative Rods 10/01/22 02:35 Blood Blood Culture - Preliminary NO GROWTH AFTER 48 HOURS 10/01/22 02:10 Blood Blood Culture - Preliminary NO GROWTH AFTER 48 HOURS Constitutional: Present mild distress Head: Present normocephalic and atraumatic ENT: Present normal exam, normal oropharynx and mucous membranes moist Neck: Present normal inspection and full ROM Respiratory: Present respiratory distress and able to speak in complete sentences; Absent wheezes or crackles Cardiac: Present Irregularly Regular, S1/S2, Tachycardia and radial pulses present GI: Present soft and distention; Absent tenderness or guarding Skin: Present intact; Absent cyanosis or jaundice Neuro: Present alert, awake and oriented x 3 Extremities: Present normal inspection; Absent clubbing or cyanosis Psychiatric: Present normal affect and cooperative Assessment and Plan *Assessment and plan (1) Pneumonia: Status: Acute Qualifiers: Pneumonia type: due to COVID-19 virus Qualified Code(s): U07.1 - COVID-19; J12.82 - Pneumonia due to coronavirus disease 2019 Category: Medical Code(s): J18.9 - Pneumonia, unspecified organism (2) Pneumonia due to COVID-19 virus: Status: Acute Category: Medical Code(s): U07.1 - COVID-19; J12.82 - Pneumonia due to coronavirus disease 2019 (3) Acute respiratory failure with hypoxia: Status: Acute Category: Medical Code(s): J96.01 - Acute respiratory failure with hypoxia Plan #COVID-19 pneumonia: #Right lower lobe pulmonary infiltrate: #Acute hypoxic respiratory failure: Mr. Castillo is a 72-year-old male with significant comorbidities including diabetes, CKD, CLL, severe COPD recent multiple hospitalization for pneumonia presented to the ER from and presented to the hospital for multiple complaints including worsening shortness of breath, altered mentation and irregular heart rate. Patient was also found to be positive for COVID-19 pneumonia along with chest x-ray showing worsening right lower lobe pulmonary infiltrate and was called for further evaluatio
[2022-10-03 12:19] LABS: POC Glucose,Bedside 242 (70-110)
[2022-10-03 16:38] LABS: POC Glucose,Bedside 223 (70-110)
--- NOTE | 2022-10-03 18:14 | PC.NURSE ---
PTS HAS DONE WELL THIS SHIFT, SLIGHTLY CONFUSED IN THE AM. HAS IMPROVED SOME T/O THE DAY. VSS, HR HAS BEEN AROUND 100, CURRENTLY 108BPM. PT REMAINS IN AFIB/FLUTTER. CURRENTLY AT BS. NO QUESTIONS OR CONCERNS AT THIS TIME.
[2022-10-03 20:05] LABS: POC Glucose,Bedside 281 (70-110)
--- NOTE | 2022-10-03 21:04 | PC.NURSE ---
Addendum entered by Yumiko Urbina RN 10/03/22 21:08: REPORT TO APPLICATION SOFTWARE DEVELOPER WAS 1938 AND N0T 2039 Original Note: AT 2039 INGRID Suazo APRN NOTIFIED OF PATIENTS 2:1 A FLUTTER . HR 150 BY CALCULATION/BBB. INSTRUCTED TO MONITOR AND GO ON AND GIVE THE PO [id number] MG PO.
--- NOTE | 2022-10-03 21:19 | PC.NURSE ---
AT 2114 INGRID Suazo APRN NOTIFIED THAT HR ROUGHLY AT 150, 2:1 AV BLOCK/BBB. TO COME LOOK AT TELE STRIPS.
--- NOTE | 2022-10-03 21:41 | PC.NURSE ---
hr 90-100 fib-flutter s/p ivp metoprolol 5 mg over 2 min. patient has remained asymptomatic. resting well at this time. will cont to monitor.
[2022-10-04] VITALS (7 sets, daily range): BP systolic 116–157; BP diastolic 76–99; PULSE 56–128; RESP 18–22; TEMP 36.6–36.9; O2SAT 96–98; BMI 24.2
--- NOTE | 2022-10-04 00:07 | PC.NURSE ---
called and wanted patient on was declined by patient. said he didnt need it.
--- NOTE | 2022-10-04 04:38 | PC.NURSE ---
PATIENT HAS RESTED WELL SINCE 2354 WHEN RECEIVED LORAZEPAM 0.5 PO. HR HAS SLOWED DOWN BUT REMAINS 90-110. NO COMPLAINTS VOICED. FIB-FLUTTER UNCONTROLLED RATE PER TELE READING.
[2022-10-04 05:15] LABS: POC Glucose,Bedside 157 (70-110)
--- NOTE | 2022-10-04 07:20 | EXP.DC.SUM ---
General Admission date:: 10/01/22 Discharge date: 10/04/22 HPI HPI HPI: 72 year old male presented to ED w/ for c/o soa and rapid heart beat. PMHX of CLL, COPD, DM, HTN, and CKD. The patient was recently admitted to the hospital on 09/17 for weakness, confusion, and soa. Early this morning brought pt to ED for c/o SOA. is at bedside and is main historian. The patient received a dx of dementia on Thursday per . states SOA has been present for 2 months. Denies cardiac history or recent infectious illness. states for the past week the pt's heart rate has been abnormal. ranging from low to high. Initial ekg in the ED showed atrial flutter w/ rapid ventricular response. The patient was started on Cardizem. The ED physician spoke with the hospitalist team for admission. Dr. Sin spoke with Dr. Dominguez who confirmed the EKG and instructed to continue the Cardizem. The patient's first troponin was negative. BNP of 5240 and elevated creatinine. The patient will be admitted to the medical floor for further medical management and for cardiology consult. Hospital Course Hospital Course Hospital Course: Mr. Castillo is a 72 year old male presented to ED w/ for c/o soa and rapid heart beat. The patient was recently admitted to the hospital on 09/17 for weakness, confusion, and soa. Heart rate improved with diltiazem drip. Echocardiogram obtained showing reduced ejection fraction so he was transition to metoprolol. Proved rate control. Transition to oral regimen for metoprolol. Pulmonology and cardiology consulted during admission and assisted with care. Stable on room air. Stable for discharge home with home health. Problems addressed as follows during admission. A FLUTTER W/ RVR Heart failure with reduced ejection fraction Volume overload -Initially presented with a flutter with RVR. Started on diltiazem drip with improvement in heart rate. Given concern for heart failure on echocardiogram, cardiology recommended transitioning to metoprolol. Started on Xarelto for A-fib anticoagulation. Gradually increase metoprolol to 100 mg metoprolol succinate twice daily. Heart rate 90-105 on day of discharge. Showing improvement. Improved shortness of breath. Echo obtained during admission with formal ejection fraction of 39%. Cardiology recommended proceeding with medical management at this time. No plan for intervention. Responded well to diuresis during hospitalization due to concern for volume overload. Negative volume status during admission. Stable for discharge home to continue treatment with metoprolol. Recommend close follow-up with cardiology for further adjustment. Covid Pneumonia COPD -Pulmonology consulted, appreciate recommendations. Recommended initiating levofloxacin and remdesivir. Had right lower lobe pneumonia and signs of volume overload. Diuresed as above. Tolerated antibiotics and antiviral medication well. Weaned off supplemental oxygen during the day. Recommend continuing at home as this is his baseline. Additionally treated with DuoNebs every 6 hours. Remained afebrile. Follow-up with pulmonology as an outpatient. CLL -hx of CLL and use of IMBRUVICA. Medication was stopped 09/26 per . White cell count remained stable during hospitalization. Monitor daily. DIABETES -SSI insulin ordered -A1C 9.0 -Continue basal insulin 20 units nightly -Resume short acting insulin daily and oral regimen at discharge Mild cognitive impairment Sleep disorder -Recent diagnosis of dementia and atrophy on brain imaging. Multifactorial. Initiated on Seroquel at night for sleep and anxiety. Showed good response. Tolerating well. Continue. Weaned benzodiazepines. Recommend no more than twice daily. Would benefit from weaning off completely. -We will try and minimize use of benzodiazepines. CKD. Creatinine remained at baseline of 1.4-1.7 during hospitalization. Recommend repeat labs in 1 week
--- NOTE | 2022-10-04 07:36 | ECG_ITS ---
APPROVED REPORT Exam: Resting ECG HR:122 bpm ECG Measurements Heart Rate 122 AXES QRSd 137 QRS -5 QT 315 T -57 QTc 388 Conclusion ATRIAL FLUTTER/TACHYCARDIA WITH RAPID VENTRICULAR RESPONSE INTRAVENTRICULAR CONDUCTION DELAY [130+ ms QRS DURATION] ABNORMAL ECG UNCONFIRMED REPORT Electronically signed by : Master Ocasio MD 10/04/2022 15:02:55
[2022-10-04 07:48] LABS: Chloride 105 mmol/L (98-107); Potassium 4.1 mmoL/L (3.5-5.1); Sodium 137 mmol/L (136-145)
[2022-10-04 07:50] LABS: Blood Urea Nitrogen 27 mg/dl (9-20); Creatinine Clearance Estimated 50 mL/min (50-200); Estimated Glomerular Filt Rate 43 ml/min (>60); GFR (African American) 52 ML/MIN (>60)
[2022-10-04 07:51] LABS: Alanine Aminotransferase 16 U/L (12-78); Albumin Level 2.8 g/dl (3.5-5.0); Alkaline Phosphatase 69 U/L (38-126); Anion Gap 13.1 mEq/L (5-15); Aspartate Amino Transferase 16 U/L (17-59); Bilirubin,Total 0.3 mg/dl (0.2-1.3); Calcium 7.7 mg/dl (8.4-10.2); Carbon Dioxide 23 mmol/L (22.0-30.0); Globulin 2.8 g/dL (1.3-3.2); Glucose 156 mg/dl (74-100); Total Protein,Serum 5.6 g/dl (6.3-8.2)
--- NOTE | 2022-10-04 09:30 | ECG_ITS ---
APPROVED REPORT Exam: Resting ECG HR:72 bpm ECG Measurements Heart Rate 72 AXES QRSd 109 QRS 24 QT 388 T -16 QTc 412 Conclusion ATRIAL FLUTTER/TACHYCARDIA VOLTAGE CRITERIA FOR LVH [MEETS CRITERIA IN ONE OF: R(aVL), S(V1), R(V5), R(V5/V6)+S(V1)] ST DEVIATION AND MODERATE T-WAVE ABNORMALITY, CONSIDER INFERIOR ISCHEMIA [-0.1+ mV T-WAVE IN II/aVF] ABNORMAL ECG UNCONFIRMED REPORT Electronically signed by : Master Ocasio MD 10/06/2022 08:18:19
--- NOTE | 2022-10-07 10:31 | CARE MANAGER ---
Called and spoke with Elsi, patient's regarding recent discharge. Patient is doing ok, has started all new medication, and f/u appts have been scheduled. No questions or concerns at time of call.
== END 2022-10-04 15:56 | disposition home health service (06) | DRG 308 ==
LOC: ER 04:00 → 2ND 05:45
PROVIDERS: Nurse Practitioner Critical Care Medicine; Admitting Provider Internal Medicine Adolescent Medicine; Emergency Provider Emergency Medicine; PCP Internal Medicine Adolescent Medicine; Visit Provider Internal Medicine Adolescent Medicine
DX: I48.92 Unspecified atrial flutter (principal); J12.82 Pneumonia due to coronavirus disease 2019; U07.1 COVID-19; I50.20 Unspecified systolic (congestive) heart failure; C91.10 Chronic lymphocytic leukemia of B-cell type not having achieved remission; J44.0 Chronic obstructive pulmonary disease with (acute) lower respiratory infection; I48.91 Unspecified atrial fibrillation; Z79.4 Long term (current) use of insulin; Z86.718 Personal history of other venous thrombosis and embolism; M06.9 Rheumatoid arthritis, unspecified; F03.90 Unspecified dementia, unspecified severity, without behavioral disturbance, psychotic disturbance, mood disturbance, and anxiety; E11.22 Type 2 diabetes mellitus with diabetic chronic kidney disease; N18.9 Chronic kidney disease, unspecified; E78.5 Hyperlipidemia, unspecified
CPT/HCPCS: 36415; 71045; 80048; 80053; 80076; 82962; 83036; 83605; 83735; 83880; 84484; 85025; 87040; 87070; 87077; 87081; 87186; 87205; 87636; 93005; 93308; 97110; 97116; 97163; 97166; 97530; 97535; 99285; C9803; J1956; J3475; U0003; U0005

== ENCOUNTER 2022-10-10 10:48 | Day surgery (SDC) | payer MEDICARE, OTHER, SELFPAY ==
[2022-10-10 10:54] VITALS: BMI 24.0
[2022-10-10 11:35] VITALS: PULSE 95
[2022-10-10 11:36] VITALS: BP 143/104; PULSE 94; RESP 18; O2SAT 96
[2022-10-10 12:09] VITALS: BP 127/84; PULSE 55; RESP 18; O2SAT 99
--- NOTE | 2022-10-10 12:09 | ECG_ITS ---
APPROVED REPORT Exam: Resting ECG HR:53 bpm ECG Measurements Heart Rate 53 AXES DE 183 P 26 QRSd 109 QRS -3 QT 424 T 60 QTc 408 Conclusion SINUS BRADYCARDIA POSSIBLE LEFT ATRIAL ENLARGEMENT [-0.1mV P-WAVE IN V1/V2] NONSPECIFIC ST & T-WAVE ABNORMALITY BORDERLINE ECG UNCONFIRMED REPORT Electronically signed by : Master Ocasio MD 10/11/2022 09:55:33
[2022-10-10 12:41] VITALS: BP 130/86; PULSE 55; RESP 20; O2SAT 95
== END 2022-10-10 12:48 | disposition home or self-care (01) ==
PROVIDERS: PCP Nurse Practitioner Family; Visit Provider Internal Medicine
PROC: 5A2204Z Restoration of Cardiac Rhythm, Single (ICD-10-PCS; principal; 2022-10-10 13:00)
DX: I48.91 Unspecified atrial fibrillation (principal); E11.9 Type 2 diabetes mellitus without complications; Z79.4 Long term (current) use of insulin; Z79.899 Other long term (current) drug therapy; F17.210 Nicotine dependence, cigarettes, uncomplicated; C91.10 Chronic lymphocytic leukemia of B-cell type not having achieved remission; Z79.818 Long term (current) use of other agents affecting estrogen receptors and estrogen levels
CPT/HCPCS: 92960; 93005; 99152; J2405

== ENCOUNTER → 2022-10-18 18:23 | Outpatient (CLI) | payer MEDICARE, OTHER, SELFPAY | PROVIDERS: PCP Internal Medicine Adolescent Medicine; Visit Provider Internal Medicine Adolescent Medicine | DX: G47.33 Obstructive sleep apnea (adult) (pediatric); R06.83 Snoring | CPT/HCPCS: G0399 ==

== ENCOUNTER → 2022-10-22 08:49 | Outpatient (CLI) | payer MEDICARE, OTHER, SELFPAY ==
[2022-10-22 09:15] LABS: Basophils # 0.1 K/mm3 (0-0.2); Basophils % 0.9 % (0.1-2.0); Eosinophils # 0.5 K/mm3 (0.0-0.4); Eosinophils % 6.6 % (0.1-12.0); Hemoglobin 13.9 g/dL (14.1-18.0); Lymphocytes # 2.3 K/mm3 (0.7-4.5); Lymphocytes % 27.7 % (10-50); Mean Corpuscular HGB Conc 30.2 g/dL (31.8-35.4); Mean Corpuscular Hemoglobin 23.7 pg (27.0-31.2); Mean Corpuscular Volume 78.6 fl (80-94); Mean Platelet Volume 8.2 fl (7.4-10.4); Monocytes # 0.5 K/mm3 (0.1-1.0); Monocytes % 5.8 % (1.7-9.3); Neutrophils # 4.9 K/mm3 (1.8-7.8); Neutrophils % 59.1 % (37.0-80.0); Platelet Count 199 K/mm3 (142-424); Red Blood Count 5.86 M/mm3 (4.60-6.20); Red Cell Distribution Width 19.6 % (11.5-17.5); White Blood Count 8.2 K/mm3 (4.8-10.8)
[2022-10-22 09:41] LABS: Alanine Aminotransferase 25 U/L (12-78); Albumin Level 3.8 g/dl (3.5-5.0); Albumin/Globulin Ratio 1.3 (1.1-1.8); Alkaline Phosphatase 85 U/L (38-126); Anion Gap 13.4 mEq/L (5-15); Aspartate Amino Transferase 24 U/L (17-59); Bilirubin,Total 0.6 mg/dl (0.2-1.3); Blood Urea Nitrogen 35 mg/dl (9-20); Calcium 9.1 mg/dl (8.4-10.2); Carbon Dioxide 25 mmol/L (22.0-30.0); Chloride 106 mmol/L (98-107); Estimated Glomerular Filt Rate 43 ml/min (>60); GFR (African American) 52 ML/MIN (>60); Globulin 2.9 g/dL (1.3-3.2); Glucose 140 mg/dl (74-100); Potassium 4.4 mmoL/L (3.5-5.1); Sodium 140 mmol/L (136-145); Total Protein,Serum 6.7 g/dl (6.3-8.2)
== END ==
PROVIDERS: PCP Nurse Practitioner Family; Visit Provider Nurse Practitioner Family
DX: C91.10 Chronic lymphocytic leukemia of B-cell type not having achieved remission (principal); E11.9 Type 2 diabetes mellitus without complications; I50.9 Heart failure, unspecified; Z79.4 Long term (current) use of insulin
CPT/HCPCS: 36415; 80053; 85025

== ENCOUNTER → 2022-11-12 14:45 | Outpatient (CLI) | payer MEDICARE, OTHER, SELFPAY ==
[2022-11-12 15:13] LABS: Basophils # 0.1 K/mm3 (0-0.2); Eosinophils # 0.3 K/mm3 (0.0-0.4); Eosinophils % 3.2 % (0.1-12.0); Hematocrit 45.9 % (42.0-52.0); Hemoglobin 14.7 g/dL (14.1-18.0); Lymphocytes # 2.3 K/mm3 (0.7-4.5); Lymphocytes % 23.4 % (10-50); Mean Corpuscular HGB Conc 31.9 g/dL (31.8-35.4); Mean Corpuscular Hemoglobin 25.4 pg (27.0-31.2); Mean Corpuscular Volume 79.4 fl (80-94); Mean Platelet Volume 8.4 fl (7.4-10.4); Monocytes # 0.6 K/mm3 (0.1-1.0); Monocytes % 6.2 % (1.7-9.3); Neutrophils # 6.4 K/mm3 (1.8-7.8); Neutrophils % 66.3 % (37.0-80.0); Platelet Count 219 K/mm3 (142-424); Red Blood Count 5.79 M/mm3 (4.60-6.20); Red Cell Distribution Width 19.3 % (11.5-17.5); White Blood Count 9.7 K/mm3 (4.8-10.8)
[2022-11-12 16:02] LABS: Alanine Aminotransferase 24 U/L (12-78); Alkaline Phosphatase 84 U/L (38-126); Anion Gap 12.2 mEq/L (5-15); Aspartate Amino Transferase 24 U/L (17-59); Bilirubin,Indirect 0.3 mg/dL (0.0-0.9); Bilirubin,Total 0.3 mg/dl (0.2-1.3); Bilirubin,Unconjugated 0.4 mg/dL (0.0-1.1); Blood Urea Nitrogen 45 mg/dl (9-20); Calcium 8.9 mg/dl (8.4-10.2); Carbon Dioxide 25 mmol/L (22.0-30.0); Chloride 105 mmol/L (98-107); Chol/HDL Ratio 6.7 (1-3.5); Cholesterol 208 mg/dl (140-200); Estimated Glomerular Filt Rate 40 ml/min (>60); GFR (African American) 48 ML/MIN (>60); Glucose 202 mg/dl (74-100); HDL Cholesterol 31 mg/dl (40-60); Potassium 4.2 mmoL/L (3.5-5.1); Sodium 138 mmol/L (136-145); Total Protein,Serum 6.8 g/dl (6.3-8.2); Triglycerides 392 mg/dl (30-150); VLDL Cholesterol 78 mg/dL (0-40)
[2022-11-12 16:13] LABS: NT Pro Brain Natriuretic Pep. 1300 pg/mL (0-125)
[2022-11-12 16:14] LABS: Direct LDL Cholesterol 107.71 mg/dL (100-129)
[2022-11-12 16:20] LABS: Free T4 (Free Thyroxine) 0.66 ng/dl (0.78-2.19)
== END ==
PROVIDERS: PCP Nurse Practitioner Family; Visit Provider Internal Medicine
DX: C91.10 Chronic lymphocytic leukemia of B-cell type not having achieved remission (principal); E11.9 Type 2 diabetes mellitus without complications; F03.90 Unspecified dementia, unspecified severity, without behavioral disturbance, psychotic disturbance, mood disturbance, and anxiety; I48.0 Paroxysmal atrial fibrillation; I50.9 Heart failure, unspecified; J44.9 Chronic obstructive pulmonary disease, unspecified; L29.9 Pruritus, unspecified; N18.9 Chronic kidney disease, unspecified; R06.00 Dyspnea, unspecified; I63.9 Cerebral infarction, unspecified; I11.0 Hypertensive heart disease with heart failure; Z79.4 Long term (current) use of insulin
CPT/HCPCS: 36415; 80048; 80061; 80076; 83880; 84439; 84443; 85025

== ENCOUNTER → 2022-12-03 07:56 | Outpatient (CLI) | payer MEDICARE, OTHER, SELFPAY ==
--- NOTE | 2022-12-03 08:01 | CA_ITS ---
APPROVED REPORT EXAM: Limited 2D Echocardiogram Classroom Assistant: Cortney Gabriel CRT Ht: 6 ft 1 in Wt: 192lbs BSA: 2.11 BP: 132/88 mmHg Indications: Congestive Heart Failure, COPD, Shortness of Breath, Atrial Fibrillation, Hyperlipidemia, Hypertension/HDD, CKD, COVID HX,SMOKER 2D Dimensions LVOT 2.01 cm (M/F) 1.5-2.5 M-Mode Dimensions RVDd 3.50 cm (0.9-2.6) LA Diam 3.96 cm (1.9-4.0) LVDd 5.76 cm (3.5-5.7) Ao Diam 5.37 cm (2.0-3.7) LVDs 4.31 cm (3.5-5.7) IVSd 2.17 cm (0.6-1.1) PWd 1.61 cm (0.6-1.1) EF (Teich) 49.10% FS 25.20% EDV (Teich) 163.90 mL ESV (Teich) 83.50 mL Other Information Study Quality: Fair Conclusion This is a limited study to evaluate for LVEF in the setting of converting from AFib to NSR following DCCV. Limited windows were obtained. The left ventricle appears normal in size and function. The LVEF is 50%. The LV wall appears mildly thickened.There is mild septal dyssynchony present in the inferolateral LV wall. The right ventricle appears normal in size and function. Biatrial enlargement is present. Grossly, the AV and MV are opening well. Of note, the patient is in normal sinus rhythm (NSR) during the acquisition of the study images. Electronically signed by : Catrachita Pereyra, 12/03/2022 14:36:01
== END ==
PROVIDERS: PCP Nurse Practitioner Family; Visit Provider Internal Medicine
DX: R06.00 Dyspnea, unspecified (principal); I48.0 Paroxysmal atrial fibrillation; I10 Essential (primary) hypertension
CPT/HCPCS: 93308

== ENCOUNTER → 2022-12-10 10:05 | Outpatient (CLI) | payer MEDICARE, OTHER, SELFPAY ==
--- NOTE | 2022-12-10 10:05 | CT_ITS ---
FINAL REPORT TECHNIQUE: Axial CT images were performed from the lung apices through the upper abdomen. Coronal and sagittal reformats were submitted. This study was performed with techniques to keep radiation doses as low as reasonably achievable (ALARA). Individualized dose reduction techniques using automated exposure control or adjustment of mA and/or kV according to the patient's size were employed. CLINICAL HISTORY: NOdules COMPARISON: 07/28/2022 FINDINGS: An aortic stent graft is once again identified. Moderate coronary artery calcifications are identified. There is no axillary adenopathy. There has been interval improvement in the mediastinal adenopathy since the prior exam of July 2022. Heart size is normal. There is no pericardial or pleural effusion. Limited images of the upper abdomen are unremarkable. There is marked improvement in the bilateral opacities, ground glass and alveolar airspace, and nodules since the prior CT. Mild scarring persists. Mild changes of emphysema are once again identified. There are several calcified granulomas noted bilaterally. No new masses or nodules are identified. IMPRESSION: Interval improvement in both the mediastinal adenopathy and the bilateral ground glass and alveolar airspace opacities and nodules since the prior CT of July 2022. Reviewed, Interpreted and Dictated by Eder Hopkins III, MD Transcribed by Antoinette Graham Authenticated and . [facility]
== END ==
PROVIDERS: PCP Nurse Practitioner Family; Visit Provider Internal Medicine Pulmonary Disease
DX: R91.8 Other nonspecific abnormal finding of lung field (principal)
CPT/HCPCS: 71250

== ENCOUNTER → 2023-02-03 09:20 | Outpatient (POV) | payer MEDICARE, OTHER, SELFPAY | PROVIDERS: Visit Provider Dermatology | DX: Z00.00 Encounter for general adult medical examination without abnormal findings (principal) ==

== ENCOUNTER → 2023-02-06 12:00 | Outpatient (CLI) | payer MEDICARE, OTHER, SELFPAY ==
[2023-02-08 14:13] LABS: Hemoglobin A1C 7.3 % (4.0-6.0)
== END ==
PROVIDERS: PCP Nurse Practitioner Family; Visit Provider Nurse Practitioner Family
DX: E11.69 Type 2 diabetes mellitus with other specified complication (principal); Z79.4 Long term (current) use of insulin
CPT/HCPCS: 83036

== ENCOUNTER 2023-02-06 12:39 | Emergency (ER) | payer MEDICARE, OTHER, SELFPAY ==
[2023-02-06] VITALS (10 sets, daily range): BP systolic 139–197; BP diastolic 89–116; PULSE 57–82; RESP 15–18; TEMP 36.1–36.4; O2SAT 94–98; BMI 25.5; BMI 25.4
--- NOTE | 2023-02-06 12:39 | ECG_ITS ---
APPROVED REPORT Exam: Resting ECG HR:71 bpm ECG Measurements Heart Rate 71 AXES IL 144 P 0 QRSd 130 QRS 40 QT 427 T 62 QTc 449 Conclusion SINUS RHYTHM MODERATE INTRAVENTRICULAR CONDUCTION DELAY [110+ ms QRS DURATION] NONSPECIFIC ST & T-WAVE ABNORMALITY BORDERLINE ECG UNCONFIRMED REPORT Electronically signed by : Master Ocasio MD 02/06/2023 21:24:29
--- NOTE | 2023-02-06 12:44 | PC.NURSE ---
Dr. Díaz at BS for pt eval
--- NOTE | 2023-02-06 12:48 | CT_ITS ---
FINAL REPORT CLINICAL HISTORY: [facility] COMPARISON: 03/07/2022 FINDINGS: Axial images of the head were obtained without contrast. Coronal reformatted images were also obtained. This study was performed with techniques to keep radiation doses as low as reasonably achievable (ALARA). Individualized dose reduction techniques using automated exposure control or adjustment of mA and/or kV according to the patient''s size were employed. There is generalized age-appropriate atrophy. Periventricular low-attenuation areas are seen consistent with moderate chronic ischemic changes. There is no evidence of intracranial hemorrhage or mass. There is no evidence of acute infarct. There is no evidence of shift of the midline structures. No skull abnormality is seen on the bone window images. There is opacification of multiple sinuses. IMPRESSION: Atrophy and mild periventricular chronic ischemic changes. No acute intracranial abnormality identified. Reviewed, Interpreted and Dictated by Eder Hopkins III, MD Transcribed by Mandy Barreto Authenticated and [facility]
--- NOTE | 2023-02-06 12:48 | XR_ITS ---
FINAL REPORT TECHNIQUE: Single view chest CLINICAL HISTORY: cough ams COMPARISON: 10/01/2022 FINDINGS: A single view of the chest was obtained. There is an aortic stent graft in place. The heart and mediastinum are within normal limits. Right base opacities are seen which may present atelectasis or pneumonia. There is no pneumothorax. Osseous structures are unremarkable. IMPRESSION: Right base opacities which may present atelectasis or pneumonia. Reviewed, Interpreted and Dictated by Eder Hopkins III, MD Transcribed by Mandy Barreto Authenticated and [facility]
--- NOTE | 2023-02-06 12:52 | HMH.EDGENADL ---
Discharge Plan Disposition Patient Disposition: Home, Self-Care Condition: Good Prescriptions Prescriptions: New doxycycline hyclate 100 mg tablet 100 mg PO BID 7 Days Qty: 14 0RF No Action citalopram [Celexa] 20 mg tablet 20 mg PO DAILY Qty: 90 3RF Trelegy Ellipta 100-62.5-25 mcg blister with device 1 inh inhalation DAILY Qty: 60 6RF insulin glargine 100 unit/mL (3 mL) insulin pen 20 unit SQ HS Qty: 15 3RF Humulin 70/30 U-100 KwikPen 100 unit/mL (70-30) insulin pen 15 unit SQ AM Qty: 15 3RF ipratropium-albuterol 0.5 mg-3 mg(2.5 mg base)/3 mL solution for nebulization 1.5 ml inhalation TID PRN (Reason: shortness of breath or wheezing) Qty: 180 3RF quetiapine 25 mg tablet 50 mg PO HS 30 Days Qty: 60 3RF tamsulosin 0.4 mg capsule 0.8 mg PO DAILY Qty: 90 3RF furosemide [Lasix] 40 mg tablet 40 mg PO DAILY Qty: 30 2RF albuterol sulfate 90 mcg/actuation HFA aerosol inhaler 2 puff INHALATION Q6H PRN (Reason: Asthma) Qty: 8.5 5RF mupirocin 2 % ointment 1 applic topical BID Qty: 22 0RF hydroxychloroquine 200 mg tablet 200 mg PO BID Patient Comments: TAKE ONE TABLET BY MOUTH TWICE DAILY Xarelto 15 mg tablet 15 mg PO QPMWITHMEAL Qty: 90 3RF amlodipine 5 mg tablet 5 mg PO DAILY 30 Days Qty: 30 2RF lorazepam 0.5 mg tablet 0.5 mg PO QID PRN (Reason: Anxiety) 30 Days Qty: 120 0RF metoprolol succinate 100 mg tablet extended release 24 hr See Rx Instructions .ROUTE .COMPLEX Qty: 30 5RF Dose Instruction: TAKE ONE TABLET BY MOUTH TWICE DAILY FOR afib Rx Instructions: TAKE ONE TABLET BY MOUTH TWICE DAILY FOR afib nystatin 100,000 unit/mL suspension 500,000 unit PO QID Referrals Follow up/Referrals: Provider,Referral, MD [Primary Care Provider] - See instructions Activity Restrictions/Add. Instructions Additional Instructions/Restrictions: At this time is felt you are safe to be discharged home. If new or worsening symptoms please do not hesitate to return the emergency department. Tonight before bed if sugar is above 200 please resume your regular insulin schedule. If sugars below 200 hold long-acting insulin this evening and resume your regular insulin schedule tomorrow. Please take your medication as prescribed. Clinical Impressions Clinical Impression: Encephalopathy, Asthma exacerbation in COPD, Hypoglycemia Instructions Patient Instructions: DI for Altered Mental Status Discharge ED Provider: Mela Díaz General Adult HPI <Mela Díaz MD - Last Filed: 02/06/23 15:44> General Chief complaint: Altered Mental Status Stated complaint: AMS Time Seen by Provider: 02/06/23 12:47 History of Present Illness HPI narrative: This 73-year-old male presents to the emergency department with concerns of altered mental status. 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 They went to take him to lunch and patient was not really saying much. He also appeared sweaty. Because patient is a diabetic they offered him a pop. This did not improve his symptoms. He was brought for further evaluation. Reportedly patient has had a cough and congestion. He takes blood pressure medications. He is not complaining of pain at this time. Patient does not know who he is or where he is. Related Data Home Medications Medication Instructions Recorded Confirmed nystatin 100,000 unit/mL oral 500,000 unit PO QID topical 10/10/22 01/07/23 suspension hydroxychloroquine 200 mg tablet 200 mg PO BID 12/03/22 01/07/23 Previous Rx's Medication Instructions Recorded citalopram 20 mg tablet (Celexa) 20 mg PO DAILY Mood #90 tabs 10/15/22 fluticasone fur. 100 mcg-umeclid 1 inh inhalation DAILY Asthma #60 10/15/22 62.5 mcg-vilant 25 mcg ea inhalat.powder (Trelegy Ellipta) insu
[2023-02-06 12:57] LABS: Basophils # 0.1 K/mm3 (0-0.2); Basophils % 0.8 % (0.1-2.0); Eosinophils # 0.7 K/mm3 (0.0-0.4); Eosinophils % 4.8 % (0.1-12.0); Hematocrit 46.4 % (42.0-52.0); Lymphocytes # 3.5 K/mm3 (0.7-4.5); Lymphocytes % 23.1 % (10-50); Mean Corpuscular HGB Conc 34.6 g/dL (31.8-35.4); Mean Corpuscular Hemoglobin 28.3 pg (27.0-31.2); Mean Corpuscular Volume 81.8 fl (80-94); Mean Platelet Volume 8.8 fl (7.4-10.4); Monocytes # 0.8 K/mm3 (0.1-1.0); Monocytes % 5.3 % (1.7-9.3); Neutrophils # 9.9 K/mm3 (1.8-7.8); Platelet Count 182 K/mm3 (142-424); Red Blood Count 5.67 M/mm3 (4.60-6.20); Red Cell Distribution Width 16.3 % (11.5-17.5); White Blood Count 15.1 K/mm3 (4.8-10.8)
[2023-02-06 12:58] LABS: Chloride 106 mmol/L (98-107); MANUAL DIFFERENTIAL MANUAL DIFFERENTIAL (MANUAL DIFF); Potassium 3.5 mmoL/L (3.5-5.1); Sodium 139 mmol/L (136-145)
[2023-02-06 13:01] LABS: Alanine Aminotransferase 26 U/L (12-78); Albumin Level 4.7 g/dl (3.5-5.0); Albumin/Globulin Ratio 1.3 (1.1-1.8); Alkaline Phosphatase 85 U/L (38-126); Anion Gap 12.5 mEq/L (5-15); Aspartate Amino Transferase 33 U/L (17-59); Bilirubin,Total 0.4 mg/dl (0.2-1.3); Blood Urea Nitrogen 39 mg/dl (9-20); Calcium 8.6 mg/dl (8.4-10.2); Carbon Dioxide 24 mmol/L (22.0-30.0); Estimated Glomerular Filt Rate 35 ml/min (>60); GFR (African American) 42 ML/MIN (>60); Globulin 3.6 g/dL (1.3-3.2); Total Protein,Serum 8.3 g/dl (6.3-8.2)
[2023-02-06 13:01] LABS: VBG Base Excess -5.9 mmol/L (-2.4-2.3); VBG HCO3 20.1 mmol/L (23-30); VBG Oxygen Saturation 95.7 % (50-70); VBG PCO2 39.4 mmol/L (35-51); VBG PH 7.33 mmol/L (7.31-7.41); VBG PO2 75.4 mmol/L (28-40); VBG Total CO2 21.3 mmol/L (23-27)
[2023-02-06 13:02] LABS: Glucose 43 mg/dl (74-100)
--- NOTE | 2023-02-06 13:10 | PC.NURSE ---
MD notified of critical glucose and gave verbal order for 250ml of D10W bolus and to recheck when 250ml was completed
[2023-02-06 13:11] LABS: NT Pro Brain Natriuretic Pep. 1560 pg/mL (0-125)
[2023-02-06 13:13] LABS: Eosinophils % 5 % (0-3); Lymphocytes % 23 % (10-50); Monocytes % 5 % (2-9); Neutrophils % 67 % (42-76); Total Cells Counted 100
[2023-02-06 13:14] LABS: Platelet Estimate Normal; RBC Morphology Normal; Troponin I < 0.01 ng/ml (0.00-0.034)
[2023-02-06 14:13] LABS: POC Glucose,Bedside 127 (70-110)
[2023-02-06 15:16] LABS: POC Glucose,Bedside 145 (70-110)
--- NOTE | 2023-02-06 15:48 | PC.NURSE ---
COVID SWAB SENT
[2023-02-06 15:54] LABS: Coronavirus 19, PCR Not Detected (NotDetected); Influenza A, PCR Not Detected (NotDetected); Influenza B, PCR Not Detected (NotDetected)
[2023-02-06 16:38] LABS: POC Glucose,Bedside 220 (70-110)
[2023-02-06 17:12] LABS: Microscopic, Urine URINE MICROSCOPIC (MICROSCOPIC)
[2023-02-06 17:29] LABS: Appearance,Urine CLEAR (Clear); Bilirubin,Urine Negative (Negative); Blood, Urine 1+ (Negative); Color,Urine YELLOW (Yellow); Glucose,Urine (UA) Negative (Negative); Ketones,Urine Negative (Negative); Leukocyte Esterase,Urine Negative (Negative); Nitrate,Urine Negative (Negative); Protein,Urine 3+ (Negative); Specific Gravity, Urine 1.025 (1.005-1.030); Urobilinogen,Urine 0.2 EU/dl (0.2)
[2023-02-06 17:41] LABS: Amphetamine/Metha Screen,Urine Negative ng/ml (<1000)
[2023-02-06 17:42] LABS: Barbiturates Screen,Urine Negative ng/ml (<200); Benzodiazepines Screen,Urine Negative ng/ml (<200)
[2023-02-06 17:43] LABS: Cannabinoid Screen,Urine Negative ng/ml (<50)
[2023-02-06 17:44] LABS: Cocaine Screen,Urine Negative ng/ml (<300); Methadone Screen,Urine Negative ng/ml (<300)
[2023-02-06 17:45] LABS: Opiate Screen,Urine Negative ng/ml (<300); Phencyclidine Screen,Urine Negative ng/ml (<25)
[2023-02-06 17:47] LABS: RBC,Urine Occasional #/hpf (0-3); Squamous Epithelial Cell,Urine Occasional #/hpf (0-5)
== END 2023-02-06 18:00 | disposition home or self-care (01) ==
PROVIDERS: Emergency Medicine; Emergency Provider Emergency Medicine
DX: E11.649 Type 2 diabetes mellitus with hypoglycemia without coma (principal); G93.40 Encephalopathy, unspecified; J44.1 Chronic obstructive pulmonary disease with (acute) exacerbation; F17.210 Nicotine dependence, cigarettes, uncomplicated; N18.32 Chronic kidney disease, stage 3b; E78.5 Hyperlipidemia, unspecified; Z79.4 Long term (current) use of insulin; I12.9 Hypertensive chronic kidney disease with stage 1 through stage 4 chronic kidney disease, or unspecified chronic kidney disease
CPT/HCPCS: 70450; 71045; 80053; 80305; 81001; 82803; 82962; 83880; 84484; 85007; 85025; 87636; 93005; 96374; 96375; 99285

== ENCOUNTER 2023-03-12 07:58 | Day surgery (SDC) | payer MEDICARE, OTHER, SELFPAY ==
[2023-03-02 14:50] VITALS: BMI 26.4
--- NOTE | 2023-03-06 11:46 | SUR.PREOP ---
Per MD Dominguez's office: pt is to stop taking xarelto 48-72 hours prior to procedure. This RN called and spoke with pt, and he verbalized understanding.
[2023-03-12 08:15] VITALS: BP 162/97; PULSE 65; RESP 18; TEMP 36.4; O2SAT 98
[2023-03-12 08:31] LABS: POC Glucose,Bedside 88 (70-110)
--- NOTE | 2023-03-12 08:52 | P.PNANES_ITS ---
[facility] Disclaimer: The information contained in this section may have been updated after the patient was seen, as this information can be updated by other users. Medical History Acute respiratory failure with hypoxia Aneurysm x2 Bronchiectasis Cancer Chronic kidney disease stage 3b/4, [facility] Chronic sinusitis COPD mixed type COPD mixed type Deep vein thrombosis (DVT) Diabetes mellitus, type 2 History of hypertension History of recurrent pneumonia Hyperlipidemia Immunocompromised state Immunosuppressed status Melanoma removed, right axilla Pneumonia Pneumonia Pneumonia Pneumonia due to COVID-19 virus Recurrent pneumonia SOB (shortness of breath) Unresolved pneumonia Surgical History H/O colonoscopy 2018 History of appendectomy History of bronchoscopy w/ biopsy History of hernia repair History of knee replacement History of left knee replacement 02/2020, Dr. Fajardo History of nephrectomy right r/t cancer Status post functional endoscopic sinus surgery Family History Father Cancer lung-Asbestos Mother Heart attack Hypertension Brother Diabetes Sister Hypertension Social History Smoking Status: Current every day smoker tobacco type: cigarettes packs per day: 1 years smoked: 40 alcohol intake: current substance use type: denies use current occupational status: retired Travel in the last 8 weeks: None household members: spouse housing: house marital status: education level: high school caffeine: Yes special pilo needs: No do you feel safe at home: Yes victim of physical abuse: No victim of emotional abuse: No victim of sexual abuse: No would you like helpful sources: No [facility] Anesthesia Checklist Patient Identification Patient Identification: Verbal (Name & ) Structural Data Admitted From: Home Planned Operative Procedure/s: colonoscopy Consent for Planned Operative Procedure(s) Verified: Yes NPO Status Verified Time NPO: 00:00 Additional verifications Anesthesia Reactions: No Hx Blood Transfusions: No Blood Transfusion Reaction: No Airway Assessment Mallampati Score:: Class II C-Spine Mobility Assessed: Yes TMJ Mobility Assessed: Yes Dentition: Poor Dentition Neurological Assessment Level of Consciousness: Awake, Alert and Appropriate Anesthesia Plan Anesthesia Risk discussed: Yes Anesthesia Plan: Verified ASA Class: III Anesthesia Type: MAC
--- NOTE | 2023-03-12 09:21 | HMH.SCOPE ---
Procedure: Date: 03/12/23 Patient Date of :: 1950 Procedure Performed:: Screening colonoscopy Indications:: History of polyps per patient Performing Provider:: Tyron Robledo MD Referring Provider:: Racquel Orozco APRN Sedation:: Propofol Procedure:: After placing the patient in the left lateral decubitus position, the colonoscopy was gently inserted into the rectum and under direct visualization advanced to the cecum which was identified by transillumination in the right lower quadrant, identification of the ileocecal valve, appendiceal orifice, and cecal strap. Color, texture, mucosa, and anatomy of the colon were carefully examined with the scope. Findings:: Anal canal: normal Rectum: normal Sigmoid colon: normal without polyps or inflammatory changes, scattered diverticulosis Descending colon: normal without polyps or inflammatory changes Splenic flexure: normal Transverse colon: normal without polyps or inflammatory changes Hepatic flexure: normal Ascending colon: normal without polyps or inflammatory changes Cecum: normal Terminal ileum: not visualized Impression: Scattered sigmoid diverticulosis otherwise normal colonoscopy exam Recommendations:: Follow up examination in about FIVE years or so, sooner if clinically indicated due to personal history of colon polyps. Complications:: None Estimated blood obtained (mL): 0 Colonoscopy Component Colonoscopy Component Was a colonoscopy performed during today's procedure?: Yes Recommended follow up colonoscopy of at least 10 years?: No If no, follow up colonoscopy recommended in ___ years?: Five Reason for not recommending >/= 10 yr follow-up interval?: History of polyps
[2023-03-12 09:22] VITALS: BP 108/62; PULSE 54; RESP 16; TEMP 36.6; O2SAT 94
[2023-03-12 09:32] VITALS: BP 116/68; PULSE 52; RESP 16; O2SAT 93
[2023-03-12 09:42] VITALS: BP 130/75; PULSE 51; RESP 16; O2SAT 94
[2023-03-12 09:53] VITALS: BP 133/77; PULSE 55; RESP 16; TEMP 36.6; O2SAT 98
== END 2023-03-12 09:55 | disposition home or self-care (01) ==
PROVIDERS: PCP Nurse Practitioner Family; Visit Provider Internal Medicine Gastroenterology
PROC: 0DJD8ZZ Inspection of Lower Intestinal Tract, Via Natural or Artificial Opening Endoscopic (ICD-10-PCS; CPT 45378; principal; 2023-03-12 09:00)
DX: Z12.11 Encounter for screening for malignant neoplasm of colon (principal); Z86.010 Personal history of colon polyps; K57.30 Diverticulosis of large intestine without perforation or abscess without bleeding
CPT/HCPCS: G0105; 82962

== ENCOUNTER 2023-03-16 12:56 | Emergency (ER) | payer MEDICARE, OTHER, SELFPAY ==
[2023-03-16 12:57] VITALS: BP 150/88; PULSE 60; RESP 20; TEMP 37.1; O2SAT 97; BMI 29.4
--- NOTE | 2023-03-16 13:20 | CT_ITS ---
FINAL REPORT TECHNIQUE: multiple axial CT images were performed from the foramen magnum to the vertex without enhancement. CLINICAL HISTORY: Fall, on blood thinners COMPARISON: 02/06/2023 FINDINGS: The ventricles are enlarged. There is mild to moderate diffuse atrophy. There is decreased attenuation in the deep periventricular white matter change likely related to small vessel disease. There is no evidence of hemorrhage. No masses are identified. Note is made of a jud cisterna magna. Dense calcifications are noted in vertebral arteries bilaterally. There is mucoperiosteal thickening in the ethmoid, maxillary, and sphenoid sinuses as well. There has been resection of the medial merlos of the maxillary sinuses. IMPRESSION: Mild to moderate atrophy and likely chronic ischemic/gliotic microvascular change, not significantly changed since the prior CT of 02/06/2023. Reviewed, Interpreted and Dictated by Marcin Aguirre MD Transcribed by Antoinette Graham Authenticated and . [facility]
--- NOTE | 2023-03-16 13:20 | CT_ITS ---
FINAL REPORT TECHNIQUE: Axial images were obtained of the cervical spine by computed tomography. Coronal and sagittal reconstruction process performed. This study was performed with techniques to keep radiation doses as low as reasonably achievable (ALARA). Individualized dose reduction techniques using automated exposure control or adjustment of mA and/or kV according to the patient's size were employed. CLINICAL HISTORY: Fall, on blood thinners COMPARISON: None FINDINGS: Cervical vertebrae show normal height. There is moderate degenerative disc disease at the C5-6 and C6-7 levels. There is no malalignment. The facets are properly aligned. No evidence of acute fracture is identified. C2-3: No evidence of significant canal stenosis or neural foraminal narrowing. C3-4: No evidence of significant canal stenosis or neural foraminal narrowing. C4-5: Mild disc protrusion is noted, which produces mild canal stenosis. C5-6: A moderate annular bulge is present with endplate hypertrophy, which produces moderate central canal stenosis and severe bilateral neural foraminal narrowing. C6-7: A moderate annular bulge is present with endplate hypertrophy, which produces moderate central canal stenosis and severe bilateral neuroforaminal narrowing. C7-T1: No evidence of significant canal stenosis or neural foraminal narrowing. IMPRESSION: No acute bony abnormality identified. Degenerative changes most severe at the C4-5 and C5-6 levels.. Reviewed, Interpreted and Dictated by Marcin Aguirre MD Transcribed by Antoinette Graham Authenticated and [facility]
--- NOTE | 2023-03-16 14:09 | PC.NURSE ---
placed let on patient
--- NOTE | 2023-03-16 15:09 | PC.NURSE ---
Dr. Newman at BS to suture
--- NOTE | 2023-03-16 15:34 | HMH.EDGENADL ---
Discharge Plan Disposition Patient Disposition: Home, Self-Care Condition: Good Prescriptions Prescriptions: No Action citalopram [Celexa] 20 mg tablet 20 mg PO DAILY Qty: 90 3RF Trelegy Ellipta 100-62.5-25 mcg blister with device 1 inh inhalation DAILY Qty: 60 6RF insulin glargine 100 unit/mL (3 mL) insulin pen 20 unit SQ HS Qty: 15 3RF Humulin 70/30 U-100 KwikPen 100 unit/mL (70-30) insulin pen 15 unit SQ AM Qty: 15 3RF ipratropium-albuterol 0.5 mg-3 mg(2.5 mg base)/3 mL solution for nebulization 1.5 ml inhalation TID PRN (Reason: shortness of breath or wheezing) Qty: 180 3RF tamsulosin 0.4 mg capsule 0.8 mg PO DAILY Qty: 90 3RF furosemide [Lasix] 40 mg tablet 40 mg PO DAILY Qty: 30 2RF albuterol sulfate 90 mcg/actuation HFA aerosol inhaler 2 puff INHALATION Q6H PRN (Reason: Asthma) Qty: 8.5 5RF triamcinolone acetonide 0.1 % cream 1 applic topical DAILY polymyxin B sulf-trimethoprim 10,000 unit- 1 mg/mL drops 1 drp Eye-Right QID Qty: 10 0RF Rx Instructions: while awake mupirocin 2 % ointment 1 applic topical BID Qty: 22 0RF hydroxychloroquine 200 mg tablet 200 mg PO BID Patient Comments: TAKE ONE TABLET BY MOUTH TWICE DAILY amlodipine 10 mg tablet 10 mg PO DAILY Qty: 90 3RF Xarelto 15 mg tablet 15 mg PO QPMWITHMEAL Qty: 90 3RF metoprolol succinate 100 mg tablet extended release 24 hr See Rx Instructions .ROUTE .COMPLEX Qty: 30 5RF Dose Instruction: TAKE ONE TABLET BY MOUTH TWICE DAILY FOR afib Rx Instructions: TAKE ONE TABLET BY MOUTH TWICE DAILY FOR afib quetiapine 25 mg tablet See Rx Instructions .ROUTE .COMPLEX Qty: 60 5RF Dose Instruction: TAKE TWO TABLETS BY MOUTH AT BEDTIME NIGHTLY FOR DEPRESSION Rx Instructions: TAKE TWO TABLETS BY MOUTH AT BEDTIME NIGHTLY FOR DEPRESSION lorazepam 1 mg tablet 1 mg PO HS PRN (Reason: sleep) Qty: 24 0RF nystatin 100,000 unit/mL suspension 500,000 unit PO QID Referrals Follow up/Referrals: Racquel Orozco APRN [Primary Care Provider] - See instructions Activity Restrictions/Add. Instructions Additional Instructions/Restrictions: Please follow-up with your primary care provider. Please return to the emergency department if you develop any new or worsening symptoms or become concerned for your health. Clinical Impressions Clinical Impression: Fall from standing Qualifiers: Encounter type: initial encounter Qualified Code(s): W19.XXXA - Unspecified fall, initial encounter Forehead laceration Qualifiers: Encounter type: initial encounter Qualified Code(s): S01.81XA - Laceration without foreign body of other part of head, initial encounter Instructions Patient Instructions: DI for Laceration Repair Discharge ED Provider: Adan Newman I General Adult HPI General Chief complaint: Wound/Laceration Stated complaint: [id number] fell and hit head Time Seen by Provider: 03/16/23 13:04 Mode of Arrival: Ambulatory Source of Information: Patient Limitations: No Limitations Description of Symptoms (Recalled from ER Triage Doc. by RN): pt slipped at work and landed on pavement cutting the skin above his left eye brow bone, edges are approximate and bleeding is controlled. History of Present Illness HPI narrative: Patient is a 73-year-old gentleman with history of asthma, COPD, CKD, type 2 diabetes, hypertension, on Xarelto who is presenting to the emergency department from a fall from standing, laceration to the left forehead above his left eyebrow. History was conducted to the patient as well as his at bedside. Patient reports that he was walking when he tripped, causing him to fall to the ground. He caught himself with his hands but did hit his head on the ground. He denies any loss of consciousness. This occurred approximately 10 to 20 minutes prior to arrival in the emergency department. He denies any chest pain, shortness of b
[2023-03-16 15:36] VITALS: BP 140/80; PULSE 80; RESP 20; TEMP 36.7; O2SAT 98
== END 2023-03-16 15:37 | disposition home or self-care (01) ==
PROVIDERS: Emergency Provider Emergency Medicine; PCP Nurse Practitioner Family
DX: S01.81XA Laceration without foreign body of other part of head, initial encounter (principal); E11.22 Type 2 diabetes mellitus with diabetic chronic kidney disease; I12.9 Hypertensive chronic kidney disease with stage 1 through stage 4 chronic kidney disease, or unspecified chronic kidney disease; N18.4 Chronic kidney disease, stage 4 (severe); J44.9 Chronic obstructive pulmonary disease, unspecified; Z79.01 Long term (current) use of anticoagulants; W01.0XXA Fall on same level from slipping, tripping and stumbling without subsequent striking against object, initial encounter; F17.210 Nicotine dependence, cigarettes, uncomplicated
CPT/HCPCS: 12011; 70450; 72125; 99285

== ENCOUNTER 2023-05-11 13:11 | Outpatient (CLI) | payer MEDICARE, OTHER, SELFPAY ==
[2023-05-11 14:06] LABS: Hemoglobin A1C 7.4 % (4.0-6.0)
[2023-05-11 14:12] LABS: Alanine Aminotransferase 20 U/L (12-78); Albumin Level 3.8 g/dl (3.5-5.0); Albumin/Globulin Ratio 1.3 (1.1-1.8); Alkaline Phosphatase 79 U/L (38-126); Anion Gap 13.4 mEq/L (5-15); Aspartate Amino Transferase 21 U/L (17-59); Bilirubin,Total 0.3 mg/dl (0.2-1.3); Blood Urea Nitrogen 33 mg/dl (9-20); Carbon Dioxide 25 mmol/L (22.0-30.0); Chloride 106 mmol/L (98-107); Estimated Glomerular Filt Rate 30 ml/min (>60); GFR (African American) 36 ML/MIN (>60); Globulin 2.9 g/dL (1.3-3.2); Glucose 208 mg/dl (74-100); Potassium 4.4 mmoL/L (3.5-5.1); Sodium 140 mmol/L (136-145); Total Protein,Serum 6.7 g/dl (6.3-8.2)
== END 2023-05-11 23:59 ==
LOC: LAB.DROPOF 13:12
PROVIDERS: PCP Nurse Practitioner Family; Visit Provider Nurse Practitioner Family
DX: E11.9 Type 2 diabetes mellitus without complications (principal); Z79.4 Long term (current) use of insulin
CPT/HCPCS: 80053; 83036

== ENCOUNTER 2023-06-17 08:22 | Outpatient (CLI) | payer MEDICARE, OTHER, SELFPAY ==
[2023-06-17 08:31] VITALS: BMI 30.2
[2023-06-17 08:45] LABS: Basophils # 0.2 K/mm3 (0-0.2); Basophils % 1.7 % (0.1-2.0); Eosinophils # 0.8 K/mm3 (0.0-0.4); Eosinophils % 8.1 % (0.1-12.0); Hematocrit 45.2 % (42.0-52.0); Hemoglobin 14.8 g/dL (14.1-18.0); Lymphocytes % 42.4 % (10-50); Mean Corpuscular HGB Conc 32.7 g/dL (31.8-35.4); Mean Corpuscular Hemoglobin 28.1 pg (27.0-31.2); Mean Corpuscular Volume 85.9 fl (80-94); Mean Platelet Volume 8.8 fl (7.4-10.4); Monocytes # 0.4 K/mm3 (0.1-1.0); Monocytes % 4.2 % (1.7-9.3); Neutrophils # 4.1 K/mm3 (1.8-7.8); Neutrophils % 43.5 % (37.0-80.0); Platelet Count 173 K/mm3 (142-424); Red Blood Count 5.26 M/mm3 (4.60-6.20); Red Cell Distribution Width 15.7 % (11.5-17.5); White Blood Count 9.4 K/mm3 (4.8-10.8)
--- NOTE | 2023-06-17 08:45 | PC.NURSE ---
0831-BLOOD DRAWN FROM RIGHT AC USING BUTTERFLY NEEDLE TO CHECK LABS PER DR REED.
[2023-06-17 08:55] LABS: Alanine Aminotransferase 22 U/L (12-78); Albumin Level 4.1 g/dl (3.5-5.0); Albumin/Globulin Ratio 1.3 (1.1-1.8); Alkaline Phosphatase 77 U/L (38-126); Anion Gap 11.4 mEq/L (5-15); Aspartate Amino Transferase 25 U/L (17-59); Bilirubin,Total 0.5 mg/dl (0.2-1.3); Blood Urea Nitrogen 38 mg/dl (9-20); Calcium 8.9 mg/dl (8.4-10.2); Carbon Dioxide 22 mmol/L (22.0-30.0); Chloride 109 mmol/L (98-107); Creatinine Clearance Estimated 45 mL/min (50-200); Estimated Glomerular Filt Rate 30 ml/min (>60); GFR (African American) 36 ML/MIN (>60); Globulin 3.1 g/dL (1.3-3.2); Glucose 170 mg/dl (74-100); Potassium 4.4 mmoL/L (3.5-5.1); Sodium 138 mmol/L (136-145); Total Protein,Serum 7.2 g/dl (6.3-8.2)
[2023-06-17 09:02] LABS: Lactate Dehydrogenase 195 U/L (313-618)
== END 2023-06-17 08:35 | disposition home or self-care (01) ==
PROVIDERS: Internal Medicine Medical Oncology; PCP Nurse Practitioner Family; Visit Provider Internal Medicine Pulmonary Disease
DX: C91.10 Chronic lymphocytic leukemia of B-cell type not having achieved remission (principal); R06.02 Shortness of breath
CPT/HCPCS: 36415; 80053; 83615; 85025; 94010

== ENCOUNTER 2023-08-06 16:12 | Outpatient (CLI) | payer MEDICARE, OTHER, SELFPAY ==
[2023-08-06 16:20] LABS: Microscopic, Urine URINE MICROSCOPIC (MICROSCOPIC)
[2023-08-06 16:33] LABS: Basophils # 0.1 K/mm3 (0-0.2); Basophils % 1.2 % (0.1-2.0); Eosinophils # 0.5 K/mm3 (0.0-0.4); Eosinophils % 5.7 % (0.1-12.0); Hematocrit 43.4 % (42.0-52.0); Hemoglobin 14.2 g/dL (14.1-18.0); Lymphocytes # 4.1 K/mm3 (0.7-4.5); Lymphocytes % 43.9 % (10-50); Mean Corpuscular HGB Conc 32.7 g/dL (31.8-35.4); Mean Corpuscular Hemoglobin 27.6 pg (27.0-31.2); Mean Corpuscular Volume 84.6 fl (80-94); Mean Platelet Volume 8.7 fl (7.4-10.4); Monocytes # 0.4 K/mm3 (0.1-1.0); Monocytes % 4.5 % (1.7-9.3); Neutrophils # 4.2 K/mm3 (1.8-7.8); Neutrophils % 44.8 % (37.0-80.0); Platelet Count 169 K/mm3 (142-424); Red Blood Count 5.13 M/mm3 (4.60-6.20); Red Cell Distribution Width 15.9 % (11.5-17.5); White Blood Count 9.4 K/mm3 (4.8-10.8)
[2023-08-06 16:47] LABS: Appearance,Urine CLEAR (Clear); Bilirubin,Urine Negative (Negative); Blood, Urine 1+ (Negative); Color,Urine YELLOW (Yellow); Glucose,Urine (UA) Negative (Negative); Ketones,Urine Negative (Negative); Leukocyte Esterase,Urine Negative (Negative); Nitrate,Urine Negative (Negative); Protein,Urine 3+ (Negative); Specific Gravity, Urine 1.025 (1.005-1.030); Urobilinogen,Urine 0.2 EU/dl (0.2)
[2023-08-06 16:50] LABS: Albumin Level 4.1 g/dl (3.5-5.0); Anion Gap 14.3 mEq/L (5-15); Blood Urea Nitrogen 39 mg/dl (9-20); Calcium 8.8 mg/dl (8.4-10.2); Carbon Dioxide 18 mmol/L (22.0-30.0); Chloride 111 mmol/L (98-107); Estimated Glomerular Filt Rate 27 ml/min (>60); GFR (African American) 32 ML/MIN (>60); Glucose 144 mg/dl (74-100); Phosphorous 4.3 mg/dl (2.5-4.5); Potassium 4.3 mmoL/L (3.5-5.1); Sodium 139 mmol/L (136-145)
[2023-08-06 16:57] LABS: Bacteria,Urine Trace /lpf; RBC,Urine Occasional #/hpf (0-3); Squamous Epithelial Cell,Urine Occasional #/hpf (0-5)
[2023-08-06 17:06] LABS: 25-OH Vitamin D, Total 31.9 ng/mL (30-100)
[2023-08-06 17:07] LABS: Creatinine,Urine Random 80 mg/dL (Not Estab.)
== END 2023-08-06 23:59 | disposition home or self-care (01) ==
LOC: LAB 16:14
PROVIDERS: PCP Nurse Practitioner Family; Visit Provider Internal Medicine Nephrology
DX: N18.32 Chronic kidney disease, stage 3b (principal); E55.9 Vitamin D deficiency, unspecified; Z68.29 Body mass index [BMI] 29.0-29.9, adult
CPT/HCPCS: 36415; 80069; 81001; 82306; 82570; 83970; 84156; 85025

== ENCOUNTER 2023-08-10 11:46 | Outpatient (POV) | payer MEDICARE, OTHER, SELFPAY | END 2023-08-10 23:59 | disposition home or self-care (01) | LOC: SC 11:47 | PROVIDERS: Visit Provider Nurse Practitioner | DX: Z00.00 Encounter for general adult medical examination without abnormal findings (principal) ==

== ENCOUNTER 2023-08-24 08:03 | Outpatient (CLI) | payer MEDICARE, OTHER, SELFPAY ==
[2023-08-24 08:38] LABS: Microscopic, Urine URINE MICROSCOPIC (MICROSCOPIC)
[2023-08-24 09:06] LABS: Hematocrit 44.4 % (42.0-52.0); Mean Corpuscular HGB Conc 33.9 g/dL (31.8-35.4); Mean Corpuscular Hemoglobin 27.7 pg (27.0-31.2); Mean Corpuscular Volume 81.7 fl (80-94); Platelet Count 183 K/mm3 (142-424); Red Blood Count 5.43 M/mm3 (4.60-6.20); Red Cell Distribution Width 15.7 % (11.5-17.5); White Blood Count 9.1 K/mm3 (4.8-10.8)
[2023-08-24 09:15] LABS: Appearance,Urine CLEAR (Clear); Bilirubin,Urine Negative (Negative); Blood, Urine TRACE-I (Negative); Color,Urine YELLOW (Yellow); Glucose,Urine (UA) TRACE (Negative); Ketones,Urine Negative (Negative); Leukocyte Esterase,Urine Negative (Negative); Nitrate,Urine Negative (Negative); Protein,Urine 3+ (Negative); Specific Gravity, Urine >= 1.030 (1.005-1.030); Urobilinogen,Urine 0.2 EU/dl (0.2)
[2023-08-24 10:03] LABS: Albumin Level 4.2 g/dl (3.5-5.0); Anion Gap 16.2 mEq/L (5-15); Blood Urea Nitrogen 35 mg/dl (9-20); Calcium 9.4 mg/dl (8.4-10.2); Carbon Dioxide 23 mmol/L (22.0-30.0); Chloride 105 mmol/L (98-107); Estimated Glomerular Filt Rate 28 ml/min (>60); GFR (African American) 34 ML/MIN (>60); Glucose 205 mg/dl (74-100); Phosphorous 4.2 mg/dl (2.5-4.5); Potassium 4.2 mmoL/L (3.5-5.1); Sodium 140 mmol/L (136-145)
[2023-08-24 10:22] LABS: Creatinine,Urine Random 101 mg/dL (Not Estab.)
[2023-08-24 11:32] LABS: Chol/HDL Ratio 6.5 (1-3.5); Cholesterol 213 mg/dl (140-200); HDL Cholesterol 33 mg/dl (40-60); Triglycerides 196 mg/dl (30-150); VLDL Cholesterol 39 mg/dL (0-40)
[2023-08-24 11:42] LABS: Direct LDL Cholesterol 106.25 mg/dL (100-129)
[2023-08-24 11:47] LABS: Bacteria,Urine Trace /lpf; RBC,Urine Occasional #/hpf (0-3); Squamous Epithelial Cell,Urine Occasional #/hpf (0-5)
[2023-08-24 11:50] LABS: Hemoglobin A1C 7.4 % (4.0-6.0)
[2023-08-25 13:30] LABS: Albumin 3.9 g/dL (2.9-4.4); Alpha-1-Globulin 0.2 g/dL (0.0-0.4); Alpha-2-Globulin 0.8 g/dL (0.4-1.0); Complement C3 121 mg/dL (82-167); Gamma Globulin 1.4 g/dL (0.4-1.8); Protein, Total 7.2 g/dL (6.0-8.5)
[2023-08-26 15:12] LABS: Albumin, U 67.7 % (.); Alpha-1-Globulin, U 3.3 % (.); Alpha-2-Globulin, U 4.3 % (.); Gamma Globulin, U 13.7 % (.); M-Spike, % 3.4 % (Not Observed)
[2023-08-27 09:59] LABS: PDF: SCANNED IMAGE
[2023-08-31 12:20] LABS: Miscellaneous Test SCANNED IMAGE
[2023-09-04 11:03] LABS: Anti-Glomerular Basement Membr < 20; PDF SCANNED IMAGE
[2023-09-04 11:04] LABS: Free Kappa Lt Chains 118.1
[2023-09-04 11:05] LABS: Cytoplasmic (C-ANCA) <1:20
[2023-09-04 11:06] LABS: Perinuclear (P-ANCA) <1:20
== END 2023-08-24 23:59 | disposition home or self-care (01) ==
PROVIDERS: PCP Nurse Practitioner Family; Visit Provider Nurse Practitioner
DX: R80.9 Proteinuria, unspecified; N18.4 Chronic kidney disease, stage 4 (severe); Z79.899 Other long term (current) drug therapy
CPT/HCPCS: 80061; 80069; 81001; 82570; 83036; 83516; 83883; 84155; 84156; 84165; 84166; 85014; 85018; 85048; 85049; 86161; 86256

== ENCOUNTER 2023-08-25 08:56 | Outpatient (POV) | payer MEDICARE, OTHER, SELFPAY | END 2023-08-25 23:59 | disposition home or self-care (01) | LOC: SC 08:57 | PROVIDERS: PCP Nurse Practitioner Family; Visit Provider Dermatology | DX: Z00.00 Encounter for general adult medical examination without abnormal findings (principal) ==

== ENCOUNTER 2023-10-07 08:26 | Outpatient (CLI) | payer MEDICARE, OTHER, SELFPAY ==
[2023-10-07 09:57] LABS: Creatinine,Urine Random 64 mg/dL (Not Estab.)
[2023-10-07 10:49] LABS: Collection Time,Urine 24 hours; Creatinine 24 Hour,Urine 1536 mg/24hr (630-2500); Total Volume,Urine 2400 mL (250-2400)
[2023-10-08 09:34] LABS: Miscellaneous Test SCANNED IMAGE
[2023-10-12 13:09] LABS: Albumin, U 69.7 % (.); Alpha-1-Globulin, U 3.5 % (.); Alpha-2-Globulin, U 3.6 % (.); Beta Globulin, U 10.5 % (.); Gamma Globulin, U 12.8 % (.); M-Spike, % Comment: % (Not Observed); Prot,24hr calculated 3925 mg/24 hr (30-150); Protein,Total,Urine 178.4 mg/dL (Not Estab.)
[2023-11-27 10:04] LABS: PDF: SCANNED IMAGE
== END 2023-10-07 23:59 | disposition home or self-care (01) ==
LOC: LAB.DROPOF 08:27
PROVIDERS: PCP Nurse Practitioner Family; Visit Provider Internal Medicine Nephrology
DX: R80.9 Proteinuria, unspecified (principal)
CPT/HCPCS: 82570; 84156; 84166; 86335

== ENCOUNTER 2023-10-19 08:29 | Outpatient (CLI) | payer MEDICARE, OTHER, SELFPAY ==
[2023-10-19 09:16] LABS: Albumin Level 4.1 g/dl (3.5-5.0); Anion Gap 10.4 mEq/L (5-15); Blood Urea Nitrogen 34 mg/dl (9-20); Carbon Dioxide 25 mmol/L (22.0-30.0); Chloride 108 mmol/L (98-107); Estimated Glomerular Filt Rate 28 ml/min (>60); GFR (African American) 34 ML/MIN (>60); Glucose 151 mg/dl (74-100); Phosphorous 4.1 mg/dl (2.5-4.5); Potassium 4.4 mmoL/L (3.5-5.1); Sodium 139 mmol/L (136-145)
== END 2023-10-19 23:59 | disposition home or self-care (01) ==
LOC: LAB 08:30
PROVIDERS: PCP Nurse Practitioner Family; Visit Provider Internal Medicine Nephrology
DX: N18.4 Chronic kidney disease, stage 4 (severe) (principal)
CPT/HCPCS: 36415; 80069

== ENCOUNTER 2023-11-19 08:35 | Outpatient (CLI) | payer MEDICARE, OTHER, SELFPAY ==
[2023-11-19 08:41] LABS: Microscopic, Urine URINE MICROSCOPIC (MICROSCOPIC)
[2023-11-19 08:59] LABS: Hematocrit 43.3 % (42.0-52.0); Mean Corpuscular HGB Conc 32.4 g/dL (31.8-35.4); Mean Corpuscular Hemoglobin 26.7 pg (27.0-31.2); Mean Corpuscular Volume 82.5 fl (80-94); Platelet Count 178 K/mm3 (142-424); Red Blood Count 5.25 M/mm3 (4.60-6.20); Red Cell Distribution Width 16.7 % (11.5-17.5); White Blood Count 14.7 K/mm3 (4.8-10.8)
[2023-11-19 09:00] LABS: Appearance,Urine CLEAR (Clear); Bilirubin,Urine Negative (Negative); Blood, Urine TRACE-I (Negative); Color,Urine YELLOW (Yellow); Glucose,Urine (UA) Negative (Negative); Ketones,Urine Negative (Negative); Leukocyte Esterase,Urine Negative (Negative); Nitrate,Urine Negative (Negative); Protein,Urine 2+ (Negative); Urobilinogen,Urine 0.2 EU/dl (0.2)
[2023-11-19 09:34] LABS: RBC,Urine Occasional #/hpf (0-3)
[2023-11-19 09:44] LABS: Albumin Level 4.1 g/dl (3.5-5.0); Chloride 112 mmol/L (98-107); Potassium 4.1 mmoL/L (3.5-5.1); Sodium 140 mmol/L (136-145)
[2023-11-19 09:47] LABS: Anion Gap 9.1 mEq/L (5-15); Blood Urea Nitrogen 34 mg/dl (9-20); Calcium 8.5 mg/dl (8.4-10.2); Carbon Dioxide 23 mmol/L (22.0-30.0); Estimated Glomerular Filt Rate 28 ml/min (>60); GFR (African American) 34 ML/MIN (>60); Glucose 96 mg/dl (74-100); Phosphorous 3.9 mg/dl (2.5-4.5)
== END 2023-11-19 23:59 | disposition home or self-care (01) ==
LOC: LAB 08:36
PROVIDERS: PCP Nurse Practitioner Family; Visit Provider Internal Medicine Nephrology
DX: N18.4 Chronic kidney disease, stage 4 (severe) (principal)
CPT/HCPCS: 36415; 80069; 81001; 85014; 85018; 85048; 85049

== ENCOUNTER 2023-11-20 08:19 | Outpatient (POV) | payer MEDICARE, OTHER, SELFPAY | END 2023-11-20 23:59 | disposition home or self-care (01) | LOC: SC 08:19 | PROVIDERS: Visit Provider Internal Medicine Nephrology | DX: Z00.00 Encounter for general adult medical examination without abnormal findings (principal) ==

== ENCOUNTER 2023-11-23 14:46 | Outpatient (CLI) | payer MEDICARE, OTHER, SELFPAY ==
[2023-11-23 14:54] LABS: Hemoglobin A1C 7.2 % (4.0-6.0)
== END 2023-11-23 23:59 | disposition home or self-care (01) ==
LOC: LAB.DROPOF 14:47
PROVIDERS: PCP Nurse Practitioner Family; Visit Provider Nurse Practitioner Family
DX: E11.9 Type 2 diabetes mellitus without complications (principal); Z79.4 Long term (current) use of insulin
CPT/HCPCS: 83036

== ENCOUNTER 2024-01-01 15:26 | Outpatient (CLI) | payer MEDICARE, OTHER, SELFPAY ==
--- NOTE | 2024-01-01 15:27 | CT_ITS ---
FINAL REPORT TECHNIQUE: TECHNIQUE: Axial CT without IV contrast administration using low dose protocol. This study was performed with techniques to keep radiation doses as low as reasonably achievable, (ALARA). Individualized dose reduction techniques using automated exposure control or adjustment of mA and/or kV according to the patient's size were employed. 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 74-year-old male, Current smoker, 30 pack year smoking history DOSE: CTDIvol: 2.9 mGy, DLP: 103.68 mGy*cm FINDINGS: No suspicious nodules are identified.. No pulmonary lesions are seen suspicious for neoplasm. There is scarring present in the lingula and right upper lobe, stable. No pleural or pericardial effusion is seen . There is significant axillary adenopathy. There is a right axillary node that has significantly increased in size, best seen on axial image #61. This axillary node was 9 mm, on today's exam measures 30 x 24 mm. There is mild increase in size of a subcarinal node, on today's exam 30 x 25 mm, was previously 24 x 16 mm. There is also increased adenopathy in the right hilum and the right lower paraspinal region. The thoracic aorta stent graft is again noted and stable in appearance. IMPRESSION: No suspicious pulmonary nodules are identified. Significant increase in adenopathy in the axilla, right hilum, and mediastinum as well as in the right lower paraspinal region. LUNG RADS CATEGORY 1S, the S designation for adenopathy. RECOMMENDATION: 12 month LDCT follow up Reviewed, Interpreted and Dictated by Cheng Ramos MD Transcribed by Antoinette Graham Authenticated and [facility]
== END 2024-01-01 23:59 | disposition home or self-care (01) ==
LOC: RAD 15:27
PROVIDERS: PCP Nurse Practitioner Family; Visit Provider Internal Medicine Pulmonary Disease
DX: F17.210 Nicotine dependence, cigarettes, uncomplicated (principal); R06.02 Shortness of breath; J44.9 Chronic obstructive pulmonary disease, unspecified; D84.9 Immunodeficiency, unspecified
CPT/HCPCS: 71271

== ENCOUNTER 2024-02-02 06:21 | Outpatient (CLI) | payer MEDICARE, OTHER, SELFPAY ==
--- NOTE | 2024-02-02 06:27 | CT_ITS ---
PROCEDURE INFORMATION: Exam: CT Abdomen And Pelvis Without Contrast Exam date and time: 02/02/2024 6:29 AM Age: 74 years old Clinical indication: Abdominal pain; Generalized; Additional info: Cll TECHNIQUE: Imaging protocol: Computed tomography of the abdomen and pelvis without contrast. Radiation optimization: All CT scans at this facility use at least one of these dose optimization techniques: automated exposure control; mA and/or kV adjustment per patient size (includes targeted exams where dose is matched to clinical indication); or iterative reconstruction. COMPARISON: CT ABDOMEN PELVIS W CON 09/17/2022 9:58 PM FINDINGS: Lungs: Basilar atelectasis Heart: There is calcification of the aortic valve annulus. There is calcification of the mitral valve annulus. Coronary arteries: Coronary artery calcifications may indicate coronary artery disease. Liver: The liver is heterogeneous. Ill-defined low-attenuation areas in the central portion of the liver series 3, image 25. Recommend liver MRI for further evaluation. The liver demonstrates punctate calcifications, consistent with remote granulomatous organism exposure. Gallbladder and biliary ducts: Normal. No calcified stones. No ductal dilation. Pancreas: Normal. No ductal dilation. Spleen: The spleen demonstrates punctate calcifications, consistent with remote granulomatous organism exposure. Adrenal glands: Normal. No mass. Kidneys and ureters: 17 mm simple cyst posterior left kidney Stomach and bowel: Diverticulosis and Bowel wall thickening along the rectosigmoid colon. Mild pericolonic inflammatory changes. No evidence of perforation or abscess formation or bleeding. Findings consistent with acute diverticulitis. (series 3 image [id number]). Appendix: No evidence of appendicitis. Intraperitoneal space: Unremarkable. No free air. No significant fluid collection. Vasculature: Stent in the distal aorta and extending into the common iliac arteries and external iliac arteries. [place] aorta measures 4.78 x 3.7 cm. [place] right common iliac artery 4.5 x 4.4 cm. [place] left common iliac artery 2.2 cm.. Lymph nodes: Large nodes in both inguinal regions. They were not present in September 2022. For example 3 large nodes on the left measure 31 x 23 mm; 35 x 25 mm and 40 x 20 mm enlarged nodes on the right as well for example 32 x 18 mm. Enlarged nodes adjacent to the external iliac vessels. For example on the left 3 x 2.4 cm on the right 3.4 x 2 cm. Additional enlarged nodes in the pelvis. Urinary bladder: Unremarkable as visualized. Reproductive: Unremarkable as visualized. Bones/joints: Unremarkable. No acute fracture. Soft tissues: Unremarkable. IMPRESSION: 1. Diverticulosis and Bowel wall thickening along the rectosigmoid colon. Mild pericolonic inflammatory changes. No evidence of perforation or abscess formation or bleeding. Findings consistent with acute diverticulitis. (series 3 image [id number]). 2. Stent in the distal aorta and extending into the common iliac arteries and external iliac arteries. [place] aorta measures 4.78 x 3.7 cm. [place] right common iliac artery 4.5 x 4.4 cm. [place] left common iliac artery 2.2 cm.. 3. Large nodes in both inguinal regions. They were not present in September 2022. For example 3 large nodes on the left measure 31 x 23 mm; 35 x 25 mm and 40 x 20 mm enlarged nodes on the right as well for example 32 x 18 mm. Likely secondary to CLL 4. Enlarged nodes adjacent to the external iliac vessels. For example on the left 3 x 2.4 cm on the right 3.4 x 2 cm. Additional enlarged nodes in the pelvis. Likely secondary to CLL COMMENTS: Consistent with the [employer]'s Incidental Findings Committee white paper (J Am Osvaldo Radiol 2018): Any incidental renal lesion less than 1 cm or classified as too small to characterize, or any incidental cystic renal lesion characterized as simple-appearing, is likely benign. No follow-up imaging is recommended for these lesions per consensus recommendations based on imaging criteria.
== END 2024-02-02 23:59 | disposition home or self-care (01) ==
PROVIDERS: PCP Nurse Practitioner Family; Visit Provider Internal Medicine Medical Oncology
DX: C91.10 Chronic lymphocytic leukemia of B-cell type not having achieved remission (principal)
CPT/HCPCS: 74176

== ENCOUNTER 2024-02-03 11:35 | Outpatient (CLI) | payer MEDICARE, OTHER, SELFPAY ==
[2024-02-03 11:47] LABS: Microscopic, Urine URINE MICROSCOPIC (MICROSCOPIC)
[2024-02-03 12:16] LABS: Basophils # 0.2 K/mm3 (0-0.2); Basophils % 0.8 % (0.1-2.0); Eosinophils # 0.6 K/mm3 (0.0-0.4); Eosinophils % 3.5 % (0.1-12.0); Hematocrit 39.3 % (42.0-52.0); Hemoglobin 13.3 g/dL (14.1-18.0); Lymphocytes # 12.1 K/mm3 (0.7-4.5); Lymphocytes % 70.6 % (10-50); Mean Corpuscular HGB Conc 33.9 g/dL (31.8-35.4); Mean Corpuscular Hemoglobin 27.6 pg (27.0-31.2); Mean Corpuscular Volume 81.2 fl (80-94); Mean Platelet Volume 8.5 fl (7.4-10.4); Monocytes # 0.4 K/mm3 (0.1-1.0); Monocytes % 2.2 % (1.7-9.3); Neutrophils # 3.9 K/mm3 (1.8-7.8); Neutrophils % 22.9 % (37.0-80.0); Platelet Count 174 K/mm3 (142-424); Red Blood Count 4.84 M/mm3 (4.60-6.20); Red Cell Distribution Width 17.8 % (11.5-17.5); White Blood Count 17.2 K/mm3 (4.8-10.8)
[2024-02-03 12:19] LABS: MANUAL DIFFERENTIAL MANUAL DIFFERENTIAL (MANUAL DIFF)
[2024-02-03 12:30] LABS: Activated Partial Thrombo Time 30.6 seconds (22.8-30.6); INR 1.05 (0.9-1.1); Prothrombin Time 11.7 seconds (10.1-12.5)
[2024-02-03 12:40] LABS: Appearance,Urine CLEAR (Clear); Bilirubin,Urine Negative (Negative); Blood, Urine TRACE-I (Negative); Color,Urine YELLOW (Yellow); Glucose,Urine (UA) Negative (Negative); Ketones,Urine Negative (Negative); Leukocyte Esterase,Urine Negative (Negative); Nitrate,Urine Negative (Negative); Protein,Urine 3+ (Negative); Specific Gravity, Urine >= 1.030 (1.005-1.030); Urobilinogen,Urine 0.2 EU/dl (0.2)
[2024-02-03 12:45] LABS: Alanine Aminotransferase 18 U/L (12-78); Albumin/Globulin Ratio 1.3 (1.1-1.8); Alkaline Phosphatase 75 U/L (38-126); Anion Gap 15.7 mEq/L (5-15); Aspartate Amino Transferase 18 U/L (17-59); Bilirubin,Total 0.6 mg/dl (0.2-1.3); Blood Urea Nitrogen 40 mg/dl (9-20); Calcium 8.7 mg/dl (8.4-10.2); Carbon Dioxide 21 mmol/L (22.0-30.0); Chloride 108 mmol/L (98-107); Estimated Glomerular Filt Rate 28 ml/min (>60); GFR (African American) 34 ML/MIN (>60); Glucose 116 mg/dl (74-100); Lactate Dehydrogenase 198 U/L (313-618); Potassium 4.7 mmoL/L (3.5-5.1); Sodium 140 mmol/L (136-145); Uric Acid 8.3 mg/dl (3.5-8.5)
[2024-02-03 12:46] LABS: Anion Gap 14.6 mEq/L (5-15); Blood Urea Nitrogen 40 mg/dl (9-20); Calcium 8.6 mg/dl (8.4-10.2); Carbon Dioxide 21 mmol/L (22.0-30.0); Chloride 110 mmol/L (98-107); Estimated Glomerular Filt Rate 28 ml/min (>60); GFR (African American) 34 ML/MIN (>60); Glucose 115 mg/dl (74-100); Phosphorous 4.1 mg/dl (2.5-4.5); Potassium 4.6 mmoL/L (3.5-5.1); Sodium 141 mmol/L (136-145)
[2024-02-03 12:54] LABS: Eosinophils % 6 % (0-3); Hypochromasia 1+; Lymphocytes % 73 % (10-50); Monocytes % 1 % (2-9); Neutrophils % 20 % (42-76); Platelet Estimate Normal; Total Cells Counted 100
[2024-02-03 12:57] LABS: Intact Parathyroid Hormone 147.2 pg/mL (7.5-53.5)
[2024-02-03 12:58] LABS: Bacteria,Urine Trace /lpf; RBC,Urine Occasional #/hpf (0-3); Squamous Epithelial Cell,Urine Occasional #/hpf (0-5)
[2024-02-03 12:59] LABS: Creatinine,Urine Random 115 mg/dL (Not Estab.)
[2024-02-03 13:20] LABS: 25-OH Vitamin D, Total 41.4 ng/mL (30-100)
== END 2024-02-03 23:59 | disposition home or self-care (01) ==
LOC: LAB 11:36
PROVIDERS: Internal Medicine Nephrology; PCP Nurse Practitioner Family; Visit Provider Internal Medicine Medical Oncology
DX: C91.10 Chronic lymphocytic leukemia of B-cell type not having achieved remission (principal); D68.9 Coagulation defect, unspecified; N18.4 Chronic kidney disease, stage 4 (severe)
CPT/HCPCS: 36415; 80053; 80069; 81001; 82306; 82570; 83615; 83970; 84156; 84550; 85007; 85025; 85027; 85610; 85730

== ENCOUNTER 2024-02-22 14:01 | Outpatient (CLI) | payer MEDICARE, OTHER, SELFPAY ==
[2024-02-22 14:00] LABS: Hemoglobin A1C 6.8 % (4.0-6.0)
== END 2024-02-22 23:59 | disposition home or self-care (01) ==
LOC: LAB.DROPOF 14:01
PROVIDERS: PCP Nurse Practitioner Family; Visit Provider Nurse Practitioner Family
DX: E11.9 Type 2 diabetes mellitus without complications (principal)
CPT/HCPCS: 83036

== ENCOUNTER 2024-03-08 09:33 | Outpatient (CLI) | payer MEDICARE, OTHER, SELFPAY ==
[2024-03-08 10:07] LABS: Basophils # 0.2 K/mm3 (0-0.2); Basophils % 1.2 % (0.1-2.0); Eosinophils # 0.5 K/mm3 (0.0-0.4); Eosinophils % 2.8 % (0.1-12.0); Hematocrit 38.5 % (42.0-52.0); Hemoglobin 12.8 g/dL (14.1-18.0); Lymphocytes # 13.8 K/mm3 (0.7-4.5); Lymphocytes % 75.8 % (10-50); Mean Corpuscular HGB Conc 33.2 g/dL (31.8-35.4); Mean Corpuscular Hemoglobin 27.8 pg (27.0-31.2); Mean Corpuscular Volume 83.8 fl (80-94); Mean Platelet Volume 8.3 fl (7.4-10.4); Monocytes # 0.4 K/mm3 (0.1-1.0); Neutrophils # 3.3 K/mm3 (1.8-7.8); Neutrophils % 18.2 % (37.0-80.0); Platelet Count 161 K/mm3 (142-424); Red Cell Distribution Width 18.1 % (11.5-17.5); White Blood Count 18.2 K/mm3 (4.8-10.8)
[2024-03-08 10:11] LABS: Albumin Level 4.1 g/dl (3.5-5.0); Chloride 108 mmol/L (98-107); Sodium 139 mmol/L (136-145)
[2024-03-08 10:12] LABS: Potassium 4.6 mmoL/L (3.5-5.1)
[2024-03-08 10:14] LABS: Alanine Aminotransferase 24 U/L (12-78); Albumin/Globulin Ratio 1.4 (1.1-1.8); Alkaline Phosphatase 78 U/L (38-126); Anion Gap 13.6 mEq/L (5-15); Aspartate Amino Transferase 23 U/L (17-59); Bilirubin,Total 0.6 mg/dl (0.2-1.3); Blood Urea Nitrogen 40 mg/dl (9-20); Carbon Dioxide 22 mmol/L (22.0-30.0); Estimated Glomerular Filt Rate 22 ml/min (>60); GFR (African American) 27 ML/MIN (>60); Globulin 2.9 g/dL (1.3-3.2)
[2024-03-08 10:15] LABS: Calcium 8.3 mg/dl (8.4-10.2); Glucose 220 mg/dl (74-100)
[2024-03-08 10:21] LABS: MANUAL DIFFERENTIAL MANUAL DIFFERENTIAL (MANUAL DIFF)
[2024-03-08] MEDS: DEXAMETHASONE 4MG TABLET 12 MG (10:52)
[2024-03-08] MEDS: diphenhydrAMINE 50MG CAPSULE 50 MG PO (10:53)
[2024-03-08] MEDS: ACETAMINOPHEN 325MG TAB 650 MG (10:53)
[2024-03-08] MEDS: ONDANSETRON 4MG ODT 16 MG (10:53)
[2024-03-08] MEDS: BENDAMUSTINE HCL IV (11:36)
[2024-03-08] MEDS: SODIUM CHLORIDE 0.9% IV (11:36)
[2024-03-08] MEDS: SODIUM CHLORIDE 0.9% 50ML BAG 50 ML IV (11:36)
[2024-03-08 11:40] VITALS: BP 145/77; PULSE 58; RESP 18; O2SAT 96
[2024-03-08 11:55] VITALS: BP 150/79; PULSE 56; RESP 18; O2SAT 96
[2024-03-08 12:26] VITALS: BP 131/69; PULSE 58; RESP 18; O2SAT 96
[2024-03-08 13:59] LABS: Lymphocytes % 78 % (10-50); Monocytes % 4 % (2-9); Neutrophils % 18 % (42-76); Platelet Estimate Normal; RBC Morphology Normal; Total Cells Counted 100
== END 2024-03-08 12:26 | disposition home or self-care (01) ==
LOC: INF 09:34
PROVIDERS: PCP Internal Medicine Adolescent Medicine; Visit Provider Internal Medicine Medical Oncology
DX: C91.10 Chronic lymphocytic leukemia of B-cell type not having achieved remission (principal)
CPT/HCPCS: 80053; 85007; 85025; 96413; J8540; J9034; Q0162

== ENCOUNTER 2024-03-09 08:52 | Outpatient (CLI) | payer MEDICARE, OTHER, SELFPAY ==
[2024-03-09] MEDS: SODIUM CHLORIDE 0.9% 50ML BAG 50 ML IV (09:07)
[2024-03-09] MEDS: ACETAMINOPHEN 325MG TAB 650 MG PO (09:08)
[2024-03-09] MEDS: ONDANSETRON 4MG ODT 16 MG SL (09:08)
[2024-03-09] MEDS: diphenhydrAMINE 50MG CAPSULE 50 MG PO (09:09)
[2024-03-09] MEDS: DEXAMETHASONE 4MG TABLET 12 MG PO (09:10)
[2024-03-09] MEDS: BENDAMUSTINE HCL IV (09:41)
[2024-03-09] MEDS: SODIUM CHLORIDE 0.9% IV (09:41)
[2024-03-09 09:48] VITALS: BP 167/96; PULSE 70; RESP 18; TEMP 36.9; O2SAT 99
[2024-03-09 10:30] VITALS: BP 166/95; PULSE 68; RESP 18; TEMP 36.6; O2SAT 96
== END 2024-03-09 10:30 | disposition home or self-care (01) ==
LOC: INF 08:53
PROVIDERS: PCP Nurse Practitioner Family; Visit Provider Internal Medicine Medical Oncology
DX: C91.10 Chronic lymphocytic leukemia of B-cell type not having achieved remission (principal)
CPT/HCPCS: 96413; J8540; J9034; Q0162

== ENCOUNTER 2024-03-17 10:07 | Inpatient (IN) | payer MEDICARE, OTHER, SELFPAY ==
[2024-03-17] VITALS (10 sets, daily range): BP systolic 116–138; BP diastolic 69–108; PULSE 59–80; RESP 16–20; TEMP 36.6–36.7; O2SAT 94–98; BMI 29.9; BMI 30.9
--- NOTE | 2024-03-17 10:25 | ED_ITS ---
Discharge Plan Disposition Patient Disposition: Admitted Clinical Impressions Clinical Impression: Ribs, multiple fractures, Fall Discharge ED Provider: Mando Chirinos Adult HPI General Chief complaint: Fall Stated complaint: fall Time Seen by Provider: 03/17/24 10:25 History of Present Illness HPI narrative: The patient presents to the emergency department with a chief complaint of back pain following a fall. The pain is located in the middle of his back on the right side and increases with movement. He denies any neck pain or abdominal pain. The patient reports no pain in his arms or legs. The patient experienced two falls this morning, first while attempting to make coffee and then when trying to sit in a chair. He did hit his head during the fall. The patient has a history of CLL and recently underwent two chemotherapy infusions last week, which resulted in significant sickness and a possible exacerbation of dementia, leading to increased disorientation. The patient is currently on Eliquis for anticoagulation therapy and has noticeable bruising on his arms. Crackling was heard in the patient's lungs during examination. The patient has a history of reduced kidney function, with only one kidney functioning at 24%. The patient denies any other specific symptoms related to the fall or his current condition. Please note that above description of symptoms, in this electronic medical record under categorization of recalled from ER triage doctor by RN are reflective of an initial nursing assessment, however, is not reflective of my full history and physical exam that was personally taken and clarified. Consequentially, this preceding description of symptoms, which may include the patient's categorized chief complaint in the EMR, do not reflect my personal clinical impression, and the ultimate description of history of present illness and patient stated complaints should be deferred to this section of the note. Unless stated otherwise or congruent with this section of the note, additional signs, symptoms, or incongruence should be interpreted as inaccurate with my clinical impression. Related Data Home Medications ?Medication ?Instructions ?Recorded ?Confirmed hydroxychloroquine 200 mg tablet 200 mg PO BID 12/03/22 03/17/24 losartan 25 mg tablet 25 mg PO PM 02/15/24 03/17/24 albuterol sulfate 90 mcg/actuation 2 puff inhalation Q6HP PRN Asthma 03/17/24 03/17/24 aerosol inhaler amlodipine 10 mg tablet 10 mg PO DAILY 03/17/24 03/17/24 citalopram 20 mg tablet 20 mg PO DAILY 03/17/24 03/17/24 insulin NPH-regular 70-30 U-100 15 unit SQ DAILY 03/17/24 03/17/24 insulin 100 unit/mL subcutaneous pen (Humulin 70/30 U-100 KwikPen) insulin glargine 100 unit/mL (3 20 unit SQ HS 03/17/24 03/17/24 mL) subcutaneous pen (Lantus Solostar U-100 Insulin) prochlorperazine maleate 10 mg 10 mg PO Q6HP PRN nausea and 03/17/24 03/17/24 tablet (Compazine) vomiting tamsulosin 0.4 mg capsule 0.8 mg PO DAILY 03/17/24 03/17/24 Previous Rx's ?Medication ?Instructions ?Recorded furosemide 40 mg tablet (Lasix) 40 mg PO DAILY #30 tabs 04/20/23 quetiapine 25 mg tablet 50 mg (2 x 25 mg) PO HS #180 tabs 06/01/23 fluticasone fur. 200 mcg-umeclid 1 inh inhalation DAILY #60 ea 11/23/23 62.5 mcg-vilant 25 mcg inhalat.powder (Trelegy Ellipta) diazepam 2 mg tablet 2 mg PO HS #30 tabs 01/04/24 apixaban 2.5 mg tablet (Eliquis) 2.5 mg PO BID #60 tabs 03/07/24 metoprolol succinate 100 mg 100 mg PO DAILY #30 tabs 03/07/24 tablet,extended release 24 hr allopurinol 300 mg tablet 300 mg PO BID #60 tabs 03/09/24 Allergies Allergy/AdvReac Type Severity Reaction Status Date / Time moxifloxacin (From Avelox) Allergy Intermediate I-RASH Verified 02/23/24 11:08 sulfamethoxazole (From Allergy Unknown UNKNOWN Verified 02/23/24 11:08 Bactrim) trimethoprim (From Bactrim) Allergy Unknown Verified 02/23/24 11:08 [facility] Disclaimer: The information contained in this section may have been updated after the patient was seen, as this information can be updated by other users. Medical History Left-sided epistaxis He does have poor airflow through his nasal cavity but is doing his best to keep this as moist as possible. Being on the blood thinner obviously makes the bleeding last longer but I see no signs of active eating or clot formation at this time. 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 Fajardo H/O colonoscopy 2018 History of knee replacement History of hernia repair History of nephrectomy right r/t cancer History of appendectomy Status post functional endoscopic sinus surgery Family History Father Cancer lung-Asbestos Mother Heart attack Hypertension Brother Diabetes Sister Hypertension Social History Smoking Status: Current every day smoker tobacco type: cigarettes packs per day: 1 years smoked: 40 alcohol intake: current alcohol intake frequency: holidays/special occasions only substance use type: denies use current occupational status: retired Travel in the last 8 weeks: None household members: spouse housing: house marital status: education level: high school caffeine: Yes special pilo needs: No do you feel safe at home: Yes victim of physical abuse: No victim of emotional abuse: No victim of sexual abuse: No would you like helpful sources: No Have you lived/traveled outside [place] in past 30 days?: No Contact w/someone who lives/traveled outside US past 30 days?: No Exposure to someone with infectious disease in past 14 days?: No Do you have a fever (greater than 100.4 F or 38 C)?: No Have you tested positive for COVID-19: No Exposed to someone with COVID-19 in past 14 days?: No Do you have a sore throat?: No Do you have a cough?: No Do you have any weakness?: No Do you have any diarrhea?: No Are you experiencing any unusual bleeding?: No Do you have any muscle aches/pain?: No Do you have any abdominal pain?: No Are you experiencing loss of taste or smell?: No Other Medical History Have you received the Flu Vaccine for this season: No Have you received the Pneumonia Vaccine: Yes ROS Obtained: Yes other As per HPI Physical Exam General General appearance: alert and in no apparent distress Head Head exam: atraumatic and normocephalic Eye Eye exam: Present normal appearance Neck Neck exam: Present normal inspection Chest Chest inspection: Present normal inspection and symmetric chest wall rise Respiratory Respiratory exam: Present normal lung sounds bilaterally; Absent respiratory distress Cardiovascular Cardiovascular exam: Present regular rate and normal rhythm Abdominal Exam Abdominal exam: Present soft Neurological Exam Neurological exam: Present alert and oriented X3 Psychiatric Psychiatric exam: Present normal affect and normal mood Skin Skin exam: Present warm and dry Other Other exam information: Right-sided chest wall tenderness to palpation, ecchymosis over bilateral forearms Medical Decision Making Medical Records Medical records reviewed: Yes I reviewed the patient's medical records. Screening: Per USPSTF and CDC recommendations, given the prevalence of disease in our region, it is our hospital?s policy to screen for HIV and viral Hepatitis for all patients aged 18 and over and those with ongoing risk factors. Fco Inquiry Pt receiving controlled substance: No Vital Signs: 03/17/24 10:07 03/17/24 10:30 03/17/24 11:00 Temperature 98.0 F Temperature Source Oral Pulse Rate 64 63 Pulse Rate [Left Radial] 65 Respiratory Rate 18 Blood Pressure 124/72 126/72 Blood Pressure [Right Arm] 125/108 H Blood Pressure Mean Blood Pressure Mean [Right Arm] 113 Blood Pressure Source Blood Pressure Source [Right Arm] Blood Pressure Position [Right Arm] 02 Sat by Pulse Oximetry 97 96 94 L Oxygen Delivery Method Room Air Room Air Room Air 03/17/24 12:00 03/17/24 12:30 03/17/24 13:00 Temperature Temperature Source Pulse Rate 62 61 61 Pulse Rate [Left Radial] Respiratory Rate Blood Pressure 125/69 125/74 130/74 Blood Pressure [Right Arm] Blood Pressure Mean 84 90 Blood Pressure Mean [Right Arm] Blood Pressure Source Blood Pressure Source [Right Arm] Blood Pressure Position [Right Arm] 02 Sat by Pulse Oximetry 94 L 95 95 Oxygen Delivery Method Room Air Room Air Room Air 03/17/24 13:30 03/17/24 14:50 03/17/24 14:56 Temperature 97.9 F 98.0 F Temperature Source Oral Oral Pulse Rate 61 80 Pulse Rate [Left Radial] 59 L Respiratory Rate 18 20 Blood Pressure 138/81 133/79 Blood Pressure [Right Arm] 127/75 Blood Pressure Mean 89 Blood Pressure Mean [Right Arm] 92 Blood Pressure Source Automatic Cuff Blood Pressure Source [Right Arm] Automatic Cuff Blood Pressure Position [Right Arm] Supine 02 Sat by Pulse Oximetry 98 95 Oxygen Delivery Method Room Air Room Air Room Air Lab Data Lab Results 03/17/24 10:18: WBC 11.1 H, RBC 4.27 L, Hgb 12.0 L, Hct 36.1 L, MCV 84.5, MCH 28.1, MCHC 33.3, RDW 17.9 H, Plt Count 179, MPV 8.8, Neut % (Auto) 43.4, Lymph % (Auto) 52.3 H, [place] % (Auto) 1.3 L, Eos % (Auto) 2.5, Baso % (Auto) 0.5, Neut # (Auto) 4.8, Lymph # (Auto) 5.8 H, [place] # (Auto) 0.2, Eos # (Auto) 0.3, Baso # (Auto) 0.1, Total Counted 100, Neutrophils % (Manual) 35 L, Lymphocytes % (Manual) 63 H, Monocytes % (Manual) 1 L, Eosinophils % (Manual) 1, Platelet Estimate Normal, RBC Morphology Normal, PT 11.5, INR 1.03, Sodium 131 L, Potassium 5.0, Chloride 108 H, Carbon Dioxide 19 L, Anion Gap 9.0, BUN 60 H, C reatinine 2.70 H, Estimated Creat Clear 35, Estimated GFR 23 L, Est GFR ( Amer) 28 L, Glucose 245 H, Calcium 8.6, Magnesium 2.0, Total Bilirubin 0.8, AST 25, ALT 18, Alkaline Phosphatase 73, Total Creatine Kinase 35 L, Troponin I < 0.01, NT-Pro-B Natriuret Pep 696 H, Total Protein 6.6, Albumin 3.9, Globulin 2.7, Albumin/Globulin Ratio 1.4 03/17/24 13:12: Urine Color Yellow, Urine Appearance Clear, Urine pH 5.5, Ur Specific [place] 1.025, Urine Protein 2+ A, Urine Glucose (UA) Negative, Urine Ketones Negative, Urine Blood Negative, Urine Nitrate Negative, Urine Bilirubin Negative, Urine Urobilinogen 0.2, Ur Leukocyte Esterase Negative, Urine RBC None, Urine WBC None, Ur Squamous Epith Cells Occasional, Urine Bacteria None, Hyaline Casts Occ 03/17/24 10:18 03/17/24 10:18 Orders (Tests/Meds): ED MEDICATIONS Generic Name Dose Route Start Last Admin Trade Name John PRN Reason Stop Dose Admin Acetaminophen 650 mg 03/17/24 16:30 Acetaminophen 325mg Tab PO 04/16/24 16:29 Q4HP PRN Fever or Mild Pain (1-3) Hydrocodone Bitart/Acetaminophen 1 tab 03/17/24 16:30 Hydrocodone/Apap 5/325 Mg Tablet PO 04/16/24 16:29 Q4HP PRN Mild to Moderate Pain (1-6) Hydrocodone Bitart/Acetaminophen 2 tab 03/17/24 16:30 Hydrocodone/Apap 5/325 Mg Tablet PO 04/16/24 16:29 Q4HP PRN Moderate to Severe Pain (4-10) Enoxaparin Sodium 30 mg 03/18/24 09:00 Enoxaparin 40mg/0.4ml Syringe SUBCUT 04/17/24 08:59 DAILY [facility] Insulin Human Lispro 0 unit 03/17/24 21:00 Humalog 100 Units/Ml 10ml Vial ([facility]) SUBCUT 04/16/24 20:59 ACHS JOSE RAUL Protocol Discontinued Medications Generic Name Dose Route Start Last Admin Trade Name John PRN Reason Stop Dose Admin Hydromorphone HCl 0.5 mg 03/17/24 10:55 03/17/24 11:07 Hydromorphone 4 Mg/Ml Syringe IV 03/17/24 10:56 Not Given ONCE ONE Hydromorphone HCl 0.5 mg 03/17/24 11:15 03/17/24 11:10 Hydromorphone 2mg/Ml Syringe IV 03/17/24 11:16 0.5 mg ONCE ONE Administration Morphine Sulfate 4 mg 03/17/24 14:47 Morphine 4mg/Ml Syringe IV 03/17/24 14:48 ONCE ONE ORDERS Category Date Time Status CT abdomen pelvis wo con Stat Cat Scan 03/17/24 10:[address] cervical spine wo con Stat Cat Scan 03/17/24 10:[address] chest wo con Stat Cat Scan 03/17/24 10:[address] head/brain wo con Stat Cat Scan 03/17/24 10:[address] lumbar spine wo con Stat Cat Scan 03/17/24 10:[address] thoracic spine wo con Stat Cat Scan 03/17/24 10:56 Completed BNP [NT Pro Brain Natriuretic Pep.] Stat Lab 03/17/24 10:18 Completed CBC w/Auto Diff [Complete Blood Count Auto Diff] Stat Lab 03/17/24 10:18 Completed CK [Creatine Kinase] Stat Lab 03/17/24 10:18 Completed CMP [Comprehensive Metabolic Panel] Stat Lab 03/17/24 10:18 Completed HIV (1&2) Antibody Rapid Stat Lab 03/17/24 10:18 Received Hep C Ab with Reflex to RNA Stat Lab 03/17/24 10:18 Received MAG [Magnesium] Stat Lab 03/17/24 10:18 Completed PT INR [Prothrombin Time INR] Stat Lab 03/17/24 10:18 Completed Troponin I Q3H Lab 03/17/24 10:18 Completed Troponin I Q3H Lab 03/17/24 15:00 Completed Urinalysis and Microscopic Stat Lab 03/17/24 13:12 Completed Medical Decision Narrative: Patient with history and exam per above presenting for evaluation of pain following fall Diagnoses considered include fracture, vascular injury, nerve injury, hemorrhage, among others ED workup and treatment included: ED MEDICATIONS Generic Name Dose Route Start Last Admin Trade Name Freq PRN Reason Stop Dose Admin Acetaminophen 650 mg 03/17/24 16:30 Acetaminophen 325mg Tab PO 04/16/24 16:29 Q4HP PRN Fever or Mild Pain (1-3) Hydrocodone Bitart/Acetaminophen 1 tab 03/17/24 16:30 Hydrocodone/Apap 5/325 Mg Tablet PO 04/16/24 16:29 Q4HP PRN Mild to Moderate Pain (1-6) Hydrocodone Bitart/Acetaminophen 2 tab 03/17/24 16:30 Hydrocodone/Apap 5/325 Mg Tablet PO 04/16/24 16:29 Q4HP PRN Moderate to Severe Pain (4-10) Enoxaparin Sodium 30 mg 03/18/24 09:00 Enoxaparin 40mg/0.4ml Syringe SUBCUT 04/17/24 08:59 DAILY JOSE RAUL Insulin Human Lispro 0 unit 03/17/24 21:00 Humalog 100 Units/Ml 10ml Vial (Ssi) SUBCUT 04/16/24 20:59 ACHS JOSE RAUL Protocol Discontinued Medications Generic Name Dose Route Start Last Admin Trade Name John PRN Reason Stop Dose Admin Hydromorphone HCl 0.5 mg 03/17/24 10:55 03/17/24 11:07 Hydromorphone 4 Mg/Ml Syringe IV 03/17/24 10:56 Not Given ONCE ONE Hydromorphone HCl 0.5 mg 03/17/24 11:15 03/17/24 11:10 Hydromorphone 2mg/Ml Syringe IV 03/17/24 11:16 0.5 mg ONCE ONE Administration Morphine Sulfate 4 mg 03/17/24 14:47 Morphine 4mg/Ml Syringe IV 03/17/24 14:48 ONCE ONE ORDERS Category Date Time Status CT abdomen pelvis wo con Stat Cat Scan 03/17/24 10:[address] cervical spine wo con Stat Cat Scan 03/17/24 10:[address] chest wo con Stat Cat Scan 03/17/24 10:[address] head/brain wo con Stat Cat Scan 03/17/24 10:[address] lumbar spine wo con Stat Cat Scan 03/17/24 10:[address] thoracic spine wo con Stat Cat Scan 03/17/24 10:56 Completed BNP [NT Pro Brain Natriuretic Pep.] Stat Lab 03/17/24 10:18 Completed CBC w/Auto Diff [Complete Blood Count Auto Diff] Stat Lab 03/17/24 10:18 Completed CK [Creatine Kinase] Stat Lab 03/17/24 10:18 Completed CMP [Comprehensive Metabolic Panel] Stat Lab 03/17/24 10:18 Completed HIV (1&2) Antibody Rapid Stat Lab 03/17/24 10:18 Received Hep C Ab with Reflex to RNA Stat Lab 03/17/24 10:18 Received MAG [Magnesium] Stat Lab 03/17/24 10:18 Completed PT INR [Prothrombin Time INR] Stat Lab 03/17/24 10:18 Completed Troponin I Q3H Lab 03/17/24 10:18 Completed Troponin I Q3H Lab 03/17/24 15:00 Completed Urinalysis and Microscopic Stat Lab 03/17/24 13:12 Completed Labs were independently interpreted by me, significant for no acute findings Imaging was independently visualized and interpreted by me, significant for posterior rib fractures of 2 ribs on right Please refer to radiology report for full details. Patient will benefit from admission for further management of preceding concern for delirium as well as treatment of rib fractures. Patient was accepted for admission by hospitalist after general surgery consultation. Critical Care Critical Care Time Critical Care Time: No
--- NOTE | 2024-03-17 10:55 | CT_ITS ---
FINAL REPORT TECHNIQUE: Axial CT images were performed from the lung apices through the upper abdomen. Coronal and sagittal reformats were submitted. This study was performed with techniques to keep radiation doses as low as reasonably achievable (ALARA). Individualized dose reduction techniques using automated exposure control or adjustment of mA and/or kV according to the patient's size were employed. CLINICAL HISTORY: fall, back pain/rib pain, on BT, hx CKD, CLL COMPARISON: 01/01/2024 FINDINGS: There is no axillary adenopathy. There are multiple small and borderline in size lymph nodes present in the upper chest. These are stable since the prior exam. Postoperative changes are present in the left axilla. There are mild changes of emphysema and mild scarring noted in the lung chang bilaterally. Posterior left upper lobe/lingular opacities are noted, atelectasis or pneumonia. A thoracic aorta stent graft is again identified. Heart size is normal. There is no pericardial or pleural effusion. Right sixth and seventh posterior rib fractures are present, with adjacent pleural thickening and/or hemorrhage. No evidence of pneumothorax is seen. IMPRESSION: Right sixth and seventh posterior rib fractures, with adjacent pleural thickening and/or hemorrhage. No evidence of pneumothorax is seen. Posterior left upper lobe and lingular opacities are noted, atelectasis or pneumonia. Reviewed, Interpreted and Dictated by Eder Hopkins III, MD Transcribed by Antoinette Graham Authenticated and . [facility]
--- NOTE | 2024-03-17 10:55 | CT_ITS ---
FINAL REPORT CLINICAL HISTORY: fall, R sided pain, on BT, hx CKD, CLL COMPARISON: 09/17/2022 FINDINGS: Axial CT images of the abdomen and pelvis were obtained without intravenous contrast. Coronal and sagittal reformatted images were also obtained.This study was performed with techniques to keep radiation doses as low as reasonably achievable (ALARA). Individualized dose reduction techniques using automated exposure control or adjustment of mA and/or kV according to the patient's size were employed. Abdomen: An aortic stent graft is noted. The aneurysmal sac of the aortic portion of the graft measures 45 mm in diameter, was previously 45 mm. There is an aneurysmal sac as well involving the right inguinal artery, which also measures 45 mm in diameter, was previously 45 mm. Graft endoleak is not excluded, and CTA of the abdomen and pelvis, nonemergent, is recommended as clinically indicated to evaluate graft endoleak. Evidence of a right nephrectomy is once again seen. A small left renal cyst is once again noted, stable. The liver, spleen and pancreas have an unremarkable, unenhanced appearance. No mass or adenopathy is seen. No inflammatory process is identified. Pelvis: Images of the pelvis reveal no evidence of ureteral dilation or ureteral stone.No mass or abnormal fluid collection is identified. Multiple colonic diverticula are noted, without evidence of acute inflammatory change. There are small inguinal hernias present, containing fat. IMPRESSION: Aortic stent graft, with the aneurysmal sac involving the abdominal aorta and the aneurysmal sac in the right inguinal region stable since the prior CT. Left endoleak however is not excluded, and a nonemergent CTA of the abdomen and pelvis would be helpful to evaluate any potential graft endoleak as clinically indicated. Note acute intra-abdominal abnormality is identified. Reviewed, Interpreted and Dictated by Eder Hopkins III, MD Transcribed by Antoinette Graham Authenticated and [facility]
--- NOTE | 2024-03-17 10:56 | CT_ITS ---
FINAL REPORT CLINICAL HISTORY: fall, back pain, on BT, hx CKD, CLL COMPARISON: None FINDINGS: Axial CT images of the thoracic spine were obtained without contrast. Sagittal and coronal reformatted images were also obtained. This study was performed with techniques to keep radiation doses as low as reasonably achievable (ALARA). Individualized dose reduction techniques using automated exposure control or adjustment of mA and/or kV according to the patient's size were employed. There is no evidence of fracture. Moderate degenerative change is present with multilevel osteophytes. The vertebral alignment is normal. There is no evidence of significant canal stenosis. Mild scarring is noted in the lung chang bilaterally. A thoracic aortic stent graft is present as well. IMPRESSION: No fracture or acute bony abnormality. Moderate degenerative change with multilevel osteophytes is present. No significant central canal stenosis. Reviewed, Interpreted and Dictated by Eder Hopkins III, MD Transcribed by Antoinette Graham Authenticated and . [facility]
--- NOTE | 2024-03-17 10:56 | CT_ITS ---
FINAL REPORT CLINICAL HISTORY: fall, back pain, on BT, hx CKD, CLL COMPARISON: 03/16/2023. FINDINGS: Axial CT images of the cervical spine were obtained without contrast. Sagittal and coronal reformatted images were also obtained. This study was performed with techniques to keep radiation doses as low as reasonably achievable (ALARA). Individualized dose reduction techniques using automated exposure control or adjustment of mA and/or kV according to the patient''s size were employed. There is no evidence of fracture or dislocation. The bony alignment is normal. Moderate and severe degenerative changes present predominantly in the lower cervical spine, with multilevel osteophytes. There is neural foraminal narrowing, most severe at the C6-7 level, as well as mild canal stenosis, most severe at the C5-6 and C6-7 levels. Note is made of multiple small and borderline in size cervical nodes, which are stable since the prior exam of 03/16/2023. These are nonspecific, favor reactive. Limited images of the upper thorax are unremarkable. IMPRESSION: Multilevel degenerative change as described above is present, without evidence of acute bony abnormality. Multiple small and bilateral in size cervical nodes, stable and nonspecific, favor reactive. Reviewed, Interpreted and Dictated by Eder Hopkins III, MD Transcribed by Antoinette Graham Authenticated and [facility]
--- NOTE | 2024-03-17 10:56 | CT_ITS ---
FINAL REPORT CLINICAL HISTORY: fall, back pain, on BT, hx CKD, CLL COMPARISON: 03/16/2023 FINDINGS: Axial images of the head were obtained without contrast. Coronal and sagittal reformatted images were also obtained. This study was performed with techniques to keep radiation doses as low as reasonably achievable (ALARA). Individualized dose reduction techniques using automated exposure control or adjustment of mA and/or kV according to the patient' s size were employed. There is generalized age-appropriate atrophy. Periventricular low-attenuation areas are seen consistent with moderate chronic ischemic changes. There is no evidence of intracranial hemorrhage or mass. There is no evidence of acute infarct. There is no evidence of shift of the midline structures. There is mucosal thickening throughout the paranasal sinuses. IMPRESSION: Atrophy and moderate periventricular chronic ischemic changes. No acute intracranial abnormality identified. Mucosal thickening is present throughout the paranasal sinuses. Reviewed, Interpreted and Dictated by Eder Hopkins III, MD Transcribed by Antoinette Graham Authenticated and [facility]
--- NOTE | 2024-03-17 10:56 | CT_ITS ---
FINAL REPORT TECHNIQUE: Axial imaging of the lumbar spine was obtained without contrast. Reformatted images were also obtained and reviewed.This study was performed with techniques to keep radiation doses as low as reasonably achievable, (ALARA). Individualized dose reduction techniques using automated exposure control or adjustment of mA and/or kV according to the patient's size were employed. CLINICAL HISTORY: fall, back pain, on BT, hx CKD, CLL FINDINGS: There is no acute fracture or subluxation. The vertebra are normal height. There are moderate degenerative changes with multilevel neuroforaminal narrowing. There is mild retrolisthesis of L2 on L3. Facets are properly aligned. Note is made of an aortic stent graft. There are postoperative changes of right nephrectomy. IMPRESSION: No acute bony abnormality. Degenerative changes as above. Reviewed, Interpreted and Dictated by Eder Hopkins III, MD Transcribed by Mandy Barreto Authenticated and [facility]
[2024-03-17 11:05] LABS: Albumin Level 3.9 g/dl (3.5-5.0); Basophils # 0.1 K/mm3 (0-0.2); Basophils % 0.5 % (0.1-2.0); Chloride 108 mmol/L (98-107); Eosinophils # 0.3 K/mm3 (0.0-0.4); Eosinophils % 2.5 % (0.1-12.0); Hematocrit 36.1 % (42.0-52.0); Lymphocytes # 5.8 K/mm3 (0.7-4.5); Lymphocytes % 52.3 % (10-50); Mean Corpuscular HGB Conc 33.3 g/dL (31.8-35.4); Mean Corpuscular Hemoglobin 28.1 pg (27.0-31.2); Mean Corpuscular Volume 84.5 fl (80-94); Mean Platelet Volume 8.8 fl (7.4-10.4); Monocytes # 0.2 K/mm3 (0.1-1.0); Monocytes % 1.3 % (1.7-9.3); Neutrophils # 4.8 K/mm3 (1.8-7.8); Neutrophils % 43.4 % (37.0-80.0); Platelet Count 179 K/mm3 (142-424); Red Blood Count 4.27 M/mm3 (4.60-6.20); Red Cell Distribution Width 17.9 % (11.5-17.5); White Blood Count 11.1 K/mm3 (4.8-10.8)
[2024-03-17 11:06] LABS: Sodium 131 mmol/L (136-145)
[2024-03-17 11:08] LABS: Alanine Aminotransferase 18 U/L (12-78); Albumin/Globulin Ratio 1.4 (1.1-1.8); Aspartate Amino Transferase 25 U/L (17-59); Blood Urea Nitrogen 60 mg/dl (9-20); Carbon Dioxide 19 mmol/L (22.0-30.0); Creatinine Clearance Estimated 35 mL/min (50-200); Estimated Glomerular Filt Rate 23 ml/min (>60); GFR (African American) 28 ML/MIN (>60); Globulin 2.7 g/dL (1.3-3.2); Total Protein,Serum 6.6 g/dl (6.3-8.2)
[2024-03-17 11:09] LABS: Alkaline Phosphatase 73 U/L (38-126); Bilirubin,Total 0.8 mg/dl (0.2-1.3); Calcium 8.6 mg/dl (8.4-10.2); Creatine Kinase 35 U/L (55-170); Glucose 245 mg/dl (74-100)
[2024-03-17] MEDS: HYDROMORPHONE 2MG/ML SYRINGE 0.5 MG IV (11:10)
[2024-03-17 11:18] LABS: NT Pro Brain Natriuretic Pep. 696 pg/mL (0-125)
--- NOTE | 2024-03-17 11:21 | PC.NURSE ---
pt gone to ct
[2024-03-17 11:25] LABS: Troponin I < 0.01 ng/ml (0.00-0.034)
[2024-03-17 11:39] LABS: MANUAL DIFFERENTIAL MANUAL DIFFERENTIAL (MANUAL DIFF)
[2024-03-17 11:53] LABS: Eosinophils % 1 % (0-3); INR 1.03 (0.9-1.1); Lymphocytes % 63 % (10-50); Monocytes % 1 % (2-9); Neutrophils % 35 % (42-76); Platelet Estimate Normal; Prothrombin Time 11.5 seconds (10.1-12.5); RBC Morphology Normal; Total Cells Counted 100
[2024-03-17 13:21] LABS: Microscopic, Urine URINE MICROSCOPIC (MICROSCOPIC)
[2024-03-17 13:24] LABS: Appearance,Urine CLEAR (Clear); Bilirubin,Urine Negative (Negative); Blood, Urine Negative (Negative); Color,Urine YELLOW (Yellow); Glucose,Urine (UA) Negative (Negative); Ketones,Urine Negative (Negative); Leukocyte Esterase,Urine Negative (Negative); Nitrate,Urine Negative (Negative); PH,Urine 5.5 (5.0-8.5); Protein,Urine 2+ (Negative); Specific Gravity, Urine 1.025 (1.005-1.030); Urobilinogen,Urine 0.2 EU/dl (0.2)
[2024-03-17 13:34] LABS: Hyaline Casts,Urine OCC #/lpf (0); Squamous Epithelial Cell,Urine Occasional #/hpf (0-5)
--- NOTE | 2024-03-17 13:54 | P.HP_ITS ---
History of Present Illness *Admission Date: 03/17/24 *Reason for visit:: Rib fractures *History of present illness: Eder Castillo is a 74 year old male with a medical history significant for CLL on chemotherapy, COPD not on O2, type 2 diabetes, HFpEF, hypertension, afib on Eliquis, dementia presents after 2 falls at home. He and his state patient restarted chemotherapy for CLL this Thursday and Thursday, and that patient has been feeling weaker than usual. This morning, he states he felt a little weak in his legs and fell while making coffee. His had a difficult time getting him up, after which he fell again. This prompted to bring him to the ED. CTA chest revealed right 6-7th posterior rib fractures with pleural thickening and/or hemorrhage. I advised ED to speak to our general surgeon about this case, and general surgery recommended admission to our facility for monitoring. [facility] Disclaimer: The information contained in this section may have been updated after the patient was seen, as this information can be updated by other users. Medical History Left-sided epistaxis He does have poor airflow through his nasal cavity but is doing his best to keep this as moist as possible. Being on the blood thinner obviously makes the bleeding last longer but I see no signs of active eating or clot formation at this time. 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 Fajardo H/O colonoscopy 2018 History of knee replacement History of hernia repair History of nephrectomy right r/t cancer History of appendectomy Status post functional endoscopic sinus surgery Family History Father Cancer lung-Asbestos Mother Heart attack Hypertension Brother Diabetes Sister Hypertension Social History Smoking Status: Current every day smoker tobacco type: cigarettes packs per day: 1 years smoked: 40 alcohol intake: current alcohol intake frequency: holidays/special occasions only substance use type: denies use current occupational status: retired Travel in the last 8 weeks: None household members: spouse housing: house marital status: education level: high school caffeine: Yes special pilo needs: No do you feel safe at home: Yes victim of physical abuse: No victim of emotional abuse: No victim of sexual abuse: No would you like helpful sources: No Have you lived/traveled outside [place] in past 30 days?: No Contact w/someone who lives/traveled outside US past 30 days?: No Exposure to someone with infectious disease in past 14 days?: No Do you have a fever (greater than 100.4 F or 38 C)?: No Have you tested positive for COVID-19: No Exposed to someone with COVID-19 in past 14 days?: No Do you have a sore throat?: No Do you have a cough?: No Do you have any weakness?: No Do you have any diarrhea?: No Are you experiencing any unusual bleeding?: No Do you have any muscle aches/pain?: No Do you have any abdominal pain?: No Are you experiencing loss of taste or smell?: No Other Medical History Have you received the Flu Vaccine for this season: No Have you received the Pneumonia Vaccine: Yes Meds Home Medications and Allergies Home Medications ?Medication ?Instructions ?Recorded ?Confirmed ?Type hydroxychloroquine 200 mg tablet 200 mg PO BID 12/03/22 03/17/24 History furosemide 40 mg tablet (Lasix) 40 mg PO DAILY #30 tabs 04/20/23 03/17/24 Rx quetiapine 25 mg tablet 50 mg (2 x 25 mg) PO HS #180 tabs 06/01/23 03/17/24 Rx fluticasone fur. 200 mcg-umeclid 1 inh inhalation DAILY #60 ea 11/23/23 03/17/24 Rx 62.5 mcg-vilant 25 mcg inhalat.powder (Trelegy Ellipta) diazepam 2 mg tablet 2 mg PO HS #30 tabs 01/04/24 03/17/24 Rx losartan 25 mg tablet 25 mg PO PM 02/15/24 03/17/24 History apixaban 2.5 mg tablet (Eliquis) 2.5 mg PO BID #60 tabs 03/07/24 03/17/24 Rx metoprolol succinate 100 mg 100 mg PO DAILY #30 tabs 03/07/24 03/17/24 Rx tablet,extended release 24 hr albuterol sulfate 90 mcg/actuation 2 puff inhalation Q6HP PRN Asthma 03/17/24 03/17/24 History aerosol inhaler amlodipine 10 mg tablet 10 mg PO DAILY 03/17/24 03/17/24 History citalopram 20 mg tablet 20 mg PO DAILY 03/17/24 03/17/24 History insulin NPH-regular 70-30 U-100 15 unit SQ DAILY 03/17/24 03/17/24 History insulin 100 unit/mL subcutaneous pen (Humulin 70/30 U-100 KwikPen) insulin glargine 100 unit/mL (3 20 unit SQ HS 03/17/24 03/17/24 History mL) subcutaneous pen (Lantus Solostar U-100 Insulin) prochlorperazine maleate 10 mg 10 mg PO Q6HP PRN nausea and 03/17/24 03/17/24 History tablet (Compazine) vomiting tamsulosin 0.4 mg capsule 0.8 mg PO HS 03/17/24 03/17/24 History New Prescriptions to Start Prescriptions: Allergies Allergy/AdvReac Type Severity Reaction Status Date / Time moxifloxacin (From Avelox) Allergy Intermediate I-RASH Verified 02/23/24 11:08 sulfamethoxazole (From Allergy Unknown UNKNOWN Verified 02/23/24 11:08 Bactrim) trimethoprim (From Bactrim) Allergy Unknown Verified 02/23/24 11:08 Exam Data for Last 24 hours Vital signs and Labs for Last 24 Hours: Temp Pulse Resp BP Pulse Ox O2 Del Method 98.0 F 61 18 138/81 98 Room Air 03/17/24 10:07 03/17/24 13:30 03/17/24 10:07 03/17/24 13:30 03/17/24 13:30 03/17/24 13:30 Laboratory Results - last 24 hr 03/17/24 10:18: WBC 11.1 H, RBC 4.27 L, Hgb 12.0 L, Hct 36.1 L, MCV 84.5, MCH 28.1, MCHC 33.3, RDW 17.9 H, Plt Count 179, MPV 8.8, Neut % (Auto) 43.4, Lymph % (Auto) 52.3 H, [place] % (Auto) 1.3 L, Eos % (Auto) 2.5, Baso % (Auto) 0.5, Neut # (Auto) 4.8, Lymph # (Auto) 5.8 H, [place] # (Auto) 0.2, Eos # (Auto) 0.3, Baso # (Auto) 0.1, Total Counted 100, Neutrophils % (Manual) 35 L, Lymphocytes % (Manual) 63 H, Monocytes % (Manual) 1 L, Eosinophils % (Manual) 1, Platelet Estimate Normal, RBC Morphology Normal, PT 11.5, INR 1.03, Sodium 131 L, Potassium 5.0, Chloride 108 H, Carbon Dioxide 19 L, Anion Gap 9.0, BUN 60 H, Creatinine 2.70 H, Estimated Creat Clear 35, Estimated GFR 23 L, Est GFR ( Amer) 28 L, Glucose 245 H, Calcium 8.6, Magnesium 2.0, Total Bilirubin 0.8, AST 25, ALT 18, Alkaline Phosphatase 73, Total Creatine Kinase 35 L, Troponin I < 0.01, NT-Pro-B Natriuret Pep 696 H, Total Protein 6.6, Albumin 3.9, Globulin 2.7, Albumin/Globulin Ratio 1.4 03/17/24 13:12: Urine Color Yellow, Urine Appearance Clear, Urine pH 5.5, Ur Specific [place] 1.025, Urine Protein 2+ A, Urine Glucose (UA) Negative, Urine Ketones Negative, Urine Blood Negative, Urine Nitrate Negative, Urine Bilirubin Negative, Urine Urobilinogen 0.2, Ur Leukocyte Esterase Negative, Urine RBC None, Urine WBC None, Ur Squamous Epith Cells Occasional, Urine Bacteria None, Hyaline Casts Occ I & O for Last 24 hours: Intake & Output 03/14/24 03/15/24 03/16/24 03/17/24 23:59 23:59 23:59 23:59 Weight 102.965 kg Constitutional Constitutional: no acute distress *Routine HEENT Exam Head: Present normocephalic Eye: Present EOMI and PERRL ENT: Present mucous membranes moist *Routine Neck Exam Neck: Present supple; Absent lymphadenopathy *Routine Respiratory Exam Respiratory: Present CTA bilaterally *Routine Cardiovascular Exam Cardiovascular: Present RRR *Routine Abdominal Exam Abdominal: Present soft, normoactive bowel sounds and tenderness Comments: Right posterior thorax tenderness without evidence of flail chest. *Routine Rectal Exam Rectal:: deferred *Routine Genitalia Exam Genitalia:: deferred *Routine Extremities Exam Extremities: Absent cyanosis, clubbing or edema *Routine Skin Exam Skin: Present warm; Absent rash *Routine Neurological Exam Neurological: Present alert and oriented X3 Assessment and Plan *Assessment and plan (1) Ribs, multiple fractures: Status: Acute Category: Medical Code(s): S22.49XA - Multiple fractures of ribs, unspecified side, initial encounter for closed fracture Plan Eder Castillo is a 74 year old male with a medical history significant for CLL on chemotherapy, COPD not on O2, type 2 diabetes, HFpEF, hypertension, afib on Eliquis, dementia presents after 2 falls at home. He and his state patient restarted chemotherapy for CLL this Thursday and Thursday, and that patient has been feeling weaker than usual. This morning, he states he felt a little weak in his legs and fell while making coffee. His had a difficult time getting him up, after which he fell again. This prompted to bring him to the ED. CTA chest revealed right 6-7th posterior rib fractures with pleural thickening and/or hemorrhage. I advised ED to speak to our general surgeon about this case, and general surgery recommended admission to our facility for monitoring. #Right 6-7th rib fractures #Falls - There is some evidence of pleural thickening and/or hemorrhage surround these ribs. General surgery advised admission and monitoring to our facility. - Hemodynamically stable at this time. - Continuous cardiac telemetry. - Q4h vital checks. - Incentive spirometry. - Pain control with tylenol, Percocet, and Dilaudad for breakthrough. Avoid NSAIDs in setting of CKD. - PT/OT consulted for falls. - Holding home Eliquis in setting of possible hemorrhage. #Possible community acquired pneumonia - CTA suggests opacities in left upper lobe and lingula. - While there is no neutrophilic shift with WBC of 11.2 in setting of CLL, will cover for CAP in the setting of recent chemo and immunosuppression. - Ceftriaxone, azithromycin day 1. - Pulmonolgy consulted, pending further recommendations. #CLL - Follows with Dr. Bueno. - Recently started chemo this past Thursday and Thursday. - No signs of lymphoblastic crisis, continue to monitor. #COPD - Stable. Continue home Trelegy. #Diabetes - Lantus 10u nightly. - LDSSI, ACHS glucose checks. #CKD stage 4 - Stable. Avoid NSAIDs for pain. #HFpEF - Stable. Resume home Lasix regimen. #Afib - Rate controlled. Hold Eliquis in setting of suspected hemorrhage as above. FULL CODE SCDs
--- NOTE | 2024-03-17 14:30 | PC.NURSE ---
Called report to Bobbi KATelectromechanical assembly technician
--- NOTE | 2024-03-17 14:46 | HMH.PHAINT1 ---
Pharmacy Intervention Comments: MEDICATION RECONCILIATION COMPLETED ON PATIENT USING EXTERNAL FILL HISTORY FROM PHARMACY AND LIST FROM CARDIOLOGY OFFICE. -JACKIE SOW, MUKUNDD
[2024-03-17 15:33] LABS: Troponin I < 0.01 ng/ml (0.00-0.034)
[2024-03-17] MEDS: HYDROCODONE/APAP 5/325 MG TABLET 2 TAB PO ×2 (16:47→20:00)
--- NOTE | 2024-03-17 18:16 | PC.NURSE ---
pt resting supine in bed. tolerating RA w/ sats>90%. a&ox4. at bedside. complained of pain once and was treated per jun. purewick applied to prevent ambulation and possiblity of falls. bed alarm on. call light within reach.
[2024-03-17] MEDS: QUETIAPINE 25MG TABLET 50 MG PO (20:45)
[2024-03-17] MEDS: TAMSULOSIN 0.4MG CAPSULE 0.8 MG PO (20:45)
[2024-03-17] MEDS: INSULIN GLARGINE 100 UNITS/ML 3ML FLEXPEN 10 UNIT SUBCUT (20:45)
[2024-03-17] MEDS: diazePAM 2MG TABLET 2 MG PO (20:51)
[2024-03-17] MEDS: PATIENT'S OWN HOME MEDICATION (Apixaban [Eliquis] 2.5 mg tablet) 2.5 EACH PO (20:52)
[2024-03-17] MEDS: CEFTRIAXONE 1 GM 1 GM in 0.9 % SODIUM CHLORIDE 50 ML IV (23:54)
[2024-03-17] MEDS: OXYCODONE 5MG W/APAP 325MG TABLET 2 EACH PO (23:57)
[2024-03-18] VITALS (9 sets, daily range): BP systolic 108–139; BP diastolic 61–80; PULSE 50–78; RESP 16–22; TEMP 36.3–36.9; O2SAT 92–94; BMI 30.8
[2024-03-18 00:07] LABS: POC Glucose,Bedside 165 (70-110)
[2024-03-18] MEDS: AZITHROMYCIN 500 MG in 0.9 % SODIUM CHLORIDE 250 ML 250 MG IV (00:25)
--- NOTE | 2024-03-18 05:03 | PC.NURSE ---
Patient has slept well this shift. Patient has complained of back pain x2 this shift, medicated per MAR with relief. Purewick in place draining clear, yellow urine. Bed alarm on for safety, call light within reach.
[2024-03-18] MEDS: humaLOG 100 UNITS/ML 10ML VIAL (SSI) SUBCUT (05:55)
[2024-03-18 06:11] LABS: HCV Ab Non Reactive (Non Reactive)
--- NOTE | 2024-03-18 07:00 | XR_ITS ---
FINAL REPORT TECHNIQUE: Single view chest CLINICAL HISTORY: f/u sequalae rib fx COMPARISON: 1 day prior FINDINGS: A single view of the chest was obtained. The heart and mediastinum are within normal limits. A thoracic aortic stent graft is in place. There is pulmonary vascular congestion. Mild pulmonary opacities may represent edema or pneumonia. Known right rib fractures are partially visualized. There is no pneumothorax. IMPRESSION: Mild pulmonary opacities may represent edema or pneumonia. Known right rib fractures, partially visualized without pneumothorax. Reviewed, Interpreted and Dictated by Eder Hopkins III, MD Transcribed by Mandy Barreto Authenticated and [facility]
[2024-03-18 07:18] LABS: Basophils % 0.3 % (0.1-2.0); Eosinophils # 0.3 K/mm3 (0.0-0.4); Eosinophils % 3.6 % (0.1-12.0); Hematocrit 32.2 % (42.0-52.0); Hemoglobin 11.1 g/dL (14.1-18.0); Lymphocytes % 58.8 % (10-50); Mean Corpuscular HGB Conc 34.4 g/dL (31.8-35.4); Mean Corpuscular Volume 81.3 fl (80-94); Mean Platelet Volume 8.4 fl (7.4-10.4); Monocytes # 0.2 K/mm3 (0.1-1.0); Monocytes % 2.1 % (1.7-9.3); Neutrophils % 35.3 % (37.0-80.0); Platelet Count 163 K/mm3 (142-424); Red Blood Count 3.97 M/mm3 (4.60-6.20); Red Cell Distribution Width 17.9 % (11.5-17.5); White Blood Count 8.6 K/mm3 (4.8-10.8)
[2024-03-18 07:34] LABS: Albumin Level 3.4 g/dl (3.5-5.0); Chloride 109 mmol/L (98-107); Potassium 4.1 mmoL/L (3.5-5.1); Sodium 135 mmol/L (136-145)
[2024-03-18 07:37] LABS: Alanine Aminotransferase 15 U/L (12-78); Albumin/Globulin Ratio 1.3 (1.1-1.8); Alkaline Phosphatase 64 U/L (38-126); Anion Gap 12.1 mEq/L (5-15); Aspartate Amino Transferase 16 U/L (17-59); Bilirubin,Total 0.6 mg/dl (0.2-1.3); Blood Urea Nitrogen 64 mg/dl (9-20); Calcium 8.1 mg/dl (8.4-10.2); Carbon Dioxide 18 mmol/L (22.0-30.0); Creatinine Clearance Estimated 34 mL/min (50-200); Estimated Glomerular Filt Rate 21 ml/min (>60); GFR (African American) 26 ML/MIN (>60); Globulin 2.6 g/dL (1.3-3.2); Glucose 146 mg/dl (74-100); Magnesium 2.1 mg/dl (1.6-2.3)
[2024-03-18 07:46] LABS: MANUAL DIFFERENTIAL MANUAL DIFFERENTIAL (MANUAL DIFF)
[2024-03-18 08:30] LABS: Eosinophils % 2 % (0-3); Lymphocytes % 59 % (10-50); Monocytes % 2 % (2-9); Neutrophils % 37 % (42-76); Platelet Estimate Normal; RBC Morphology Normal; Total Cells Counted 100
--- NOTE | 2024-03-18 08:37 | HMH.PTEV ---
Physical Therapy Evaluation Rehab PT IP Evaluation Start: 03/17/24 21:49 Freq: ONCE Status: Active Protocol: Document 03/18/24 08:24 MEL (Rec: 03/18/24 08:34 MEL [id number]) Subjective/History History History Per H&P: Eder Castillo is a 74 year old male with a medical history significant for CLL on chemotherapy, COPD not on O2, type 2 diabetes, HFpEF, hypertension, afib on Eliquis, dementia presents after 2 falls at home. He and his state patient restarted chemotherapy for CLL this Thursday and Thursday, and that patient has been feeling weaker than usual. This morning, he states he felt a little weak in his legs and fell while making coffee. His had a difficult time getting him up, after which he fell again. This prompted to bring him to the ED. CTA chest revealed right 6-7th posterior rib fractures with pleural thickening and/or hemorrhage. I advised ED to speak to our general surgeon about this case, and general surgery recommended admission to our facility for monitoring . Subjective Subjective PLOF: IND with mobility using a RW or cane. Was still driving. Home: lives in a 2 story home with 2 KATHY. Available assistance: Lives with his . is available to assist as needed. New diagnosis of cancer in past 12 No months? Rehab PT IP Eval Objective Appearance Patient Behavior Appropriate,Cooperative Patient Orientation Person,Birthday,Situation Difficulty following instructions none Speech Pattern Clear Ambulation Patient Able to Ambulate No Balance Ability to Arise Unable Transfers Bed Transfer Ability Maximum x 1 (75% assist) Rehab PT IP prob,goals,plan Problems Date of Evaluation: 03/18/24 PT IP Problems Bed Mobility,Transfers,Gait, Balance,Self care,Safety Rehab Potential Rehab Potential Good Plan PT Intervention Plan Bed Mobility,Transfers,Gait, Balance,Safety,Therapeutic Exercise Other Intervention Plan 1-2 times PT Plan Frequency Daily Duration LOS Discharge Goals Bed Transfer Ability Moderate x 1 (50% assist) Sit to Stand Chair Transfer Ability Minimal x 1 (25% assist) Discharge Plan PT Discharge Plan Initial PT evaluation was limited by pain likely from pt 's rib fractures. PT encouraged pt sitting at EOB. Pt able to swing legs over EOB but was unable to initiate pulling himself up despite assistance d/t severe R sided pain. Pt attempted 3-4 times but was unable d/t pain each trial. Recommending rehabilitation placement based off of limited mobility assessment d/t inability to perform bed mobility at this time. However, PT to further assess mobility throughout stay at [facility] pending pt's pain decreases to tolerable level. Pt would benefit from skilled acute care PT while at [facility] to address deficits and prevent further functional decline. Eval Complexity Eval Charge Codes 08056 - Moderate Complexity PHYSICIAN CERTIFICATION: I certify the specified therapy services for Eder Castillo are required, authorized, and reviewed every 30 days.
[2024-03-18] MEDS: PROCHLORPERAZINE 10MG TABLET 10 MG PO ×2 (09:20→17:25)
[2024-03-18] MEDS: ENOXAPARIN 40MG/0.4ML SYRINGE 40 MG SUBCUT (09:20)
[2024-03-18] MEDS: METOPROLOL SUCCINATE XL 100MG TABLET 100 MG PO (09:20)
[2024-03-18] MEDS: HYDROXYCHLOROQUINE SULFATE 200MG TABLET 200 MG PO ×2 (09:20→20:26)
[2024-03-18] MEDS: FUROSEMIDE 40 MG TABLET PO (09:20)
[2024-03-18] MEDS: CITALOPRAM 20MG TABLET 20 MG PO (09:20)
[2024-03-18] MEDS: OXYCODONE 5MG W/APAP 325MG TABLET 1 EACH PO ×2 (09:22→14:06)
--- NOTE | 2024-03-18 09:46 | HMH.OTEV ---
OT Inpatient Evaluation Rehab OT IP Evaluation Start: 03/17/24 21:49 Freq: ONCE Status: Active Protocol: Document 03/18/24 09:37 [facility] (Rec: 03/18/24 09:46 [facility] [id number]) Rehab OT IP Assessment Subjective History Pt oriented x 2 on arrival. Pt agreeable to engage in therapy evaluation. Pt unable to provide orientation to place. Pt was admitted on 03/29 due to a fall with rib fractures. History and physical: Eder Castillo is a 74 year old male with a medical history significant for CLL on chemotherapy, COPD not on O2, type 2 diabetes, HFpEF, hypertension, afib on Eliquis, dementia presents after 2 falls at home. He and his state patient restarted chemotherapy for CLL this Thursday and Thursday, and that patient has been feeling weaker than usual. This morning, he states he felt a little weak in his legs and fell while making coffee. His had a difficult time getting him up, after which he fell again. This prompted to bring him to the ED. CTA chest revealed right 6-7th posterior rib fractures with pleural thickening and/or hemorrhage. I advised ED to speak to our general surgeon about this case, and general surgery recommended admission to our facility for monitoring . Subjective I am hurting. Pt reports prior to being in the hospital he lived at home with his . Pt claims normally he is independent with all ADLs and IADLs. 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 Pt does not use any AE during functional transfers. Objective Patient Orientation Person,Birthday Right Upper Extremity Gross ROM WFL Left Upper Extremity Gross ROM WFL Bed Mobility bed mobility-scooting,bed mobility - supine/sit,bed mobility - rolling Assist Level Maximum x 2 (75% assist) Rehab OT IP prob,goals,plan Problems Date of Evaluation: 03/18/24 OT IP Problems Bed Mobility,Transfers,Balance ,Self care,Safety Rehab Potential Rehab Potential Good Equipment Needs Assistive Devices Rolling / Wheeled Walker Plan OT intervention Plan Bed Mobility,Transfers,Balance ,Self care,Safety,Therapeutic Exercise OT Plan Frequency Daily Duration LOS Discharge Goals Sit to Stand Chair Transfer Ability Maximum x 1 (75% assist) Chair Transfer Ability Maximum x 1 (75% assist) Chair Transfer Technique Sit to/from Ambulatory Chair Transfer Assistive Devices Rolling Walker Feeding Ability Assist with Tray Set Up Lower Body Dressing Ability Moderate Assistance Upper Body Dressing Ability Contact Guard Bathing Ability Moderate Assistance Performing Toilet Hygiene Ability Moderate Assistance Overall Commode/Toilet Transfer Ability Moderate Assistance,Maximum Assistance Commode/Toilet Transfer Technique Sit to/from Ambulatory Commode/Toilet Transfer Assistive Raised Toilet Seat,Grab Bars Devices Oral Care Assist Contact Guard Decrease in Endurance Yes Discharge Plan OT Discharge Plan Pt will continue to be seen for OT services while at [facility]. Pt would benefit most from short term rehab at [facility] following discharge for continued skilled therapy. However, if pt demonstrates great improvement with overall functional transfers and ADL independence while at [facility], pt could possibly return home with 's assistance and OT evaluation. Continued skilled therapy is important in order for patient to improve strength, safety, endurance, ADL independence, and functional transfers to reach PLOF. Eval Complexity Eval Charge Codes 66962 - Moderate Complexity PHYSICIAN CERTIFICATION: I certify the specified therapy services for Eder Castillo are required, authorized, and reviewed every 30 days.
--- NOTE | 2024-03-18 09:49 | P.CONS_ITS ---
History of Present Illness History of present illness: Mr. Macias is a 74-year-old male history of diabetes, CKD, CLL rheumatoid arthritis, COPD presented to ER with worsening weakness CT showing rib fractures and pulmonary was called for further evaluation and management. Patient denies any worsening respiratory distress/cough/productive phlegm. Had fall prior to hospital. Admits worsening nausea after his recent chemotherapy. Denies any loss of appetite. [facility] Disclaimer: The information contained in this section may have been updated after the patient was seen, as this information can be updated by other users. Medical History (Updated 03/18/24 @ 12:46 by Svitlana Garnica MD) Pneumonia Left-sided epistaxis History of aneurysm of heart Conjunctivitis Fall from standing Forehead laceration History of recurrent pneumonia Melanoma Acute respiratory failure with hypoxia Pneumonia due to COVID-19 virus SOB (shortness of breath) Bronchiectasis Pneumonia Diabetes mellitus, type 2 Chronic kidney disease COPD mixed type Immunocompromised state Recurrent pneumonia Immunosuppressed status COPD mixed type Pneumonia Unresolved pneumonia Chronic sinusitis History of hypertension Hyperlipidemia Deep vein thrombosis (DVT) Cancer Aneurysm Surgical History History of bronchoscopy History of left knee replacement H/O colonoscopy History of knee replacement History of hernia repair History of nephrectomy History of appendectomy Status post functional endoscopic sinus surgery Family History Father Cancer lung-Asbestos Mother Heart attack Hypertension Brother Diabetes Sister Hypertension Social History Smoking Status: Current every day smoker tobacco type: cigarettes packs per day: 1 years smoked: 40 alcohol intake: current alcohol intake frequency: holidays/special occasions only substance use type: denies use current occupational status: retired Travel in the last 8 weeks: None household members: spouse housing: house marital status: education level: high school caffeine: Yes special pilo needs: No do you feel safe at home: Yes victim of physical abuse: No victim of emotional abuse: No victim of sexual abuse: No would you like helpful sources: No Have you lived/traveled outside [place] in past 30 days?: No Contact w/someone who lives/traveled outside [place] past 30 days?: No Exposure to someone with infectious disease in past 14 days?: No Do you have a fever (greater than 100.4 F or 38 C)?: No Have you tested positive for COVID-19: No Exposed to someone with COVID-19 in past 14 days?: No Do you have a sore throat?: No Do you have a cough?: No Do you have any weakness?: No Do you have any diarrhea?: No Are you experiencing any unusual bleeding?: No Do you have any muscle aches/pain?: No Do you have any abdominal pain?: No Are you experiencing loss of taste or smell?: No Review of Systems Constitutional Constitutional: Reports anorexia, Reports body ache(s), Reports fatigue, Reports lethargy and Reports weakness Eyes Eyes: Denies eye discharge, Denies dry eyes, Denies irritation and Denies itchy eyes ENT Ears, Nose, Mouth, and Throat: Denies epistaxis, Denies facial pain, Denies lip swelling and Denies throat swelling *Cardiovascular Cardiovascular: Reports dyspnea and Reports dyspnea on exertion *Respiratory Respiratory: Denies chest congestion, Reports cough, Reports dyspnea, Reports dyspnea on exertion, Denies excessive phlegm production, Denies hemoptysis, Denies pain on inspiration, Denies pain with cough and Denies wheezing *Gastrointestinal Gastrointestinal: Denies abdominal pain, Denies belching, Denies cramping and Reports nausea *Musculoskeletal Musculoskeletal: Reports back pain, Reports myalgias and Reports other (No small joint swelling or Pain) *Neurologic Neurologic: Reports weakness Psychiatric Psychiatric: Denies homicidal ideation and Denies suicidal ideation Endocrine Endocrine: Reports fatigue and Denies heat intolerance Hematologic/Lymphatic Hematologic/Lymphatic: Denies easy bleeding and Denies lymphadenopathy Allergic/Immunologic Allergic/Immunologic: Denies itchy eyes, Denies lip swelling, Denies throat swelling and Denies wheezing Pulmonology Exam Inpatient Vital signs and Labs for Last 24 Hours: Temp Pulse Resp BP Pulse Ox O2 Del Method 98.0 F 57 L 20 108/67 L 93 L Room Air 03/18/24 08:00 03/18/24 08:00 03/18/24 08:00 03/18/24 08:00 03/18/24 08:00 03/18/24 08:00 Laboratory Results - last 24 hr 03/17/24 10:18: WBC 11.1 H, RBC 4.27 L, Hgb 12.0 L, Hct 36.1 L, MCV 84.5, MCH 28.1, MCHC 33.3, RDW 17.9 H, Plt Count 179, MPV 8.8, Neut % (Auto) 43.4, Lymph % (Auto) 52.3 H, [place] % (Auto) 1.3 L, Eos % (Auto) 2.5, Baso % (Auto) 0.5, Neut # (Auto) 4.8, Lymph # (Auto) 5.8 H, [place] # (Auto) 0.2, Eos # (Auto) 0.3, Baso # (Auto) 0.1, Total Counted 100, Neutrophils % (Manual) 35 L, Lymphocytes % (Manual) 63 H, Monocytes % (Manual) 1 L, Eosinophils % (Manual) 1, Platelet Estimate Normal, RBC Morphology Normal, PT 11.5, INR 1.03, Sodium 131 L, Potassium 5.0, Chloride 108 H, Carbon Dioxide 19 L, Anion Gap 9.0, BUN 60 H, C reatinine 2.70 H, Estimated Creat Clear 35, Estimated GFR 23 L, Est GFR ( Amer) 28 L, Glucose 245 H, Calcium 8.6, Magnesium 2.0, Total Bilirubin 0.8, AST 25, ALT 18, Alkaline Phosphatase 73, Total Creatine Kinase 35 L, Troponin I < 0.01, NT-Pro-B Natriuret Pep 696 H, Total Protein 6.6, Albumin 3.9, Globulin 2.7, Albumin/Globulin Ratio 1.4, Hepatitis C Antibody Non reactive 03/17/24 13:12: Urine Color Yellow, Urine Appearance Clear, Urine pH 5.5, Ur Specific [place] 1.025, Urine Protein 2+ A, Urine Glucose (UA) Negative, Urine Ketones Negative, Urine Blood Negative, Urine Nitrate Negative, Urine Bilirubin Negative, Urine Urobilinogen 0.2, Ur Leukocyte Esterase Negative, Urine RBC None, Urine WBC None, Ur Squamous Epith Cells Occasional, Urine Bacteria None, Hyaline Casts Occ 03/17/24 15:00: Troponin I < 0.01 03/17/24 20:47: POC Glucose 165 H 03/18/24 06:40: WBC 8.6, RBC 3.97 L, Hgb 11.1 L, Hct 32.2 L, MCV 81.3, MCH 28.0, MCHC 34.4, RDW 17.9 H, Plt Count 163, MPV 8.4, Neut % (Auto) 35.3 L, Lymph % (Auto) 58.8 H, [place] % (Auto) 2.1, Eos % (Auto) 3.6, Baso % (Auto) 0.3, Neut # (Auto) 3.0, Lymph # (Auto) 5.0 H, [place] # (Auto) 0.2, Eos # (Auto) 0.3, Baso # (Auto) 0.0, Total Counted 100, Neutrophils % (Manual) 37 L, Lymphocytes % (Manual) 59 H, Monocytes % (Manual) 2, Eosinophils % (Manual) 2, Platelet Estimate Normal, RBC Morphology Normal, Sodium 135 L, Potassium 4.1, Chloride 109 H, Carbon Dioxide 18 L, Anion Gap 12.1, BUN 64 H, Creatinine 2.90 H, Estimated Creat Clear 34, Estimated GFR 21 L, Est GFR ( Amer) 26 L, G lucose 146 H D, Calcium 8.1 L, Magnesium 2.1, Total Bilirubin 0.6, AST 16 L D, ALT 15, Alkaline Phosphatase 64, Total Protein 6.0 L, Albumin 3.4 L D, Globulin 2.6, Albumin/Globulin Ratio 1.3 I & O for Labs for Last 24 Hours: Intake & Output 03/15/24 03/16/24 03/17/24 03/18/24 23:59 23:59 23:59 23:59 Intake Total 240 / 540 510 / 510 Output Total 0 / 0 400 / 400 Balance 240 / 540 110 / 110 Weight 233 lb 1 oz 232 lb 6.4 oz Constitutional: Present moderate distress Head: Present normocephalic and atraumatic ENT: Present normal exam, normal oropharynx and mucous membranes moist Neck: Present normal inspection and full ROM Respiratory: Present respiratory distress, rhonchi, diminished air movement and able to speak in complete sentences; Absent wheezes Cardiac: Present S1/S2, Tachycardia and radial pulses present GI: Present soft and distention; Absent tenderness or guarding Skin: Present intact; Absent cyanosis or jaundice Neuro: Present alert, awake and oriented x 3 Extremities: Present normal inspection; Absent clubbing or cyanosis Psychiatric: Present normal affect and cooperative Meds Home Medications and Allergies Home Medications ?Medication ?Instructions ?Recorded ?Confirmed ?Type hydroxychloroquine 200 mg tablet 200 mg PO BID 12/03/22 03/17/24 History furosemide 40 mg tablet (Lasix) 40 mg PO DAILY #30 tabs 04/20/23 03/17/24 Rx quetiapine 25 mg tablet 50 mg (2 x 25 mg) PO HS #180 tabs 06/01/23 03/17/24 Rx fluticasone fur. 200 mcg-umeclid 1 inh inhalation DAILY #60 ea 11/23/23 03/17/24 Rx 62.5 mcg-vilant 25 mcg inhalat.powder (Trelegy Ellipta) diazepam 2 mg tablet 2 mg PO HS #30 tabs 01/04/24 03/17/24 Rx losartan 25 mg tablet 25 mg PO PM 02/15/24 03/17/24 History apixaban 2.5 mg tablet (Eliquis) 2.5 mg PO BID #60 tabs 03/07/24 03/17/24 Rx metoprolol succinate 100 mg 100 mg PO DAILY #30 tabs 03/07/24 03/17/24 Rx tablet,extended release 24 hr albuterol sulfate 90 mcg/actuation 2 puff inhalation Q6HP PRN Asthma 03/17/24 03/17/24 History aerosol inhaler amlodipine 10 mg tablet 10 mg PO DAILY 03/17/24 03/17/24 History citalopram 20 mg tablet 20 mg PO DAILY 03/17/24 03/17/24 History insulin NPH-regular 70-30 U-100 15 unit SQ DAILY 03/17/24 03/17/24 History insulin 100 unit/mL subcutaneous pen (Humulin 70/30 U-100 KwikPen) insulin glargine 100 unit/mL (3 20 unit SQ HS 03/17/24 03/17/24 History mL) subcutaneous pen (Lantus Solostar U-100 Insulin) prochlorperazine maleate 10 mg 10 mg PO Q6HP PRN nausea and 03/17/24 03/17/24 History tablet (Compazine) vomiting tamsulosin 0.4 mg capsule 0.8 mg PO HS 03/17/24 03/17/24 History New Prescriptions to Start Prescriptions: Allergies Allergy/AdvReac Type Severity Reaction Status Date / Time moxifloxacin (From Avelox) Allergy Intermediate I-RASH Verified 02/23/24 11:08 sulfamethoxazole (From Allergy Unknown UNKNOWN Verified 02/23/24 11:08 Bactrim) trimethoprim (From Bactrim) Allergy Unknown Verified 02/23/24 11:08 Results Laboratory Findings 03/18/24 06:40 03/18/24 06:40 PT/INR, D-dimer PT 11.5 seconds (10.1-12.5) 03/17/24 10:18 INR 1.03 (0.9-1.1) 03/17/24 10:18 Abnormal lab findings: Abnormal Labs 03/17/24 03/17/24 03/17/24 10:18 13:12 20:47 WBC 11.1 H RBC 4.27 L Hgb 12.0 L Hct 36.1 L RDW 17.9 H Neut % (Auto) Lymph % (Auto) 52.3 H [place] % (Auto) 1.3 L Lymph # (Auto) 5.8 H Neutrophils % (Manual) 35 L Lymphocytes % (Manual) 63 H Monocytes % (Manual) 1 L Sodium 131 L Chloride 108 H Carbon Dioxide 19 L BUN 60 H Creatinine 2.70 H Estimated GFR 23 L Est GFR ( Amer) 28 L Glucose 245 H POC Glucose 165 H Calcium AST Total Creatine Kinase 35 L NT-Pro-B Natriuret Pep 696 H Total Protein Albumin Urine Protein 2+ A 03/18/24 06:40 WBC RBC 3.97 L Hgb 11.1 L Hct 32.2 L RDW 17.9 H Neut % (Auto) 35.3 L Lymph % (Auto) 58.8 H [place] % (Auto) Lymph # (Auto) 5.0 H Neutrophils % (Manual) 37 L Lymphocytes % (Manual) 59 H Monocytes % (Manual) Sodium 135 L Chloride 109 H Carbon Dioxide 18 L BUN 64 H Creatinine 2.90 H Estimated GFR 21 L Est GFR ( Amer) 26 L Glucose 146 H D POC Glucose Calcium 8.1 L AST 16 L D Total Creatine Kinase NT-Pro-B Natriuret Pep Total Protein 6.0 L Albumin 3.4 L D Urine Protein Assessment and Plan *Assessment and plan (1) Pneumonia: Status: Acute Qualifiers: Pneumonia type: due to COVID-19 virus Qualified Code(s): U07.1 - COVID- 19; J12.82 - Pneumonia due to coronavirus disease 2019 Category: Medical Code(s): J18.9 - Pneumonia, unspecified organism Plan Mr. Macias is a 74-year-old male history of diabetes, CKD, CLL rheumatoid arthritis, COPD presented to ER with worsening weakness CT showing rib fractures and pulmonary was called for further evaluation and management. Patient denies any worsening respiratory distress/cough/productive phlegm. Had fall prior to hospital. Admits worsening nausea after his recent chemotherapy. Denies any loss of appetite. CTs of manage bilateral lower lobe interstitial/atelectatic changes. Bilateral Lower lobe bronchial thickening with left upper lobe consolidative changes. Right sixth and seventh rib fractures noted with adjacent pleural thickening concerning for hemorrhage. Chest x-ray from this morning stable with no new changes as compared to his CT scan. Afebrile. Hemodynamically stable. Mild neutrophilic prominent leukocytosis. Currently receiving ceftriaxone and azithromycin. Auscultation bilateral rhonchorous breath sounds. Plan: Change antibiotics to levofloxacin pending sputum culture results DuoNebs every 6 hours along with Pulmicort every 12 scheduled No need for steroids at this point of time. Will continue to monitor. Monitor. Repeat chest x-ray PA and lateral for the concerning right-sided pleural abnormality concerning for hemothorax # Thank you for involving pulmonary in this patient care. Will continue to follow.
[2024-03-18] MEDS: FLUTICASONE/UMECLIDIN/VILANTER 200/62.5/25MCG INHALER 1 PUFF IH (09:57)
--- NOTE | 2024-03-18 10:26 | HMH.OTEV ---
OT Inpatient Evaluation Rehab OT IP Evaluation Start: 03/17/24 21:49 Freq: ONCE Status: Active Protocol: [facility] 03[facility]18[facility]24 09[facility] [facility] (Rec: 03/18/24 09:46 [facility] [id number]) Rehab OT IP Assessment Subjective History Pt oriented x 2 on arrival. Pt agreeable to engage in therapy evaluation. Pt unable to provide orientation to place. Pt was admitted on 03/29 due to a fall with rib fractures. History and physical: Eder Castillo is a 74 year old male with a medical history significant for CLL on chemotherapy, COPD not on O2, type 2 diabetes, HFpEF, hypertension, afib on Eliquis, dementia presents after 2 falls at home. He and his state patient restarted chemotherapy for CLL this Thursday and Thursday, and that patient has been feeling weaker than usual. This morning, he states he felt a little weak in his legs and fell while making coffee. His had a difficult time getting him up, after which he fell again. This prompted to bring him to the ED. CTA chest revealed right 6-7th posterior rib fractures with pleural thickening and/or hemorrhage. I advised ED to speak to our general surgeon about this case, and general surgery recommended admission to our facility for monitoring . Subjective I am hurting. Pt reports prior to being in the hospital he lived at home with his . Pt claims normally he is independent with all ADLs and IADLs. 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 Pt does not use any AE during functional transfers. Objective Patient Orientation Person,Birthday Right Upper Extremity Gross ROM WFL Left Upper Extremity Gross ROM WFL Bed Mobility bed mobility-scooting,bed mobility - supine/sit,bed mobility - rolling Assist Level Maximum x 2 (75% assist) Rehab OT IP prob,goals,plan Problems Date of Evaluation: 03/18/24 OT IP Problems Bed Mobility,Transfers,Balance ,Self care,Safety Rehab Potential Rehab Potential Good Equipment Needs Assistive Devices Rolling / Wheeled Walker Plan OT intervention Plan Bed Mobility,Transfers,Balance ,Self care,Safety,Therapeutic Exercise OT Plan Frequency Daily Duration LOS Discharge Goals Sit to Stand Chair Transfer Ability Maximum x 1 (75% assist) Chair Transfer Ability Maximum x 1 (75% assist) Chair Transfer Technique Sit to/from Ambulatory Chair Transfer Assistive Devices Rolling Walker Feeding Ability Assist with Tray Set Up Lower Body Dressing Ability Moderate Assistance Upper Body Dressing Ability Contact Guard Bathing Ability Moderate Assistance Performing Toilet Hygiene Ability Moderate Assistance Overall Commode/Toilet Transfer Ability Moderate Assistance,Maximum Assistance Commode/Toilet Transfer Technique Sit to/from Ambulatory Commode/Toilet Transfer Assistive Raised Toilet Seat,Grab Bars Devices Oral Care Assist Contact Guard Decrease in Endurance Yes Discharge Plan OT Discharge Plan Pt will continue to be seen for OT services while at [facility]. Pt would benefit most from short term rehab at [facility] following discharge for continued skilled therapy. However, if pt demonstrates great improvement with overall functional transfers and ADL independence while at [facility], pt could possibly return home with 's assistance and OT evaluation. Continued skilled therapy is important in order for patient to improve strength, safety, endurance, ADL independence, and functional transfers to reach PLOF. Eval Complexity Eval Charge Codes 16714 - Moderate Complexity PHYSICIAN CERTIFICATION: I certify the specified therapy services for Eder Castillo are required, authorized, and reviewed every 30 days.
[2024-03-18] MEDS: HYDROMORPHONE 2MG/ML SYRINGE 1 MG IV ×2 (11:47→20:27)
--- NOTE | 2024-03-18 12:37 | P.CONS_ITS ---
History of Present Illness *Admission Date: 03/17/24 *Reason for visit:: Rib fractures *History of present illness: Eder Castillo is a 74 year old male with a medical history significant for CLL on chemotherapy, COPD not on O2, type 2 diabetes, HFpEF, hypertension, afib on Eliquis, dementia presents after 2 falls at home. He and his state patient restarted chemotherapy for CLL this Thursday and Thursday, and that patient has been feeling weaker than usual. After his second fall he was brought to the emergency department. CTA chest revealed right 6-7th posterior rib fractures with pleural thickening and/or hemorrhage. Consideration is being given for admission to the hospitalist who requested general surgery input regarding the rib fractures. Chest x-ray this morning reveals partially visualized rib fractures without pneumothorax. Hemoglobin 11.1. 12.0 on presentation. [facility] Disclaimer: The information contained in this section may have been updated after the patient was seen, as this information can be updated by other users. Medical History Left-sided epistaxis He does have poor airflow through his nasal cavity but is doing his best to keep this as moist as possible. Being on the blood thinner obviously makes the bleeding last longer but I see no signs of active eating or clot formation at this time. 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 Fajardo H/O colonoscopy 2018 History of knee replacement History of hernia repair History of nephrectomy right r/t cancer History of appendectomy Status post functional endoscopic sinus surgery Family History Father Cancer lung-Asbestos Mother Heart attack Hypertension Brother Diabetes Sister Hypertension Social History Smoking Status: Current every day smoker tobacco type: cigarettes packs per day: 1 years smoked: 40 alcohol intake: current alcohol intake frequency: holidays/special occasions only substance use type: denies use current occupational status: retired Travel in the last 8 weeks: None household members: spouse housing: house marital status: education level: high school caffeine: Yes special pilo needs: No do you feel safe at home: Yes victim of physical abuse: No victim of emotional abuse: No victim of sexual abuse: No would you like helpful sources: No Have you lived/traveled outside [place] in past 30 days?: No Contact w/someone who lives/traveled outside US past 30 days?: No Exposure to someone with infectious disease in past 14 days?: No Do you have a fever (greater than 100.4 F or 38 C)?: No Have you tested positive for COVID-19: No Exposed to someone with COVID-19 in past 14 days?: No Do you have a sore throat?: No Do you have a cough?: No Do you have any weakness?: No Do you have any diarrhea?: No Are you experiencing any unusual bleeding?: No Do you have any muscle aches/pain?: No Do you have any abdominal pain?: No Are you experiencing loss of taste or smell?: No Meds Home Medications and Allergies Home Medications ?Medication ?Instructions ?Recorded ?Confirmed ?Type hydroxychloroquine 200 mg tablet 200 mg PO BID 12/03/22 03/17/24 History furosemide 40 mg tablet (Lasix) 40 mg PO DAILY #30 tabs 04/20/23 03/17/24 Rx quetiapine 25 mg tablet 50 mg (2 x 25 mg) PO HS #180 tabs 06/01/23 03/17/24 Rx fluticasone fur. 200 mcg-umeclid 1 inh inhalation DAILY #60 ea 11/23/23 03/17/24 Rx 62.5 mcg-vilant 25 mcg inhalat.powder (Trelegy Ellipta) diazepam 2 mg tablet 2 mg PO HS #30 tabs 01/04/24 03/17/24 Rx losartan 25 mg tablet 25 mg PO PM 02/15/24 03/17/24 History apixaban 2.5 mg tablet (Eliquis) 2.5 mg PO BID #60 tabs 03/07/24 03/17/24 Rx metoprolol succinate 100 mg 100 mg PO DAILY #30 tabs 03/07/24 03/17/24 Rx tablet,extended release 24 hr albuterol sulfate 90 mcg/actuation 2 puff inhalation Q6HP PRN Asthma 03/17/24 03/17/24 History aerosol inhaler amlodipine 10 mg tablet 10 mg PO DAILY 03/17/24 03/17/24 History citalopram 20 mg tablet 20 mg PO DAILY 03/17/24 03/17/24 History insulin NPH-regular 70-30 U-100 15 unit SQ DAILY 03/17/24 03/17/24 History insulin 100 unit/mL subcutaneous pen (Humulin 70/30 U-100 KwikPen) insulin glargine 100 unit/mL (3 20 unit SQ HS 03/17/24 03/17/24 History mL) subcutaneous pen (Lantus Solostar U-100 Insulin) prochlorperazine maleate 10 mg 10 mg PO Q6HP PRN nausea and 03/17/24 03/17/24 History tablet (Compazine) vomiting tamsulosin 0.4 mg capsule 0.8 mg PO HS 03/17/24 03/17/24 History New Prescriptions to Start Prescriptions: Allergies Allergy/AdvReac Type Severity Reaction Status Date / Time moxifloxacin (From Avelox) Allergy Intermediate I-RASH Verified 02/23/24 11:08 sulfamethoxazole (From Allergy Unknown UNKNOWN Verified 02/23/24 11:08 Bactrim) trimethoprim (From Bactrim) Allergy Unknown Verified 02/23/24 11:08 Exam (Inpt) Vital signs and Labs for Last 24 Hours: Temp Pulse Resp BP Pulse Ox O2 Del Method 98.0 F 57 L 20 108/67 L 93 L Room Air 03/18/24 08:00 03/18/24 08:00 03/18/24 08:00 03/18/24 08:00 03/18/24 08:00 03/18/24 09:00 Laboratory Results - last 24 hr 03/17/24 10:18: Hepatitis C Antibody Non reactive 03/17/24 13:12: Urine Color Yellow, Urine Appearance Clear, Urine pH 5.5, Ur Specific [place] 1.025, Urine Protein 2+ A, Urine Glucose (UA) Negative, Urine Ketones Negative, Urine Blood Negative, Urine Nitrate Negative, Urine Bilirubin Negative, Urine Urobilinogen 0.2, Ur Leukocyte Esterase Negative, Urine RBC None, Urine WBC None, Ur Squamous Epith Cells Occasional, Urine Bacteria None, Hyaline Casts Occ 03/17/24 15:00: Troponin I < 0.01 03/17/24 20:47: POC Glucose 165 H 03/18/24 06:40: WBC 8.6, RBC 3.97 L, Hgb 11.1 L, Hct 32.2 L, MCV 81.3, MCH 28.0, MCHC 34.4, RDW 17.9 H, Plt Count 163, MPV 8.4, Neut % (Auto) 35.3 L, Lymph % (Auto) 58.8 H, [place] % (Auto) 2.1, Eos % (Auto) 3.6, Baso % (Auto) 0.3, Neut # (Auto) 3.0, Lymph # (Auto) 5.0 H, [place] # (Auto) 0.2, Eos # (Auto) 0.3, Baso # (Auto) 0.0, Total Counted 100, Neutrophils % (Manual) 37 L, Lymphocytes % (Manual) 59 H, Monocytes % (Manual) 2, Eosinophils % (Manual) 2, Platelet Estimate Normal, RBC Morphology Normal, Sodium 135 L, Potassium 4.1, Chloride 109 H, Carbon Dioxide 18 L, Anion Gap 12.1, BUN 64 H, Creatinine 2.90 H, Estimated Creat Clear 34, Estimated GFR 21 L, Est GFR ( Amer) 26 L, G lucose 146 H D, Calcium 8.1 L, Magnesium 2.1, Total Bilirubin 0.6, AST 16 L D, ALT 15, Alkaline Phosphatase 64, Total Protein 6.0 L, Albumin 3.4 L D, Globulin 2.6, Albumin/Globulin Ratio 1.3 I & O for Labs for Last 24 Hours: Intake & Output 03/16/24 03/17/24 03/18/24 03/19/24 11:59 11:59 11:59 11:59 Intake Total 750 / 750 Output Total 400 / 400 Balance 350 / 350 Weight 227 lb 232 lb 6.4 oz Constitutional: chronically ill appearing Respiratory: Present decreased breath sounds and rhonchi Results Labs 03/18/24 06:40 03/18/24 06:40 Labs: Laboratory Results - last 24 hr 03/17/24 10:18: Hepatitis C Antibody Non reactive 03/17/24 13:12: Urine Color Yellow, Urine Appearance Clear, Urine pH 5.5, Ur Specific [place] 1.025, Urine Protein 2+ A, Urine Glucose (UA) Negative, Urine Ketones Negative, Urine Blood Negative, Urine Nitrate Negative, Urine Bilirubin Negative, Urine Urobilinogen 0.2, Ur Leukocyte Esterase Negative, Urine RBC None, Urine WBC None, Ur Squamous Epith Cells Occasional, Urine Bacteria None, Hyaline Casts Occ 03/17/24 15:00: Troponin I < 0.01 03/17/24 20:47: POC Glucose 165 H 03/18/24 06:40: WBC 8.6, RBC 3.97 L, Hgb 11.1 L, Hct 32.2 L, MCV 81.3, MCH 28.0, MCHC 34.4, RDW 17.9 H, Plt Count 163, MPV 8.4, Neut % (Auto) 35.3 L, Lymph % (Auto) 58.8 H, [place] % (Auto) 2.1, Eos % (Auto) 3.6, Baso % (Auto) 0.3, Neut # (Auto) 3.0, Lymph # (Auto) 5.0 H, [place] # (Auto) 0.2, Eos # (Auto) 0.3, Baso # (Auto) 0.0, Total Counted 100, Neutrophils % (Manual) 37 L, Lymphocytes % (Manual) 59 H, Monocytes % (Manual) 2, Eosinophils % (Manual) 2, Platelet Estimate Normal, RBC Morphology Normal, Sodium 135 L, Potassium 4.1, Chloride 109 H, Carbon Dioxide 18 L, Anion Gap 12.1, BUN 64 H, Creatinine 2.90 H, Estimated Creat Clear 34, Estimated GFR 21 L, Est GFR ( Amer) 26 L, G lucose 146 H D, Calcium 8.1 L, Magnesium 2.1, Total Bilirubin 0.6, AST 16 L D, ALT 15, Alkaline Phosphatase 64, Total Protein 6.0 L, Albumin 3.4 L D, Globulin 2.6, Albumin/Globulin Ratio 1.3 Assessment and Plan *Assessment and plan (1) Ribs, multiple fractures: Status: Acute Category: Medical Code(s): S22.49XA - Multiple fractures of ribs, unspecified side, initial encounter for closed fracture Plan No need for surgical intervention at this time. No evidence of pneumothorax or bleeding.
--- NOTE | 2024-03-18 12:49 | SW/DCPLANNER ---
Addendum entered by Yeni Miller 03/18/24 16:12: Attempted to update patient's regarding facilities: no answer at this time left voicemail. Original Note: I spoke w/ patient and his regarding plans once medically stable for discharge. PT/OT evaluated patient and recommended SNF level of care. Patient/family are agreeable to placement at this time and prefer [facility], [facility], [facility], [facility] or [facility]. At this time [facility] and [facility] do not have beds available. Patient information has been faxed to [facility], [facility], [facility], [facility] and [facility]. I will continue to follow up w/ patient, , MD and facilities.
[2024-03-18] MEDS: ALBUTEROL 0.083% 2.5 MG/3 ML NEB IH (13:21)
[2024-03-18] MEDS: diazePAM 2MG TABLET 2 MG PO ×2 (13:22→20:27)
[2024-03-18] MEDS: LEVOFLOXACIN/D5W 750 MG/150 ML 750 MG/150 ML PIGGYBACK 100 MG IV (14:00)
--- NOTE | 2024-03-18 16:13 | P.PN_ITS ---
Subjective *Date: 03/18/24 *Time: 16:13 Interval history: Pleasant on exam this morning. Oriented to self and place. Was anxious after showed up this morning. Stable on room air. Continues to have significant rhonchi and cough. Complaining of right-sided chest pain. No nausea or vomiting. Requiring 2 person assist to get out of bed. Remains quite weak. High fall risk. Medical Exam Vital signs and Labs for Last 24 Hours: Vital Signs Temp Pulse Pulse Resp BP Pulse Ox O2 Del Method 03/18/24 15:00 Room Air 03/18/24 13:27 78 03/18/24 13:27 77 03/18/24 13:00 Room Air 03/18/24 12:00 60 03/18/24 12:00 98.3 F 76 18 129/71 93 L Room Air 03/18/24 11:00 Room Air 03/18/24 09:00 Room Air 03/18/24 08:00 50 L 03/18/24 08:00 Room Air 03/18/24 08:00 98.0 F 57 L 20 108/67 L 93 L Room Air 03/18/24 06:51 Room Air 03/18/24 04:59 Room Air 03/18/24 04:00 50 L 03/18/24 04:00 98.4 F 58 L 16 124/66 92 L Room Air 03/18/24 03:00 Room Air 03/18/24 01:00 Room Air 03/18/24 00:00 97.9 F 60 16 121/61 93 L Room Air 03/17/24 23:00 Room Air 03/17/24 21:00 Room Air 03/17/24 20:30 Room Air 03/17/24 20:00 97.8 F 65 16 116/73 95 Room Air 03/17/24 18:43 Room Air 03/17/24 18:13 Room Air 03/17/24 17:00 Room Air Intake and Output 03/18/24 03/18/24 03/18/24 07:59 15:59 23:59 Intake Total 300 / 780 480 / 780 Output Total 400 / 400 Balance -100 / 380 480 / 380 Intake: Intake, Oral Amount 480 / 480 Intake, Total IV Amount 300 / 300 Azithromycin 500 mg In 0.9 % 250 / 250 Sodium Chloride 250 ml @ 250 mls/hr IV Q24H [facility] Rx#: [id number] Ceftriaxone 1 gm 1 gm In 0.9 % 50 / 50 Sodium Chloride 50 ml @ 100 mls /hr IV Q24H [facility] Rx#:[id number] Output: Output, Urine Amount 400 / 400 Other: Number of Unmeasured Voids 0 1 Weight 105.415 kg Patient Weight 03/18/24 23:59 Weight 105.415 kg Laboratory Results - last 24 hr 03/17/24 10:18: Hepatitis C Antibody Non reactive 03/17/24 20:47: POC Glucose 165 H 03/18/24 06:40: WBC 8.6, RBC 3.97 L, Hgb 11.1 L, Hct 32.2 L, MCV 81.3, MCH 28.0, MCHC 34.4, RDW 17.9 H, Plt Count 163, MPV 8.4, Neut % (Auto) 35.3 L, Lymph % (Auto) 58.8 H, [place] % (Auto) 2.1, Eos % (Auto) 3.6, Baso % (Auto) 0.3, Neut # (Auto) 3.0, Lymph # (Auto) 5.0 H, [place] # (Auto) 0.2, Eos # (Auto) 0.3, Baso # (Auto) 0.0, Total Counted 100, Neutrophils % (Manual) 37 L, Lymphocytes % (Manual) 59 H, Monocytes % (Manual) 2, Eosinophils % (Manual) 2, Platelet Estimate Normal, RBC Morphology Normal, Sodium 135 L, Potassium 4.1, Chloride 109 H, Carbon Dioxide 18 L, Anion Gap 12.1, BUN 64 H, Creatinine 2.90 H, Estimated Creat Clear 34, Estimated GFR 21 L, Est GFR ( Amer) 26 L, Glucose 146 H D, Calcium 8.1 L, Magnesium 2.1, Total Bilirubin 0.6, AST 16 L D, ALT 15, Alkaline Phosphatase 64, Total Protein 6.0 L, Albumin 3.4 L D, Globulin 2.6, Albumin/Globulin Ratio 1.3 I & O for Labs for Last 24 Hours: Intake & Output 03/15/24 03/16/24 03/17/24 03/18/24 23:59 23:59 23:59 23:59 Intake Total 240 / 540 780 / 780 Output Total 0 / 0 400 / 400 Balance 240 / 540 380 / 380 Weight 105.715 kg 105.415 kg Constitutional: Present no acute distress, average body habitus, chronically ill appearing and cooperative Head: Present atraumatic and normocephalic ENT: Present normal exam Neck: Present normal inspection Respiratory: Present rhonchi, distant breath sounds, diminished air movement and normal respiratory effort; Absent wheezes or crackles Comment:: Tender along right chest Cardiac: Present Reg Rate and Rhythm GI: Present soft and normal bowel sounds; Absent distention or tenderness Extremities: Present normal inspection and full ROM Skin: Present intact; Absent erythema Neuro: Present Grossly Intact, alert, awake and moves all extremities Comment:: Oriented to self and place Assessment and Plan *Assessment and plan (1) Ribs, multiple fractures: Status: Acute Category: Medical Code(s): S22.49XA - Multiple fractures of ribs, unspecified side, initial encounter for closed fracture (2) Pneumonia: Status: Acute Qualifiers: Pneumonia type: due to COVID-19 virus Qualified Code(s): U07.1 - COVID- 19; J12.82 - Pneumonia due to coronavirus disease 2019 Category: Medical Code(s): J18.9 - Pneumonia, unspecified organism (3) Fall: Status: Acute Category: Medical Code(s): W19.XXXA - Unspecified fall, initial encounter (4) Anxiety and depression: Status: Acute Category: Medical Code(s): F41.9 - Anxiety disorder, unspecified; F32.A - Depression, unspecified (5) COPD mixed type: Status: Chronic Category: Medical Code(s): J44.9 - Chronic obstructive pulmonary disease, unspecified (6) HTN (hypertension): Status: Acute Qualifiers: Hypertension type: unspecified Qualified Code(s): I10 - Essential ( primary) hypertension Category: Medical Code(s): I10 - Essential (primary) hypertension (7) Chronic kidney disease: Problem Comment: stage 3b/4 Status: Acute Qualifiers: Chronic kidney disease stage: unspecified stage Qualified Code(s): N18.9 - Chronic kidney disease, unspecified Category: Medical Code(s): N18.9 - Chronic kidney disease, unspecified (8) PAF (paroxysmal atrial fibrillation): Status: Acute Category: Medical Code(s): I48.0 - Paroxysmal atrial fibrillation (9) CLL (chronic lymphocytic leukemia): Problem Comment: Established with Dr. Bueno Status: Chronic Category: Medical Code(s): C91.10 - Chronic lymphocytic leukemia of B-cell type not having achieved remission (10) Diabetes mellitus: Status: Chronic Qualifiers: Diabetes mellitus complication status: with other specified complication Diabetes mellitus chair mender insulin use: unspecified [facility] insulin use status Diabetes mellitus type: other specified (including CONSTANTINE) Qualified Code(s): E13.69 - Other specified diabetes mellitus with other specified complication Category: Medical Code(s): E11.9 - Type 2 diabetes mellitus without complications Plan Eder Castillo is a 74 year old male with a medical history significant for CLL on chemotherapy, COPD not on O2, type 2 diabetes, HFpEF, hypertension, afib on Eliquis, dementia presents after 2 falls at home. He and his state patient restarted chemotherapy for CLL this Thursday and Thursday, and that patient has been feeling weaker than usual. This morning, he states he felt a little weak in his legs and fell while making coffee. His had a difficult time getting him up, after which he fell again. This prompted to bring him to the ED. CTA chest revealed right 6-7th posterior rib fractures with pleural thickening and/or hemorrhage. I advised ED to speak to our general surgeon about this case, and general surgery recommended admission to our facility for monitoring. PSI/port score of 153, class V risk. Necessitating inpatient man agement. Problems addressed as follows: #Right 6-7th rib fractures #Falls - There is some evidence of pleural thickening and/or hemorrhage surround these ribs. General surgery advised admission and monitoring to our facility. No intervention planned at this time. Remains hemodynamically stable - Discontinue telemetry, vitals every 8 hours to promote rest overnight. - Incentive spirometry/aggressive pulmonary toilet - Pain control with tylenol, Percocet, and Dilaudad for breakthrough. Avoid NSAIDs in setting of CKD. - PT/OT consulted for falls, recommend SNF placement. Anticipate discharge in 3 to 4 days. - Holding home Eliquis in setting of possible hemorrhage. # community acquired pneumonia - CTA suggests opacities in left upper lobe and lingula. - While there is no neutrophilic shift with WBC of 11.2 in setting of CLL, elevated BUN, age, male, altered mental status -Discontinue ceftriaxone and azithromycin. - Discussed case with pulmonology, recommend transitioning to Levaquin for better broad coverage. Continue DuoNebs every 6 hours and Pulmicort every 12 hours. No need for steroids at this time. #CLL: Follows with Dr. Bueno. Recently started chemo this past Thursday and Thursday. reports increased confusion since starting chemo. Unsure if she wants to continue. No signs of lymphoblastic crisis, continue to monitor. #COPD: Stable. Continue home Trelegy. No indication for steroids at this time. #Diabetes: Lantus 10u nightly. Morning glucose 146. LDSSI, ACHS glucose checks. #CKD stage 4: Creatinine up today at 2.9, BUN 64. Above baseline. Making urine. Avoid NSAIDs for pain. Repeat CBC, CMP, magnesium ordered for the morning. #HFpEF: Stable. Resume home Lasix regimen. #Afib: Rate controlled. Hold Eliquis in setting of suspected hemorrhage as above. FULL CODE SCDs Diabetic diet
[2024-03-18 16:40] LABS: HIV Combo NEGATIVE (Negative)
[2024-03-18 17:34] LABS: POC Glucose,Bedside 144 (70-110)
[2024-03-18] MEDS: IPRATROPIUM/ALBUTEROL 3 ML NEB IH ×2 (18:35→23:42)
[2024-03-18] MEDS: BUDESONIDE 0.5MG/2ML NEB 0.5 MG IH (18:35)
[2024-03-18 20:00] LABS: POC Glucose,Bedside 137 (70-110)
[2024-03-18] MEDS: INSULIN GLARGINE 100 UNITS/ML 3ML FLEXPEN 10 UNIT SUBCUT (20:26)
[2024-03-18] MEDS: QUETIAPINE 25MG TABLET 50 MG PO (20:27)
[2024-03-18] MEDS: TAMSULOSIN 0.4MG CAPSULE 0.8 MG PO (20:27)
[2024-03-18] MEDS: OXYCODONE 5MG W/APAP 325MG TABLET 2 EACH PO (22:56)
[2024-03-19] VITALS (8 sets, daily range): BP systolic 134–146; BP diastolic 69–79; PULSE 71–82; RESP 16–20; TEMP 36.6–36.7; O2SAT 94–96; BMI 30.8
[2024-03-19] MEDS: HYDROMORPHONE 2MG/ML SYRINGE 1 MG IV (02:47)
[2024-03-19] MEDS: diazePAM 2MG TABLET 2 MG PO (03:52)
[2024-03-19] MEDS: IPRATROPIUM/ALBUTEROL 3 ML NEB IH ×4 (06:12→23:07)
[2024-03-19] MEDS: BUDESONIDE 0.5MG/2ML NEB 0.5 MG IH ×2 (06:12→18:19)
[2024-03-19 06:20] LABS: POC Glucose,Bedside 122 (70-110)
[2024-03-19 07:48] LABS: Basophils # 0.1 K/mm3 (0-0.2); Basophils % 0.5 % (0.1-2.0); Eosinophils # 0.4 K/mm3 (0.0-0.4); Eosinophils % 3.7 % (0.1-12.0); Hematocrit 33.5 % (42.0-52.0); Hemoglobin 11.5 g/dL (14.1-18.0); Lymphocytes # 5.1 K/mm3 (0.7-4.5); Lymphocytes % 53.3 % (10-50); Mean Corpuscular HGB Conc 34.2 g/dL (31.8-35.4); Mean Corpuscular Hemoglobin 28.4 pg (27.0-31.2); Mean Corpuscular Volume 82.9 fl (80-94); Mean Platelet Volume 8.5 fl (7.4-10.4); Monocytes # 0.2 K/mm3 (0.1-1.0); Monocytes % 2.4 % (1.7-9.3); Neutrophils # 3.8 K/mm3 (1.8-7.8); Neutrophils % 40.1 % (37.0-80.0); Platelet Count 174 K/mm3 (142-424); Red Blood Count 4.04 M/mm3 (4.60-6.20); Red Cell Distribution Width 17.9 % (11.5-17.5); White Blood Count 9.5 K/mm3 (4.8-10.8)
[2024-03-19 07:52] LABS: MANUAL DIFFERENTIAL MANUAL DIFFERENTIAL (MANUAL DIFF)
[2024-03-19 08:05] LABS: Albumin Level 3.7 g/dl (3.5-5.0); Chloride 104 mmol/L (98-107); Sodium 131 mmol/L (136-145)
[2024-03-19 08:07] LABS: Alanine Aminotransferase 17 U/L (12-78); Aspartate Amino Transferase 22 U/L (17-59); Bilirubin,Total 0.8 mg/dl (0.2-1.3); Blood Urea Nitrogen 63 mg/dl (9-20); Creatinine Clearance Estimated 30 mL/min (50-200); Estimated Glomerular Filt Rate 18 ml/min (>60); GFR (African American) 22 ML/MIN (>60)
[2024-03-19 08:08] LABS: Albumin/Globulin Ratio 1.3 (1.1-1.8); Alkaline Phosphatase 78 U/L (38-126); Anion Gap 14.1 mEq/L (5-15); Calcium 8.1 mg/dl (8.4-10.2); Carbon Dioxide 17 mmol/L (22.0-30.0); Globulin 2.8 g/dL (1.3-3.2); Glucose 125 mg/dl (74-100); Potassium 4.1 mmoL/L (3.5-5.1); Total Protein,Serum 6.5 g/dl (6.3-8.2)
[2024-03-19] MEDS: HYDROXYCHLOROQUINE SULFATE 200MG TABLET 200 MG PO ×2 (08:08→21:33)
[2024-03-19] MEDS: CITALOPRAM 20MG TABLET 20 MG PO (08:09)
[2024-03-19] MEDS: METOPROLOL SUCCINATE XL 100MG TABLET 100 MG PO (08:09)
[2024-03-19] MEDS: FUROSEMIDE 40 MG TABLET PO (08:09)
--- NOTE | 2024-03-19 09:23 | EXP.SURG.PN ---
Subjective Patient reports: no new complaints and feels better Narrative: Denies SOA Exam Data for Last 24 hours Vital signs and Labs for Last 24 Hours: Temp Pulse Resp BP Pulse Ox O2 Del Method 97.9 F 72 17 140/69 94 L Room Air 03/19/24 08:00 03/19/24 08:00 03/19/24 08:00 03/19/24 08:00 03/19/24 08:00 03/19/24 08:35 Laboratory Results - last 24 hr 03/17/24 10:18: HIV Ag/Ab Combo Qual Negative 03/18/24 17:27: POC Glucose 144 H 03/18/24 19:52: POC Glucose 137 H 03/19/24 05:23: POC Glucose 122 H 03/19/24 06:48: WBC 9.5, RBC 4.04 L, Hgb 11.5 L, Hct 33.5 L, MCV 82.9, MCH 28.4, MCHC 34.2, RDW 17.9 H, Plt Count 174, MPV 8.5, Neut % (Auto) 40.1, Lymph % (Auto) 53.3 H, [place] % (Auto) 2.4, Eos % (Auto) 3.7, Baso % (Auto) 0.5, Neut # (Auto) 3.8, Lymph # (Auto) 5.1 H, [place] # (Auto) 0.2, Eos # (Auto) 0.4, Baso # (Auto) 0.1, Sodium 131 L, Potassium 4.1, Chloride 104, Carbon Dioxide 17 L, Anion Gap 14.1, BUN 63 H, Creatinine 3.30 H, Estimated Creat Clear 30, Estimated GFR 18 L*, Est GFR ( Amer) 22 L, Glucose 125 H, Calcium 8.1 L, Magnesium 2.0, Total Bilirubin 0.8, AST 22 D, ALT 17, Alkaline Phosphatase 78, Total Protein 6.5, Albumin 3.7, Globulin 2.8, Albumin/Globulin Ratio 1.3 I & O for Last 24 hours: Intake & Output 03/16/24 03/17/24 03/18/24 03/19/24 11:59 11:59 11:59 11:59 Intake Total 750 / 750 805 / 805 Output Total 400 / 400 1800 / 1800 Balance 350 / 350 -995 / -995 Weight 227 lb 232 lb 6.4 oz 232 lb 6.404 oz Microbiology Reports for the Last 24 Hours: Microbiology 03/18/24 16:09 Sputum - Expectorated Sputum Gram Stain - Final *Routine Respiratory Exam Respiratory: Absent accessory muscle use Progress Note: A&P Assessment and plan (1) Ribs, multiple fractures: Status: Acute Assessment and plan: Pain control, pulmonary toilet. (2) Pneumonia: Status: Acute (3) Fall: Status: Acute (4) Anxiety and depression: Status: Acute (5) COPD mixed type: Status: Chronic (6) HTN (hypertension): Status: Acute (7) Chronic kidney disease: Problem details: stage 3b/4 Status: Acute (8) PAF (paroxysmal atrial fibrillation): Status: Acute (9) CLL (chronic lymphocytic leukemia): Problem details: Established with Dr. Bueno Status: Chronic (10) Diabetes mellitus: Status: Chronic
[2024-03-19 11:59] LABS: POC Glucose,Bedside 156 (70-110)
[2024-03-19] MEDS: humaLOG 100 UNITS/ML 10ML VIAL (SSI) SUBCUT ×3 (13:20→21:28)
[2024-03-19 14:09] LABS: Lymphocytes % 34 % (10-50); Monocytes % 3 % (2-9); Neutrophils % 63 % (42-76); Platelet Estimate Normal; RBC Morphology Normal; Total Cells Counted 100
[2024-03-19] MEDS: OXYCODONE 5MG W/APAP 325MG TABLET 2 EACH PO (16:21)
--- NOTE | 2024-03-19 16:27 | PC.NURSE ---
Pt's would like to see Dr. James about patient's right sided rib pain. . aware.
[2024-03-19 16:30] LABS: POC Glucose,Bedside 154 (70-110)
--- NOTE | 2024-03-19 17:16 | EXP.ACUTE.PN ---
Subjective *Date: 03/19/24 *Time: 17:16 Interval history: Patient feeling better today. Last dose of pain medication was at 10 PM last night. No nausea or vomiting. Ambulating with minimal assistance today. Reports minimal chest pain on morning exam however pain has progressed as the day is going on. Stable on room air. Rhonchi improved on chest exam with no significant cough. Did not sleep much overnight but patient appears more alert and interactive today. Medical Exam Vital signs and Labs for Last 24 Hours: Vital Signs Temp Pulse Pulse Resp BP Pulse Ox O2 Del Method 03/19/24 16:10 Room Air 03/19/24 14:46 Room Air 03/19/24 11:03 71 03/19/24 11:03 71 03/19/24 08:35 Room Air 03/19/24 08:00 97.9 F 72 17 140/69 94 L Room Air 03/19/24 08:00 Room Air 03/19/24 07:00 Room Air 03/19/24 06:15 75 03/19/24 06:15 78 03/19/24 05:00 Room Air 03/19/24 03:39 97.9 F 82 20 134/72 95 Room Air 03/19/24 03:00 Room Air 03/19/24 01:00 Room Air 03/18/24 23:43 70 03/18/24 23:43 72 03/18/24 23:00 Room Air 03/18/24 21:00 Room Air 03/18/24 19:31 97.6 F 71 18 137/80 94 L Room Air 03/18/24 18:45 Room Air 03/18/24 18:37 75 03/18/24 18:37 76 Intake and Output 03/19/24 03/19/24 03/19/24 07:59 15:59 23:59 Intake Total 480 / 480 Output Total 950 / 1100 150 / 1100 Balance -950 / -620 330 / -620 Intake: Intake, Oral Amount 480 / 480 Output: Output, Urine Amount 950 / 1100 150 / 1100 Other: Number of Unmeasured Voids 1 1 Weight 105.415 kg Patient Weight 03/19/24 23:59 Weight 105.415 kg Laboratory Results - last 24 hr 03/18/24 17:27: POC Glucose 144 H 03/18/24 19:52: POC Glucose 137 H 03/19/24 05:23: POC Glucose 122 H 03/19/24 06:48: WBC 9.5, RBC 4.04 L, Hgb 11.5 L, Hct 33.5 L, MCV 82.9, MCH 28.4, MCHC 34.2, RDW 17.9 H, Plt Count 174, MPV 8.5, Neut % (Auto) 40.1, Lymph % (Auto) 53.3 H, George % (Auto) 2.4, Eos % (Auto) 3.7, Baso % (Auto) 0.5, Neut # (Auto) 3.8, Lymph # (Auto) 5.1 H, George # (Auto) 0.2, Eos # (Auto) 0.4, Baso # (Auto) 0.1, Total Counted 100, Neutrophils % (Manual) 63, Lymphocytes % (Manual) 34, Monocytes % (Manual) 3, Platelet Estimate Normal, RBC Morphology Normal, Sodium 131 L, Potassium 4.1, Chloride 104, Carbon Dioxide 17 L, Anion Gap 14.1, BUN 63 H, Creatinine 3.30 H, Estimated Creat Clear 30, Estimated GFR 18 L*, Est GFR ( Amer) 22 L, Glucose 125 H, Calcium 8.1 L, Magnesium 2.0, Total Bilirubin 0.8, AST 22 D, ALT 17, Alkaline Phosphatase 78, Total Protein 6.5, Albumin 3.7, Globulin 2.8, Albumin/Globulin Ratio 1.3 03/19/24 11:51: POC Glucose 156 H 03/19/24 16:23: POC Glucose 154 H I & O for Labs for Last 24 Hours: Intake & Output 03/16/24 03/17/24 03/18/24 03/19/24 23:59 23:59 23:59 23:59 Intake Total 240 / 540 1315 / 1315 480 / 480 Output Total 0 / 0 1100 / 1750 1100 / 1100 Balance 240 / 540 215 / -435 -620 / -620 Weight 105.715 kg 105.415 kg 105.415 kg Microbiology Reports for the Last 24 Hours: Microbiology 03/18/24 16:09 Sputum - Expectorated Sputum Gram Stain - Final Constitutional: Present no acute distress, average body habitus, chronically ill appearing and cooperative Head: Present atraumatic and normocephalic ENT: Present normal exam Neck: Present normal inspection Respiratory: Present distant breath sounds, diminished air movement and normal respiratory effort; Absent rhonchi, wheezes or crackles Comment:: Tender along right chest Cardiac: Present Reg Rate and Rhythm GI: Present soft and normal bowel sounds; Absent distention or tenderness Extremities: Present normal inspection and full ROM Skin: Present intact; Absent erythema Neuro: Present Grossly Intact, alert, awake, oriented x 3 and moves all extremities Assessment and Plan *Assessment and plan (1) Ribs, multiple fractures: Status: Acute Category: Medical Code(s): S22.49XA - Multiple fractures of ribs, unspecified side, initial encounter for closed fracture (2) Pneumonia: Status: Acute Qualifiers: Pneumonia type: due to COVID-19 virus Qualified Code(s): U07.1 - COVID-19; J12.82 - Pneumonia due to coronavirus disease 2018 Category: Medical Code(s): J18.9 - Pneumonia, unspecified organism (3) Fall: Status: Acute Category: Medical Code(s): W19.XXXA - Unspecified fall, initial encounter (4) Anxiety and depression: Status: Acute Category: Medical Code(s): F41.9 - Anxiety disorder, unspecified; F32.A - Depression, unspecified (5) COPD mixed type: Status: Chronic Category: Medical Code(s): J44.9 - Chronic obstructive pulmonary disease, unspecified (6) HTN (hypertension): Status: Acute Qualifiers: Hypertension type: unspecified Qualified Code(s): I10 - Essential (primary) hypertension Category: Medical Code(s): I10 - Essential (primary) hypertension (7) Chronic kidney disease: Problem Comment: stage 3b/4 Status: Acute Qualifiers: Chronic kidney disease stage: unspecified stage Qualified Code(s): N18.9 - Chronic kidney disease, unspecified Category: Medical Code(s): N18.9 - Chronic kidney disease, unspecified (8) PAF (paroxysmal atrial fibrillation): Status: Acute Category: Medical Code(s): I48.0 - Paroxysmal atrial fibrillation (9) CLL (chronic lymphocytic leukemia): Problem Comment: Established with Dr. 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 He and his state patient restarted chemotherapy for CLL this Thursday and Thursday, and that patient has been feeling weaker than usual. This morning, he states he felt a little weak in his legs and fell while making coffee. His had a difficult time getting him up, after which he fell again. This prompted to bring him to the ED. CTA chest revealed right 6-7th posterior rib fractures with pleural thickening and/or hemorrhage. I advised ED to speak to our general surgeon about this case, and general surgery recommended admission to our facility for monitoring. PSI/port score of 153, class V risk. Necessitating inpatient management. Showing some improvement. Will repeat labs in the morning, anticipate discharge tomorrow with home health if doing as well tomorrow as he is today. Problems addressed as follows: #Right 6-7th rib fractures #Falls - There is some evidence of pleural thickening and/or hemorrhage surround these ribs. General surgery advised admission and monitoring to our facility. No intervention planned at this time. Remains hemodynamically stable -Repeat CT ordered for the morning to evaluate stability of pneumonia and rib fractures and pulmonary edema. - Incentive spirometry/aggressive pulmonary toilet - Pain control with tylenol, Percocet. Required 3 doses in the past 24 hours. De-escalate to 5 mg every 4 hours as needed. Avoiding NSAIDs in the setting of CKD/BRE. -PT and OT recommended SNF yesterday. Patient more mobile today. Would be appropriate for home health if remains as mobile tomorrow as he is today. - Holding home Eliquis in setting of possible hemorrhage. # community acquired pneumonia - CTA suggests opacities in left upper lobe and lingula. -White count improved to 9.5. Hemoglobin stable 11.5. Continue Levaquin renally dosed. Continue DuoNebs every 6 hours and Pulmicort every 12 hours. #CLL: Follows with Dr. Bueno. Recently started chemo this past Thursday and Thursday. reports increased confusion since starting chemo. Unsure if she wants to continue. No signs of lymphoblastic crisis, continue to monitor. #COPD: Stable. Continue home Trelegy. No indication for steroids at this time. #Diabetes: Lantus 10u nightly. Morning glucose 125. LDSSI, ACHS glucose checks. #CKD stage 4: Creatinine bumped to 3.3, BUN 63. Repeat CMP, CBC, magnesium ordered for the morning. Avoiding NSAIDs and ARB therapy. Making good urine. #HFpEF: Stable. 1 dose of Lasix today. Will hold further diuresis in the setting of worsening BRE #Afib: Rate controlled. Hold Eliquis in setting of suspected hemorrhage as above. FULL CODE SCDs Diabetic diet
--- NOTE | 2024-03-19 17:58 | PC.NURSE ---
Pt. is aox 1 with confusion, bed alarm has gone off several times through out this morning, fsbg achs, up with assistance times one, 90's on RA, 20g L AC SL, PT and OT recommend SNF.
[2024-03-19] MEDS: INSULIN GLARGINE 100 UNITS/ML 3ML FLEXPEN 10 UNIT SUBCUT (21:27)
[2024-03-19] MEDS: QUETIAPINE 100MG TABLET 100 MG PO (21:33)
[2024-03-19] MEDS: TAMSULOSIN 0.4MG CAPSULE 0.8 MG PO (21:33)
[2024-03-19 22:04] LABS: POC Glucose,Bedside 170 (70-110)
[2024-03-20 04:00] VITALS: BP 131/99; PULSE 74; RESP 16; TEMP 36.6; O2SAT 94; BMI 29.2
[2024-03-20 06:16] VITALS: PULSE 71; PULSE 75
[2024-03-20] MEDS: IPRATROPIUM/ALBUTEROL 3 ML NEB IH ×2 (06:16→11:28)
[2024-03-20] MEDS: BUDESONIDE 0.5MG/2ML NEB 0.5 MG IH (06:16)
[2024-03-20 06:43] LABS: POC Glucose,Bedside 121 (70-110)
[2024-03-20] MEDS: diazePAM 2MG TABLET 2 MG PO (07:26)
[2024-03-20] MEDS: OXYCODONE 5MG W/APAP 325MG TABLET 1 EACH PO ×2 (07:27→13:41)
--- NOTE | 2024-03-20 07:41 | EXP.DC.SUM ---
General Admission date:: 03/18/24 Discharge date: 03/20/24 HPI HPI HPI: Eder Castillo is a 74 year old male with a medical history significant for CLL on chemotherapy, COPD not on O2, type 2 diabetes, HFpEF, hypertension, afib on Eliquis, dementia presents after 2 falls at home. He and his state patient restarted chemotherapy for CLL this Thursday and Thursday, and that patient has been feeling weaker than usual. After his second fall he was brought to the emergency department. CTA chest revealed right 6-7th posterior rib fractures with pleural thickening and/or hemorrhage. Consideration is being given for admission to the hospitalist who requested general surgery input regarding the rib fractures. Chest x-ray this morning reveals partially visualized rib fractures without pneumothorax. Hemoglobin 11.1. 12.0 on presentation. Hospital Course Hospital Course Hospital Course: Eder Castillo is a 74 year old male with a medical history significant for CLL on chemotherapy, COPD not on O2, type 2 diabetes, HFpEF, hypertension, afib on Eliquis, dementia presents after 2 falls at home. He and his state patient restarted chemotherapy for CLL this Thursday and Thursday, and that patient has been feeling weaker than usual. This morning, he states he felt a little weak in his legs and fell while making coffee. His had a difficult time getting him up, after which he fell again. This prompted to bring him to the ED. CTA chest revealed right 6-7th posterior rib fractures with pleural thickening and/or hemorrhage. I advised ED to speak to our general surgeon about this case, and general surgery recommended admission to our facility for monitoring. PSI/port score of 153, class V risk. Patient has done well during admission. Responded well to antibiotics. Pain doing better. Therapy evaluated. Stable to discharge home given his improve mobility. Back to independent functionality. Recommend follow-up with oncologist to discuss further chemotherapy versus focusing on comfort and quality. Problems addressed as follows necessitating inpatient management. #Right 6-7th rib fractures #Falls # Community-acquired pneumonia - There is some evidence of pleural thickening and/or hemorrhage surround these ribs. General surgery advised admission and monitoring to our facility. Serial exams performed. Showing improvement in respiratory status. Lung exam improved with decreasing rhonchi and crackles. Was initiated on antibiotics due to concern for underlying pneumonia. His CTA suggested opacities in left upper lobe and lingula. Hemoglobin and white count remained stable. Will complete antibiotic course with Levaquin renally dosed. DuoNebs and breathing treatments as needed. Continue home inhalers. Given his stability on room air, will discharge home. Initially patient was having difficulty with pain control. Therapy evaluated and recommended home health. Eliquis was held during admission. Patient's mobility improved significantly during admission. Stable to discharge with family. Pain showing improvement. #CLL: Follows with Dr. Bueno. Recently started chemo this past Thursday and Thursday. reports increased confusion since starting chemo. Unsure if she wants to continue. No signs of lymphoblastic crisis, continue to monitor. Further discussion as outpatient with oncology. #COPD: Stable. Continue home Trelegy. No indication for steroids at this time. #Diabetes: Lantus 10u nightly. Morning glucose 125. LDSSI, ACHS glucose checks. Continue home regimen at discharge #CKD stage 4: Creatinine bumped to 3.3, BUN 63 during admission. Improved to BUN 61, creatinine 2.7 (baseline) by day of discharge. Recommend avoiding NSAIDs and ARB therapy. #HFpEF: Stable. Treated with Lasix intermittently during admission. Continue home regimen at discharge. #Afib: Rate controlled. Hold Eliquis in setting of suspected hemorrhage as above. No change in hemoglobin during admission. Okay to resume at discharge due to A-fib. Home health at discharge. CT on day of discharge stable if not showing slight improvement. Stable on room air. Will discharge home with Exam Data for Last 24 hours Vital signs and Labs for Last 24 Hours: Temp Pulse Resp BP Pulse Ox O2 Del Method 97.9 F 71 16 131/99 H 94 L Room Air 03/20/24 04:00 03/20/24 06:16 03/20/24 04:00 03/20/24 04:00 03/20/24 04:00 03/20/24 07:29 Laboratory Results - last 24 hr 03/19/24 06:48: WBC 9.5, RBC 4.04 L, Hgb 11.5 L, Hct 33.5 L, MCV 82.9, MCH 28.4, MCHC 34.2, RDW 17.9 H, Plt Count 174, MPV 8.5, Neut % (Auto) 40.1, Lymph % (Auto) 53.3 H, Arroyo % (Auto) 2.4, Eos % (Auto) 3.7, Baso % (Auto) 0.5, Neut # (Auto) 3.8, Lymph # (Auto) 5.1 H, Arroyo # (Auto) 0.2, Eos # (Auto) 0.4, Baso # (Auto) 0.1, Total Counted 100, Neutrophils % (Manual) 63, Lymphocytes % (Manual) 34, Monocytes % (Manual) 3, Platelet Estimate Normal, RBC Morphology Normal, Sodium 131 L, Potassium 4.1, Chloride 104, Carbon Dioxide 17 L, Anion Gap 14.1, BUN 63 H, Creatinine 3.30 H, Estimated Creat Clear 30, Estimated GFR 18 L*, Est GFR ( Amer) 22 L, Glucose 125 H, Calcium 8.1 L, Magnesium 2.0, Total Bilirubin 0.8, AST 22 D, ALT 17, Alkaline Phosphatase 78, Total Protein 6.5, Albumin 3.7, Globulin 2.8, Albumin/Globulin Ratio 1.3 03/19/24 11:51: POC Glucose 156 H 03/19/24 16:23: POC Glucose 154 H 03/19/24 21:16: POC Glucose 170 H 03/20/24 06:04: POC Glucose 121 H I & O for Last 24 hours: Intake & Output 03/17/24 03/18/24 03/19/24 03/20/24 23:59 23:59 23:59 23:59 Intake Total 240 / 540 1315 / 1315 720 / 960 240 / 240 Output Total 0 / 0 1100 / 1750 1100 / 1100 Balance 240 / 540 215 / -435 -380 / -140 240 / 240 Weight 105.715 kg 105.415 kg 105.415 kg 100.289 kg Constitutional Constitutional: no acute distress, average body habitus and chronically ill appearing *Routine HEENT Exam Head: Present normocephalic Eye: Present EOMI and PERRL ENT: Present mucous membranes moist Comments: No visible thrush lesions today *Routine Neck Exam Neck: Present supple; Absent lymphadenopathy Routine Chest/Breast/Axilla Exam Comments: Tender to palpation on right side of chest *Routine Respiratory Exam Respiratory: Present prolonged expiratory phase, rhonchi and normal respiratory effort; Absent wheezes or crackles *Routine Cardiovascular Exam Cardiovascular: Present irregularly irregular *Routine Abdominal Exam Abdominal: Present soft and normoactive bowel sounds; Absent tenderness *Routine Rectal Exam Patient deferred: visual exam *Routine Exam Patient deferred: penile exam *Routine Extremities Exam Extremities: Absent cyanosis, clubbing or edema *Routine Skin Exam Skin: Present warm; Absent rash Comments: Senile purpura, bruising on arms *Routine Neurological Exam Neurological: Present alert, oriented X3 and moving all extremities; Absent altered mental status Results Data Completed and Pending Labs on day of discharge: Labs from last 24 hours 03/20/24 03/19/24 03/19/24 06:04 21:16 16:23 WBC RBC Hgb Hct MCV MCH MCHC RDW Plt Count MPV Neut % (Auto) Lymph % (Auto) Arroyo % (Auto) Eos % (Auto) Baso % (Auto) Neut # (Auto) Lymph # (Auto) Arroyo # (Auto) Eos # (Auto) Baso # (Auto) Total Counted Neutrophils % (Manual) Lymphocytes % (Manual) Monocytes % (Manual) Platelet Estimate RBC Morphology Sodium Potassium Chloride Carbon Dioxide Anion Gap BUN Creatinine Estimated Creat Clear Estimated GFR Est GFR ( Amer) Glucose POC Glucose 121 H 170 H 154 H Calcium Magnesium Total Bilirubin AST ALT Alkaline Phosphatase Total Protein Albumin Globulin Albumin/Globulin Ratio 03/19/24 03/19/24 11:51 06:48 WBC 9.5 RBC 4.04 L Hgb 11.5 L Hct 33.5 L MCV 82.9 MCH 28.4 MCHC 34.2 RDW 17.9 H Plt Count 174 MPV 8.5 Neut % (Auto) 40.1 Lymph % (Auto) 53.3 H Arroyo % (Auto) 2.4 Eos % (Auto) 3.7 Baso % (Auto) 0.5 Neut # (Auto) 3.8 Lymph # (Auto) 5.1 H [place] # (Auto) 0.2 Eos # (Auto) 0.4 Baso # (Auto) 0.1 Total Counted 100 Neutrophils % (Manual) 63 Lymphocytes % (Manual) 34 Monocytes % (Manual) 3 Platelet Estimate Normal RBC Morphology Normal Sodium 131 L Potassium 4.1 Chloride 104 Carbon Dioxide 17 L Anion Gap 14.1 BUN 63 H Creatinine 3.30 H Estimated Creat Clear 30 Estimated GFR 18 L* Est GFR ( Amer) 22 L Glucose 125 H POC Glucose 156 H Calcium 8.1 L Magnesium 2.0 Total Bilirubin 0.8 AST 22 D ALT 17 Alkaline Phosphatase 78 Total Protein 6.5 Albumin 3.7 Globulin 2.8 Albumin/Globulin Ratio 1.3 DS: Diagnosis Discharge Diagnosis (1) Ribs, multiple fractures: Status: Acute Code(s): S22.49XA - Multiple fractures of ribs, unspecified side, initial encounter for closed fracture (2) Pneumonia: Status: Acute Code(s): J18.9 - Pneumonia, unspecified organism Qualifiers: Pneumonia type: due to COVID-19 virus Qualified Code(s): U07.1 - COVID-19; J12.82 - Pneumonia due to coronavirus disease 2019 (3) Fall: Status: Acute Code(s): W19.XXXA - Unspecified fall, initial encounter (4) Anxiety and depression: Status: Acute Code(s): F41.9 - Anxiety disorder, unspecified; F32.A - Depression, unspecified (5) COPD mixed type: Status: Chronic Code(s): J44.9 - Chronic obstructive pulmonary disease, unspecified (6) HTN (hypertension): Status: Acute Code(s): I10 - Essential (primary) hypertension Qualifiers: Hypertension type: unspecified Qualified Code(s): I10 - Essential (primary) hypertension (7) Chronic kidney disease: Status: Acute Code(s): N18.9 - Chronic kidney disease, unspecified Qualifiers: Chronic kidney disease stage: unspecified stage Qualified Code(s): N18.9 - Chronic kidney disease, unspecified Problem details: stage 3b/4 (8) PAF (paroxysmal atrial fibrillation): Status: Acute Code(s): I48.0 - Paroxysmal atrial fibrillation (9) CLL (chronic lymphocytic leukemia): Status: Chronic Code(s): C91.10 - Chronic lymphocytic leukemia of B-cell type not having achieved remission Problem details: Established with Dr. 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 200 mcg-umeclid 1 inh inhalation DAILY #60 ea 11/23/23 03/22/24 Rx 62.5 mcg-vilant 25 mcg inhalat.powder (Trelegy Ellipta) diazepam 2 mg tablet 2 mg PO HS #30 tabs 01/04/24 03/22/24 Rx apixaban 2.5 mg tablet (Eliquis) 2.5 mg PO BID #60 tabs 03/07/24 03/22/24 Rx metoprolol succinate 100 mg 100 mg PO DAILY #30 tabs 03/07/24 03/22/24 Rx tablet,extended release 24 hr albuterol sulfate 90 mcg/actuation 2 puff inhalation Q6HP PRN Asthma 03/17/24 03/22/24 History aerosol inhaler amlodipine 10 mg tablet 10 mg PO DAILY 03/17/24 03/22/24 History citalopram 20 mg tablet 20 mg PO DAILY 03/17/24 03/22/24 History insulin NPH-regular 70-30 U-100 15 unit SQ DAILY 03/17/24 03/22/24 History insulin 100 unit/mL subcutaneous pen (Humulin 70/30 U-100 KwikPen) insulin glargine 100 unit/mL (3 20 unit SQ HS 03/17/24 03/22/24 History mL) subcutaneous pen (Lantus Solostar U-100 Insulin) prochlorperazine maleate 10 mg 10 mg PO Q6HP PRN nausea and 03/17/24 03/22/24 History tablet (Compazine) vomiting tamsulosin 0.4 mg capsule 0.8 mg PO HS 03/17/24 03/22/24 History levofloxacin 750 mg tablet 750 mg PO Q48H 4 days #2 tabs 03/20/24 03/22/24 Rx oxycodone-acetaminophen 5 mg-325 1 tab PO Q6HP PRN Moderate Pain 03/20/24 03/22/24 Rx mg tablet (4-6) #11 tabs quetiapine 100 mg tablet 100 mg PO HS 30 days #30 tabs 03/20/24 03/22/24 Rx rivaroxaban 15 mg tablet (Xarelto) 15 mg PO DAILY 03/22/24 03/22/24 History oxycodone-acetaminophen 7.5 mg-325 1 tab PO Q8H PRN pain #12 tabs 03/24/24 Rx mg tablet New Prescriptions to Start Prescriptions: levofloxacin Leonides James oxycodone-acetaminophen Leonides James quetiapine Leonides James Allergies Allergy/AdvReac Type Severity Reaction Status Date / Time moxifloxacin (From Avelox) Allergy Intermediate I-RASH Verified 02/23/24 11:08 sulfamethoxazole (From Allergy Unknown UNKNOWN Verified 02/23/24 11:08 Bactrim) trimethoprim (From Bactrim) Allergy Unknown Verified 02/23/24 11:08 Discharge Plan Disposition Patient Disposition: Home Health Service Condition: Fair Discharge Order Discharge Orders: Discharge Order (Routine); Ordered 03/20/24 Ordered By: Leonides James Follow up Plan Follow up with: Dayne Bueno MD [Staff Physician] - Enter time for follow up (Please call to make a follow up appt. ) Svitlana Garnica MD [Physician] - Enter time for follow up (Please call to make a follow up appt. ) Racquel Orozco APRN [Primary Care Provider] - Enter time for follow up (Please call to make a follow up appt. ) Prescriptions/Medication Reconciliation: New oxycodone-acetaminophen 5-325 mg Tablet 1 tab PO Q6HP PRN (Reason: Moderate Pain (4-6)) Qty: 11 0RF levofloxacin 750 mg tablet 750 mg PO Q48H 4 Days Qty: 2 0RF Rx Instructions: first dose due 03/22/24 quetiapine 100 mg Tablet 100 mg PO HS 30 Days Qty: 30 0RF Continued hydroxychloroquine 200 mg tablet 200 mg PO BID Patient Comments: TAKE ONE TABLET BY MOUTH TWICE DAILY Trelegy Ellipta 200-62.5-25 mcg blister with device 1 inh inhalation DAILY Qty: 60 11RF furosemide [Lasix] 40 mg tablet 40 mg PO DAILY Qty: 30 11RF diazepam 2 mg tablet 2 mg PO HS Qty: 30 2RF Eliquis 2.5 mg tablet 2.5 mg PO BID Qty: 60 4RF metoprolol succinate 100 mg tablet extended release 24 hr 100 mg PO DAILY Qty: 30 4RF prochlorperazine maleate [Compazine] 10 mg tablet 10 mg PO Q6HP PRN (Reason: nausea and vomiting) citalopram 20 mg tablet 20 mg PO DAILY tamsulosin 0.4 mg capsule 0.8 mg PO HS amlodipine 10 mg tablet 10 mg PO DAILY albuterol sulfate 90 mcg/actuation HFA aerosol inhaler 2 puff INHALATION Q6HP PRN (Reason: Asthma) Humulin 70/30 U-100 KwikPen 100 unit/mL (70-30) insulin pen 15 unit SQ DAILY insulin glargine [Lantus Solostar U-100 Insulin] 100 unit/mL (3 mL) insulin pen 20 unit SQ HS Discontinued quetiapine 25 mg tablet 50 mg PO HS Qty: 180 3RF No Action Xarelto 15 mg tablet 15 mg PO DAILY Patient Comments: TAKE ONE TABLET BY MOUTH EVERY EVENING --TAKE WITH FOOD-- FOR BLOOD THINNER oxycodone-acetaminophen 7.5-325 mg tablet 1 tab PO Q8H PRN (Reason: pain) Qty: 12 0RF Problem Reconciliation Problems Reviewed?: Yes Patient Discharge Instructions ACTIVITY: Continue current activity and Ambulate as tolerated DIET: continue same diet Patient Instructions: DI for Pneumonia -- Adult, DI for Rib Fracture, How to Prevent Falls Print Language: French Providers Primary Care Provider: Racquel Orozco Admit Provider: Leonides James Attending Provider: Leonides James
[2024-03-20 08:00] VITALS: BP 111/56; PULSE 76; RESP 16; TEMP 36.8; O2SAT 96
--- NOTE | 2024-03-20 08:00 | CT_ITS ---
PROCEDURE INFORMATION: Exam: CT Chest Without Contrast; Diagnostic Exam date and time: 03/20/2024 8:04 AM Age: 74 years old Clinical indication: Other: Eval pneumonia, rib fractures TECHNIQUE: Imaging protocol: Diagnostic computed tomography of the chest without contrast. Radiation optimization: All CT scans at this facility use at least one of these dose optimization techniques: automated exposure control; mA and/or kV adjustment per patient size (includes targeted exams where dose is matched to clinical indication); or iterative reconstruction. COMPARISON: CT CHEST WO CON 03/17/2024 11:35 AM FINDINGS: Tubes, catheters and devices: Thoracic endograft appears well positioned with unchanged wall apposition. Lungs: Mild bibasilar atelectasis. Multiple small right pulmonary blebs. Pleural spaces: Unremarkable. No pneumothorax. No pleural effusion. Heart: Unremarkable. No cardiomegaly. No pericardial effusion. Coronary arteries: Coronary artery atherosclerosis. Lymph nodes: Calcified right hilar lymph nodes. Vasculature: Mild to moderate aortic atherosclerosis. Spleen: Numerous punctate calcified splenic granulomas. Bones/joints: Mildly displaced right posterior T6 and T7 rib fractures. Soft tissues: Unremarkable. Other findings: No acute aneurysm or dissection. IMPRESSION: 1. Mildly displaced acute right posterior T6 and T7 rib fractures. 2. Mild bibasilar atelectasis. Multiple small right pulmonary blebs. No pulmonary laceration or contusion. 3. No acute aneurysm or dissection. 4. Thoracic endograft appears well positioned with unchanged wall apposition.
[2024-03-20 08:05] LABS: Albumin Level 3.5 g/dl (3.5-5.0); Chloride 109 mmol/L (98-107); Potassium 4.1 mmoL/L (3.5-5.1); Sodium 133 mmol/L (136-145)
--- NOTE | 2024-03-20 08:06 | PC.NURSE ---
Pt. is alert and orientated. confused for brief periods. Pt. bed alarms on. Pt. got out of bed one time overnight and seemed confused. Pt. helped back into bed and fell asleep. slept well. Pt. remains wheezy lung sound. Pt. on room air. VSS. personal items and call zaman in reach.
[2024-03-20 08:08] LABS: Alanine Aminotransferase 15 U/L (12-78); Albumin/Globulin Ratio 1.3 (1.1-1.8); Alkaline Phosphatase 63 U/L (38-126); Anion Gap 14.1 mEq/L (5-15); Aspartate Amino Transferase 29 U/L (17-59); Bilirubin,Total 0.7 mg/dl (0.2-1.3); Blood Urea Nitrogen 61 mg/dl (9-20); Calcium 8.2 mg/dl (8.4-10.2); Carbon Dioxide 14 mmol/L (22.0-30.0); Creatinine Clearance Estimated 35 mL/min (50-200); Estimated Glomerular Filt Rate 23 ml/min (>60); GFR (African American) 28 ML/MIN (>60); Globulin 2.7 g/dL (1.3-3.2); Glucose 114 mg/dl (74-100); Total Protein,Serum 6.2 g/dl (6.3-8.2)
[2024-03-20 09:18] LABS: Magnesium 2.2 mg/dl (1.6-2.3)
[2024-03-20] MEDS: SODIUM BICARBONATE 650MG TABLET 650 MG PO ×2 (10:15→13:41)
[2024-03-20] MEDS: HYDROXYCHLOROQUINE SULFATE 200MG TABLET 200 MG PO (10:15)
[2024-03-20] MEDS: CITALOPRAM 20MG TABLET 20 MG PO (10:15)
[2024-03-20] MEDS: METOPROLOL SUCCINATE XL 100MG TABLET 100 MG PO (10:15)
[2024-03-20] MEDS: LEVOFLOXACIN/D5W 750 MG/150 ML 750 MG/150 ML PIGGYBACK 100 MG IV (11:46)
[2024-03-20 12:01] LABS: POC Glucose,Bedside 146 (70-110)
--- NOTE | 2024-03-21 09:57 | CARE MANAGER ---
Addendum entered by Isabella John 03/21/24 13:22: Faxed paperwork to [facility] and they were able to accept the patient. Sunil Moon Original Note: Spoke with patient's . She thought they were supposed to hold the losartan, but his paperwork did not say that. I spoke with Dr. James and he does want the Losartan held. I relayed this information to patient's . She verbalized understanding. She is also aware of other medication changes and has scheduled patient's follow up appointments. They requested [facility] and information has been faxed to them. SHEY Moyer
== END 2024-03-20 14:00 | disposition home health service (06) | DRG 183 ==
LOC: ER 10:42 → 2ND 14:10
PROVIDERS: Student in an Organized Health Care Education/Training Program; Admitting Provider Internal Medicine Adolescent Medicine; Emergency Provider Emergency Medicine; PCP Nurse Practitioner Family; Visit Provider Internal Medicine Adolescent Medicine
DX: S22.41XA Multiple fractures of ribs, right side, initial encounter for closed fracture (principal); J18.9 Pneumonia, unspecified organism; C91.10 Chronic lymphocytic leukemia of B-cell type not having achieved remission; N18.4 Chronic kidney disease, stage 4 (severe); I50.30 Unspecified diastolic (congestive) heart failure; I13.0 Hypertensive heart and chronic kidney disease with heart failure and stage 1 through stage 4 chronic kidney disease, or unspecified chronic kidney disease; D84.9 Immunodeficiency, unspecified; E11.22 Type 2 diabetes mellitus with diabetic chronic kidney disease; Z79.4 Long term (current) use of insulin; Z79.899 Other long term (current) drug therapy; Z79.01 Long term (current) use of anticoagulants; F17.210 Nicotine dependence, cigarettes, uncomplicated; R29.6 Repeated falls; W01.0XXA Fall on same level from slipping, tripping and stumbling without subsequent striking against object, initial encounter; Z91.81 History of falling; Y92.010 Kitchen of single-family (private) house as the place of occurrence of the external cause; Z74.1 Need for assistance with personal care
CPT/HCPCS: 36415; 70450; 71045; 71250; 72125; 72128; 72131; 74176; 80053; 81001; 82550; 82962; 83735; 83880; 84484; 85007; 85025; 85610; 86803; 87070; 87205; 87389; 94640; 97116; 97162; 97166; 97530; 99285; J0456; J0696; J1171; J1650; J1956; J7050; J7613; J7620; Q0164

== ENCOUNTER 2024-03-28 10:45 | Outpatient (POV) | payer MEDICARE, OTHER, SELFPAY ==
--- NOTE | 2024-03-28 11:46 | EXP.PAIN.OV ---
HPI Data of Consult Patient: new to practice Consult date: 03/28/24 Requesting Physician: Julia Alan APRN Primary Care Provider: Racquel Orozco APRN Consult Narrative Reason for consult: Rib pain History of present illness: Mr. Castillo is a 74 year old male who presents today as a new patient. He is a referral from Torri Orozco's office. Today he rates his pain a 9 out of 10. Patient states a lot of his pain is related to a recent fall that occurred about a week and a half ago. Patient does have ongoing cancer and it started chemotherapy and had issues. Patient states that he ended up losing his balance and had a bad fall causing his T6 and T7 rib fracture along the right side. He states he was hospitalized and at the same time was on antibiotics for pneumonia. He states he is still having issues with this respiratory problems and is scheduled to follow-up with his primary care next Thursday. Patient was given a short-term dose of Percocet to help with the pain and states this was working well. Patient is very limited only having 1 kidney as well. He describes his pain as a sharp sensation that is worse with any type of movement whether coughing sneezing or getting up from a seated or laying down position. Patient states it has improved some from the initial injury however he just is hoping to get some additional relief. Patient is starting physical therapy 3 times per week his Fco has been reviewed and is appropriate. CC: Julia Alan APRN [facility] Disclaimer: The information contained in this section may have been updated after the patient was seen, as this information can be updated by other users. Medical History Pneumonia Left-sided epistaxis He does have poor airflow through his nasal cavity but is doing his best to keep this as moist as possible. Being on the blood thinner obviously makes the bleeding last longer but I see no signs of active eating or clot formation at this time. 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 Fajardo H/O colonoscopy 2018 History of knee replacement History of hernia repair History of nephrectomy right r/t cancer History of appendectomy Status post functional endoscopic sinus surgery Family History Father Cancer lung-Asbestos Mother Heart attack Hypertension Brother Diabetes Sister Hypertension Social History Smoking Status: Current every day smoker tobacco type: cigarettes packs per day: 1 years smoked: 40 alcohol intake: current alcohol intake frequency: holidays/special occasions only substance use type: denies use current occupational status: retired Travel in the last 8 weeks: None household members: spouse housing: house marital status: education level: high school caffeine: Yes special pilo needs: No do you feel safe at home: Yes victim of physical abuse: No victim of emotional abuse: No victim of sexual abuse: No would you like helpful sources: No Review of Systems Review of Systems Review of systems:: pertinent systems reviewed and negative unless documented below Review of systems (narrative): Review of Systems: General: No recent weight changes, no fever, no sleep disturbances Respiratory: No cough, no shortness of air, no recurring pulmonary infections Cardiovascular/peripheral vascular: No chest pain, no palpitations, no edema, no shortness of breath Gastrointestinal: No new onset incontinence, normal bowel movements reported Genitourinary: No new onset incontinence Musculoskeletal: Right-sided rib pain Psychiatric: [Normal mood/affect] Neurological: [Denies weakness in extremities], [denies balance issues] Meds Home Medications and Allergies Home Medications ?Medication ?Instructions ?Recorded ?Confirmed ?Type hydroxychloroquine 200 mg tablet 200 mg PO BID 12/03/22 03/22/24 History furosemide 40 mg tablet (Lasix) 40 mg PO DAILY #30 tabs 04/20/23 03/22/24 Rx fluticasone fur. 200 mcg-umeclid 1 inh inhalation DAILY #60 ea 11/23/23 03/22/24 Rx 62.5 mcg-vilant 25 mcg inhalat.powder (Trelegy Ellipta) diazepam 2 mg tablet 2 mg PO HS #30 tabs 01/04/24 03/22/24 Rx apixaban 2.5 mg tablet (Eliquis) 2.5 mg PO BID #60 tabs 03/07/24 03/22/24 Rx metoprolol succinate 100 mg 100 mg PO DAILY #30 tabs 03/07/24 03/22/24 Rx tablet,extended release 24 hr albuterol sulfate 90 mcg/actuation 2 puff inhalation Q6HP PRN Asthma 03/17/24 03/22/24 History aerosol inhaler amlodipine 10 mg tablet 10 mg PO DAILY 03/17/24 03/22/24 History citalopram 20 mg tablet 20 mg PO DAILY 03/17/24 03/22/24 History insulin NPH-regular 70-30 U-100 15 unit SQ DAILY 03/17/24 03/22/24 History insulin 100 unit/mL subcutaneous pen (Humulin 70/30 U-100 KwikPen) insulin glargine 100 unit/mL (3 20 unit SQ HS 03/17/24 03/22/24 History mL) subcutaneous pen (Lantus Solostar U-100 Insulin) prochlorperazine maleate 10 mg 10 mg PO Q6HP PRN nausea and 03/17/24 03/22/24 History tablet (Compazine) vomiting tamsulosin 0.4 mg capsule 0.8 mg PO HS 03/17/24 03/22/24 History levofloxacin 750 mg tablet 750 mg PO Q48H 4 days #2 tabs 03/20/24 03/22/24 Rx oxycodone-acetaminophen 5 mg-325 1 tab PO Q6HP PRN Moderate Pain 03/20/24 03/22/24 Rx mg tablet (4-6) #11 tabs quetiapine 100 mg tablet 100 mg PO HS 30 days #30 tabs 03/20/24 03/22/24 Rx rivaroxaban 15 mg tablet (Xarelto) 15 mg PO DAILY 03/22/24 03/22/24 History oxycodone-acetaminophen 7.5 mg-325 1 tab PO Q8H PRN pain #12 tabs 03/24/24 Rx mg tablet New Prescriptions to Start Prescriptions: Allergies Allergy/AdvReac Type Severity Reaction Status Date / Time moxifloxacin (From Avelox) Allergy Intermediate I-RASH Verified 02/23/24 11:08 sulfamethoxazole (From Allergy Unknown UNKNOWN Verified 02/23/24 11:08 Bactrim) trimethoprim (From Bactrim) Allergy Unknown Verified 02/23/24 11:08 Objective Narrative: Physical Exam: General: Alert and oriented x3, no acute distress, pleasant and cooperative Lungs: Respirations even and unlabored, symmetrical chest expansion Eyes: PERRL Musculoskeletal: Flexion and extension of lumbar [spine] limited Neurological: Speech clear, no gross sensory deficit Assessment and Plan *Assessment and plan (1) Pneumonia: Status: Acute Qualifiers: Pneumonia type: due to COVID-19 virus Qualified Code(s): U07.1 - COVID-19; J12.82 - Pneumonia due to coronavirus disease 2019 Category: Medical Code(s): J18.9 - Pneumonia, unspecified organism (2) Ribs, multiple fractures: Status: Acute Category: Medical Code(s): S22.49XA - Multiple fractures of ribs, unspecified side, initial encounter for closed fracture Plan Patient is experiencing significant pain throughout his ribs along the right side and does have significant crackles heard without auscultation. Patient is no longer on any antibiotics or medications for the respiratory issues. Patient and family are asking whether or not if they think since they are already here at the hospital if they should go to ER for additional imaging to rule out recurrent pneumonia. I have counseled the patient that I do believe it in his best interest due to everything else he has going on in his history. I will order the compounded cream for the patient and take out any of the NSAID medication. I will also send in a 1 month supply of Percocet 7.5 mg 3 times a day. Patient will return to clinic in 1 month for reevaluation of symptoms and plan of care. Risks and benefits of the medication have been explained in detail to the patient. The patient does understand the risk of dependence on the medication when given over a prolonged period. Patient has been advised of risks of oversedation with the prescribed medication. Narcan has been offered to the paitent in the event of oversedation. Patient has been advised that a family member should also be educated regarding administration of Narcan. The patient has been advised to consult with his/her primary care provider and pharmacist regarding drug-drug interaction of medications currently prescribed. Patient has been prescribed a controlled substance after being counseled on the medication, medication safety, and possible side effects. Opioid contract was reviewed and signed by the patient, and that they have agreed to all of the terms set forth by our compliance program. A UDS is needed to verify patient's compliance with our office pain contract. This is ordered based off specific treatments related to chronic pain with the potential to abuse certain medications. Patient has been instructed to contact the clinic with any concerns before the next appointment. Dr. Frank has reviewed this note and agrees with this plan of care. This note was dictated using voice recognition software and make contain errors or omissions.
[2024-03-28 12:40] VITALS: BP 100/73; PULSE 66; RESP 18; O2SAT 98; BMI 29.0
== END 2024-03-28 23:59 | disposition home or self-care (01) ==
PROVIDERS: PCP Nurse Practitioner Family; Visit Provider Nurse Practitioner Family
DX: U07.1 COVID-19 (principal); J12.82 Pneumonia due to coronavirus disease 2019; S22.49XA Multiple fractures of ribs, unspecified side, initial encounter for closed fracture
CPT/HCPCS: 99202; G0463

== ENCOUNTER 2024-03-28 11:49 | Emergency (ER) | payer MEDICARE, OTHER, SELFPAY ==
--- NOTE | 2024-03-28 11:58 | ECG_ITS ---
APPROVED REPORT Exam: Resting ECG HR:58 bpm ECG Measurements Heart Rate 58 AXES WV 199 P 100 QRSd 112 QRS 62 QT 425 T 92 QTc 422 Conclusion SINUS BRADYCARDIA MODERATE INTRAVENTRICULAR CONDUCTION DELAY [110+ ms QRS DURATION] MODERATE ST DEPRESSION [0.05+ mV ST DEPRESSION] ABNORMAL ECG Wandering baseline, no STEMI Electronically signed by : CLARE MCGUIRE, 03/28/2024 16:05:19
[2024-03-28 11:59] VITALS: BP 117/75; PULSE 56; RESP 18; TEMP 36.7; O2SAT 95; BMI 29.0
--- NOTE | 2024-03-28 12:14 | HMH.EDGENADL ---
Discharge Plan Disposition Patient Disposition: Home, Self-Care Condition: Good Prescriptions Prescriptions: No Action hydroxychloroquine 200 mg tablet 200 mg PO BID Patient Comments: TAKE ONE TABLET BY MOUTH TWICE DAILY Trelegy Ellipta 200-62.5-25 mcg blister with device 1 inh inhalation DAILY Qty: 60 11RF Xarelto 15 mg tablet 15 mg PO DAILY Patient Comments: TAKE ONE TABLET BY MOUTH EVERY EVENING --TAKE WITH FOOD-- FOR BLOOD THINNER furosemide [Lasix] 40 mg tablet 40 mg PO DAILY Qty: 30 11RF diazepam 2 mg tablet 2 mg PO HS Qty: 30 2RF Eliquis 2.5 mg tablet 2.5 mg PO BID Qty: 60 4RF metoprolol succinate 100 mg tablet extended release 24 hr 100 mg PO DAILY Qty: 30 4RF oxycodone-acetaminophen 7.5-325 mg tablet 1 tab PO Q8H PRN (Reason: pain) Qty: 12 0RF oxycodone-acetaminophen [Percocet] 7.5-325 mg tablet 1 tab PO TID Qty: 90 0RF prochlorperazine maleate [Compazine] 10 mg tablet 10 mg PO Q6HP PRN (Reason: nausea and vomiting) citalopram 20 mg tablet 20 mg PO DAILY tamsulosin 0.4 mg capsule 0.8 mg PO HS amlodipine 10 mg tablet 10 mg PO DAILY albuterol sulfate 90 mcg/actuation HFA aerosol inhaler 2 puff INHALATION Q6HP PRN (Reason: Asthma) Humulin 70/30 U-100 KwikPen 100 unit/mL (70-30) insulin pen 15 unit SQ DAILY insulin glargine [Lantus Solostar U-100 Insulin] 100 unit/mL (3 mL) insulin pen 20 unit SQ HS oxycodone-acetaminophen 5-325 mg Tablet 1 tab PO Q6HP PRN (Reason: Moderate Pain (4-6)) Qty: 11 0RF levofloxacin 750 mg tablet 750 mg PO Q48H 4 Days Qty: 2 0RF Rx Instructions: first dose due 03/22/24 quetiapine 100 mg Tablet 100 mg PO HS 30 Days Qty: 30 0RF Referrals Follow up/Referrals: Racquel Orozco APRN [Primary Care Provider] - See instructions Activity Restrictions/Add. Instructions Additional Instructions/Restrictions: Continue doing your COPD home remedies. Return for any increasing work of breathing, low oxygen saturation, decreased level of responsiveness. Follow-up with your PCP next week for recheck. Return to ER for any worsening signs or symptoms as needed. Clinical Impressions Clinical Impression: Dyspnea Qualifiers: Dyspnea type: dyspnea on exertion Qualified Code(s): R06.09 - Other forms of dyspnea Instructions Patient Instructions: DI for Shortness of Breath Print Language Print Language: Kyr[place]z Discharge ED Provider: Mela Díaz General Adult HPI <ROZ Crowe - Last Filed: 03/28/24 14:18> General Chief complaint: Shortness of Breath/Dyspnea Stated complaint: cough and soa Time Seen by Provider: 03/28/24 12:01 Mode of Arrival: Ambulatory Source of Information: Patient Limitations: No Limitations Description of Symptoms (Recalled from ER Triage Doc. by RN): Pt. presents to the ED with complaints of shortness of breath and chest tightness x2 days. He was seen by his pain managment doctor and was told to go to the ED for suspected pnemonia. He has a history of COPD and lung issues. History of Present Illness HPI narrative: Patient presents for evaluation of dyspnea. Patient has a longstanding history of known COPD but not on chronic oxygen, CLL currently undergoing active treatment by Dr. Bueno but may be on hold due to recent illnesses, dementia, BPH, insulin-dependent type 2 diabetes mellitus, hypertension, immunosuppression. Patient fell on 03/17/2024 aching to right sided posterior ribs currently was admitted. It is of note that he received 2 chemotherapy infusions which led to weakness and increasing confusion which led directly to the fall. He was discharged on 03/20/2024 to home and has been doing fairly well as an outpatient with pain management. However patient has had increasing dyspnea on exertion exercise intolerance even with light activity and increased work of breathing. He was seen in pain management today and sent to the emergency department as he was significantly dyspneic even at rest. On arrival patient's states that he has increased work of breathing but is not requiring oxygen and patient himself has no complaints but he is an unreliable historian due to his baseline dementia. This typically no chest pain fever chills hemoptysis hematochezia melena nausea vomiting diarrhea. He is on Eliquis twice a day chronically. Related Data Home Medications ?Medication ?Instructions ?Recorded ?Confirmed hydroxychloroquine 200 mg tablet 200 mg PO BID 12/03/22 03/28/24 albuterol sulfate 90 mcg/actuation 2 puff inhalation Q6HP PRN Asthma 03/17/24 03/28/24 aerosol inhaler amlodipine 10 mg tablet 10 mg PO DAILY 03/17/24 03/28/24 citalopram 20 mg tablet 20 mg PO DAILY 03/17/24 03/28/24 insulin NPH-regular 70-30 U-100 15 unit SQ DAILY 03/17/24 03/28/24 insulin 100 unit/mL subcutaneous pen (Humulin 70/30 U-100 KwikPen) insulin glargine 100 unit/mL (3 20 unit SQ HS 03/17/24 03/28/24 mL) subcutaneous pen (Lantus Solostar U-100 Insulin) prochlorperazine maleate 10 mg 10 mg PO Q6HP PRN nausea and 03/17/24 03/28/24 tablet (Compazine) vomiting tamsulosin 0.4 mg capsule 0.8 mg PO HS 03/17/24 03/28/24 rivaroxaban 15 mg tablet (Xarelto) 15 mg PO DAILY 03/22/24 03/28/24 Previous Rx's ?Medication ?Instructions ?Recorded furosemide 40 mg tablet (Lasix) 40 mg PO DAILY #30 tabs 04/20/23 fluticasone fur. 200 mcg-umeclid 1 inh inhalation DAILY #60 ea 11/23/23 62.5 mcg-vilant 25 mcg inhalat.powder (Trelegy Ellipta) diazepam 2 mg tablet 2 mg PO HS #30 tabs 01/04/24 apixaban 2.5 mg tablet (Eliquis) 2.5 mg PO BID #60 tabs 03/07/24 metoprolol succinate 100 mg 100 mg PO DAILY #30 tabs 03/07/24 tablet,extended release 24 hr levofloxacin 750 mg tablet 750 mg PO Q48H 4 days #2 tabs 03/20/24 oxycodone-acetaminophen 5 mg-325 1 tab PO Q6HP PRN Moderate Pain 03/20/24 mg tablet (4-6) #11 tabs quetiapine 100 mg tablet 100 mg PO HS 30 days #30 tabs 03/20/24 oxycodone-acetaminophen 7.5 mg-325 1 tab PO Q8H PRN pain #12 tabs 03/24/24 mg tablet oxycodone-acetaminophen 7.5 mg-325 1 tab PO TID #90 tabs 03/28/24 mg tablet (Percocet) Allergies Allergy/AdvReac Type Severity Reaction Status Date / Time moxifloxacin (From Avelox) Allergy Intermediate I-RASH Verified 02/23/24 11:08 sulfamethoxazole (From Allergy Unknown UNKNOWN Verified 02/23/24 11:08 Bactrim) trimethoprim (From Bactrim) Allergy Unknown Verified 02/23/24 11:08 [facility] <ROZ Crowe - Last Filed: 03/28/24 14:18> [facility] Disclaimer: The information contained in this section may have been updated after the patient was seen, as this information can be updated by other users. Medical History Pneumonia Left-sided epistaxis He does have poor airflow through his nasal cavity but is doing his best to keep this as moist as possible. Being on the blood thinner obviously makes the bleeding last longer but I see no signs of active eating or clot formation at this time. 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 Fajardo H/O colonoscopy 2018 History of knee replacement History of hernia repair History of nephrectomy right r/t cancer History of appendectomy Status post functional endoscopic sinus surgery Family History Father Cancer lung-Asbestos Mother Heart attack Hypertension Brother Diabetes Sister Hypertension Social History (Updated 03/28/24 @ 12:44 by Jadyn Blackwood RN) Smoking Status: Current every day smoker tobacco type: cigarettes packs per day: 1 years smoked: 40 alcohol intake: current alcohol intake frequency: holidays/special occasions only substance use type: denies use current occupational status: retired Travel in the last 8 weeks: None household members: spouse housing: house marital status: education level: high school caffeine: Yes special pilo needs: No do you feel safe at home: Yes victim of physical abuse: No victim of emotional abuse: No victim of sexual abuse: No would you like helpful sources: No Have you lived/traveled outside [place] in past 30 days?: No Contact w/someone who lives/traveled outside [place] past 30 days?: No Exposure to someone with infectious disease in past 14 days?: No Do you have a fever (greater than 100.4 F or 38 C)?: No Have you tested positive for COVID-19: No Exposed to someone with COVID-19 in past 14 days?: No Do you have a sore throat?: No Do you have a cough?: No Do you have any weakness?: No Are you experiencing any nausea/vomitting?: No Do you have any diarrhea?: No Are you experiencing any unusual bleeding?: No Do you have any muscle aches/pain?: No Do you have any abdominal pain?: No Are you experiencing loss of taste or smell?: No Other Medical History Have you received the Flu Vaccine for this season: No Have you received the Pneumonia Vaccine: Yes <ROZ Crowe - Last Filed: 03/28/24 14:18> ROS Obtained: Yes Systems reviewed as appropriate & no additional complaints except as documented Physical Exam <ROZ Crowe - Last Filed: 03/28/24 14:18> General General appearance: alert and in no apparent distress Eye Eye exam: Present EOMI Respiratory Respiratory exam: Present normal lung sounds bilaterally Cardiovascular Cardiovascular exam: Present regular rate Neurological Exam Neurological exam: Present alert; Absent oriented X3 (Patient is oriented to person and in the room but not circumstance) Medical Decision Making <RZO Crowe - Last Filed: 03/28/24 14:18> Medical Records Medical records reviewed: Yes I reviewed the patient's medical records. Screening: Per USPSTF and CDC recommendations, given the prevalence of disease in our region, it is our hospital?s policy to screen for HIV and viral Hepatitis for all patients aged 18 and over and those with ongoing risk factors. Fco Inquiry Pt receiving controlled substance: No Vital Signs: 03/28/24 11:59 03/28/24 12:30 03/28/24 13:00 Temperature 98.1 F Temperature Source Oral Pulse Rate 59 L 57 L Pulse Rate [Right Brachial] 56 L Respiratory Rate 18 16 14 Blood Pressure 140/86 142/84 H Blood Pressure [Right Radial Artery] 117/75 Blood Pressure Mean 95 Blood Pressure Mean [Right Radial Artery] 89 Blood Pressure Source [Right Radial Artery] Automatic Cuff Blood Pressure Position [Right Radial Artery] Sitting 02 Sat by Pulse Oximetry 95 95 94 L Oxygen Delivery Method Room Air Room Air 03/28/24 13:30 03/28/24 14:13 Temperature 98.3 F Temperature Source Oral Pulse Rate 55 L 60 Pulse Rate [Right Brachial] Respiratory Rate 21 18 Blood Pressure 129/79 135/79 Blood Pressure [Right Radial Artery] Blood Pressure Mean Blood Pressure Mean [Right Radial Artery] Blood Pressure Source [Right Radial Artery] Blood Pressure Position [Right Radial Artery] 02 Sat by Pulse Oximetry 96 Oxygen Delivery Method Room Air Room Air Lab Data Lab results reviewed: Yes I reviewed the patient's lab results. Lab Results 03/28/24 12:19: WBC 5.8, RBC 4.17 L, Hgb 11.3 L, Hct 35.1 L, MCV 84.2, MCH 27.1, MCHC 32.2, RDW 16.5, Plt Count 95 L, MPV 9.4, Neut % (Auto) 51.3, Lymph % (Auto) 35.5, [place] % (Auto) 4.1, Eos % (Auto) 8.7, Baso % (Auto) 0.2, Neut # (Auto) 3.0, Lymph # (Auto) 2.1, [place] # (Auto) 0.2, Eos # (Auto) 0.5 H, Baso # (Auto) 0.0, Sodium 133 L, Potassium 5.0, Chloride 107, Carbon Dioxide 23, Anion Gap 8.0, BUN 64 H, Creatinine 2.80 H, Estimated Creat Clear 33, Estimated GFR 22 L, Est GFR ( Amer) 27 L, Glucose 125 H, Calcium 8.6, Magnesium 2.5 H, Total Bilirubin 0.5, AST 25, ALT 18, Alkaline Phosphatase 72, Troponin I < 0.01, NT-Pro-B Natriuret Pep 291 H, Total Protein 6.5, Albumin 3.8, Globulin 2.7, Albumin/Globulin Ratio 1.4, Procalcitonin 0.197 03/28/24 12:21: VBG pH 7.30 L, VBG pCO2 36.3, VBG pO2 60.2 H, VBG HCO3 17.4 L, VBG Total CO2 18.5 L, VBG O2 Saturation 90.0 H, VBG Base Excess -9.1 L, VBG Lactic Acid 1.6 03/28/24 12:19 03/28/24 12:19 Orders (Tests/Meds): ED MEDICATIONS Discontinued Medications Generic Name Dose Route Start Last Admin Trade Name Freq PRN Reason Stop Dose Admin Albuterol/Ipratropium 3 ml 03/28/24 12:19 03/28/24 12:27 Ipratropium/Albuterol 3 Ml Neb IH 03/28/24 12:20 3 ml ONCE ONE Administration Dexamethasone Sodium Phosphate 10 mg 03/28/24 12:19 03/28/24 12:27 Dexamethasone 4mg/Ml 5ml Mdv IV 03/28/24 12:20 10 mg ONCE ONE Administration ORDERS Category Date Time Status CT chest wo con Stat Cat Scan 03/28/24 12:55 Taken BNP [NT Pro Brain Natriuretic Pep.] Stat Lab 03/28/24 12:19 Completed CBC w/Auto Diff [Complete Blood Count Auto Diff] Stat Lab 03/28/24 12:19 Completed CMP [Comprehensive Metabolic Panel] Stat Lab 03/28/24 12:19 Completed Full Resp Panel w/COVID ([facility]) Routine Lab 03/28/24 12:45 Received Magnesium Stat Lab 03/28/24 12:19 Completed Mini Respiratory Panel Stat Lab 03/28/24 12:45 Received Procalcitonin Stat Lab 03/28/24 12:19 Completed Trop I [Troponin I] Stat Lab 03/28/24 12:19 Completed VBG [Venous Blood Gas] Stat RT 03/28/24 12:21 Completed HEART Score History (anamnesis): Slightly suspicious ECG: Non-specific disturbance Age: >65 years Risk factors: 3 or more risk factors Troponin: </= normal limit HEART Score: 5 Medical Decision Narrative: In summary patient is a 74-year-old male who presents to the emergency department for evaluation of me on exertion. Patient is initially normotensive at 117/75 slightly low heart rate at 56 breathing 18 times a minute satting at 95% on room air currently upon arrival, afebrile. Physical exam is remarkable for audible respiratory sounds including wheezing rhonchi at the bedside and auscultation reveals significant rhonchi and expiratory wheeze in the right lung chang diminished breath sounds in the left lung chang at the bases but also wheezes and rhonchi, right greater than left. Patient does not have accessory muscle use has no palpable anterior chest pain on exam. Abdomen is soft without rebound or guarding or rigidity with normal bowel sounds. Differential diagnosis includes pneumonia versus COPD exacerbation versus pleural effusion etc. Initial workup will be conducted with hematologic labs VBG CT Noncon due to patient's chronic renal disease. Initial interventions include DuoNeb Decadron. Initial workup reviewed by me shows that his white count is normal with a stable H&H and no left shift, VBG shows pH 7.3 but normal pCO2 VBG lactic acid 1.6, BUN/creatinine and GFR are stable and about his baseline of 64 2.8 and 22 respectively NT proBNP is 291 which was significantly less than his at the time of his previous admission remainder of his laboratory investigations are nonactionable. My informed interpretation of his CT scan of the chest shows improvement in his lung chang from 7 days ago prior to radiology read. Upon repeat evaluation patient is able to ambulate from the CAT scan or to his room in bed 7 unassisted and without desaturation or increased work of breathing.. Given this we have essentially ruled out any acute or life-threatening problem today. Patient is able to ambulate without oxygen requirement and or increased work of breathing. I had interactive discussion with the patient's at the bedside and via patient directed discharge and decision making she is comfortable taking the patient home with strict return precautions. The full respiratory panel is pending but she will follow-up the results on the patient portal. Díaz: I personally evaluated this patient. He has significant adventitious sounds including wheezes, rhonchi, rales throughout the lung chang. He is saturating well on room air at 94%. He states he is feeling some better after receiving the breathing treatment. He has significant comorbidities including his ongoing CLL, history of pneumonia. His recent rib fractures also increases risk of developing pneumonia due to pain. Family is very concerned about his decreasing functional status in the last few days. I was consulted by the [facility], and we discussed the complexity of problems being addressed. I approved the treatment and management plan for this patient's care in the emergency department, thus performing a substantial portion of the medical decision making. Mela Díaz MD <Mela Díaz MD - Last Filed: 03/28/24 14:34> Vital Signs: 03/28/24 11:59 03/28/24 12:30 03/28/24 13:00 Temperature 98.1 F Temperature Source Oral Pulse Rate 59 L 57 L Pulse Rate [Right Brachial] 56 L Respiratory Rate 18 16 14 Blood Pressure 140/86 142/84 H Blood Pressure [Right Radial Artery] 117/75 Blood Pressure Mean 95 Blood Pressure Mean [Right Radial Artery] 89 Blood Pressure Source [Right Radial Artery] Automatic Cuff Blood Pressure Position [Right Radial Artery] Sitting 02 Sat by Pulse Oximetry 95 95 94 L Oxygen Delivery Method Room Air Room Air 03/28/24 13:30 03/28/24 14:13 Temperature 98.3 F Temperature Source Oral Pulse Rate 55 L 60 Pulse Rate [Right Brachial] Respiratory Rate 21 18 Blood Pressure 129/79 135/79 Blood Pressure [Right Radial Artery] Blood Pressure Mean Blood Pressure Mean [Right Radial Artery] Blood Pressure Source [Right Radial Artery] Blood Pressure Position [Right Radial Artery] 02 Sat by Pulse Oximetry 96 Oxygen Delivery Method Room Air Room Air Lab Data Lab Results 03/28/24 12:19: WBC 5.8, RBC 4.17 L, Hgb 11.3 L, Hct 35.1 L, MCV 84.2, MCH 27.1, MCHC 32.2, RDW 16.5, Plt Count 95 L, MPV 9.4, Neut % (Auto) 51.3, Lymph % (Auto) 35.5, [place] % (Auto) 4.1, Eos % (Auto) 8.7, Baso % (Auto) 0.2, Neut # (Auto) 3.0, Lymph # (Auto) 2.1, [place] # (Auto) 0.2, Eos # (Auto) 0.5 H, Baso # (Auto) 0.0, Sodium 133 L, Potassium 5.0, Chloride 107, Carbon Dioxide 23, Anion Gap 8.0, BUN 64 H, Creatinine 2.80 H, Estimated Creat Clear 33, Estimated GFR 22 L, Est GFR ( Amer) 27 L, Glucose 125 H, Calcium 8.6, Magnesium 2.5 H, Total Bilirubin 0.5, AST 25, ALT 18, Alkaline Phosphatase 72, Troponin I < 0.01, NT-Pro-B Natriuret Pep 291 H, Total Protein 6.5, Albumin 3.8, Globulin 2.7, Albumin/Globulin Ratio 1.4, Procalcitonin 0.197 03/28/24 12:21: VBG pH 7.30 L, VBG pCO2 36.3, VBG pO2 60.2 H, VBG HCO3 17.4 L, VBG Total CO2 18.5 L, VBG O2 Saturation 90.0 H, VBG Base Excess -9.1 L, VBG Lactic Acid 1.6 Orders (Tests/Meds): ED MEDICATIONS Discontinued Medications Generic Name Dose Route Start Last Admin Trade Name Freq PRN Reason Stop Dose Admin Albuterol/Ipratropium 3 ml 03/28/24 12:19 03/28/24 12:27 Ipratropium/Albuterol 3 Ml Neb IH 03/28/24 12:20 3 ml ONCE ONE Administration Dexamethasone Sodium Phosphate 10 mg 03/28/24 12:19 03/28/24 12:27 Dexamethasone 4mg/Ml 5ml Mdv IV 03/28/24 12:20 10 mg ONCE ONE Administration ORDERS Category Date Time Status CT chest wo con Stat Cat Scan 03/28/24 12:55 Taken BNP [NT Pro Brain Natriuretic Pep.] Stat Lab 03/28/24 12:19 Completed CBC w/Auto Diff [Complete Blood Count Auto Diff] Stat Lab 03/28/24 12:19 Completed CMP [Comprehensive Metabolic Panel] Stat Lab 03/28/24 12:19 Completed Full Resp Panel w/COVID ([facility]) Routine Lab 03/28/24 12:45 Received Magnesium Stat Lab 03/28/24 12:19 Completed Mini Respiratory Panel Stat Lab 03/28/24 12:45 Received Procalcitonin Stat Lab 03/28/24 12:19 Completed Trop I [Troponin I] Stat Lab 03/28/24 12:19 Completed VBG [Venous Blood Gas] Stat RT 03/28/24 12:21 Completed HEART Score HEART Score: 5 Medical Decision Narrative: In summary patient is a 74-year-old male who presents to the emergency department for evaluation of me on exertion. Patient is initially normotensive at 117/75 slightly low heart rate at 56 breathing 18 times a minute satting at 95% on room air currently upon arrival, afebrile. Physical exam is remarkable for audible respiratory sounds including wheezing rhonchi at the bedside and auscultation reveals significant rhonchi and expiratory wheeze in the right lung chang diminished breath sounds in the left lung chang at the bases but also wheezes and rhonchi, right greater than left. Patient does not have accessory muscle use has no palpable anterior chest pain on exam. Abdomen is soft without rebound or guarding or rigidity with normal bowel sounds. Differential diagnosis includes pneumonia versus COPD exacerbation versus pleural effusion etc. Initial workup will be conducted with hematologic labs VBG CT Noncon due to patient's chronic renal disease. Initial interventions include DuoNeb Decadron. Initial workup reviewed by me shows that his white count is normal with a stable H&H and no left shift, VBG shows pH 7.3 but normal pCO2 VBG lactic acid 1.6, BUN/creatinine and GFR are stable and about his baseline of 64 2.8 and 22 respectively NT proBNP is 291 which was significantly less than his at the time of his previous admission remainder of his laboratory investigations are nonactionable. My informed interpretation of his CT scan of the chest shows improvement in his lung chang from 7 days ago prior to radiology read. Upon repeat evaluation patient is able to ambulate from the CAT scan or to his room in bed 7 unassisted and without desaturation or increased work of breathing.. Given this we have essentially ruled out any acute or life-threatening problem today. Patient is able to ambulate without oxygen requirement and or increased work of breathing. I had interactive discussion with the patient's at the bedside and via patient directed discharge and decision making she is comfortable taking the patient home with strict return precautions. The full respiratory panel is pending but she will follow-up the results on the patient portal. Díaz: I personally evaluated this patient. He has significant adventitious sounds including wheezes, rhonchi, rales throughout the lung chang. He is saturating well on room air at 94%. He states he is feeling some better after receiving the breathing treatment. He has significant comorbidities including his ongoing CLL, history of pneumonia. His recent rib fractures also increases risk of developing pneumonia due to pain. Family is very concerned about his decreasing functional status in the last few days. Labs overall are reassuring and CT actually appears improved. After resting and receiving his breathing treatments, he feels improved and with his improvement of symptoms and reassuring workup, he does not require inpatient management. Extensive time was spent with the family and patient at bedside explaining results and current plan. They are comfortable with the plan for discharge and are very reassured by the current labs and imaging. He was feeling better enough that he had improved functional status in the ER. I was consulted by the [facility], and we discussed the complexity of problems being addressed. I approved the treatment and management plan for this patient's care in the emergency department, thus performing a substantial portion of the medical decision making. Mela Díaz MD Critical Care <ROZ Crowe - Last Filed: 03/28/24 14:18> Critical Care Time Critical Care Time: Yes Attestation: On 03/28/24, the high probability of a clinically significant, sudden or life threatening deterioration of the following system: Cardiopulmonary/cardiovascular; required my full and direct attention, intervention and personal management. The time I documented below is in addition to time spent performing reported procedures but includes the following listed in this critical care notation. Total Time Total Critical Care Time: 30
[2024-03-28] MEDS: IPRATROPIUM/ALBUTEROL 3 ML NEB IH (12:27)
[2024-03-28] MEDS: DEXAMETHASONE 4MG/ML 5ML MDV 10 MG IV (12:27)
[2024-03-28 12:30] VITALS: BP 140/86; PULSE 59; RESP 16; O2SAT 95
[2024-03-28 12:35] LABS: Albumin Level 3.8 g/dl (3.5-5.0); Chloride 107 mmol/L (98-107); Sodium 133 mmol/L (136-145)
--- NOTE | 2024-03-28 12:37 | PC.NURSE ---
rt aware of vbg
[2024-03-28 12:38] LABS: Alanine Aminotransferase 18 U/L (12-78); Albumin/Globulin Ratio 1.4 (1.1-1.8); Aspartate Amino Transferase 25 U/L (17-59); Blood Urea Nitrogen 64 mg/dl (9-20); Carbon Dioxide 23 mmol/L (22.0-30.0); Creatinine Clearance Estimated 33 mL/min (50-200); Estimated Glomerular Filt Rate 22 ml/min (>60); GFR (African American) 27 ML/MIN (>60); Globulin 2.7 g/dL (1.3-3.2); Total Protein,Serum 6.5 g/dl (6.3-8.2)
[2024-03-28 12:39] LABS: Alkaline Phosphatase 72 U/L (38-126); Bilirubin,Total 0.5 mg/dl (0.2-1.3); Calcium 8.6 mg/dl (8.4-10.2); Glucose 125 mg/dl (74-100); Magnesium 2.5 mg/dl (1.6-2.3)
[2024-03-28 12:43] LABS: Lactate Venous 1.6 mmol/L (0.4-2.0); VBG Base Excess -9.1 mmol/L (-2.4-2.3); VBG HCO3 17.4 mmol/L (23-30); VBG PCO2 36.3 mmol/L (35-51); VBG PO2 60.2 mmol/L (28-40); VBG Total CO2 18.5 mmol/L (23-27)
[2024-03-28 12:47] LABS: Hematocrit 35.1 % (42.0-52.0); Hemoglobin 11.3 g/dL (14.1-18.0); Mean Corpuscular Volume 84.2 fl (80-94); Red Blood Count 4.17 M/mm3 (4.60-6.20); White Blood Count 5.8 K/mm3 (4.8-10.8)
[2024-03-28 12:48] LABS: Basophils % 0.2 % (0.1-2.0); Eosinophils # 0.5 K/mm3 (0.0-0.4); Eosinophils % 8.7 % (0.1-12.0); Lymphocytes # 2.1 K/mm3 (0.7-4.5); Lymphocytes % 35.5 % (10-50); Mean Corpuscular HGB Conc 32.2 g/dL (31.8-35.4); Mean Corpuscular Hemoglobin 27.1 pg (27.0-31.2); Mean Platelet Volume 9.4 fl (7.4-10.4); Monocytes # 0.2 K/mm3 (0.1-1.0); Monocytes % 4.1 % (1.7-9.3); NT Pro Brain Natriuretic Pep. 291 pg/mL (0-125); Neutrophils % 51.3 % (37.0-80.0); Platelet Count 95 K/mm3 (142-424); Red Cell Distribution Width 16.5 % (11.5-17.5)
[2024-03-28 12:49] LABS: Coronavirus 19, PCR Not Detected (NotDetected); Human Rhinovirus Not Detected (NotDetected); Influenza A, PCR Not Detected (NotDetected); Influenza B, PCR Not Detected (NotDetected); Respiratory Syncytial Virus Not Detected (NotDetected)
[2024-03-28 12:54] LABS: Troponin I < 0.01 ng/ml (0.00-0.034)
[2024-03-28 12:55] LABS: Procalcitonin 0.197 ng/mL (0.0-2.0)
--- NOTE | 2024-03-28 12:55 | CT_ITS ---
FINAL REPORT TECHNIQUE: Axial CT without IV contrast administration. Coronal and sagittal reconstructions obtained and reviewed. This study was performed with techniques to keep radiation doses as low as reasonably achievable, (ALARA). Individualized dose reduction techniques using automated exposure control or adjustment of mA and/or kV according to the patient''s size were employed. CLINICAL HISTORY: cough and shortness of breath COMPARISON: 03/20/2024 FINDINGS: There is worsening atelectasis in the left lower lobe. Stable right lower lobe atelectasis and/or scarring is noted. There is stable right upper lobe scarring. There is no pneumothorax or significant pleural fluid collection. No pleural or pericardial effusion is seen. Bilateral axillary adenopathy is stable. There is a stent graft of the thoracic aorta. There is redemonstration of posterior right 5th through 7th rib fractures, similar to the prior study. IMPRESSION: No evidence of pneumonia. Worsening left lower lobe atelectasis. Stable right rib fractures without pneumothorax or right pleural fluid collection. Reviewed, Interpreted and Dictated by Cheng Ramos MD Transcribed by Princess [place] Authenticated and [facility]
[2024-03-28 13:00] VITALS: BP 142/84; PULSE 57; RESP 14; O2SAT 94
[2024-03-28 13:30] VITALS: BP 129/79; PULSE 55; RESP 21; O2SAT 96
[2024-03-28 13:55] LABS: Adenovirus,PCR Not Detected (NotDetected); Bordetella Pertussis Not Detected (NotDetected); Chlamydophila Pneumoniae, PCR Not Detected (NotDetected); Coronavirus 19, PCR Not Detected (NotDetected); Coronavirus 229E Not Detected (NotDetected); Coronavirus NL63 Not Detected (NotDetected); Coronavirus OC43 Not Detected (NotDetected); Coronovirus HKU1,PCR Not Detected (NotDetected); Human Metapneumovirus Not Detected (NotDetected); Influenza A, PCR Not Detected (NotDetected); Influenza AH1, 2009 Not Detected (NotDetected); Influenza AH1, PCR Not Detected (NotDetected); Influenza AH3,PCR Not Detected (NotDetected); Influenza B, PCR Not Detected (NotDetected); Mycoplasma Pneumoniae, PCR Not Detected (NotDetected); Parainfluenza 1, PCR Not Detected (NotDetected); Parainfluenza 2, PCR Not Detected (NotDetected); Parainfluenza 3, PCR Not Detected (NotDetected); Parainfluenza 4, PCR Not Detected (NotDetected); Respiratory Syncytial Virus Not Detected (NotDetected); Rhinovirus/Enterovirus Not Detected (NotDetected)
[2024-03-28 14:13] VITALS: BP 135/79; PULSE 60; RESP 18; TEMP 36.8; O2SAT 98
== END 2024-03-28 14:18 | disposition home or self-care (01) ==
PROVIDERS: Physician Assistant; Emergency Provider Emergency Medicine; PCP Nurse Practitioner Family
DX: R06.09 Other forms of dyspnea (principal); R07.89 Other chest pain; R06.2 Wheezing; U07.1 COVID-19; J12.82 Pneumonia due to coronavirus disease 2019; S22.41XA Multiple fractures of ribs, right side, initial encounter for closed fracture; E11.9 Type 2 diabetes mellitus without complications; F17.210 Nicotine dependence, cigarettes, uncomplicated; C91.10 Chronic lymphocytic leukemia of B-cell type not having achieved remission; Z79.4 Long term (current) use of insulin; Z79.899 Other long term (current) drug therapy
CPT/HCPCS: 71250; 80053; 82803; 83735; 83880; 84145; 84484; 85025; 87631; 87633; 93005; 96374; 99202; 99291; G0463; J1100; J7620

== ENCOUNTER 2024-04-21 10:16 | Outpatient (CLI) | payer MEDICARE, OTHER, SELFPAY ==
[2024-04-21 10:51] LABS: Hematocrit 37.4 % (42.0-52.0); Hemoglobin 12.3 g/dL (14.1-18.0); Mean Corpuscular HGB Conc 32.9 g/dL (31.8-35.4); Mean Corpuscular Volume 85.2 fl (80-94); Platelet Count 241 K/mm3 (142-424); Red Blood Count 4.39 M/mm3 (4.60-6.20); Red Cell Distribution Width 16.5 % (11.5-17.5); White Blood Count 5.1 K/mm3 (4.8-10.8)
[2024-04-21 11:26] LABS: Blood Urea Nitrogen 57 mg/dl (9-20); Calcium 9.3 mg/dl (8.4-10.2); Carbon Dioxide 20 mmol/L (22.0-30.0); Chloride 108 mmol/L (98-107); Estimated Glomerular Filt Rate 24 ml/min (>60); GFR (African American) 29 ML/MIN (>60); Glucose 128 mg/dl (74-100); Phosphorous 4.6 mg/dl (2.5-4.5); Sodium 139 mmol/L (136-145); Uric Acid 8.2 mg/dl (3.5-8.5)
[2024-04-21 11:35] LABS: Microscopic, Urine URINE MICROSCOPIC (MICROSCOPIC)
[2024-04-21 11:38] LABS: Intact Parathyroid Hormone 123.6 pg/mL (7.5-53.5)
[2024-04-21 11:43] LABS: 25-OH Vitamin D, Total 50.9 ng/mL (30-100)
[2024-04-21 11:58] LABS: Anion Gap 15.7 mEq/L (5-15); Potassium 4.7 mmoL/L (3.5-5.1)
[2024-04-21 12:32] LABS: Appearance,Urine CLEAR (Clear); Bilirubin,Urine Negative (Negative); Blood, Urine Negative (Negative); Color,Urine YELLOW (Yellow); Glucose,Urine (UA) Negative (Negative); Ketones,Urine Negative (Negative); Leukocyte Esterase,Urine Negative (Negative); Nitrate,Urine Negative (Negative); Protein,Urine 2+ (Negative); Specific Gravity, Urine >= 1.030 (1.005-1.030); Urobilinogen,Urine 0.2 EU/dl (0.2)
[2024-04-21 12:51] LABS: Bacteria,Urine Trace /lpf; Squamous Epithelial Cell,Urine Occasional #/hpf (0-5)
[2024-04-21 12:52] LABS: Creatinine,Urine Random 134 mg/dL (Not Estab.)
== END 2024-04-21 23:59 | disposition home or self-care (01) ==
LOC: LAB 10:18
PROVIDERS: PCP Nurse Practitioner Family; Visit Provider Student in an Organized Health Care Education/Training Program
DX: N18.4 Chronic kidney disease, stage 4 (severe) (principal)
CPT/HCPCS: 36415; 80069; 81001; 82306; 82570; 83970; 84156; 84550; 85027

== ENCOUNTER 2024-05-06 12:22 | Observation (INO) | payer MEDICARE, OTHER, SELFPAY ==
[2024-05-06] VITALS (10 sets, daily range): BP systolic 119–153; BP diastolic 61–84; PULSE 77–87; RESP 18–29; TEMP 36.6–37.4; O2SAT 92–94; BMI 34.0; BMI 27.7
--- NOTE | 2024-05-06 12:29 | ECG_ITS ---
APPROVED REPORT Exam: Resting ECG HR:82 bpm ECG Measurements Heart Rate 82 AXES HI 170 P 78 QRSd 119 QRS 31 QT 368 T 32 QTc 407 Conclusion SINUS RHYTHM MODERATE INTRAVENTRICULAR CONDUCTION DELAY [110+ ms QRS DURATION] BORDERLINE ECG UNCONFIRMED REPORT Electronically signed by : TUCKER LI, 05/07/2024 00:41:05
--- NOTE | 2024-05-06 12:41 | XR_ITS ---
FINAL REPORT CLINICAL HISTORY: SOA COMPARISON: 03/18/2024 FINDINGS: SINGLE VIEW CHEST The heart is normal in size. The mediastinum is unremarkable. Endovascular stent is seen in the aortic arch and descending thoracic aorta. There is patchy airspace opacity in the right infrahilar region consistent with acute pneumonia. Findings have increased over previous. There is no pneumothorax. IMPRESSION: Acute pneumonia. Reviewed, Interpreted and Dictated by Marcin Aguirre MD Transcribed by Kelly Anderson Authenticated and [facility]
[2024-05-06 12:48] LABS: Basophils # 0.1 K/mm3 (0-0.2); Basophils % 0.4 % (0.1-2.0); Eosinophils # 0.1 K/mm3 (0.0-0.4); Eosinophils % 0.5 % (0.1-12.0); Hematocrit 34.3 % (42.0-52.0); Hemoglobin 11.4 g/dL (14.1-18.0); Mean Corpuscular HGB Conc 33.2 g/dL (31.8-35.4); Mean Corpuscular Hemoglobin 27.7 pg (27.0-31.2); Mean Corpuscular Volume 83.5 fl (80-94); Mean Platelet Volume 9.9 fl (7.4-10.4); Monocytes # 0.5 K/mm3 (0.1-1.0); Monocytes % 4.4 % (1.7-9.3); Neutrophils # 9.5 K/mm3 (1.8-7.8); Neutrophils % 84.5 % (37.0-80.0); Platelet Count 171 K/mm3 (142-424); Red Blood Count 4.11 M/mm3 (4.60-6.20); Red Cell Distribution Width 16.1 % (11.5-17.5); White Blood Count 11.2 K/mm3 (4.8-10.8)
--- NOTE | 2024-05-06 12:49 | PC.NURSE ---
pt provided urinal to provide urine sample.
--- NOTE | 2024-05-06 12:50 | ED_ITS ---
<Statement entered by Patricia Muhammad MD - 05/06/24 15:46> I was consulted by the POLINA, and we discussed the complexity of problems being addressed. I approved the treatment and management plan for this patient's care in the emergency department, thus performing a substantive portion of the medical decision making. Patricia Muhammad MD Discharge Plan Disposition Patient Disposition: Admitted Condition: Good Clinical Impressions Clinical Impression: CLL (chronic lymphocytic leukemia), COPD mixed type Pneumonia Qualifiers: Pneumonia type: due to COVID-19 virus Qualified Code(s): U07.1 - COVID-19 Congestive heart failure Qualifiers: Heart failure type: unspecified Heart failure chronicity: acute on chronic Q ualified Code(s): I50.9 - Heart failure, unspecified Discharge ED Provider: Patricia Muhammad HPI General Chief Complaint: Shortness of Breath/Dyspnea Stated Complaint: pnuemonia complications, SOA Time Seen by Provider: 05/06/24 12:30 Mode of Arrival: Wheelchair Source of Information: Patient and Spouse Limitations: No Limitations Description of Symptoms (Recalled from ER Triage Doc. by RN): pts reports he has been sick since Thursday. pt c/o a productive cough with clear sputum and SOA. pt was seen on Thursday at his PCP Albert Norwood's office and dx with PNA based on symptoms (no imaging.) pt is currently taking 20mg PO prednisone BID and 750 PO levofloaxin daily. Pt is not feeling any better and his PCP instructed him to come to the ED today. pt also reports 2 fractured ribs on the R from a fall 7wks ago. History of Present Illness HPI narrative: 74-year-old male presents to the emergency department accompanied by significant other, for a 5 to 6-day history of productive cough shortness of air, subjective fever and chills, patient admits to nausea no vomiting, he admits to posttussive type emesis, denies any overt chest pain, does endorse some right sided lower rib pain, does have data deficient remote history of fall and diagnosed with 2 rib fractures back in March 2024 on the right side he states that they are the sixth and seventh ribs , patient denies any real abdominal pain urinary type symptomatology, denies any hematuria melena hematochezia's or hematemesis, or hemoptysis. Past medical history consistent with current everyday smoker, COPD, CLL previously on chemo IV therapy infusions last therapy/infusion was in March 2024, rheumatoid arthritis, CKD, hypertension, A-fib on anticoagulation therapy with Eliquis, dementia, CHF, type 2 diabetes, patient was seen by primary care provider on Thursday, started on prednisone p.o. as well as levofloxacin 750 mg p.o. patient denies any drug use or other alcohol use initial triage vitals during sepsis criteria for tachypnea and some hypoxia patient does not use any submental oxygen therapy at home. Related Data Home Medications ?Medication ?Instructions ?Recorded ?Confirmed hydroxychloroquine 200 mg tablet 200 mg PO BID 12/03/22 05/06/24 albuterol sulfate 90 mcg/actuation 2 puff inhalation Q6HP PRN Asthma 03/17/24 05/06/24 aerosol inhaler citalopram 20 mg tablet 20 mg PO DAILY 03/17/24 05/06/24 insulin NPH-regular 70-30 U-100 15 unit SQ DAILY 03/17/24 05/06/24 insulin 100 unit/mL subcutaneous pen (Humulin 70/30 U-100 KwikPen) insulin glargine 100 unit/mL (3 20 unit SQ HS 03/17/24 05/06/24 mL) subcutaneous pen (Lantus Solostar U-100 Insulin) Previous Rx's ?Medication ?Instructions ?Recorded fluticasone fur. 200 mcg-umeclid 1 inh inhalation DAILY #60 ea 11/23/23 62.5 mcg-vilant 25 mcg inhalat.powder (Trelegy Ellipta) apixaban 2.5 mg tablet (Eliquis) 2.5 mg PO BID #60 tabs 03/07/24 metoprolol succinate 100 mg 100 mg PO DAILY #30 tabs 03/07/24 tablet,extended release 24 hr diazepam 2 mg tablet 2 mg PO HS #30 tabs 04/01/24 tamsulosin 0.4 mg capsule See Rx Instructions .Route 04/02/24 .COMPLEX #180 caps quetiapine 25 mg tablet 50 mg (2 x 25 mg) PO HS #180 tabs 04/04/24 furosemide 40 mg tablet (Lasix) 40 mg PO DAILY #30 tabs 04/29/24 amlodipine 10 mg tablet 10 mg PO DAILY #30 tabs 05/02/24 levofloxacin 750 mg tablet 750 mg PO DAILY 5 days #5 tabs 05/04/24 prednisone 20 mg tablet 20 mg PO BID #9 tabs 05/04/24 promethazine-DM 6.25 mg-15 mg/5 mL 5 ml PO Q4-6H PRN cough #118 mL 05/04/24 oral syrup Allergies Allergy/AdvReac Type Severity Reaction Status Date / Time moxifloxacin (From Avelox) Allergy Intermediate I-RASH Verified 05/06/24 12:42 sulfamethoxazole (From Allergy Unknown UNKNOWN Verified 05/06/24 12:42 Bactrim) trimethoprim (From Bactrim) Allergy Unknown Unknown Verified 05/06/24 12:42 allergy reaction PFSH PFS Disclaimer: The information contained in this section may have been updated after the patient was seen, as this information can be updated by other users. Medical History Pneumonia Left-sided epistaxis He does have poor airflow through his nasal cavity but is doing his best to keep this as moist as possible. Being on the blood thinner obviously makes the bleeding last longer but I see no signs of active eating or clot formation at this time. 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 Fajardo H/O colonoscopy 2018 History of knee replacement History of hernia repair History of nephrectomy right r/t cancer History of appendectomy Status post functional endoscopic sinus surgery Family History Father Cancer lung-Asbestos Mother Heart attack Hypertension Brother Diabetes Sister Hypertension Social History Smoking Status: Light tobacco smoker tobacco type: cigarettes packs per day: 1 years smoked: 40 alcohol intake: current alcohol intake frequency: holidays/special occasions only substance use type: denies use current occupational status: retired Travel in the last 8 weeks: None household members: spouse housing: house marital status: education level: high school caffeine: Yes special pilo needs: No do you feel safe at home: Yes victim of physical abuse: No victim of emotional abuse: No victim of sexual abuse: No would you like helpful sources: No Have you lived/traveled outside [place] in past 30 days?: No Contact w/someone who lives/traveled outside US past 30 days?: No Exposure to someone with infectious disease in past 14 days?: No Do you have a fever (greater than 100.4 F or 38 C)?: No Have you tested positive for COVID-19: No Exposed to someone with COVID-19 in past 14 days?: No Do you have a sore throat?: No Do you have a cough?: No Do you have any weakness?: No Do you have any diarrhea?: No Are you experiencing any unusual bleeding?: No Do you have any muscle aches/pain?: No Do you have any abdominal pain?: No Are you experiencing loss of taste or smell?: No Other Medical History Have you received the Flu Vaccine for this season: No Have you received the Pneumonia Vaccine: Yes ROS Obtained: Yes All systems reviewed & no additional complaints except as documented Physical Exam General General appearance: alert and in no apparent distress Head Head exam: atraumatic and normocephalic Eye Eye exam: Present PERRL and EOMI ENT ENT exam: Present mucous membranes moist Neck Neck exam: Present normal inspection and lymphadenopathy Chest Chest inspection: Present normal inspection and symmetric chest wall rise Respiratory Respiratory exam: Present normal lung sounds bilaterally, wheezes and other (Mild to moderate wheezing and Rales noted throughout bilateral lung chang, some pain with deep inspiration, some tachypnea but no acute respiratory distress or air hunger present); Absent respiratory distress Cardiovascular Cardiovascular exam: Present regular rate and normal rhythm Abdominal Exam Abdominal exam: Present soft; Absent tenderness, guarding or rebound Extremities Exam Extremities exam: Present normal inspection Neurological Exam Neurological exam: Present alert and oriented X3 Psychiatric Psychiatric exam: Present normal affect Skin Skin exam: Present warm, dry and other (Areas of ecchymosis/bruising along the patient's bilateral forearms and bilateral tib-fib regions, no edema present) HEART Score HEART Score HEART Score assessment performed?: Yes HEART Score: 3 Critical Care Critical Care Time Critical Care Time: No Medical Decision Making Medical Records Medical records reviewed: Yes I reviewed the patient's medical records. Fco Inquiry Pt receiving controlled substance: No Fco was queried for this patient: No Vital Signs Vital Signs: 05/06/24 12:33 05/06/24 13:00 05/06/24 13:30 Temperature 99.3 F Temperature Source Oral Pulse Rate 78 77 Pulse Rate [Left] 87 Respiratory Rate 22 29 H 18 Blood Pressure 139/75 140/61 Blood Pressure [Right Arm] 119/82 Blood Pressure Mean [Right Arm] 94 Blood Pressure Source [Right Arm] Automatic Cuff Blood Pressure Position [Right Arm] Sitting 02 Sat by Pulse Oximetry 94 L 94 L 94 L Oxygen Delivery Method Room Air Nasal Cannula Room Air 05/06/24 14:00 05/06/24 14:30 Temperature Temperature Source Pulse Rate 78 78 Pulse Rate [Left] Respiratory Rate 29 H 25 H Blood Pressure 143/76 H 151/84 H Blood Pressure [Right Arm] Blood Pressure Mean [Right Arm] Blood Pressure Source [Right Arm] Blood Pressure Position [Right Arm] 02 Sat by Pulse Oximetry 94 L 93 L Oxygen Delivery Method Room Air Room Air Lab Data Lab results reviewed: Yes I reviewed the patient's lab results. Labs: Lab Results 05/06/24 12:32: WBC 11.2 H, RBC 4.11 L, Hgb 11.4 L, Hct 34.3 L, MCV 83.5, MCH 27.7, MCHC 33.2, RDW 16.1, Plt Count 171, MPV 9.9, Neut % (Auto) 84.5 H, Lymph % (Auto) 9.0 L, [place] % (Auto) 4.4, Eos % (Auto) 0.5, Baso % (Auto) 0.4, Neut # (Auto) 9.5 H, Lymph # (Auto) 1.0, [place] # (Auto) 0.5, Eos # (Auto) 0.1, Baso # (Auto) 0.1, Sodium 133 L, Potassium 4.4, Chloride 105, Carbon Dioxide 17 L, A nion Gap 15.4 H, BUN 56 H, Creatinine 2.80 H, Estimated Creat Clear 39, E stimated GFR 22 L, Est GFR ( Amer) 27 L, Glucose 151 H, Lactate 1.1, Calcium 8.8, Magnesium 1.7, Total Bilirubin 0.4, AST 36, ALT 28, Alkaline Phosphatase 90, Troponin I 0.02, NT-Pro-B Natriuret Pep 2310 H, Total Protein 6.6, Albumin 3.8, Globulin 2.8, Albumin/Globulin Ratio 1.4, Procalcitonin 0.572 05/06/24 12:50: Chlamy pneumoniae PCR Not detected, Adenovirus (PCR) Not detected, B. pertussis DNA (PCR) Not detected, Coronavirus OC43 (PCR) Not detected, Coronavirus HKU1 (PCR) Not detected, Coronavirus 229E (PCR) Not detected, SARS-CoV-2 (PCR) Not detected, Coronavirus NL63 (PCR) Not detected, Human Metapneumovir PCR Not detected, Influenza A (H1) PCR Not detected, Influ A (H1N1/09) PCR Not detected, Influenza A (H3) PCR Not detected, Influenza Type A (PCR) Not detected, Influenza Type B (PCR) Not detected, M. pneumoniae (PCR) Detected, Parainfluenza 1 (PCR) Not detected, Parainfluenza 2 (PCR) Not detected, Parainfluenza 3 (PCR) Not detected, Parainfluenza 4 (PCR) Not detected, RSV (PCR) Not detected, Entero/Rhino (PCR) Not detected 05/06/24 13:50: Urine Color Yellow, Urine Appearance Clear, Urine pH 5.5, Ur Specific [place] 1.025, Urine Protein 2+ A, Urine Glucose (UA) Negative, Urine Ketones Negative, Urine Blood 1+ A, Urine Nitrate Negative, Urine Bilirubin Negative, Urine Urobilinogen 0.2, Ur Leukocyte Esterase Negative, Urine RBC Occasional, Urine WBC Occasional, Ur Squamous Epith Cells Occasional, Urine Bacteria Trace, Fine Granular Casts Occasional 05/06/24 12:32 05/06/24 12:32 Response Orders (Tests/Meds): ED MEDICATIONS Discontinued Medications Generic Name Dose Route Start Last Admin Trade Name Freq PRN Reason Stop Dose Admin Furosemide 40 mg 05/06/24 14:54 05/06/24 15:09 Furosemide 40mg/4ml Vial IV 05/06/24 14:55 40 mg ONCE ONE Administration Ceftriaxone Sodium 1 gm/ 50 mls @ 100 mls/hr 05/06/24 12:47 05/06/24 13:04 Sodium Chloride IV 05/06/24 13:16 100 mls/hr ONCE ONE Administration Sodium Chloride 2,400 mls @ 1,200 mls/hr 05/06/24 13:00 05/06/24 13:04 Sod Chlor 0.9% 1000ml Bag 30 ml/kg infuse over 2 hr (2400 ml) 05/06/24 14:59 1,200 mls/hr IV Administration .Q2H ONE ORDERS Category Date Time Status CT chest wo con Stat Cat Scan 05/06/24 14:50 Taken XR chest portable Stat Exams 05/06/24 12:41 Completed Complete Blood Count Auto Diff Stat Lab 05/06/24 12:32 Completed Comprehensive Metabolic Panel Stat Lab 05/06/24 12:32 Completed Full Resp Panel w/COVID ([facility]) Routine Lab 05/06/24 12:50 Completed Lactic Acid Stat Lab 05/06/24 12:32 Completed Magnesium Stat Lab 05/06/24 12:32 Completed NT Pro Brain Natriuretic Pep. Stat Lab 05/06/24 12:32 Completed PT INR [Prothrombin Time INR] Stat Lab 05/06/24 12:32 Ordered Procalcitonin Stat Lab 05/06/24 12:32 Completed Troponin I Q3H Lab 05/06/24 15:45 Ordered Troponin I Q3H Lab 05/06/24 18:45 Ordered Troponin I Stat Lab 05/06/24 12:32 Completed Urinalysis and Microscopic Stat Lab 05/06/24 13:50 Completed Blood Culture Stat Micro 05/06/24 12:32 Received CA echo doppler complete Stat Y 05/06/24 14:50 Completed MDM Narrative Medical Decision Narrative: 74-year-old male presents the emergency department with shortness of air productive cough subjective fever chills for 5 days differential diagnose, not limited to pneumonia, sepsis, the OPD exacerbation, CHF saturation, ACS, cardiac arrhythmia, electrolyte disturbance, pulmonary edema, acute bronchitis, other viral URI. Obtain basic laboratory studies, lactic acid level magnesium level proBNP procalcitonin, PT/INR troponin urinalysis full respiratory panel, chest x-ray, blood cultures, patient triggering sepsis criteria, will give 1 g ceftriaxone IV, will start 1 L IV NS, EKG. CBC is notable for leukocytosis at 11.2, hemoglobin hematocrit are mildly decreased at 11.4/34.3, appears somewhat chronic, patient does have past medical history consistent with CLL otherwise unremarkable CBC. CMP notable for mild hyponatremia 133, decreased, carbon dioxide level 17, anion gap is 15.4, creatinine elevation is noted at 2.8, BUN is 56, peers to be in line with the patient's chronic kidney disease, GFR is noted to be 22 lactate within normal limits, proBNP is minimally elevated at 2310 troponin within normal limits. Pro-Garcia normal Urinalysis is notable for 1+ hematuria, I reviewed the patient's chest x-ray along the corresponding radiologic report there is acute pneumonia. This is patient's case with the hospitalist at approximately 2:48 PM, he is agreement with the current admission plan/treatment plan for active pneumonia failure of outpatient treatment, he would like me to give 40 mg IV Lasix dose for possible fluid component in the setting of the patient's CHF with elevated proBNP. Patient is already taken his furosemide 40 mg p.o. today, will give additional 40 mg IV for potential fluid overload. Patient and family are in agreement with the current admission plan/treatment plan.
[2024-05-06 12:57] LABS: Lactic Acid 1.1 mmol/L (0.7-2.1)
[2024-05-06 12:58] LABS: Alanine Aminotransferase 28 U/L (12-78); Albumin Level 3.8 g/dl (3.5-5.0); Albumin/Globulin Ratio 1.4 (1.1-1.8); Alkaline Phosphatase 90 U/L (38-126); Anion Gap 15.4 mEq/L (5-15); Aspartate Amino Transferase 36 U/L (17-59); Bilirubin,Total 0.4 mg/dl (0.2-1.3); Blood Urea Nitrogen 56 mg/dl (9-20); Calcium 8.8 mg/dl (8.4-10.2); Carbon Dioxide 17 mmol/L (22.0-30.0); Chloride 105 mmol/L (98-107); Creatinine Clearance Estimated 39 mL/min (50-200); Estimated Glomerular Filt Rate 22 ml/min (>60); GFR (African American) 27 ML/MIN (>60); Globulin 2.8 g/dL (1.3-3.2); Glucose 151 mg/dl (74-100); Magnesium 1.7 mg/dl (1.6-2.3); Potassium 4.4 mmoL/L (3.5-5.1); Sodium 133 mmol/L (136-145); Total Protein,Serum 6.6 g/dl (6.3-8.2)
[2024-05-06 13:00] LABS: Adenovirus,PCR Not Detected (NotDetected); Bordetella Pertussis Not Detected (NotDetected); Chlamydophila Pneumoniae, PCR Not Detected (NotDetected); Coronavirus 19, PCR Not Detected (NotDetected); Coronavirus 229E Not Detected (NotDetected); Coronavirus NL63 Not Detected (NotDetected); Coronavirus OC43 Not Detected (NotDetected); Coronovirus HKU1,PCR Not Detected (NotDetected); Human Metapneumovirus Not Detected (NotDetected); Influenza A, PCR Not Detected (NotDetected); Influenza AH1, 2009 Not Detected (NotDetected); Influenza AH1, PCR Not Detected (NotDetected); Influenza AH3,PCR Not Detected (NotDetected); Influenza B, PCR Not Detected (NotDetected); Parainfluenza 1, PCR Not Detected (NotDetected); Parainfluenza 2, PCR Not Detected (NotDetected); Parainfluenza 3, PCR Not Detected (NotDetected); Parainfluenza 4, PCR Not Detected (NotDetected); Respiratory Syncytial Virus Not Detected (NotDetected); Rhinovirus/Enterovirus Not Detected (NotDetected)
[2024-05-06] MEDS: 0.9 % SODIUM CHLORIDE 1000ML 2,400 ML 1200 ML IV (13:04)
[2024-05-06] MEDS: CEFTRIAXONE SODIUM 1 GM in 0.9 % SODIUM CHLORIDE 50 ML IV (13:04)
[2024-05-06 13:07] LABS: NT Pro Brain Natriuretic Pep. 2310 pg/mL (0-125)
[2024-05-06 13:10] LABS: Troponin I 0.02 ng/ml (0.00-0.034)
--- NOTE | 2024-05-06 13:10 | PC.NURSE ---
GAve patient blanket
--- NOTE | 2024-05-06 13:14 | PC.NURSE ---
Pt given starry to drink
[2024-05-06 13:15] LABS: Procalcitonin 0.572 ng/mL (0.0-2.0)
--- NOTE | 2024-05-06 13:40 | PC.NURSE ---
PT WAS GIVEN A WARM BLANKET AT THIS TIME NO OTHER NEEDS OR COMPLAINTS, IS AT BS AND CALL LIGHT IN REACH
[2024-05-06 13:56] LABS: Microscopic, Urine URINE MICROSCOPIC (MICROSCOPIC)
[2024-05-06 13:58] LABS: Appearance,Urine CLEAR (Clear); Bilirubin,Urine Negative (Negative); Blood, Urine 1+ (Negative); Color,Urine YELLOW (Yellow); Glucose,Urine (UA) Negative (Negative); Ketones,Urine Negative (Negative); Leukocyte Esterase,Urine Negative (Negative); Nitrate,Urine Negative (Negative); PH,Urine 5.5 (5.0-8.5); Protein,Urine 2+ (Negative); Specific Gravity, Urine 1.025 (1.005-1.030); Urobilinogen,Urine 0.2 EU/dl (0.2)
[2024-05-06 14:04] LABS: Bacteria,Urine Trace /lpf; Fine Granular Casts,Urine Occasional #/lpf (0); RBC,Urine Occasional #/hpf (0-3); Squamous Epithelial Cell,Urine Occasional #/hpf (0-5); WBC,Urine Occasional #/hpf (0-3)
--- NOTE | 2024-05-06 14:46 | PC.NURSE ---
JEREMIAH MARTÍNEZ SPEAKING WITH HOSPITALIST
--- NOTE | 2024-05-06 14:50 | CA_ITS ---
APPROVED REPORT EXAM: Comprehensive 2D, Doppler, and color-flow Echocardiogram Barrel Lathe Operator Outside: Cortney Gabriel CRT Ht: 6 ft 1 in Wt: 258lbs BSA: 2.40 BP: 143/76 mmHg Indications: Congestive Heart Failure, COPD, Shortness of Breath, Atrial Fibrillation, Diabetes, Hyperlipidemia CLL PREV CHEMO rheumatoid arthritis 2D Dimensions LA Volume 117.60 mL LA Volume Index 47.80 mL/m2 (M/F) 16-34 M-Mode Dimensions RVDd 3.32 cm (0.9-2.6) LA Diam 5.45 cm (1.9-4.0) LVDd 6.43 cm (3.5-5.7) LVDs 4.85 cm (3.5-5.7) IVSd 1.75 cm (0.6-1.1) PWd 1.11 cm (0.6-1.1) EF (Teich) 47.70% FS 24.60% EDV (Teich) 210.80 mL TAPSE 3.82 (<1.7) ESV (Teich) 110.20 mL LV Diastology E Decel Time 200 (160-240 msec) E/A Ratio 0.29 MED A' 9.40 cm/s LAT A' 11.90 cm/s Aortic Valve AI PHT 485.00 ms AO Peak GR. 6.60 mmHg Mitral Valve MV E Max Onur. 32.0 (40-130 cm/s) MV A Velocity 110.0 (40-130 cm/s) E/A Ratio 0.29 MV PHT 59.0 ms Pulmonary Valve PV Peak Velocity 82.0 (50-150 cm/s) Tricuspid Valve TR P. Velocity 214.00 cm/s RAP Estimate 10.00 mmHg RVSP 28.30 mmHg Left Ventricle The left ventricle is normal size. The left ventricular systolic function is low normal. There is increased LV wall thickness. There is mild hypokinesis of the distal inferolateral and apical LV merlos. The left ventricular diastolic function is normal. LVEF is 50%. Right Ventricle Right ventricle is mildly dilated. The right ventricular systolic function is normal. Atria Left atrium is moderately dilated. Right atrium is moderately dilated. There is no Doppler evidence of interatrial shunt. Aortic Valve Aortic valve is mildly thickened. Mild aortic regurgitation. There is no aortic valvular stenosis. Mitral Valve The mitral valve leaflets are mildly thickened. No evidence of mitral valve stenosis. Mild mitral regurgitation. Tricuspid Valve Tricuspid valve is grossly normal in structure and function. Trace tricuspid regurgitation. There is insufficient TR jet to estimate RVSP. Pulmonic Valve The pulmonary valve is normal in structure. Trace pulmonic regurgitation. Great Vessels The aortic root is normal in size. The ascending aorta is not well-visualized. IVC is normal in size and collapses >50% with inspiration. Pericardium There is no pericardial effusion. Other Information Study Quality: Fair Conclusion Low normal LV systolic function (LVEF 50%). Mild hypokinesis of the distal inferolateral and apical LV merlos. Mild RV dilation with normal RV function. Biatrial dilation. Mild AI, mild MR. Electronically signed by : Catrachita Pereyra MD 05/07/2024 21:24:32
--- NOTE | 2024-05-06 14:50 | CT_ITS ---
FINAL REPORT TECHNIQUE: Axial images were obtained through the chest without contrast. Sagittal and coronal reformatted images were obtained and reviewed. This study was performed with techniques to keep radiation doses as low as reasonably achievable, (ALARA). Individualized dose reduction techniques using automated exposure control or adjustment of mA and/or kV according to the patient's size were employed. CLINICAL HISTORY: SOB COMPARISON: 03/28/2024 FINDINGS: Thoracic endograft is seen in the arch and proximal descending thoracic aorta. There are a few small scattered mediastinal lymph nodes. The heart size is normal. There is no pericardial or pleural effusion. There is scarring in the posterior right upper lobe and both lower lobes. Mild edema seen at the bases. There is mild patchy airspace opacity at the right base, increased over previous, may be due to small focus of developing pneumonia. There are calcified granulomas in the liver and spleen. IMPRESSION: Right base opacity, may be due to small focus of developing pneumonia. Reviewed, Interpreted and Dictated by Marcin Aguirre MD Transcribed by Kelly Anderson Authenticated and [facility]
--- NOTE | 2024-05-06 14:55 | PC.NURSE ---
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
--- NOTE | 2024-05-06 15:03 | PC.NURSE ---
pt to ct scan via wheelchair
--- NOTE | 2024-05-06 15:03 | PC.NURSE ---
Pt to CT
--- NOTE | 2024-05-06 15:07 | PC.NURSE ---
report called to shea on second floor
--- NOTE | 2024-05-06 15:08 | PC.NURSE ---
pt back to room
[2024-05-06] MEDS: FUROSEMIDE 40MG/4ML VIAL 40 MG IV (15:09)
[2024-05-06 15:17] LABS: Mycoplasma Pneumoniae, PCR Detected (NotDetected)
--- NOTE | 2024-05-06 15:34 | HMH.PHAINT1 ---
Pharmacy Intervention Comments: MEDICATION RECONCILIATION COMPLETE USING LIST FROM RECENT MD OFFICE VISIT (05/04/24), EXTERNAL PHARMACY FILL HISTORY, AND YONI REPORT.
[2024-05-06 16:09] LABS: INR 1.07 (0.9-1.1); Prothrombin Time 11.7 seconds (9.2-12.1)
[2024-05-06 16:21] LABS: Troponin I 0.02 ng/ml (0.00-0.034)
--- NOTE | 2024-05-06 17:48 | P.HP_ITS ---
History of Present Illness *Admission Date: 03/17/24 *Reason for visit:: Rib fractures *History of present illness: Eder Castillo is a 74 year old male with a medical history significant for CLL on chemotherapy, COPD not on O2, type 2 diabetes, HFpEF, hypertension, Afib on Eliquis, dementia presents with 5 to 6 days of productive cough, shortness of breath. Did have a fall and diagnosed with 2 rib fractures back in March 2024 on the right side he states that they are the sixth and seventh ribs , patient denies any real abdominal pain urinary type symptomatology, denies any hematuria melena hematochezia's or hematemesis, or hemoptysis. On arrival, patient was tachypneic in the high 20s with increased work of breathing. Given ceftriaxone and IV fluids. Respiratory panel positive for mycoplasma. Case discussed with ED provider, and given patient's, beta D send high clinical risk of decompensation, I decided to admit patient for community-acquired pneumonia. [facility] Disclaimer: The information contained in this section may have been updated after the patient was seen, as this information can be updated by other users. Medical History Pneumonia Left-sided epistaxis He does have poor airflow through his nasal cavity but is doing his best to keep this as moist as possible. Being on the blood thinner obviously makes the bleeding last longer but I see no signs of active eating or clot formation at this time. 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 Fajardo H/O colonoscopy 2018 History of knee replacement History of hernia repair History of nephrectomy right r/t cancer History of appendectomy Status post functional endoscopic sinus surgery Family History Father Cancer lung-Asbestos Mother Heart attack Hypertension Brother Diabetes Sister Hypertension Social History Smoking Status: Light tobacco smoker tobacco type: cigarettes packs per day: 1 years smoked: 40 alcohol intake: current alcohol intake frequency: holidays/special occasions only substance use type: denies use current occupational status: retired Travel in the last 8 weeks: None household members: spouse housing: house marital status: education level: high school caffeine: Yes special pilo needs: No do you feel safe at home: Yes victim of physical abuse: No victim of emotional abuse: No victim of sexual abuse: No would you like helpful sources: No Have you lived/traveled outside [place] in past 30 days?: No Contact w/someone who lives/traveled outside [place] past 30 days?: No Exposure to someone with infectious disease in past 14 days?: No Do you have a fever (greater than 100.4 F or 38 C)?: No Have you tested positive for COVID-19: No Exposed to someone with COVID-19 in past 14 days?: No Do you have a sore throat?: No Do you have a cough?: No Do you have any weakness?: No Do you have any diarrhea?: No Are you experiencing any unusual bleeding?: No Do you have any muscle aches/pain?: No Do you have any abdominal pain?: No Are you experiencing loss of taste or smell?: No Other Medical History Have you received the Flu Vaccine for this season: Yes Have you received the Pneumonia Vaccine: No Meds Home Medications and Allergies Home Medications ?Medication ?Instructions ?Recorded ?Confirmed ?Type hydroxychloroquine 200 mg tablet 200 mg PO BID 12/03/22 05/06/24 History fluticasone fur. 200 mcg-umeclid 1 inh inhalation DAILY #60 ea 11/23/23 05/06/24 Rx 62.5 mcg-vilant 25 mcg inhalat.powder (Trelegy Ellipta) apixaban 2.5 mg tablet (Eliquis) 2.5 mg PO BID #60 tabs 03/07/24 05/06/24 Rx metoprolol succinate 100 mg 100 mg PO DAILY #30 tabs 03/07/24 05/06/24 Rx tablet,extended release 24 hr albuterol sulfate 90 mcg/actuation 2 puff inhalation Q6HP PRN 03/17/24 05/06/24 History aerosol inhaler Shortness Of Breath Or Wheezing citalopram 20 mg tablet 20 mg PO DAILY 03/17/24 05/06/24 History insulin NPH-regular 70-30 U-100 15 unit SQ DAILY 03/17/24 05/06/24 History insulin 100 unit/mL subcutaneous pen (Humulin 70/30 U-100 KwikPen) insulin glargine 100 unit/mL (3 20 unit SQ HS 03/17/24 05/06/24 History mL) subcutaneous pen (Lantus Solostar U-100 Insulin) diazepam 2 mg tablet 2 mg PO HS #30 tabs 04/01/24 05/06/24 Rx quetiapine 25 mg tablet 50 mg (2 x 25 mg) PO HS #180 tabs 04/04/24 05/06/24 Rx furosemide 40 mg tablet (Lasix) 40 mg PO DAILY #30 tabs 04/29/24 05/06/24 Rx amlodipine 10 mg tablet 10 mg PO DAILY #30 tabs 05/02/24 05/06/24 Rx tamsulosin 0.4 mg capsule 0.8 mg PO HS 05/06/24 05/06/24 History New Prescriptions to Start Prescriptions: Allergies Allergy/AdvReac Type Severity Reaction Status Date / Time moxifloxacin (From Avelox) Allergy Intermediate I-RASH Verified 05/06/24 12:42 sulfamethoxazole (From Allergy Unknown UNKNOWN Verified 05/06/24 12:42 Bactrim) trimethoprim (From Bactrim) Allergy Unknown Unknown Verified 05/06/24 12:42 allergy reaction Exam Data for Last 24 hours Vital signs and Labs for Last 24 Hours: Temp Pulse Resp BP Pulse Ox O2 Del Method 99.1 F 80 22 131/68 92 L Room Air 05/06/24 15:50 05/06/24 15:50 05/06/24 15:50 05/06/24 15:50 05/06/24 15:50 05/06/24 15:50 Laboratory Results - last 24 hr 05/06/24 12:32: WBC 11.2 H, RBC 4.11 L, Hgb 11.4 L, Hct 34.3 L, MCV 83.5, MCH 27.7, MCHC 33.2, RDW 16.1, Plt Count 171, MPV 9.9, Neut % (Auto) 84.5 H, Lymph % (Auto) 9.0 L, [place] % (Auto) 4.4, Eos % (Auto) 0.5, Baso % (Auto) 0.4, Neut # (Auto) 9.5 H, Lymph # (Auto) 1.0, [place] # (Auto) 0.5, Eos # (Auto) 0.1, Baso # (Auto) 0.1, Sodium 133 L, Potassium 4.4, Chloride 105, Carbon Dioxide 17 L, Anion Gap 15.4 H, BUN 56 H, Creatinine 2.80 H, Estimated Creat Clear 39, Estimated GFR 22 L, Est GFR ( Amer) 27 L, Glucose 151 H, Lactate 1.1, Calcium 8.8, Magnesium 1.7, Total Bilirubin 0.4, AST 36, ALT 28, Alkaline Phosphatase 90, Troponin I 0.02, NT-Pro-B Natriuret Pep 2310 H, Total Protein 6.6, Albumin 3.8, Globulin 2.8, Albumin/Globulin Ratio 1.4, Procalcitonin 0.572 05/06/24 12:50: Chlamy pneumoniae PCR Not detected, Adenovirus (PCR) Not detected, B. pertussis DNA (PCR) Not detected, Coronavirus OC43 (PCR) Not detected, Coronavirus HKU1 (PCR) Not detected, Coronavirus 229E (PCR) Not detected, SARS-CoV-2 (PCR) Not detected, Coronavirus NL63 (PCR) Not detected, Human Metapneumovir PCR Not detected, Influenza A (H1) PCR Not detected, Influ A (H1N1/09) PCR Not detected, Influenza A (H3) PCR Not detected, Influenza Type A (PCR) Not detected, Influenza Type B (PCR) Not detected, M. pneumoniae (PCR) Detected, Parainfluenza 1 (PCR) Not detected, Parainfluenza 2 (PCR) Not detected, Parainfluenza 3 (PCR) Not detected, Parainfluenza 4 (PCR) Not detected, RSV (PCR) Not detected, Entero/Rhino (PCR) Not detected 05/06/24 13:50: Urine Color Yellow, Urine Appearance Clear, Urine pH 5.5, Ur Specific [place] 1.025, Urine Protein 2+ A, Urine Glucose (UA) Negative, Urine Ketones Negative, Urine Blood 1+ A, Urine Nitrate Negative, Urine Bilirubin Negative, Urine Urobilinogen 0.2, Ur Leukocyte Esterase Negative, Urine RBC Occasional, Urine WBC Occasional, Ur Squamous Epith Cells Occasional, Urine Bacteria Trace, Fine Granular Casts Occasional 05/06/24 15:50: PT 11.7, INR 1.07, Troponin I 0.02 I & O for Last 24 hours: Intake & Output 05/03/24 05/04/24 05/05/24 05/06/24 23:59 23:59 23:59 23:59 Output Total 300 / 300 Balance -300 / -300 Weight 95.283 kg Constitutional Constitutional: no acute distress *Routine HEENT Exam Head: Present normocephalic Eye: Present EOMI and PERRL ENT: Present mucous membranes moist *Routine Neck Exam Neck: Present supple; Absent lymphadenopathy *Routine Respiratory Exam Respiratory: Present wheezes and diminished air movement; Absent CTA bilaterally *Routine Cardiovascular Exam Cardiovascular: Present RRR *Routine Abdominal Exam Abdominal: Present soft, normoactive bowel sounds and tenderness Comments: Right posterior thorax tenderness without evidence of flail chest. *Routine Rectal Exam Rectal:: deferred *Routine Genitalia Exam Genitalia:: deferred *Routine Extremities Exam Extremities: Absent cyanosis, clubbing or edema *Routine Skin Exam Skin: Present warm; Absent rash *Routine Neurological Exam Neurological: Present alert and oriented X3 Assessment and Plan *Assessment and plan (1) Pneumonia: Status: Acute Qualifiers: Pneumonia type: due to COVID-19 virus Qualified Code(s): U07.1 - COVID- 19; J12.82 - Pneumonia due to coronavirus disease 2019 Category: Medical Code(s): J18.9 - Pneumonia, unspecified organism Plan Eder Castillo is a 74 year old male with a medical history significant for CLL on chemotherapy, COPD not on O2, type 2 diabetes, HFpEF, hypertension, Afib on Eliquis, dementia presents with 5 to 6 days of productive cough, shortness of breath. Did have a fall and diagnosed with 2 rib fractures back in March 2024 on the right side he states that they are the sixth and seventh ribs , patient denies any real abdominal pain urinary type symptomatology, denies any hematuria melena hematochezia's or hematemesis, or hemoptysis. On arrival, patient was tachypneic in the high 20s with increased work of breathing. Given ceftriaxone and IV fluids. Respiratory panel positive for mycoplasma. Case discussed with ED provider, and given patient's, beta D send high clinical risk of decompensation, I decided to admit patient for community-acquired pneumonia. #Community-acquired pneumonia #Mycoplasma pneumonia #Sepsis ? Progressive shortness of breath, productive cough. Has moderate wheezing throughout lung chang, but patient states this is baseline. ? CXR, chest CT suggestive of RLL pneumonia. On room air currently. ? WBC 11.2, with tachypnea to the high 20s on presentation. ? Continue ceftriaxone, azithromycin day 04/10. ? Follow-up blood cultures. #COPD exacerbation - Moderate wheezing throughout lung chang, increased work of breathing, productive cough. ? DuoNebs every 6 hours, Pulmicort twice daily. 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 ? Antibiotics as above. ? Hold home Trelegy for now. #CLL - Follows with Dr. Bueno. Chemotherapy stopped in March due to significant side effects. - No signs of lymphoblastic crisis, continue to monitor. #Diabetes - Lantus 20u nightly. - LDSSI, ACHS glucose checks. #CKD stage 4 - Stable. Avoid NSAIDs for pain. #HFpEF - Stable. Resume home Lasix regimen. #Afib - Rate controlled. Continue home Eliquis. FULL CODE DVT prophylaxis: Home Eliquis
[2024-05-06] MEDS: AZITHROMYCIN 500 MG in 0.9 % SODIUM CHLORIDE 250 ML 250 MG IV (18:29)
[2024-05-06] MEDS: BUDESONIDE 0.5MG/2ML NEB 0.5 MG IH (18:45)
[2024-05-06 19:24] LABS: Troponin I 0.02 ng/ml (0.00-0.034)
[2024-05-06] MEDS: QUETIAPINE 25MG TABLET 50 MG PO (20:12)
[2024-05-06] MEDS: diazePAM 2MG TABLET 2 MG PO (20:12)
[2024-05-06] MEDS: TAMSULOSIN 0.4MG CAPSULE 0.8 MG PO (20:12)
[2024-05-06 20:13] LABS: POC Glucose,Bedside 170 (70-110)
[2024-05-06] MEDS: INSULIN GLARGINE 100 UNITS/ML 3ML FLEXPEN 20 UNIT SUBCUT (20:13)
[2024-05-06] MEDS: humaLOG 100 UNITS/ML 10ML VIAL (SSI) SUBCUT (20:13)
[2024-05-06] MEDS: PATIENT'S OWN HOME MEDICATION (Apixaban [Eliquis] 2.5 mg tablet) 2.5 EACH PO (20:14)
[2024-05-06] MEDS: IPRATROPIUM/ALBUTEROL 3 ML NEB IH (23:23)
[2024-05-07] VITALS (7 sets, daily range): BP systolic 136–166; BP diastolic 58–82; PULSE 78–97; RESP 18–20; TEMP 36.9–37.9; O2SAT 92–96; BMI 28.4
--- NOTE | 2024-05-07 04:45 | PC.NURSE ---
Pt has remained alert and oriented with some episodes of confusion throughout the night. Wheezing heard throughout lungs. Receiving Duonebs q6 hr. He has ambulated to the bathroom with standby assist. Currently resting in bed with bed alarm in place.
[2024-05-07 05:34] LABS: POC Glucose,Bedside 134 (70-110)
[2024-05-07 05:59] LABS: Basophils % 0.3 % (0.1-2.0); Eosinophils # 0.1 K/mm3 (0.0-0.4); Eosinophils % 0.9 % (0.1-12.0); Hematocrit 33.3 % (42.0-52.0); Hemoglobin 11.1 g/dL (14.1-18.0); Lymphocytes # 1.2 K/mm3 (0.7-4.5); Lymphocytes % 15.6 % (10-50); Mean Corpuscular HGB Conc 33.3 g/dL (31.8-35.4); Mean Corpuscular Hemoglobin 27.6 pg (27.0-31.2); Mean Corpuscular Volume 82.8 fl (80-94); Mean Platelet Volume 10.4 fl (7.4-10.4); Monocytes # 0.5 K/mm3 (0.1-1.0); Monocytes % 6.9 % (1.7-9.3); Neutrophils # 5.8 K/mm3 (1.8-7.8); Neutrophils % 75.1 % (37.0-80.0); Platelet Count 147 K/mm3 (142-424); Red Blood Count 4.02 M/mm3 (4.60-6.20); Red Cell Distribution Width 16.1 % (11.5-17.5); White Blood Count 7.7 K/mm3 (4.8-10.8)
[2024-05-07 06:05] LABS: Albumin Level 3.7 g/dl (3.5-5.0); Chloride 104 mmol/L (98-107); Sodium 132 mmol/L (136-145)
[2024-05-07 06:06] LABS: Potassium 3.5 mmoL/L (3.5-5.1)
[2024-05-07 06:08] LABS: Alanine Aminotransferase 32 U/L (12-78); Albumin/Globulin Ratio 1.5 (1.1-1.8); Alkaline Phosphatase 98 U/L (38-126); Anion Gap 12.5 mEq/L (5-15); Aspartate Amino Transferase 34 U/L (17-59); Bilirubin,Total 0.3 mg/dl (0.2-1.3); Blood Urea Nitrogen 48 mg/dl (9-20); Calcium 8.3 mg/dl (8.4-10.2); Carbon Dioxide 19 mmol/L (22.0-30.0); Creatinine Clearance Estimated 35 mL/min (50-200); Estimated Glomerular Filt Rate 24 ml/min (>60); GFR (African American) 29 ML/MIN (>60); Globulin 2.4 g/dL (1.3-3.2); Glucose 127 mg/dl (74-100); Total Protein,Serum 6.1 g/dl (6.3-8.2)
[2024-05-07 06:09] LABS: Magnesium 1.5 mg/dl (1.6-2.3)
[2024-05-07] MEDS: BUDESONIDE 0.5MG/2ML NEB 0.5 MG IH (06:14)
[2024-05-07] MEDS: IPRATROPIUM/ALBUTEROL 3 ML NEB IH ×2 (06:14→12:19)
[2024-05-07] MEDS: HYDROXYCHLOROQUINE SULFATE 200MG TABLET 200 MG PO (08:55)
[2024-05-07] MEDS: CITALOPRAM 20MG TABLET 20 MG PO (08:55)
[2024-05-07] MEDS: METOPROLOL SUCCINATE XL 100MG TABLET 100 MG PO (08:55)
[2024-05-07] MEDS: FUROSEMIDE 40 MG TABLET PO (08:55)
[2024-05-07] MEDS: CEFTRIAXONE 1 GM 1 GM in 0.9 % SODIUM CHLORIDE 50 ML IV (08:55)
[2024-05-07] MEDS: APIXABAN 5MG TABLET 2.5 MG PO (08:56)
[2024-05-07] MEDS: NICOTINE 21MG/24HR PATCH 21 MG TD (08:59)
--- NOTE | 2024-05-07 09:30 | PC.NURSE ---
AT APPX 0845 THIS NURSE WAS CALLED INTO ROOM 215 BY [facility] FOR HELP. UPON ENTERING BATHROOM, PATIENT WAS FOUND SITTING ON HIS BOTTOM ON THE FLOOR. SRNA WAS ASSISTING PATIENT IN THE SHOWER. PATIENT WANTED TO HELP SRNA DRY HIMSELF. PATIENT BENT DOWN TO DRY HIS THIGHS, HAD A DIZZY SPELL AND FELL TO HIS KNEES. SRNA HELPED ASSIST PATIENT TO HIS BOTTOM AND CALLED FOR HELP. UPON ASSESSMENT, PATIENT HAS NO COMPLAINTS, DID NOT HIT HIS HEAD. ASSISTED INTO CHAIR AND VITAL SIGNS TAKEN. ALL WITHIN NORMAL LIMITS. PT KNEES ARE A LITTLE RED. CHAIR ALARM ON AND FRESH NON SKID SOCKS APPLIED. PT IS REFUSING ANY INTERVENTION OFFERED. MD ALBERTO NOTIFIED AND STATES HE WILL COME TO BEDSIDE TO ASSESS PATIENT. [facility] ATTENDANT NIMA NOTIFIED. AT BEDSIDE AND UPDATED WELL. WILL CONTINUE TO CHECK V/S Q4H X2H. RED FALLEN STAR IN PLACE.
--- NOTE | 2024-05-07 09:58 | XR_ITS ---
PROCEDURE INFORMATION: Exam: XR Left Knee Exam date and time: 05/07/2024 9:55 AM Age: 74 years old Clinical indication: Injury or trauma; Fall; Blunt trauma; Knee; Left; Additional info: Fall today TECHNIQUE: Imaging protocol: Radiologic exam of the left knee. Views: 1 or 2 views. COMPARISON: US EXTREMITY LT LIMITED 04/24/2021 12:18 PM FINDINGS: Bones/joints: Postsurgical changes of total knee arthroplasty are noted on the left. Perihardware lucency around the knee component measuring 4.5 mm may represent loosening or infection. Soft tissues: Normal. Vasculature: Vascular calcifications are noted. IMPRESSION: Postsurgical changes of total knee arthroplasty on the left. Perihardware lucency around the knee component measuring 4.5 mm may represent loosening or infection.
--- NOTE | 2024-05-07 09:58 | XR_ITS ---
PROCEDURE INFORMATION: Exam: XR Right Knee Exam date and time: 05/07/2024 9:55 AM Age: 74 years old Clinical indication: Injury or trauma; Fall; Blunt trauma; Knee; Right; Additional info: Fall today TECHNIQUE: Imaging protocol: Radiologic exam of the right knee. Views: 1 or 2 views. COMPARISON: CR XR FEMUR RT 2V 05/06/2022 2:34 PM FINDINGS: Bones/joints: Moderate primary osteoarthritis affects the right knee joint. Soft tissues: Normal. Vasculature: Vascular calcifications are noted. IMPRESSION: No acute findings. Moderate primary osteoarthritis affects the right knee joint.
[2024-05-07 09:59] LABS: POC Glucose,Bedside 174 (70-110)
[2024-05-07] MEDS: MAGNESIUM SULFATE IN WATER 2 GM/50 ML PIGGYBACK IV ×2 (12:03→13:24)
[2024-05-07] MEDS: POTASSIUM CHLORIDE 20MEQ TAB 40 MEQ PO ×2 (12:03→13:51)
[2024-05-07] MEDS: humaLOG 100 UNITS/ML 10ML VIAL (SSI) SUBCUT (12:03)
--- NOTE | 2024-05-07 12:43 | P.DS_ITS ---
General Admission date:: 05/06/24 HPI HPI HPI: Eder Castillo is a 74 year old male with a medical history significant for CLL on chemotherapy, COPD not on O2, type 2 diabetes, HFpEF, hypertension, Afib on Eliquis, dementia presents with 5 to 6 days of productive cough, shortness of breath. Did have a fall and diagnosed with 2 rib fractures back in March 2024 on the right side he states that they are the sixth and seventh ribs , patient denies any real abdominal pain urinary type symptomatology, denies any hematuria melena hematochezia's or hematemesis, or hemoptysis. On arrival, patient was tachypneic in the high 20s with increased work of breathing. Given ceftriaxone and IV fluids. Respiratory panel positive for mycoplasma. Case discussed with ED provider, and given patient's, beta D send high clinical risk of decompensation, I decided to admit patient for community-acquired pneumonia. Hospital Course Hospital Course Hospital Course: Eder Castillo is a 74 year old male with a medical history significant for CLL on chemotherapy, COPD not on O2, type 2 diabetes, HFpEF, hypertension, Afib on Eliquis, dementia presents with 5 to 6 days of productive cough, shortness of breath. Did have a fall and diagnosed with 2 rib fractures back in March 2024 on the right side he states that they are the sixth and seventh ribs , patient denies any real abdominal pain urinary type symptomatology, denies any hematuria melena hematochezia's or hematemesis, or hemoptysis. On arrival, patient was tachypneic in the high 20s with increased work of breathing. Given ceftriaxone and IV fluids. Respiratory panel positive for mycoplasma. Case discussed with ED provider, and given patient's, beta D send high clinical risk of decompensation, I decided to admit patient for community-acquired pneumonia. #Community-acquired pneumonia #Mycoplasma pneumonia #Sepsis ? Progressive shortness of breath, productive cough. Has moderate wheezing throughout lung chang, but patient states this is baseline. ? CXR, chest CT suggestive of RLL pneumonia. On room air. ? WBC 11.2, with tachypnea to the high 20s on presentation. ? Clinically improved with ceftriaxone, azithromycin. ? Discharged with Levaquin for 4 more days. Will follow-up with pulmonology within 2 weeks. #COPD exacerbation - Moderate wheezing throughout lung chang, increased work of breathing, productive cough. ? Clinically improved with DuoNebs, Pulmicort, steroids, antibiotic as above. ? Discharged with prednisone for 3 more days, levofloxacin. ? Continue home Trelegy. #Fall ? Patient was bending over while taking a shower and fell to his knees during hospitalization. Knee exam unremarkable. ? No pain, effusion, or even bruising. Knee x-ray is unremarkable for acute findings, though left knee x-ray does show likely chronic perihardware 4.5 mm lucency. Advised to follow-up with orthopedic surgery. ? PT evaluated patient, no rehab needs at this time #CLL - Follows with Dr. Bueno. Chemotherapy stopped in March due to significant side effects. - No signs of lymphoblastic crisis, continue to monitor. #Diabetes - Continue home regimen #CKD stage 4 - Stable. Avoid NSAIDs for pain. #HFpEF - Stable. Resume home Lasix regimen. Prescribed magnesium supplementation. #Afib - Rate controlled. Continue home Eliquis. #Chronic tobacco smoker ? Prescribed nicotine patches. Total time spent on discharge: 33 minutes on chart review, counseling, documentation, and direct care with patient. Exam Data for Last 24 hours Vital signs and Labs for Last 24 Hours: Temp Pulse Resp BP Pulse Ox O2 Del Method 98.4 F 79 19 166/82 H 93 L Room Air 05/07/24 12:06 05/07/24 12:20 05/07/24 12:06 05/07/24 12:06 05/07/24 12:20 05/07/24 12:20 Laboratory Results - last 24 hr 05/06/24 12:32: WBC 11.2 H, RBC 4.11 L, Hgb 11.4 L, Hct 34.3 L, MCV 83.5, MCH 27.7, MCHC 33.2, RDW 16.1, Plt Count 171, MPV 9.9, Neut % (Auto) 84.5 H, Lymph % (Auto) 9.0 L, Screven % (Auto) 4.4, Eos % (Auto) 0.5, Baso % (Auto) 0.4, Neut # (Auto) 9.5 H, Lymph # (Auto) 1.0, Screven # (Auto) 0.5, Eos # (Auto) 0.1, Baso # (Auto) 0.1, Sodium 133 L, Potassium 4.4, Chloride 105, Carbon Dioxide 17 L, Anion Gap 15.4 H, BUN 56 H, Creatinine 2.80 H, Estimated Creat Clear 39, Estimated GFR 22 L, Est GFR ( Amer) 27 L, Glucose 151 H, Lactate 1.1, Calcium 8.8, Magnesium 1.7, Total Bilirubin 0.4, AST 36, ALT 28, Alkaline Phosphatase 90, Troponin I 0.02, NT-Pro-B Natriuret Pep 2310 H, Total Protein 6.6, Albumin 3.8, Globulin 2.8, Albumin/Globulin Ratio 1.4, Procalcitonin 0.572 05/06/24 12:50: Chlamy pneumoniae PCR Not detected, Adenovirus (PCR) Not detected, B. pertussis DNA (PCR) Not detected, Coronavirus OC43 (PCR) Not detected, Coronavirus HKU1 (PCR) Not detected, Coronavirus 229E (PCR) Not detected, SARS-CoV-2 (PCR) Not detected, Coronavirus NL63 (PCR) Not detected, Human Metapneumovir PCR Not detected, Influenza A (H1) PCR Not detected, Influ A (H1N1/09) PCR Not detected, Influenza A (H3) PCR Not detected, Influenza Type A (PCR) Not detected, Influenza Type B (PCR) Not detected, M. pneumoniae (PCR) Detected, Parainfluenza 1 (PCR) Not detected, Parainfluenza 2 (PCR) Not detected, Parainfluenza 3 (PCR) Not detected, Parainfluenza 4 (PCR) Not detected, RSV (PCR) Not detected, Entero/Rhino (PCR) Not detected 05/06/24 13:50: Urine Color Yellow, Urine Appearance Clear, Urine pH 5.5, Ur Specific Rudyard 1.025, Urine Protein 2+ A, Urine Glucose (UA) Negative, Urine Ketones Negative, Urine Blood 1+ A, Urine Nitrate Negative, Urine Bilirubin Negative, Urine Urobilinogen 0.2, Ur Leukocyte Esterase Negative, Urine RBC Occasional, Urine WBC Occasional, Ur Squamous Epith Cells Occasional, Urine Bacteria Trace, Fine Granular Casts Occasional 05/06/24 15:50: PT 11.7, INR 1.07, Troponin I 0.02 05/06/24 18:50: Troponin I 0.02 05/06/24 19:55: POC Glucose 170 H 05/07/24 05:27: POC Glucose 134 H 05/07/24 05:43: WBC 7.7 D, RBC 4.02 L, Hgb 11.1 L, Hct 33.3 L, MCV 82.8, MCH 27.6, MCHC 33.3, RDW 16.1, Plt Count 147, MPV 10.4, Neut % (Auto) 75.1, Lymph % (Auto) 15.6, Screven % (Auto) 6.9, Eos % (Auto) 0.9, Baso % (Auto) 0.3, Neut # (Auto) 5.8, Lymph # (Auto) 1.2, Screven # (Auto) 0.5, Eos # (Auto) 0.1, Baso # (Auto) 0.0, Sodium 132 L, Potassium 3.5 D, Chloride 104, Carbon Dioxide 19 L, Anion Gap 12.5, BUN 48 H, Creatinine 2.60 H, Estimated Creat Clear 35, Estimated GFR 24 L, Est GFR ( Amer) 29 L, Glucose 127 H, Calcium 8.3 L, Magnesium 1.5 L D, Total Bilirubin 0.3, AST 34, ALT 32, Alkaline Phosphatase 98, Total Protein 6.1 L, Albumin 3.7, Globulin 2.4, Albumin/Globulin Ratio 1.5 05/07/24 09:52: POC Glucose 174 H I & O for Last 24 hours: Intake & Output 05/04/24 05/05/24 05/06/24 05/07/24 23:59 23:59 23:59 23:59 Intake Total 510 / 510 Output Total 300 / 1300 1000 / 1000 Balance -300 / -1000 -490 / -490 Weight 95.283 kg 97.25 kg Constitutional Constitutional: no acute distress, average body habitus and chronically ill appearing *Routine HEENT Exam Head: Present normocephalic Eye: Present EOMI and PERRL ENT: Present mucous membranes moist Comments: No visible thrush lesions today *Routine Neck Exam Neck: Present supple; Absent lymphadenopathy Routine Chest/Breast/Axilla Exam Comments: Tender to palpation on right side of chest *Routine Respiratory Exam Respiratory: Present prolonged expiratory phase, rhonchi and normal respiratory effort; Absent wheezes or crackles *Routine Cardiovascular Exam Cardiovascular: Present irregularly irregular *Routine Abdominal Exam Abdominal: Present soft and normoactive bowel sounds; Absent tenderness *Routine Rectal Exam Patient deferred: visual exam *Routine Exam Patient deferred: penile exam *Routine Extremities Exam Extremities: Absent cyanosis, clubbing or edema *Routine Skin Exam Skin: Present warm; Absent rash Comments: Senile purpura, bruising on arms *Routine Neurological Exam Neurological: Present alert, oriented X3 and moving all extremities; Absent altered mental status Results Data Completed and Pending Labs on day of discharge: Labs from last 24 hours 05/07/24 05/07/24 05/07/24 09:52 05:43 05:27 WBC 7.7 D RBC 4.02 L Hgb 11.1 L Hct 33.3 L MCV 82.8 MCH 27.6 MCHC 33.3 RDW 16.1 Plt Count 147 MPV 10.4 Neut % (Auto) 75.1 Lymph % (Auto) 15.6 Screven % (Auto) 6.9 Eos % (Auto) 0.9 Baso % (Auto) 0.3 Neut # (Auto) 5.8 Lymph # (Auto) 1.2 Screven # (Auto) 0.5 Eos # (Auto) 0.1 Baso # (Auto) 0.0 PT INR Sodium 132 L Potassium 3.5 D Chloride 104 Carbon Dioxide 19 L Anion Gap 12.5 BUN 48 H Creatinine 2.60 H Estimated Creat Clear 35 Estimated GFR 24 L Est GFR ( Amer) 29 L Glucose 127 H POC Glucose 174 H 134 H Lactate Calcium 8.3 L Magnesium 1.5 L D Total Bilirubin 0.3 AST 34 ALT 32 Alkaline Phosphatase 98 Troponin I NT-Pro-B Natriuret Pep Total Protein 6.1 L Albumin 3.7 Globulin 2.4 Albumin/Globulin Ratio 1.5 Procalcitonin Urine Color Urine Appearance Urine pH Ur Specific Rudyard Urine Protein Urine Glucose (UA) Urine Ketones Urine Blood Urine Nitrate Urine Bilirubin Urine Urobilinogen Ur Leukocyte Esterase Urine RBC Urine WBC Ur Squamous Epith Cells Urine Bacteria Fine Granular Casts Chlamy pneumoniae PCR Adenovirus (PCR) B. pertussis DNA (PCR) Coronavirus OC43 (PCR) Coronavirus HKU1 (PCR) Coronavirus 229E (PCR) SARS-CoV-2 (PCR) Coronavirus NL63 (PCR) Human Metapneumovir PCR Influenza A (H1) PCR Influ A (H1N1/09) PCR Influenza A (H3) PCR Influenza Type A (PCR) Influenza Type B (PCR) M. pneumoniae (PCR) Parainfluenza 1 (PCR) Parainfluenza 2 (PCR) Parainfluenza 3 (PCR) Parainfluenza 4 (PCR) RSV (PCR) Entero/Rhino (PCR) 05/06/24 05/06/24 05/06/24 19:55 18:50 15:50 WBC RBC Hgb Hct MCV MCH MCHC RDW Plt Count MPV Neut % (Auto) Lymph % (Auto) Screven % (Auto) Eos % (Auto) Baso % (Auto) Neut # (Auto) Lymph # (Auto) Screven # (Auto) Eos # (Auto) Baso # (Auto) PT 11.7 INR 1.07 Sodium Potassium Chloride Carbon Dioxide Anion Gap BUN Creatinine Estimated Creat Clear Estimated GFR Est GFR ( Amer) Glucose POC Glucose 170 H Lactate Calcium Magnesium Total Bilirubin AST ALT Alkaline Phosphatase Troponin I 0.02 0.02 NT-Pro-B Natriuret Pep Total Protein Albumin Globulin Albumin/Globulin Ratio Procalcitonin Urine Color Urine Appearance Urine pH Ur Specific Rudyard Urine Protein Urine Glucose (UA) Urine Ketones Urine Blood Urine Nitrate Urine Bilirubin Urine Urobilinogen Ur Leukocyte Esterase Urine RBC Urine WBC Ur Squamous Epith Cells Urine Bacteria Fine Granular Casts Chlamy pneumoniae PCR Adenovirus (PCR) B. pertussis DNA (PCR) Coronavirus OC43 (PCR) Coronavirus HKU1 (PCR) Coronavirus 229E (PCR) SARS-CoV-2 (PCR) Coronavirus NL63 (PCR) Human Metapneumovir PCR Influenza A (H1) PCR Influ A (H1N1/09) PCR Influenza A (H3) PCR Influenza Type A (PCR) Influenza Type B (PCR) M. pneumoniae (PCR) Parainfluenza 1 (PCR) Parainfluenza 2 (PCR) Parainfluenza 3 (PCR) Parainfluenza 4 (PCR) RSV (PCR) Entero/Rhino (PCR) 05/06/24 05/06/24 05/06/24 13:50 12:50 12:32 WBC 11.2 H RBC 4.11 L Hgb 11.4 L Hct 34.3 L MCV 83.5 MCH 27.7 MCHC 33.2 RDW 16.1 Plt Count 171 MPV 9.9 Neut % (Auto) 84.5 H Lymph % (Auto) 9.0 L Screven % (Auto) 4.4 Eos % (Auto) 0.5 Baso % (Auto) 0.4 Neut # (Auto) 9.5 H Lymph # (Auto) 1.0 Screven # (Auto) 0.5 Eos # (Auto) 0.1 Baso # (Auto) 0.1 PT INR Sodium 133 L Potassium 4.4 Chloride 105 Carbon Dioxide 17 L Anion Gap 15.4 H BUN 56 H Creatinine 2.80 H Estimated Creat Clear 39 Estimated GFR 22 L Est GFR ( Amer) 27 L Glucose 151 H POC Glucose Lactate 1.1 Calcium 8.8 Magnesium 1.7 Total Bilirubin 0.4 AST 36 ALT 28 Alkaline Phosphatase 90 Troponin I 0.02 NT-Pro-B Natriuret Pep 2310 H Total Protein 6.6 Albumin 3.8 Globulin 2.8 Albumin/Globulin Ratio 1.4 Procalcitonin 0.572 Urine Color Yellow Urine Appearance Clear Urine pH 5.5 Ur Specific Rudyard 1.025 Urine Protein 2+ A Urine Glucose (UA) Negative Urine Ketones Negative Urine Blood 1+ A Urine Nitrate Negative Urine Bilirubin Negative Urine Urobilinogen 0.2 Ur Leukocyte Esterase Negative Urine RBC Occasional Urine WBC Occasional Ur Squamous Epith Cells Occasional Urine Bacteria Trace Fine Granular Casts Occasional Chlamy pneumoniae PCR Not detected Adenovirus (PCR) Not detected B. pertussis DNA (PCR) Not detected Coronavirus OC43 (PCR) Not detected Coronavirus HKU1 (PCR) Not detected Coronavirus 229E (PCR) Not detected SARS-CoV-2 (PCR) Not detected Coronavirus NL63 (PCR) Not detected Human Metapneumovir PCR Not detected Influenza A (H1) PCR Not detected Influ A (H1N1/09) PCR Not detected Influenza A (H3) PCR Not detected Influenza Type A (PCR) Not detected Influenza Type B (PCR) Not detected M. pneumoniae (PCR) Detected Parainfluenza 1 (PCR) Not detected Parainfluenza 2 (PCR) Not detected Parainfluenza 3 (PCR) Not detected Parainfluenza 4 (PCR) Not detected RSV (PCR) Not detected Entero/Rhino (PCR) Not detected DS: Diagnosis Discharge Diagnosis (1) Pneumonia: Status: Acute Code(s): J18.9 - Pneumonia, unspecified organism Qualifiers: Pneumonia type: due to COVID-19 virus Qualified Code(s): U07.1 - COVID- 19; J12.82 - Pneumonia due to coronavirus disease 2019 Meds Home Medications and Allergies Home Medications ?Medication ?Instructions ?Recorded ?Confirmed ?Type hydroxychloroquine 200 mg tablet 200 mg PO BID 12/03/22 05/06/24 History fluticasone fur. 200 mcg-umeclid 1 inh inhalation DAILY #60 ea 11/23/23 05/06/24 Rx 62.5 mcg-vilant 25 mcg inhalat.powder (Trelegy Ellipta) apixaban 2.5 mg tablet (Eliquis) 2.5 mg PO BID #60 tabs 03/07/24 05/06/24 Rx metoprolol succinate 100 mg 100 mg PO DAILY #30 tabs 03/07/24 05/06/24 Rx tablet,extended release 24 hr albuterol sulfate 90 mcg/actuation 2 puff inhalation Q6HP PRN 03/17/24 05/06/24 History aerosol inhaler Shortness Of Breath Or Wheezing citalopram 20 mg tablet 20 mg PO DAILY 03/17/24 05/06/24 History insulin NPH-regular 70-30 U-100 15 unit SQ DAILY 03/17/24 05/06/24 History insulin 100 unit/mL subcutaneous pen (Humulin 70/30 U-100 KwikPen) insulin glargine 100 unit/mL (3 20 unit SQ HS 03/17/24 05/06/24 History mL) subcutaneous pen (Lantus Solostar U-100 Insulin) diazepam 2 mg tablet 2 mg PO HS #30 tabs 04/01/24 05/06/24 Rx quetiapine 25 mg tablet 50 mg (2 x 25 mg) PO HS #180 tabs 04/04/24 05/06/24 Rx furosemide 40 mg tablet (Lasix) 40 mg PO DAILY #30 tabs 04/29/24 05/06/24 Rx amlodipine 10 mg tablet 10 mg PO DAILY #30 tabs 05/02/24 05/06/24 Rx tamsulosin 0.4 mg capsule 0.8 mg PO HS 05/06/24 05/06/24 History levofloxacin 750 mg tablet 750 mg PO Q48H 4 days #2 tabs 05/07/24 Rx magnesium oxide 500 mg capsule 500 mg PO DAILY #30 caps 05/07/24 Rx nicotine 21 mg/24 hr daily 21 mg transdermal DAILY 30 days 05/07/24 Rx transdermal patch #28 ea prednisone 20 mg tablet 40 mg (2 x 20 mg) PO DAILY 3 days 05/07/24 Rx #6 tabs New Prescriptions to Start Prescriptions: levofloxacin Vamsi,Denzel magnesium oxide Vamsi,Denzel nicotine Vamsi,Denzel prednisone Vamsi,Denzel Allergies Allergy/AdvReac Type Severity Reaction Status Date / Time moxifloxacin (From Avelox) Allergy Intermediate I-RASH Verified 05/06/24 12:42 sulfamethoxazole (From Allergy Unknown UNKNOWN Verified 05/06/24 12:42 Bactrim) trimethoprim (From Bactrim) Allergy Unknown Unknown Verified 05/06/24 12:42 allergy reaction Discharge Plan Disposition Patient Disposition: Home, Self-Care Condition: Fair Follow up Plan Follow up with: Svitlana Garnica MD [Physician] - 05/11/24 (please call for an appointment.) Prescriptions/Medication Reconciliation: New nicotine 21 mg/24 hr Patch 24 Hour 21 mg transdermal DAILY 30 Days Qty: 28 0RF prednisone 20 mg Tablet 40 mg PO DAILY 3 Days Qty: 6 0RF levofloxacin 750 mg tablet 750 mg PO Q48H 4 Days Qty: 2 0RF magnesium oxide 500 mg capsule 500 mg PO DAILY Qty: 30 0RF Continued quetiapine 25 mg tablet 50 mg PO HS Qty: 180 3RF hydroxychloroquine 200 mg tablet 200 mg PO BID Patient Comments: TAKE ONE TABLET BY MOUTH TWICE DAILY Trelegy Ellipta 200-62.5-25 mcg blister with device 1 inh inhalation DAILY Qty: 60 11RF Eliquis 2.5 mg tablet 2.5 mg PO BID Qty: 60 4RF metoprolol succinate 100 mg tablet extended release 24 hr 100 mg PO DAILY Qty: 30 4RF diazepam 2 mg tablet 2 mg PO HS Qty: 30 2RF furosemide [Lasix] 40 mg tablet 40 mg PO DAILY Qty: 30 11RF amlodipine 10 mg tablet 10 mg PO DAILY Qty: 30 11RF citalopram 20 mg tablet 20 mg PO DAILY albuterol sulfate 90 mcg/actuation HFA aerosol inhaler 2 puff INHALATION Q6HP PRN (Reason: Shortness Of Breath Or Wheezing) Humulin 70/30 U-100 KwikPen 100 unit/mL (70-30) insulin pen 15 unit SQ DAILY insulin glargine [Lantus Solostar U-100 Insulin] 100 unit/mL (3 mL) insulin pen 20 unit SQ HS tamsulosin 0.4 mg capsule 0.8 mg PO HS Problem Reconciliation Problems Reviewed?: Yes Patient Discharge Instructions Patient Instructions: Chronic Lymphocytic Leukemia, DI for Heart Failure, DI for Chronic Obstructive Pulmonary Disease, DI for Pneumonia -- Adult Print Language: Albanian Providers Primary Care Provider: Racquel Orozco Admit Provider: Denzel Agustin Attending Provider: Denzel Agustin
--- NOTE | 2024-05-07 12:58 | HMH.PTEV ---
Physical Therapy Evaluation Rehab PT IP Evaluation Start: 05/07/24 11:05 Freq: ONCE Status: Active Protocol: Document 05/07/24 12:43 NANCY (Rec: 05/07/24 12:58 NANCY [id number]) Subjective/History History History Per H&P, Eder Castillo is a 74 year old male with a medical history significant for CLL on chemotherapy, COPD not on O2, type 2 diabetes, HFpEF, hypertension, Afib on Eliquis, dementia presents with 5 to 6 days of productive cough, shortness of breath. Did have a fall and diagnosed with 2 rib fractures back in March 2024 on the right side he states that they are the sixth and seventh ribs , patient denies any real abdominal pain urinary type symptomatology, denies any hematuria melena hematochezia' s or hematemesis, or hemoptysis. On arrival, patient was tachypneic in the high 20s with increased work of breathing. Given ceftriaxone and IV fluids. Respiratory panel positive for mycoplasma. Case discussed with ED provider, and given patient's, beta D send high clinical risk of decompensation, I decided to admit patient for community- acquired pneumonia. Subjective Subjective Pt is oriented to PPT x3. He reports that he lives in a home with his . He reports that prior to hospital admission, he has had no issue with mobility. He reports that he does not use an AD and requires no assistance to complete his normal ADLs. He reports that he did have a fall earlier this morning. He reports that he was in the shower and leaned forward to wash his legs and then leaned too far. He reports that he did not hurt himself. Pt and report that he did have another fall in March, which occurred after a double chemo treatment and resulted in lethargy. Pt with no other complaints this date. New diagnosis of cancer in past 12 No months? Rehab PT IP Eval Objective Appearance Patient Behavior Appropriate,Patient Baseline Patient Orientation Person,Place,Time,Birthday Difficulty following instructions none Speech Pattern Patient Baseline Ambulation Patient Able to Ambulate Yes Ambulation Observation IP General Gait Pattern Observation No Deviations/Normal Ambulation Distance (feet) 50 Ambulation Assistive Device None Ambulation Ability Supervision/Stand by Balance Ability to Arise Able, w/o using arms Sitting Balance Steady, safe Standing Balance Narrow stance w/o support Dynamic Sitting Balance Ability Good Dynamic Standing Balance Ability Good Transfers Bed Transfer Ability Supervision/Stand by Chair Transfer Ability Supervision/Stand by Sit to Stand Bed Transfer Ability Supervision/Stand by Sit to Stand Chair Transfer Ability Supervision/Stand by Rehab PT IP prob,goals,plan Problems Date of Evaluation: 05/07/24 Rehab Potential Rehab Potential Innapropriate for Skilled Therapy Discharge Plan PT Discharge Plan PT is recommending discharge to home when deemed medically stable for discharge. Pt able to ambulate 50 ft with no gait abnormalities or balance deficits throughout today's evaluation. Skilled PT is not indicated for this pt during his acute stay. Eval Complexity Eval Charge Codes 03342 - Moderate Complexity PHYSICIAN CERTIFICATION: I certify the specified therapy services for Eder Castillo are required, authorized, and reviewed every 30 days.
--- NOTE | 2024-05-09 10:47 | SW/DCPLANNER ---
Spoke with patients . Patients stated that he is doing better. Patients stated that they are aware of their upcoming appointment. Patients stated they were able to get patients new medicine picked up from clinic pharmacy. Patients stated that they have no concerns or questions at this time. Sunil ROBLERO Dock Superintendent
== END 2024-05-07 13:55 | disposition home or self-care (01) ==
LOC: ER 14:57 → 2ND 15:07
PROVIDERS: Physician Assistant; Admitting Provider Student in an Organized Health Care Education/Training Program; Emergency Provider Student in an Organized Health Care Education/Training Program; PCP Nurse Practitioner Family; Visit Provider Student in an Organized Health Care Education/Training Program
DX: J15.7 Pneumonia due to Mycoplasma pneumoniae (principal); F17.210 Nicotine dependence, cigarettes, uncomplicated; J44.1 Chronic obstructive pulmonary disease with (acute) exacerbation; E11.22 Type 2 diabetes mellitus with diabetic chronic kidney disease; I13.0 Hypertensive heart and chronic kidney disease with heart failure and stage 1 through stage 4 chronic kidney disease, or unspecified chronic kidney disease; C91.10 Chronic lymphocytic leukemia of B-cell type not having achieved remission; N18.4 Chronic kidney disease, stage 4 (severe); I50.33 Acute on chronic diastolic (congestive) heart failure; M06.9 Rheumatoid arthritis, unspecified; I48.91 Unspecified atrial fibrillation; F03.90 Unspecified dementia, unspecified severity, without behavioral disturbance, psychotic disturbance, mood disturbance, and anxiety; Z79.899 Other long term (current) drug therapy; Z86.718 Personal history of other venous thrombosis and embolism; Z79.4 Long term (current) use of insulin; Z79.01 Long term (current) use of anticoagulants; Z79.51 Long term (current) use of inhaled steroids; W18.2XXA Fall in (into) shower or empty bathtub, initial encounter; Z91.81 History of falling; Y93.E1 Activity, personal bathing and showering; Y92.231 Patient bathroom in hospital as the place of occurrence of the external cause
CPT/HCPCS: 36415; 71045; 71250; 73560; 80053; 81001; 82962; 83605; 83735; 83880; 84145; 84484; 85025; 85610; 87040; 87070; 87205; 87633; 93005; 93306; 94640; 97162; 99285; G0378; J0456; J0696; J1940; J3475; J7030; J7050; J7620

== ENCOUNTER 2024-05-12 08:51 | Emergency (ER) | payer MEDICARE, OTHER, SELFPAY ==
[2024-05-12] VITALS (13 sets, daily range): BP systolic 107–133; BP diastolic 61–85; PULSE 76–91; RESP 16–23; TEMP 36.7; O2SAT 92–98; BMI 27.7
--- NOTE | 2024-05-12 09:22 | PC.NURSE ---
FALL RISK AND ALLERGY BRACELET PLACED ON PT
--- NOTE | 2024-05-12 09:53 | ED_ITS ---
Discharge Plan Disposition Patient Disposition: Xfer Intermediate Care Fac Condition: Fair Chief Complaint: Weakness Prescriptions Prescriptions: No Action quetiapine 25 mg tablet 50 mg PO HS Qty: 180 3RF hydroxychloroquine 200 mg tablet 200 mg PO BID Patient Comments: TAKE ONE TABLET BY MOUTH TWICE DAILY Trelegy Ellipta 200-62.5-25 mcg blister with device 1 inh inhalation DAILY Qty: 60 11RF Eliquis 2.5 mg tablet 2.5 mg PO BID Qty: 60 4RF metoprolol succinate 100 mg tablet extended release 24 hr 100 mg PO DAILY Qty: 30 4RF diazepam 2 mg tablet 2 mg PO HS Qty: 30 2RF furosemide [Lasix] 40 mg tablet 40 mg PO DAILY Qty: 30 11RF amlodipine 10 mg tablet 10 mg PO DAILY Qty: 30 11RF citalopram 20 mg tablet 20 mg PO DAILY albuterol sulfate 90 mcg/actuation HFA aerosol inhaler 2 puff INHALATION Q6HP PRN (Reason: Shortness Of Breath Or Wheezing) Humulin 70/30 U-100 KwikPen 100 unit/mL (70-30) insulin pen 15 unit SQ DAILY insulin glargine [Lantus Solostar U-100 Insulin] 100 unit/mL (3 mL) insulin pen 20 unit SQ HS tamsulosin 0.4 mg capsule 0.8 mg PO HS nicotine 21 mg/24 hr Patch 24 Hour 21 mg transdermal DAILY 30 Days Qty: 28 0RF prednisone 20 mg Tablet 40 mg PO DAILY 3 Days Qty: 6 0RF levofloxacin 750 mg tablet 750 mg PO Q48H 4 Days Qty: 2 0RF magnesium oxide 500 mg capsule 500 mg PO DAILY Qty: 30 0RF Referrals Follow up/Referrals: Racquel Orozco APRN [Primary Care Provider] - See instructions Clinical Impressions Clinical Impression: Debility, Activity of daily living alteration Print Language Print Language: Italian Discharge ED Provider: Alex Lerma Adult [facility] General Chief complaint: Weakness Stated complaint: Weak, cant walk, released with pnuemonia on 05/08 Time Seen by Provider: 05/12/24 09:40 Mode of Arrival: Wheelchair Source of Information: Spouse Limitations: No Limitations Description of Symptoms (Recalled from ER Triage Doc. by RN): pt borught in to ED this am for continued weakness and worsening dementia. spouse at bedside reports pt was discharged from the hospital thursday. spouse feels that pt was discharged to early. pt does have CLL, dementia. spouse asks at bedside to have assessment done by MD and see if he suggests hospice. spouse not interested in longterm placement. pt did not receive any morning medications this am. History of Present Illness HPI narrative: Patient is a 74-year-old male with a history of CLL, dementia, COPD, hypertension, A-fib, CHF. He was recently discharged from the hospital on Thursday, per my review of the EMR, for pneumonia. At that time, was cleared by physical therapy to go home. They did not want to go to a usp facility at that time. Presented to PCP earlier this week, continued antibiotics and prednisone. Today, was confused from his baseline. Was not able to ambulate from the bed to the bathroom without urinating on himself. is concerned about taking care of him at home, denies any recent falls. Denies any recent fevers. Persistent cough that is productive. Related Data Home Medications ?Medication ?Instructions ?Recorded ?Confirmed hydroxychloroquine 200 mg tablet 200 mg PO BID 12/03/22 05/12/24 albuterol sulfate 90 mcg/actuation 2 puff inhalation Q6HP PRN 03/17/24 05/12/24 aerosol inhaler Shortness Of Breath Or Wheezing citalopram 20 mg tablet 20 mg PO DAILY 03/17/24 05/12/24 insulin NPH-regular 70-30 U-100 15 unit SQ DAILY 03/17/24 05/12/24 insulin 100 unit/mL subcutaneous pen (Humulin 70/30 U-100 KwikPen) insulin glargine 100 unit/mL (3 20 unit SQ HS 03/17/24 05/12/24 mL) subcutaneous pen (Lantus Solostar U-100 Insulin) tamsulosin 0.4 mg capsule 0.8 mg PO HS 05/06/24 05/12/24 Previous Rx's ?Medication ?Instructions ?Recorded fluticasone fur. 200 mcg-umeclid 1 inh inhalation DAILY #60 ea 11/23/23 62.5 mcg-vilant 25 mcg inhalat.powder (Trelegy Ellipta) apixaban 2.5 mg tablet (Eliquis) 2.5 mg PO BID #60 tabs 03/07/24 metoprolol succinate 100 mg 100 mg PO DAILY #30 tabs 03/07/24 tablet,extended release 24 hr diazepam 2 mg tablet 2 mg PO HS #30 tabs 04/01/24 quetiapine 25 mg tablet 50 mg (2 x 25 mg) PO HS #180 tabs 04/04/24 furosemide 40 mg tablet (Lasix) 40 mg PO DAILY #30 tabs 04/29/24 amlodipine 10 mg tablet 10 mg PO DAILY #30 tabs 05/02/24 levofloxacin 750 mg tablet 750 mg PO Q48H 4 days #2 tabs 05/07/24 magnesium oxide 500 mg capsule 500 mg PO DAILY #30 caps 05/07/24 nicotine 21 mg/24 hr daily 21 mg transdermal DAILY 30 days 05/07/24 transdermal patch #28 ea prednisone 20 mg tablet 40 mg (2 x 20 mg) PO DAILY 3 days 05/07/24 #6 tabs Allergies Allergy/AdvReac Type Severity Reaction Status Date / Time moxifloxacin (From Avelox) Allergy Intermediate I-RASH Verified 05/06/24 12:42 sulfamethoxazole (From Allergy Unknown UNKNOWN Verified 05/06/24 12:42 Bactrim) trimethoprim (From Bactrim) Allergy Unknown Unknown Verified 05/06/24 12:42 allergy reaction PFSH PFSH Disclaimer: The information contained in this section may have been updated after the patient was seen, as this information can be updated by other users. Medical History Pneumonia Left-sided epistaxis He does have poor airflow through his nasal cavity but is doing his best to keep this as moist as possible. Being on the blood thinner obviously makes the bleeding last longer but I see no signs of active eating or clot formation at this time. 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 Fajardo H/O colonoscopy 2019 History of knee replacement History of hernia repair History of nephrectomy right r/t cancer History of appendectomy Status post functional endoscopic sinus surgery Family History Father Cancer lung-Asbestos Mother Heart attack Hypertension Brother Diabetes Sister Hypertension Social History Smoking Status: Current every day smoker tobacco type: cigarettes packs per day: 1 years smoked: 40 alcohol intake: current alcohol intake frequency: holidays/special occasions only substance use type: denies use current occupational status: retired Travel in the last 8 weeks: None household members: spouse housing: house marital status: education level: high school caffeine: Yes special pilo needs: No do you feel safe at home: Yes victim of physical abuse: No victim of emotional abuse: No victim of sexual abuse: No would you like helpful sources: No Have you lived/traveled outside US in past 30 days?: No Contact w/someone who lives/traveled outside US past 30 days?: No Exposure to someone with infectious disease in past 14 days?: No Do you have a fever (greater than 100.4 F or 38 C)?: No Have you tested positive for COVID-19: No Exposed to someone with COVID-19 in past 14 days?: No Do you have a sore throat?: No Do you have a cough?: Yes Do you have any weakness?: Yes Do you have any diarrhea?: No Are you experiencing any unusual bleeding?: No Do you have any muscle aches/pain?: No Do you have any abdominal pain?: No Are you experiencing loss of taste or smell?: No Other Medical History Have you received the Flu Vaccine for this season: No Have you received the Pneumonia Vaccine: No ROS Obtained: Yes All systems reviewed & no additional complaints except as documented Physical Exam General General appearance: alert, in no apparent distress and cachectic Head Head exam: atraumatic and normocephalic Eye Eye exam: Present PERRL and EOMI ENT ENT exam: Present normal oropharynx Neck Neck exam: Present full ROM and trachea midline Chest Chest inspection: Present symmetric chest wall rise Respiratory Respiratory exam: Present other (Rhonchi bilaterally with end expiratory wheeze); Absent stridor Cardiovascular Cardiovascular exam: Present regular rate and normal rhythm Abdominal Exam Abdominal exam: Present soft; Absent distention or tenderness Extremities Exam Extremities exam: Present full ROM Neurological Exam Neurological exam: Present alert and oriented X3 Psychiatric Psychiatric exam: Present normal mood Skin Skin exam: Present warm and dry Medical Decision Making Medical Records Screening: Per USPSTF and CDC recommendations, given the prevalence of disease in our region, it is our hospital?s policy to screen for HIV and viral Hepatitis for all patients aged 18 and over and those with ongoing risk factors. Fco Inquiry Pt receiving controlled substance: No Vital Signs: 05/12/24 08:52 05/12/24 08:58 05/12/24 09:00 Temperature 98.1 F Temperature Source Oral Pulse Rate 83 76 Pulse Rate [Left Radial] 82 Respiratory Rate 16 21 Blood Pressure 131/85 131/84 Blood Pressure [Right Arm] 131/84 Blood Pressure Mean Blood Pressure Mean [Right Arm] 99 02 Sat by Pulse Oximetry 95 93 L 93 L Oxygen Delivery Method Room Air Room Air Room Air 05/12/24 09:30 05/12/24 10:00 05/12/24 11:00 Temperature Temperature Source Pulse Rate 80 82 86 Pulse Rate [Left Radial] Respiratory Rate 17 23 22 Blood Pressure 132/76 123/81 121/71 Blood Pressure [Right Arm] Blood Pressure Mean Blood Pressure Mean [Right Arm] 02 Sat by Pulse Oximetry 92 L 96 96 Oxygen Delivery Method Room Air Aerosol Mask Aerosol Mask 05/12/24 11:30 05/12/24 11:42 05/12/24 12:30 Temperature Temperature Source Pulse Rate 91 H 87 87 Pulse Rate [Left Radial] Respiratory Rate 22 22 Blood Pressure 107/66 L 128/79 116/61 Blood Pressure [Right Arm] Blood Pressure Mean 79 Blood Pressure Mean [Right Arm] 02 Sat by Pulse Oximetry 92 L 94 L 94 L Oxygen Delivery Method Aerosol Mask Aerosol Mask Room Air 05/12/24 13:00 05/12/24 13:30 05/12/24 14:00 Temperature Temperature Source Pulse Rate 87 84 84 Pulse Rate [Left Radial] Respiratory Rate Blood Pressure 126/77 121/78 133/80 Blood Pressure [Right Arm] Blood Pressure Mean 89 94 88 Blood Pressure Mean [Right Arm] 02 Sat by Pulse Oximetry 94 L 94 L 92 L Oxygen Delivery Method Room Air Room Air Room Air Lab Data Lab Results 05/12/24 09:00: WBC 9.5, RBC 4.57 L, Hgb 12.5 L, Hct 37.9 L, MCV 82.9, MCH 27.4, MCHC 33.0, RDW 16.0, Plt Count 226, MPV 9.8, Neut % (Auto) 63.3, Lymph % (Auto) 21.4, [place] % (Auto) 6.7, Eos % (Auto) 4.0, Baso % (Auto) 0.6, Neut # (Auto) 6.0, Lymph # (Auto) 2.0, [place] # (Auto) 0.6, Eos # (Auto) 0.4, Baso # (Auto) 0.1, S odium 131 L, Potassium 4.3, Chloride 101, Carbon Dioxide 21 L, Anion Gap 13.3, B UN 58 H, Creatinine 2.40 H, Estimated Creat Clear 37, Estimated GFR 27 L, Est GFR ( Amer) 32 L, Glucose 228 H, Calcium 8.9, Magnesium 1.9, Total Bilirubin 0.4, AST 24, ALT 55, Alkaline Phosphatase 116, Troponin I < 0.01, N T-Pro-B Natriuret Pep 1800 H, Total Protein 6.4, Albumin 3.7, Globulin 2.7, Albumin/Globulin Ratio 1.4, Plasma/Serum Alcohol < 10 05/12/24 10:37: VBG pH 7.34, VBG pCO2 37.6, VBG pO2 30.4, VBG HCO3 19.9 L, VBG Total CO2 21.0 L, VBG O2 Saturation 59.6, VBG Base Excess -5.9 L, VBG Lactic Acid 1.4 05/12/24 11:44: Urine Color Yellow, Urine Appearance Clear, Urine pH 6.0, Ur Specific [place] 1.025, Urine Protein 2+ A, Urine Glucose (UA) Negative, Urine Ketones Negative, Urine Blood Trace-i, Urine Nitrate Negative, Urine Bilirubin Negative, Urine Urobilinogen 0.2, Ur Leukocyte Esterase Negative, Urine RBC Occasional, Urine WBC Occasional, Ur Squamous Epith Cells None, Urine Bacteria Trace, Urine Opiates Screen Negative, Urine Methadone Screen Negative, Ur Barbituates Screen Negative, Ur Phencyclidine Scrn Negative, Ur Amphetamines Screen Negative, U Benzodiazepines Scrn Positive H, Urine Cocaine Screen Negative, U Marijuana (THC) Screen Negative 05/12/24 13:19: Lactate 0.9, Troponin I < 0.01 05/12/24 09:00 05/12/24 09:00 Orders (Tests/Meds): ED MEDICATIONS Discontinued Medications Generic Name Dose Route Start Last Admin Trade Name Freq PRN Reason Stop Dose Admin Albuterol/Ipratropium 9 ml 05/12/24 10:12 05/12/24 10:32 Ipratropium/Albuterol 3 Ml Neb IH 05/12/24 10:13 9 ml ONCE ONE Administration ORDERS Category Date Time Status CT chest wo con Stat Cat Scan 05/12/24 10:[address] head/brain wo con Stat Cat Scan 05/12/24 10:12 Completed XR chest portable Stat Exams 05/12/24 10:12 Completed BNP [NT Pro Brain Natriuretic Pep.] Stat Lab 05/12/24 09:00 Completed Complete Blood Count Auto Diff Stat Lab 05/12/24 09:00 Completed Comprehensive Metabolic Panel Stat Lab 05/12/24 09:00 Completed Drug Screen,Urine Stat Lab 05/12/24 11:44 Completed Ethyl Alcohol Stat Lab 05/12/24 09:00 Completed Lactic Acid Stat Lab 05/12/24 13:19 Completed MAG [Magnesium] Stat Lab 05/12/24 09:00 Completed Troponin I Q3H Lab 05/12/24 13:19 Completed Troponin I Q3H Lab 05/12/24 16:15 Ordered Troponin I Stat Lab 05/12/24 09:00 Completed Urinalysis and Microscopic Stat Lab 05/12/24 11:44 Completed Venous Blood Gas Stat RT 05/12/24 10:37 Completed Medical Decision Narrative: In summary, this 74-year-old man presents to the emergency department today with debility, inability to perform activities daily. On initial evaluation patient is afebrile, hemodynamically stable in no acute distress. On exam, warm well- perfused with full pulses in bilateral extremities. Moist mucous membranes. reports that he has been tolerating decent oral intake. No significant increased work of breathing, just still productive cough. Rhonchorous bilaterally than expiratory wheezing. Otherwise heart is regular rate and rhythm, no significant lower extremity edema. Differential diagnosis includes but is not limited to debility, pneumonia, acute hypoxic respiratory failure, ACS, [place]. Based on these concerns, I ordered CBC, CMP, magnesium, UDS, ammonia, VBG,. I reviewed prior records including as above in HPI. ECG personally interpreted demonstrates normal sinus rhythm with no acute ischemic ST changes and intervals are within normal limit.. Patient received DuoNebs for treatment. Labs personally reviewed demonstrate mild anemia with hemoglobin 12.5 not acutely actionable. No leukocytosis. VBG within normal limits. Creatinine chronically elevated given CKD at 2.4, similar compared with prior my review of the EMR. Lactate within normal limits. Troponin negative x 2. BNP slightly elevated at 1800, but no effusions noted on CT chest. Urinalysis negative. CT imaging personally interpreted demonstrate no acute intracranial abnormality and no acute intrathoracic process with only some mild atelectasis. Pneumonia is resolved I had an interactive discussion with hospitalist regarding patient's condition and requested admission for placement, however hospitalist recommended case management see the patient here and see if he can be placed directly from the ED. We were able to arrange that and patient was accepted at [facility].. On reassessment patient is stable, has been on room air since here. No significant change when compared with prior. Accepted to [facility] and will be transferred there in hemodynamically stable condition.. Of note, social determinants of health include inadequate insurance coverage. Critical Care Critical Care Time Critical Care Time: No
--- NOTE | 2024-05-12 10:12 | CT_ITS ---
FINAL REPORT TECHNIQUE: multiple axial CT images were performed from the foramen magnum to the vertex without enhancement. CLINICAL HISTORY: ams COMPARISON: 03/17/2024 FINDINGS: The exam is significantly degraded by patient motion. The ventricles are enlarged. There is moderate atrophy. There is a confluent of abnormal decreased attenuation throughout the deep white matter consistent with extensive changes of chronic ischemia. Nick cisterna magna is noted. There is no evidence of hemorrhage. No masses are identified. No extra-axial fluid is seen. There is new mucosal thickening in the right cell the frontal sinus, the ethmoid air cells, and maxillary sinuses consistent with chronic pansinusitis. IMPRESSION: Atrophy and chronic changes. Extensive motion artifact. Chronic pansinusitis. No acute intracranial abnormality identified. Reviewed, Interpreted and Dictated by Marcin Aguirre MD Transcribed by Princess Reno Authenticated and [facility]
--- NOTE | 2024-05-12 10:12 | XR_ITS ---
FINAL REPORT CLINICAL HISTORY: sob COMPARISON: 05/06/2024 FINDINGS: The heart size is normal. There is an endovascular stent in the proximal descending aortic arch. The mediastinum is normal. Scarring is noted at the lung bases. There is no focal infiltrate or edema. There are no pleural effusions. There is no pneumothorax. There is no osseous abnormality. IMPRESSION: No acute cardiopulmonary process Reviewed, Interpreted and Dictated by Marcin Aguirre MD Transcribed by Princess Reno Authenticated and [facility]
--- NOTE | 2024-05-12 10:12 | CT_ITS ---
FINAL REPORT TECHNIQUE: Axial images were obtained through the chest without contrast. Reconstructed images were obtained and reviewed. This study was performed with techniques to keep radiation doses as low as reasonably achievable, (ALARA). Individualized dose reduction techniques using automated exposure control or adjustment of mA and/or kV according to the patient's size were employed. CLINICAL HISTORY: sob, pna COMPARISON: 05/06/2024 FINDINGS: There are a few small scattered mediastinal lymph nodes, favor reactive. There is a proximal descending thoracic aortic endograft. There is new or increased atelectasis in the posterior left upper lobe. Groundglass opacities in both lower lobes is probably due to dependent edema. The heart size is normal. There is no pericardial or pleural effusion. Limit images of the upper abdomen demonstrate calcified granulomas in the spleen. IMPRESSION: Resolution of the previously identified right lower lobe infiltrate. New atelectasis in the lingula. Reviewed, Interpreted and Dictated by Marcin Aguirre MD Transcribed by Kelly Anderson Authenticated and [facility]
[2024-05-12 10:29] LABS: Basophils # 0.1 K/mm3 (0-0.2); Basophils % 0.6 % (0.1-2.0); Eosinophils # 0.4 K/mm3 (0.0-0.4); Hematocrit 37.9 % (42.0-52.0); Hemoglobin 12.5 g/dL (14.1-18.0); Lymphocytes % 21.4 % (10-50); Mean Corpuscular Hemoglobin 27.4 pg (27.0-31.2); Mean Corpuscular Volume 82.9 fl (80-94); Mean Platelet Volume 9.8 fl (7.4-10.4); Monocytes # 0.6 K/mm3 (0.1-1.0); Monocytes % 6.7 % (1.7-9.3); Neutrophils % 63.3 % (37.0-80.0); Platelet Count 226 K/mm3 (142-424); Red Blood Count 4.57 M/mm3 (4.60-6.20); White Blood Count 9.5 K/mm3 (4.8-10.8)
--- NOTE | 2024-05-12 10:30 | PC.NURSE ---
pt to ct via stretcher
[2024-05-12] MEDS: IPRATROPIUM/ALBUTEROL 3 ML NEB 9 ML IH (10:32)
--- NOTE | 2024-05-12 10:32 | PC.NURSE ---
pt back to room
--- NOTE | 2024-05-12 10:32 | PC.NURSE ---
PT ARRIVED BACK TO ROOM FROM CT
[2024-05-12 10:33] LABS: Alanine Aminotransferase 55 U/L (12-78); Albumin Level 3.7 g/dl (3.5-5.0); Albumin/Globulin Ratio 1.4 (1.1-1.8); Alkaline Phosphatase 116 U/L (38-126); Anion Gap 13.3 mEq/L (5-15); Aspartate Amino Transferase 24 U/L (17-59); Bilirubin,Total 0.4 mg/dl (0.2-1.3); Blood Urea Nitrogen 58 mg/dl (9-20); Calcium 8.9 mg/dl (8.4-10.2); Carbon Dioxide 21 mmol/L (22.0-30.0); Chloride 101 mmol/L (98-107); Creatinine Clearance Estimated 37 mL/min (50-200); Estimated Glomerular Filt Rate 27 ml/min (>60); GFR (African American) 32 ML/MIN (>60); Globulin 2.7 g/dL (1.3-3.2); Glucose 228 mg/dl (74-100); Magnesium 1.9 mg/dl (1.6-2.3); Potassium 4.3 mmoL/L (3.5-5.1); Sodium 131 mmol/L (136-145); Total Protein,Serum 6.4 g/dl (6.3-8.2)
[2024-05-12 10:34] LABS: Ethyl Alcohol < 10 mg/dl (0-10)
--- NOTE | 2024-05-12 10:36 | ECG_ITS ---
APPROVED REPORT Exam: Resting ECG HR:79 bpm ECG Measurements Heart Rate 79 AXES IN 165 P 60 QRSd 121 QRS 22 QT 388 T 9 QTc 423 Conclusion SINUS RHYTHM MODERATE INTRAVENTRICULAR CONDUCTION DELAY [110+ ms QRS DURATION] BORDERLINE ECG UNCONFIRMED REPORT Electronically signed by : TUCKER LI, 05/13/2024 06:52:25
--- NOTE | 2024-05-12 10:37 | PC.NURSE ---
JILLIAN and josiah farley, performed EKG, siria VBG from line and pt was placed on breathing treatment medication.
--- NOTE | 2024-05-12 10:40 | PC.NURSE ---
resp called for VBG
[2024-05-12 10:41] LABS: Lactate Venous 1.4 mmol/L (0.4-2.0); VBG Base Excess -5.9 mmol/L (-2.4-2.3); VBG HCO3 19.9 mmol/L (23-30); VBG Oxygen Saturation 59.6 % (50-70); VBG PCO2 37.6 mmol/L (35-51); VBG PH 7.34 mmol/L (7.31-7.41); VBG PO2 30.4 mmol/L (28-40)
[2024-05-12 10:41] LABS: NT Pro Brain Natriuretic Pep. 1800 pg/mL (0-125)
[2024-05-12 10:46] LABS: Troponin I < 0.01 ng/ml (0.00-0.034)
[2024-05-12 11:48] LABS: Microscopic, Urine URINE MICROSCOPIC (MICROSCOPIC)
[2024-05-12 11:50] LABS: Appearance,Urine CLEAR (Clear); Bilirubin,Urine Negative (Negative); Blood, Urine TRACE-I (Negative); Color,Urine YELLOW (Yellow); Glucose,Urine (UA) Negative (Negative); Ketones,Urine Negative (Negative); Leukocyte Esterase,Urine Negative (Negative); Nitrate,Urine Negative (Negative); Protein,Urine 2+ (Negative); Specific Gravity, Urine 1.025 (1.005-1.030); Urobilinogen,Urine 0.2 EU/dl (0.2)
[2024-05-12 12:02] LABS: Amphetamine/Metha Screen,Urine Negative ng/ml (<1000); Bacteria,Urine Trace /lpf; Benzodiazepines Screen,Urine Positive ng/ml (<200); RBC,Urine Occasional #/hpf (0-3); WBC,Urine Occasional #/hpf (0-3)
[2024-05-12 12:03] LABS: Barbiturates Screen,Urine Negative ng/ml (<200)
[2024-05-12 12:04] LABS: Cannabinoid Screen,Urine Negative ng/ml (<50); Cocaine Screen,Urine Negative ng/ml (<300)
[2024-05-12 12:05] LABS: Methadone Screen,Urine Negative ng/ml (<300)
[2024-05-12 12:06] LABS: Opiate Screen,Urine Negative ng/ml (<300); Phencyclidine Screen,Urine Negative ng/ml (<25)
--- NOTE | 2024-05-12 12:46 | PC.NURSE ---
on phone with hospitalist
--- NOTE | 2024-05-12 13:04 | PC.NURSE ---
CASE MANAGEMENT AT WITH PT
--- NOTE | 2024-05-12 13:09 | PC.NURSE ---
PATRICE ARRIETA AT BS AGAIN SPEAKING WITH PT AND
[2024-05-12 13:33] LABS: Lactic Acid 0.9 mmol/L (0.7-2.1)
--- NOTE | 2024-05-12 13:36 | PC.NURSE ---
CM updated MD about placement, at this time pt does not meet criteria for inpatient correction care. Family aware
[2024-05-12 13:54] LABS: Troponin I < 0.01 ng/ml (0.00-0.034)
--- NOTE | 2024-05-12 14:02 | SW/DCPLANNER ---
Addendum entered by Yeni Miller 05/12/24 15:35: Peggy w/ [facility] evaluated this patient at bedside and is able to accept patient today from ED. Patient/ are agreeable to placement at [facility] under private pay. Original Note: I spoke w/ this patient and his regarding plans once medically stable for discharge. Per she voiced they were interested in placement for therapy. I did explain to patient and his that due to not having a medical reason to be admitted patient will not have a qualifying stay for insurance to cover SNF level of care. did become very emotional during conversation about Medicare not covering the expense. Per patient's PCP (Racquel Norwood) did recommend Hospice services for patient. expressed they are currently not interested in Hospice and prefer placement for therapy. expressed an interest in [facility] or [facility] in [place] and currently agreeable to private pay. Patient information has been faxed to both facilities. I will continue to follow up. I also informed patient/ that I can also work on placement from home if not admitted to [facility].
--- NOTE | 2024-05-12 14:38 | PC.NURSE ---
PATRICE ARRIETA AT
--- NOTE | 2024-05-12 14:50 | PC.NURSE ---
CALLED DIETARY FOR A REGULAR TRAY FOR PT
--- NOTE | 2024-05-12 15:09 | PC.NURSE ---
[place] FROM [facility] AT SPEAKING WITH PT
--- NOTE | 2024-05-12 15:28 | PC.NURSE ---
pt accepted to [facility]. to transport.
--- NOTE | 2024-05-12 15:42 | PC.NURSE ---
[facility]. PACKET OBTAINED LABS,REPORTS, MD NOTE,DISCHARGED MEDICATIONS AND ED VISIT SUMMARY FROM TODAYS VISIT 05/12/24
--- NOTE | 2024-05-12 15:55 | PC.NURSE ---
report called to Juani @ [facility]
== END 2024-05-12 16:06 ==
PROVIDERS: Emergency Provider Emergency Medicine; PCP Nurse Practitioner Family
DX: R53.1 Weakness (principal); R41.82 Altered mental status, unspecified; R05.9 Cough, unspecified; R26.2 Difficulty in walking, not elsewhere classified; R53.81 Other malaise; F17.210 Nicotine dependence, cigarettes, uncomplicated; C91.10 Chronic lymphocytic leukemia of B-cell type not having achieved remission; J44.9 Chronic obstructive pulmonary disease, unspecified; F03.90 Unspecified dementia, unspecified severity, without behavioral disturbance, psychotic disturbance, mood disturbance, and anxiety; I48.0 Paroxysmal atrial fibrillation; I50.9 Heart failure, unspecified; Z78.9 Other specified health status
CPT/HCPCS: 70450; 71045; 71250; 80053; 80307; 80320; 81001; 82803; 83605; 83735; 83880; 84484; 85025; 93005; 99285; G0480; J7620